=== PATIENT | female | born 1935 | race Caucasian/White ===

== ENCOUNTER 2017-08-13 10:58 | Inpatient (IN) | payer MEDICARE ==
[~2017-08-13] VITALS: Ht 167.6 cm; Wt 68.3 kg
[~2017-08-13 10:58] MED LIST: ASPIRIN EC81 MG PO; CATAPRES0.1 MG PO; COLACE100 MG PO; COREG12.5 MG PO; DOXEPIN HCL25 MG PO; FLUOXETINE HCL20 MG PO; NITROFURANTOIN50 MG PO; NORCO 5-325 TA1 EACH PO; OMEPRAZOLE40 MG PO
[2017-08-13] MEDS ORDERED: ELIQUIS5 MG PO (11:10)
[2017-08-13] MEDS ORDERED: PRAVACHOL40 MG PO (11:10)
--- OUTSIDE RECORDS SUMMARY | 2017-08-13 11:15 | XMS ---
Demographics + + + | Address | [address] | | | [place] [address] | + + + | Preferred Language | Unknown | + + + | Marital Status | Unknown | + + + | Roman Catholic Affiliation | Unknown | + + + | Race | Unknown | + + + | Ethnic Group | Unknown | + + + Author + + + | Author | [facility] | + + + | Organization | [facility] | + + + | Address | [address] | | | [place] [address] | + + + | Phone | | + + + Care Team Providers + + + + | Care Irish Moss Gatherer Name | Role | Phone | + + + + Unavailable | Unavailable | + + + + PROBLEMS +---------+ + + +--------+ + + | Type | Condition | ICD9-CM | [id number] | Onset | Condition | SNOMED | | | | Code | Code | Dates | Status | Code | +---------+ + + +--------+ + + | Problem | Atrial | | I48.91 | | Active | [id number] | | | fibrillati | | | | | | | | on | | | | | | +---------+ + + +--------+ + + | Problem | GERD | | K21.9 | | Active | [id number] | | | (gastroeso | | | | | | | | phageal | | | | | | | | reflux | | | | | | | | disease) | | | | | | +---------+ + + +--------+ + + | Problem | Hypothyroi | | E03.9 | | Active | 14412807 | | | dism | | | | | | +---------+ + + +--------+ + + | Problem | Encounter | | Z13.89 | | Active | [id number] | | | for | | | | | | | | screening | | | | | | | | for other | | | | | | | | disorder | | | | | | +---------+ + + +--------+ + + | 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 | | | Active | [id number] | +---------+ + + +--------+ + + | Problem | Chronic | | N18.3 | | Active | 427503712 | | | kidney | | | | | | | | disease, | | | | | | | | stage 3 | | | | | | +---------+ + + +--------+ + + | Problem | HTN | | I10 | | Active | 54241132 | | | (hypertens | | | | | | | | ion) | | | | | | +---------+ + + +--------+ + + | Problem | Recurrent | | N39.0 | | Active | [id number] | | | UTI | | | | | | +---------+ + + +--------+ + + | Problem | Chronic | | R05 | | Active | 36329552 | | | cough | | | | | | +---------+ + + +--------+ + + | Problem | Peripheral | | G62.9 | | Active | 455606804 | | | | | | | | | | | neuropathy | | | | | | +---------+ + + +--------+ + + ALLERGIES + + + + +--------+ | Substance | Reaction | Event Type | Date | Status | + + + + +--------+ | Augmentin | Unknown | Drug Allergy | Jan, | Active | + + + + +--------+ | Simvastatin | Unknown | Drug Allergy | Jan, | Active | + + + + +--------+ | Lipitor | Unknown | Drug Allergy | 12 Jan, 2017 | Active | + + + + +--------+ SOCIAL HISTORY No smoking Hx information available PLAN OF CARE + +---------+ | Activity | Details | + +---------+ +---+ | | +---+ + + + | Follow Up | 2 Months Reason:null | + + + VITAL SIGNS + + + + | Height | 65 in | 2017-01-29 | + + + + | Weight | 154.8 lbs | 2017-01-29 | + + + + | BMI | 25.76 kg/m2 | 2017-01-29 | + + + + | Temperature | 97.7 degrees Fahrenheit | 2017-01-29 | + + + + | Heart Rate | 72 /min | 2017-01-29 | + + + + | Blood pressure systolic | 169 mm Hg | 2017-01-29 | + + + + | Blood pressure diastolic | 84 mm Hg | 2017-01-29 | + + + + MEDICATIONS + + + + +--------+ + +--------+ | Medicati | Instruct | Dosage | Frequenc | Start | End Date | Duration | Status | | on | ions | | y | Date | | | | + + + + +--------+ + +--------+ | Carvedil | Orally | 1 tablet | | | | | Active | | ol 12.5 | twice | | | | | | | | MG | daily | | | | | | | + + + + +--------+ + +--------+ | Apixaban | | | | | | | Active | | 5 MG | | | | | | | | + + + + +--------+ + +--------+ | Omeprazo | Orally | 1 | 24h | | | | Active | | le 40 MG | Once a | capsule | | | | | | | | day | | | | | | | + + + + +--------+ + +--------+ | Trimetho | Orally | 1 tablet | 24h | | | | Active | | prim 100 | Once a | | | | | | | | MG | day | | | | | | | + + + + +--------+ + +--------+ RESULTS No Results PROCEDURES + + + + + | Procedure | Date Ordered | Related Diagnosis | Body Site | + + + + + | PNEUMOCOCCAL | January 29, 2017 | | | | VACCINE | | | | + + + + + | INJECTION | January 29, 2017 | | | | ADMINISTRATION | | | | + + + + + | [facility]RG MED/CURRENT | January 29, 2017 | | | | MED MERGE | | | | + + + + + | Est Level III | January 29, 2017 | | | | Intermediate | | | | + + + + + IMMUNIZATIONS + + + + + | Vaccine | Route | Administration Date | Status | + + + + + | [id number] | IM Intramuscular | January 29, 2017 | Administered | + + + + +"
--- OUTSIDE RECORDS SUMMARY | 2017-08-13 11:15 | XMS ---
Demographics + + + | Address | [address] | | | [place] [address] | + + + | Preferred Language | Unknown | + + + | Marital Status | Unknown | + + + | Gnosticist Affiliation | Unknown | + + + | Race | Unknown | + + + | Ethnic Group | Unknown | + + + Author + + + | Author | [facility] | + + + | Organization | [facility] | + + + | Address | [address] | | | [place] [address] | + + + | Phone | | + + + Care Team Providers + + + + | Care Oil Truck Driver Name | Role | Phone | + + + + Unavailable | Unavailable | + + + + PROBLEMS + + + + + + + + | Type | Condition | ICD9-CM | [id number] | Onset | Condition | SNOMED | | | | Code | Code | Dates | Status | Code | + + + + + + + + | Problem | Atrial | | I48.91 | | Active | [id number] | | | fibrillati | | | | | | | | on | | | | | | + + + + + + + + | Problem | GERD | | K21.9 | | Active | [phone] | | | (gastroeso | | | | | | | | phageal | | | | | | | | reflux | | | | | | | | disease) | | | | | | + + + + + + + + | Problem | Hypothyroi | | E03.9 | | Active | 64964937 | | | dism | | | | | | + + + + + + + + | Assessment | Neuropathi | M79.2 | | 28 Apr, | Active | [id number] | | | c pain | | | 2016 | | | + + + + + + + + | Assessment | UTI | | N39.0 | Oct, | Active | 69187177 | | | (urinary | | | 2016 | | | | | tract | | | | | | | | infection) | | | | | | + + + + + + + + | Assessment | 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 | | 28 Oct, | Active | 828926954 | | | | | | 2016 | | | + + + + + + + + | Problem | Encounter | | Z13.89 | | Active | [phone] | | | for | | | | | | | | screening | | | | | | | | for other | | | | | | | | disorder | | | | | | + + + + + + + + | 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 | | | Active | 494947672 | + + + + + + + + | Problem | Chronic | | N18.3 | | Active | 022644548 | | | kidney | | | | | | | | disease, | | | | | | | | stage 3 | | | | | | + + + + + + + + | Problem | HTN | | I10 | | Active | 33317049 | | | (hypertens | | | | | | | | ion) | | | | | | + + + + + + + + | Problem | Recurrent | | N39.0 | | Active | 105029993 | | | UTI | | | | | | + + + + + + + + | Problem | Chronic | | R05 | | Active | 22779655 | | | cough | | | | | | + + + + + + + + | Problem | Peripheral | | G62.9 | | Active | 718039776 | | | | | | | | | | | neuropathy | | | | | | + + + + + + + + ALLERGIES + + + + +--------+ | Substance | Reaction | Event Type | Date | Status | + + + + +--------+ | Augmentin | Unknown | Drug Allergy | Oct, | Active | + + + + +--------+ | Simvastatin | Unknown | Drug Allergy | Oct, | Active | + + + + +--------+ | Lipitor | Unknown | Drug Allergy | 28 Oct, 2016 | Active | + + + + +--------+ SOCIAL HISTORY No smoking Hx information available PLAN OF CARE + +---------+ | Activity | Details | + +---------+ +---+ | | +---+ + + + | Pending Test | Ultrasound : Kidneys, bilateral | + + + | | 6 Weeks,Reason: | + + + VITAL SIGNS + + + + | Height | 65 in | 2016-11-15 | + + + + | Weight | 156 lbs | 2016-11-15 | + + + + | BMI | 25.96 kg/m2 | 2016-11-15 | + + + + | Temperature | 97.9 degrees Fahrenheit | 2016-11-15 | + + + + | Heart Rate | 79 /min | 2016-11-15 | + + + + | Blood pressure systolic | 139 mm Hg | 2016-11-15 | + + + + | Blood pressure diastolic | 76 mm Hg | 2016-11-15 | + + + + MEDICATIONS + + + + + + + +--------+ | Medicati | Instruct | Dosage | Frequenc | Start | End Date | Duration | Status | | on | ions | | y | Date | | | | + + + + + + + +--------+ | Cipro | Orally | 1 tablet | 12h | 28 Oct, | 3 November, | 5 day(s) | Active | | 500 MG | Twice a | | | 2016 | 2016 | | | | | day | | | | | | | + + + + + + + +--------+ | Trimetho | Orally | 1 tablet | 24h | | | | Active | | prim 100 | Once a | | | | | | | | MG | day | | | | | | | + + + + + + + +--------+ | Omeprazo | Orally | 1 | 24h | | | | Active | | le 40 MG | Once a | capsule | | | | | | | | day | | | | | | | + + + + + + + +--------+ | Carvedil | Orally | 1 tablet | | | | | Active | | ol 12.5 | twice | | | | | | | | MG | daily | | | | | | | + + + + + + + +--------+ | Candesar | Orally | 1 tablet | 24h | 28 Oct, | | 30 | Active | | bettencourt | Once a | | | 2017 | | day(s) | | | Cilexeti | day | | | | | | | | l 4 MG | | | | | | | | + + + + + + + +--------+ | Duloxeti | Orally | 1 | 24h | 28 Oct, | | 30 | Active | | ne HCl | once a | capsule | | 2016 | | day(s) | | | 20 MG | day | | | | | | | + + + + + + + +--------+ RESULTS No Results PROCEDURES + + + + + | Procedure | Date Ordered | Related Diagnosis | Body Site | + + + + + | Est Level IV | November 15, 2016 | | | | Extended | | | | + + + + + | DSCHRG MED/CURRENT | November 15, 2016 | | | | MED MERGE | | | | + + + + + IMMUNIZATIONS No Known Immunizations"
--- NOTE | 2017-08-13 15:25 | NUR ---
82 YEAR OLD FEMALE PATIENT ADMITTED TO CCU VIA STRETCHER UNDER DR. JEAN BAPTISTE WITH DX OF HTN/POSSIBLE STROKE. UPON ADMIT TO CCU PT IS ABLE TO FOLLOW COMMANDS, IS SOMEWHAT DELAYED AT TIMES. HAS EXPRESSIVE APHASIA. DENIES CHANEY. IVF PATENT. ADMISSION PROCESS STARTED.
--- NOTE | 2017-08-13 16:00 | NUR ---
UP TO COMMODE WITH ASSIST. IS FAIRLY STEADY ON FEET. HAVING DIFFICULTY FOLLOWING DIRECTION. FRUSTRATED AT TIMES. URINE IS FOUL SMELLING.
--- NOTE | 2017-08-13 18:36 | NUR ---
ASLEEP, NO DISTRESS NOTED. FAMILY MEMBERS ARE AT BEDSIDE. IVF INFUSING AT 75 ML/HR
--- NOTE | 2017-08-13 19:45 | NUR ---
PT RESTING IN BED AT THIS TIME WITH FAMILY IN AND OUT OF THE BEDROOM. WILL CONTINUE TO CLOSELY MONITOR. PT REPORT RECIVED FROM ELENI RN. ALL QUESTIONS ANSWERED.
--- NOTE | 2017-08-13 21:45 | NUR ---
PT RESTING IN BED. ENTERED ROOM AND WOKE PT. PT IN THE BEGINNING WAS UNABLE TO COMMUNICATE HER NEEDS. PT WOKE UP AND BECAME MORE ALERT PT WAS ABLE TO TALK EASIER. PT WAS ABLE TO FOLLOW COMMANDS FOR NEURO ASSESSMENT. PT WAS ABLE TO SQUEEZE HANDS, SHRUG SHOULDERS, SMILE, RAISE EYEBROWS,MOVE FEET ALL BEING EQUAL. PT SPEECH IS SLOW AND PT IS UNABLE TO COMMUNICATE NEED AT TIMES. PT COULD TELL ME NAME ONLY AT FIRST. PT UP TO CAMMODE WITH NO ISSUES.
--- NOTE | 2017-08-13 22:30 | NUR ---
PT ATE JELLO WITH NO ISSUES. SPEECH AND FORGETFULLNESS ARE IMPROVING SINCE WAKING UP AND TALKING WITH FAMILY. PT WAS ABLE TO TELL ME HER FULL NAME, HER KIDS NAMES, WHO ARE PRESIDENT IS. PT REMEMBERS WHAT SHE DID YESTERDAY AND REMEMBERS PARTS AND PIECES OF WHAT HAPPENED THIS MORNING. PT SPEECH IS STILL HESITANT AT TIMES AND SHE DOES HAVE A DIFFICULT TIME COMMUNICATING SOME THOUGHTS. BED ALARM ON. FAMILY AT BEDSIDE. WILL CONTINUE TO CLOSELY MONITOR PT.
--- NOTE | 2017-08-14 00:45 | NUR ---
PT ASSESSMENT COMPLETED. PT RESTING IN BED. PT NEURO ASSESMENT UNCHANGED FROM PREVIOUS ASSESSMENT. ASKED PT IF SHE NEEDE TO URINATE. PT DENIED THE NEED A THIS TIME. PT ABLE TO FOLLOW COMMANDS ONCE SHE WAS AWAKE. PT SLOW TO RESPOND AND HAS EXPRESIVE APHASIA AT TIMES. PT DENIED PAIN. PT COULD TELL ME NAME BUT WAS NOT ABLE TO TELL ME OR WHY SHE WAS IN THE HOSPITAL. BED ALARM REMAINS ON. FAMILY AT BEDSISDE. WILL CONTINUE TO CLOSELY MONITOR.
--- NOTE | 2017-08-14 02:00 | NUR ---
PT RESTING AT THIS TIME. FAMILY REMAINS AT BEDSIDE. WILL CONTINUE TO CLOSELY MONITOR. BED IN LOWEST POSITION. BED ALARM ON. CALL LIGHT IN REACH.
--- NOTE | 2017-08-14 03:35 | NUR ---
PT SET OFF BEDALARM. ENTERED ROOM AND PT SITTING UP IN BED. PT STATED SHE HAS TO PEE. ASSISTED TO CAMMODE. ONCE BACK TO BED COMPLETED ASSESSMENT. PT WAS ABLE TO FOLLOW COMMANDS WELL. WHEN ASKED QUESTIONS SUCH WHERE SHE WAS PT WAS NOT ABLE TO ANSWER. PT KNEW HER NAME AND BIRTHDAY, BUT WAS UNABLE TO ANSWER OTHER QUESTIONS. BED ALARM TURNED BACK ON. PT RESTING IN BED. WILL CONTINUE TO CLOSELY MONITOR.
--- NOTE | 2017-08-14 06:43 | NUR ---
ASSISTED TPT UP TO BEDSIDE CAMMODE. PT TOLERATED WELL. WILL CONTINUE TO CLOSELY MONITOR.
--- NOTE | 2017-08-14 08:37 | NUR ---
report received from night baker, patient in bed sitting up getting ready to eat breakfast. family member in room. patient can tell me name and part of her date of . has some word salad. strength in extremeties equal.
--- NOTE | 2017-08-14 08:40 | NUR ---
ECHO STARTED IN PATIENT ROOM.
--- NOTE | 2017-08-14 08:48 | NUR ---
JULIANNE AREA NOT ASSESSED YET THIS AM. MICH PANTS ON AND PATIENT/ FAMILY STATES NO BREAKDOWN OR ISSUES IN JULIANNE AREA. WILL ASSESS WHEN PATIENT UP TO BATHROOM AGAIN THIS AM.
--- NOTE | 2017-08-14 10:07 | NUR ---
Dr Clement just finished rounding on patient. new orders to transfer patient to med/surg
--- NOTE | 2017-08-14 10:39 | NUR ---
to MRI after using the commode and having large BM and urine.
--- NOTE | 2017-08-14 10:49 | NUR ---
report given to Margarette NEWSOME on med/surg, patient will be taken to room 111 after MRI complete.
--- NOTE | 2017-08-14 11:29 | NUR ---
PATIENT CONTINUES TO HAVE COMPLAINTS OF HEADACHE, APPEARS TO BE HAVING PAIN BEHIND EYES AND THROBBING AROUND. DISCUSSED TYENOL THAT WAS ADMINISTERED AN HOUR AGO. MRI DONE, PATIENT TO THIS ROOM. VS STABLE FOR PATIENT. STATES " WHEN I COUGH, IT MAKES MY THIS HURT REALLY BAD" PATIENT THEN POINTS TO HER NECK.
[2017-08-14] MEDS ORDERED: PLAVIX75 MG PO (12:30)
--- NOTE | 2017-08-14 12:31 | NUR ---
MED REC COMPLETE
--- NOTE | 2017-08-14 14:37 | NUR ---
PT IS RESTING IN BED SAFELY WITH CALL LIGHT IN REACH. PT DID NOT NEED ANYTHING AT THE MOMENT
--- NOTE | 2017-08-14 15:53 | EKG ---
[facility] [address] [place] [address] Signed Atrial fibrillation with rapid ventricular response Abnormal ECG No previous ECGs available Confirmed by NEVA JEAN BAPTISTE MD ([id number]) on 08/14/2017 3:53:07 PM Electronically Signed By: NEVA JEAN BAPTISTE MD 08/14/17 1553 PATIENT NAME: JAYDEN BULLOCK Electrocardiogram DATE OF : 35 PHYSICIAN: NEVA JEAN BAPTISTE MD REPORT #: [id number] REPORT IS CONFIDENTIAL AND NOT TO BE RELEASED WITHOUT AUTHORIZATION
--- NOTE | 2017-08-14 16:14 | NUR ---
NEURO CHECK UNCHANGED, PATIENT APPEARS TO HAVE STRONG EMMA STRENGTH. VS STABLE. FAMILY IN ROOM. PATIENT ABLE TO COMMUNICATE NEEDS. STATES " I WISH I WAS DOING BETTER WITH PHYSCIAL THERAPY."
--- NOTE | 2017-08-14 17:48 | NUR ---
PT IS SITTING UP ON THE SIDE OF BED. FAMILY IN ROOM, CALL LIGHT IN REACH. PT DID NOT NEED ANYTHING ELSE AT THE MOMENT
--- NOTE | 2017-08-14 19:05 | NUR ---
RECEIVED REPORT, PT IS AWAKE IN BED WITH MANY VISITORS IN THE ROOM. SHE HAS NO COMPLAINTS OF PAIN OR ANY REQUESTS AT THIS TIME. CALL LIGHT IS WITHIN REACH.
--- NOTE | 2017-08-14 19:44 | NUR ---
PATIENT TRANSFER TO FLOOR FROM CCU THIS AFTERNOON. NEURO CHECKS INSIGNIFICANT, HOWEVER PATIENT DOES HAVE TROUBLE FINDING WORDS AT TIMES WHEN COMMUNICATING. VS STABLE, NOTED STABLE HTN. PATIENT AMBULATING WITH PHYSICAL THERAPY, AND WAS ABLE TO TO GO UP AND DOWN STAIRS. PATIENT HAS LOTS OF FAMILY AT BEDSIDE. COMPLAINTS OF HEADACHE THROUGHOUT DAY, ADMINISTERED PAIN MEDICAITON,EFFECTIVE. PAIN GOAL IS A 3, NOW RATES PAIN 2/10 ON PAIN SCALE.
--- NOTE | 2017-08-14 20:05 | NUR ---
PATIENT ASSISTED TO THE RESTROOM. PATIENT IS A 1PA. PATIENT DOES SWAY WITH AMBULATING. PATIENT DID TRY TO SIT ON SHOWER CHAIR. PATIENT REDIRECTED TO THE TOILET. PATIENT WAS ABLE TO VOID. PATIENT IS NOW BACK IN BED RESTING. PATIENT STATED "I JUST FEEL IN A FOG". PATIENT DENIES ANY DIZZINESS OR LIGHTHEADEDNESS. PATIENT HAS FAMILY IN THE ROOM. PATIENT AND FAMILY DENIES ANY FURTHER NEEDS. CALL LIGHT IN REACH.
--- NOTE | 2017-08-14 22:15 | NUR ---
PT'S EXTENDED FAMILY HAS LEFT BUT DAUGHTER REMAINS IN THE ROOM AND WILL STAY THE NIGHT. WOKE PT TO COMPLETE ASSESSMENT SHE WAS BUSY VISITING EARLIER. UPON WAKING PT WAS SLIGHTLY CONFUSED BUT REORIENTED WELL. PUPILS ARE EQUAL ROUND AND REACTIVE TO LIGHT, PT'S CERTIFIED CONTROL SYSTEMS TECHNICIAN STRENGTHS IS GOOD AND SHE STATES NO PROBLEMS WITH CMS. PT STATES HER HEADACHE IS GONE AND HAS NO OTHER COMPLAINTS OF PAIN. VS STABLE BUT BP IS ELEVATED IT HAS BEEN TRENDING HIGH. EVENING MEDICATIONS WERE GIVEN A LITTLE EARLIER. PT HAS NO REQUESTS AT THIS TIME. HOB IS ELEVATED, AND CALL LIGHT IS WITHIN REACH. PTS DAUGHTER IS IN ROOM.
--- NOTE | 2017-08-15 01:17 | NUR ---
PT IS RESTING WITH EYES CLOSED, RESPIRATIONS EVEN AND NONLABORED. PT'S DAUGHTER IS IN ROOM AND CALL LIGHT IS WITHIN REACH.
--- NOTE | 2017-08-15 03:40 | NUR ---
PT IS RESTING WITH EYES CLOSED, RESPIRATIONS EVEN AND NONLABORED. DAUGHTER IS IN ROOM AND CALL LIGHT IS WITHIN REACH.
--- NOTE | 2017-08-15 05:19 | NUR ---
PT SLEPT WELL THROUGH THE NIGHT WITH DAUGHTER IN ROOM. HER BP HAS DECREASED TO 152/71 AND PT REPORTS NO PAIN OR HEADACHES AT THIS TIME. PT VOIDED A COUPLE OF TIMES THROUGH THE NIGHT WITH HELP OF DAUGHTER WITH URINE UNMEASURED BUT NO WORRIES OF INSUFFICIENT URINE OUTPUT. TENTER FRAME OPERATOR STRENGTH IS GOOD AND PT CONTINUES TO HAVE EXPRESIVE APHASIA. WILL CONTINUE TO MONITOR.
--- NOTE | 2017-08-15 09:51 | NUR ---
PATIENT UP THIS MORNING TO BATHROOM, NOTED URINE MIXED WITH BM. DAUGHTER REPORTS CONCERNS OF PATIENT NOT GOING TO THE BATHROOM MUCH SHE USUALLY DOES AND COLOR OF URINE. ENCOURAGED PATIENT TO DRINK MORE FLUIDS. ADMINISTERED MORNING MEDICATIONS. PATIENT COMPLAINTS OF HEADACHE, REQUESTED TYLENOL. PATIENT ATTEMPTED TO SIT UP IN RECLINER, HOWEVER LESS THEN 5 MINUTES AND PATIENT WENT BACK TO BED. NOW RESTING WITH EYES CLOSED. VS STABLE. ATTEMPTED NEUROS, PATIENT STATED " I JUST CANT WITH MY HEAD HURTING". OFFERED NARCOTIC PAIN RELIEF, PATIENT REFUSED AT THIS TIME. FACTORY FOCUS TECHNICIAN STRONG EMMA, PATIENT STATES RIGHT SIDE OF HEAD IS POUNDING.
--- NOTE | 2017-08-15 13:49 | NUR ---
DR. JEAN BAPTISTE ROUNDED ON PATIENT. DISCUSSED POC, BRANDIE ANTISQUEAK APPLIER PRESENT. DISCUSSED CONTINUING INPATIENT REHAB AND THEN DISCHARGING TO [facility] WHEN BED IS AVAILABLE. PATIENT PARTICIPATED IN DISCUSSION AND ABLE TO PROVIDE FEEDBACK. PATIENT APPEARS TO HAVE SOME RIGHT SIDED VISION DEFICITS AND WAS NOT ABLE TO FOLLOW 2 OR 3 STEP COMMANDS. FAMILY PRESENT IN ROOM. ORDERED PATIENT SOME LUNCH.
--- NOTE | 2017-08-15 14:00 | NUR ---
CARE CONFERENCE ATTENDEES: PATIENT, PTS MANY DAUGHTERS AND HER SON. STAFF: DR JEAN BAPTISTE, MYSELF CASE MANAGEMENT, PATRICIA [facility] RN DR JEAN BAPTISTE DISCUSSING WITH PT AND HER FAMILY THE RESULTS OF HER TESTS THAT SHE HAD AND HER DIAGNOSIS AND HER THERAPIES. WE DISCUSSED HER DC DISPOSITION. HER FAMILY WOULD LIKE HER TO GO TO [facility] IN REHAB S THEIR FATHER, THE PT HAD BEEN THERE FOR REHAB AND THE PTS NEUROLOGIST, LICENSED MORTGAGE LOAN OFFICER ARE THERE ALSO. EXPRESSED HOW HE FEELS THE PT WOULD BENEFIT FROM CONT INPT REHABILITATION FACILITY.
--- NOTE | 2017-08-15 14:16 | NUR ---
ST VISIT ATTEMPTED; PT VISITING WITH FAMILY AND HAVING NOON MEAL. WILL ATTEMPT REVISIT AT ANOTHER TIME. MS PAM CCC-NURSING CLERK
--- NOTE | 2017-08-15 14:55 | NUR ---
FAXED CHART NOTES TO [facility] INPT REHAB INCLUDING FACESHEET, ER NOTES, H AND P, PROG NOTES, IMAGING NOTES, PT, OT, AND ST EVALS AND NOTES. RECIEVED A FAX CONFIRMATION.
--- NOTE | 2017-08-15 15:30 | NUR ---
PATIENT RESTING WITH EYES CLOSED. FAMILY AT BEDSIDE. DISCUSSED PLANS FOR SHOWERING WHEN PATIENT UP TO BATHROOM. PATIENT VOIDING WELL. HEADACHE RESOLVED FOR NOW. STBY ASSIST.
--- NOTE | 2017-08-15 17:45 | NUR ---
PATIENT UP AMBULATING IN ROOM, REFUSED SHOWER FOR DAY SHIFT. EATING WELL, VOIDING WELL. HAS HAD 3 EPISODES OF LOOSE STOOLS. PATIENT APPEARS TO BE IMPROVING. SOME WORD SALAD AND TROUBLE FINDING WORDS, APPEARS TO BE COPING WELL, WILL LAUGH AND SMILE AT TIMES WHEN FRUSTRATED. GOOD FAMILY SUPPORT.
--- NOTE | 2017-08-15 19:05 | NUR ---
ROUNDED CHARGE. PATIENT IS RESTING IN BED. PATIENT HAS FAMILY MEMBERS AT THE BEDSIDE. PATIENT AND FAMILY DENY AND COMMENTS, QUESTIONS, OR CONCERNS. CALL LIGHT IN REACH.
--- NOTE | 2017-08-15 19:10 | NUR ---
BEDSIDE REPORT RECEIVED FROM MERCEDEZ BUTLER. PT SITTING UP AT SIDE OF BED, FAMILY IN ROOM. PT ASKING QUESTIONS REGARDING BLOOD PRESSURE, EXPRESSIVE APHASIA EVIDENT. ASSESSED PAIN, PT STATES SHE HAS A HEADACHE, RATES PAIN 3/10 IN LEFT BAPTIST AREA. ADMINISTERED 500 MG PRN ACETAMINOPHEN AT THIST TIME. PT HAS CALL LIGHT IN REACH, FAMILY WILL ASSIST TO SHOWER PT. GAVE PT CONDITIONER FOR HAIR.
--- NOTE | 2017-08-15 19:57 | NUR ---
IN PT ROOM, PT OUT OF SHOWER, GAVE PT TWO WARM BLANKETS, EMPTIED PTS URINE HAT, 250 ML VOID. DAUGHTERS IN ROOM. PT HAS WATER ON BEDSIDE TABLE. CALL LIGHT IN REACH.
--- NOTE | 2017-08-15 20:49 | NUR ---
A FAMILY MEMBER CAME OUT OF PTS ROOM AND TOLD ME TO GET RID OF PTS PEPSI AND TO NOT LET HER HAVE ANY MORE. I DUMPED PEPSI OUT AND TOLD HER RN.
--- NOTE | 2017-08-15 21:39 | NUR ---
PT ASSESSMENT AND VITALS COMPLETE. BP 153/78, HR 87, 98% SPO2 ON ROOM AIR, RR 18, BREATHING NON LABORED, AFEBRILE. PT CONTINUES TO HAVE EXPRESSIVE APHASIA. ORIENTED TO PERSON, AND PLACE. PT IS NOT ABLE TO STATE EXACT DATE, PIECES OF DATE AT TIMES. PERRL, VISUAL DEFICIT IN RIGHT LOWER QUADRANT, FAMILY CONCERNED WITH VISUAL DEFICIENCY, UNDERSTANDING OF STROKE EDUCATION. PT NOT ABLE TO DISCERN RIGHT FROM LEFT. CANNOT COVER LEFT EYE WITH RIGHT HAND. CSM INTACT BILATERALLY UPPER AND LOWER EXTERMITIES, PT CAN STATE WHEN TOUCH IS FELT, CANNOT STATE RIGHT OR LEFT LEG OR HAND BEING TOUCHED. PT IS STRONG BILATERALLY UPPER AND LOWER EXTREMITIES, STEADY GAIT. LUNGS CLEAR THROUGHOUT ALL LOBES. PT IN BED, GIVEN CLEAR ENSURE AND FRESH ICE WATER. DAUGHTER AT BEDSIDE. LIGHTS OFF IN ROOM.
--- NOTE | 2017-08-15 23:20 | NUR ---
PT SLEEPING AT THIS TIME, RR 16, BREATHING NON-LABORED. PTS DAUGHTER ON COUCH. LIGHTS OFF IN ROOM.
--- NOTE | 2017-08-16 02:18 | NUR ---
IN PT ROOM. PT SLEEPING, DAUGHTER AWAKE ON COUCH, PT AWAKES TO VOICE. DAUGHTER STATES PT WAS INCONTINENT IN BRIEF, CHANGED JULIANNE PAD, SMALL VOID EMPTIED FROM URINE HAT. PTS LUNGS CLEAR, PT CONTINUES TO HAVE EXPRESSIVE APHASIA. BP 144/66 (85), HR IRREGULAR 60S-70S. PT BACK TO SLEEP, LIGHTS OFF IN ROOM. WILL CONTINUE TO MONITOR.
--- NOTE | 2017-08-16 05:25 | NUR ---
MORNING ASSESSMENT COMPLETE. EXPRESSIVE APHASIA NOTED, PT ABLE TO STATE THAT IT IS FRIDAY TODAY. PT NOT ABLE TO STATE EXACT DATE, NOT ORIENTED TO PLACE, EVENT. PT DOES KNOW NAME. RIGHT SIDED VISUAL NEGLECT NOTED, HEMANOPIA, SENSATION INTACT BILATERALLY UPPER AND LOWER EXTREMITIES. PT HAS NORMAL STRENGTH BILATERALLY UPPER AND LOWER EXTREMITIES, SHAKY WITH MOVEMENT TO RIGHT. PT UP TO RESTROOM TO WASH FACE, TAKE OUT DENTURES. GAIT IS STEADY, SBA. PTS DAUGHTER IN ROOM. BROUGHT DAUGHTER HOT WATER FOR TEA AND PT HOT CHOCOLATE REQUESTED, PT DENIES PAIN. CALL LIGHT GIVEN TO PT.
--- NOTE | 2017-08-16 06:20 | NUR ---
PT UP WALKING HALLWAY WITH DAUGHTER, GAIT STEADY, NON-SLIP SOCKS ON.
--- NOTE | 2017-08-16 06:35 | NUR ---
PT ALERT, ORIENTED TO SELF AND DAY. PT NOT ABLE TO STATE LOCATION, EVENT, OR EXACT DATE. RIGHT SIDED HEMIANOPIA NOTED. NORMAL STRENGTH BILATERALLY UPPER AND LOWER EXTREMITIES, SENSATION INTACT. PT AMBULATED HALLWAY WITH SBA X 2 WITH DAUGHTER. PT HAD SHOWER. UP TO RESTROOM FOR VOIDS, CONTINUES TO HAVE SOME DRIBBLING, INCONTINENCE IN JULIANNE PAD. PT RECEIVED TYLENOL X 1 FOR CHANEY.
--- NOTE | 2017-08-16 08:45 | NUR ---
PT IN BED SLEEPING. DAUGHTER IN ROOM WANTS TO LET HER SLEEP.
--- NOTE | 2017-08-16 10:00 | NUR ---
PATIENT UP WITH DAUGHTER WORKING ON LANGUAGE. PATIENT APPEARS TO BE DOING WELL HAVING A HARD TIME SAYING SKUNK, BUT CONTINUES TO TRY, LAUGHING. KEEPING GOOD SENSE OF HUMOR. NO HEADACHE THIS MORNING. UP WITH PHYSICAL THERAPY. FULL BODY ASSESMENT DONE.
--- NOTE | 2017-08-16 10:18 | NUR ---
VITALS DONE BY NURSE AND I AND O
--- NOTE | 2017-08-16 12:26 | NUR ---
PT DOING WELL. DAUGHTER IN ROOM W/ THERE DR. MOE HAS CALL LIGHT IN REACH
--- NOTE | 2017-08-16 13:56 | NUR ---
TOOK PATEINT SOME FRESH ICE WATER
--- NOTE | 2017-08-16 14:18 | NUR ---
NOTIFIED DR. JEAN BAPTISTE PATIENT BP 122/58 MANUL BP. ORDER HOLD COREG AT THIS TIME. INFORMED PATIENT, VERBALIZED UNDERSTANDING.
--- NOTE | 2017-08-16 16:15 | NUR ---
PT IN CHAIR. DOING WELL. FAMILY IN ROOM.
--- NOTE | 2017-08-16 18:00 | NUR ---
PATIENT HAD UNEVENTFL DAY, WORKED WITH PHYSICAL THERAPY. HEADACHE IMPROVED, NOT THROBBING. VS STABLE. FAMILY AT BEDSIDE.
--- NOTE | 2017-08-16 19:02 | NUR ---
PT DOING WELL. UP IN CHAIR. TOOK DINNER TRAY. FRESH ICE WATER. FAILY IN ROOM
--- NOTE | 2017-08-16 19:25 | NUR ---
BEDSIDE REPORT RECEIVED FROM MERCEDEZ BUTLER. PT FAMILY IN ROOM. PT LYING IN BED, HOB ELEVATED. PT DENIES A CHANEY AT THIS TIME, DENIES ANY PAIN. PT GIVEN CALL LIGHT AND INSTRUCTED TO CALL FOR ANY NEEDS. WILL CONTINUE TO MONITOR.
--- NOTE | 2017-08-16 21:00 | NUR ---
PT ASSESSMENT COMPLETE. PT DENIES CHANEY, DENIES PAIN. PT CONTINUES TO HAVE EXPRESSIVE APHASIA. ORIENTED TO DAY, STATES "ITS FRIDAY". PT ABLE TO STATE NAME, PARTIALLY ABLE TO STATE HOSPITAL NAME, DIFFICULTY FINISHING WORD. PT CONTINUES TO HAVE HEMIANOPSIA. CSM INTACT BILATERALLY UPPER AND LOWER EXTREMITIES. PT GIVEN CURTIS ENSURE TO DRINK, FRESH ICE WATER. FAMILY IN ROOM VISITING WITH PT. CALL LIGHT IN REACH.
--- NOTE | 2017-08-16 23:49 | NUR ---
PT SLEEPING, SNORING, VISIBLE CHEST RISE, LIGHTS OFF IN ROOM. DAUGHTER SLEEPING ON COUCH.
--- NOTE | 2017-08-17 00:09 | NUR ---
VITALS AND I&OS DONE AND CHARTED. PT NEEDED NOTHING AT THE TIME WHEN ASKED. BEDSIDE AND CALL LIGHT WITHIN REACH.
--- NOTE | 2017-08-17 01:55 | NUR ---
IN ROOM TO ASSESS PT. PT SLEEPING, AWAKENS TO VOICE. SPEECH EXPRESSIVE APHASIA, FACE IS SYMMETRICAL. PT DROWSY. PT REFUSES TO USE RESTROOM AT THIS TIME, REQUESTING TO SLEEP AT THIS TIME. LUNGS CLEAR THROUGHOUT ALL LOBES, HR IRREGULAR, BOWEL TONES ACTIVE. PT DENIES PAIN. ALTERNATIVE DISPUTE RESOLUTION MEDIATOR OCTOBER IN ROOM FOR VITALS. BP 151/86, 95% SPO2 ON ROOM AIR, HR IN MID 80S. CALL LIGHT IN REACH, LIGHTS OFF IN ROOM, DAUGHTER SLEEPING ON COUCH.
--- NOTE | 2017-08-17 02:13 | NUR ---
VITALS DONE AND CHARTED. BEDSIDE TABLE AND CALL LIGHT WITHIN REACH.
--- NOTE | 2017-08-17 04:50 | NUR ---
ASSISTED PT TO RESTROOM TO VOID WITH SBA. PT PERFORMED ORAL CARE, WASHED FACE INDEPENDENTLY. PT NOW UP IN CHAIR, GIVEN HOT CHOCOLATE, NO ADDITIONAL REQUESTS AT THIS TIME. CALL LIGHT, PERSONAL SUPPLIES IN REACH.
--- NOTE | 2017-08-17 06:10 | NUR ---
PT ASSESSMENT COMPLETE. PT CONTINUES TO HAVE EXPRESSIVE APHASIA AND RIGHT SIDED NEGLECT VISUALLY. LUNGS CLEAR THROUGHOUT, HR IRREGULAR. PT REQUESTING TOAST WITH BUTTER FOR BREAKFAST, DIFFICULTY SAYING BUTTER. ALSO WANTING JUICE,GIVEN CURTIS ENSURE. PT GIVEN CALL LIGHT, SITTING UP IN CHAIR, DAUGHTER ON COUCH.
--- NOTE | 2017-08-17 07:03 | NUR ---
PT SLEPT WELL THROUGHOUT SHIFT. CONTINUES TO HAVE EXPRESSIVE APHASIA, RIGHT SIDED NEGLECT WITH VISION. SBA, GAIT UNSTEADY WITH DEFICIT. DAUGHTER IN ROOM THROUGHOUT NIGHT. PT AMBULATING TO RESTROOM FOR VOIDS. JULIANNE PAD IN PLACE FOR INCONTINENCE.
--- NOTE | 2017-08-17 07:58 | NUR ---
PATIENT SITTING UP ON SIDE OF BED. WHITEBOARD UPDATED.
--- NOTE | 2017-08-17 08:00 | NUR ---
PATIENT ORDERED TOAST FOR BREAKFAST. PATIENT VS STABLE THIS MORNING. HARDEEP SOUNDS C/D/I. VS STABLE. NO COMPLAINTS OF PAIN OR HEADACHE THIS MORNING. SET PATIENT UP FOR SHOWER.
--- NOTE | 2017-08-17 13:00 | NUR ---
PATIENT UP WITH PHYSICAL THERAPY, INDEPENDANT IN ROOM. VS STABLE. NO COMPLAINTS OF PAIN. CONTINUES TO HAVE EXPRESSIVE EPHASIA. NO HEAD ACHE. PATIENT REPORTS FEELING " BETTER". FAMILY ANXIOUS TO HAVE PATIENT MOVED TO [facility].
--- NOTE | 2017-08-17 18:56 | NUR ---
PATIENT UP THROUGHOUT DAY, INDEPENDANT IN ROOM. PATIENT COMMUNICATING WITH FAMILY, CONTINUES TO HAVE EXPRESSIVE EPHASIA. PATIENT APPEARS CALM AND HAVING GOOD HUMOR WITH CONDITION. PLAN TO TRANSFER TO [facility] IN [facility] WHEN BED IS AVAILABLE.
--- NOTE | 2017-08-17 19:52 | NUR ---
RECEIVED REPORT FROM DAY SHIFT RN. PATIENT IS RESTING IN BED WATCHING TV WITH SON AT THE BEDSIDE. PATIENT DENIES ANY NEEDS AT THIS TIME. CALL LIGHT IN REACH.
--- NOTE | 2017-08-17 21:02 | NUR ---
PATIENT ASSESMENT COMPLETED. PATIENTS EVENING MEDICATIONS GIVEN PER ORDER. PATIENT DENIES ANY PAIN OR HEADACHE AT THIS TIME. PATIENT CONTINUES TO STRUGGLE TO FIND CORRECT WORDS AT TIMES. PATIENT CONTINUES TO HAVE A TROUBLE WITH HER VISION IN HER RIGHT EYE. PATIENT IS VERY GOOD NATURED ABOUT HER CURRENT CONDITION. PATIENT SON IS IN THE ROOM AND NELLY BE STAYING THE NIGHT. PATIENT DENIES ANY NEEDS AT THIS TIME. CALL LIGHT IN REACH.
--- NOTE | 2017-08-17 23:32 | NUR ---
PATIENT IS RESTING IN BED WITH EYES CLOSED. BREATHING IS EVEN AND UNLABORED, RR 17. SON IS ASLEEP ON THE COUCH. CALL LIGHT IN REACH.
--- NOTE | 2017-08-18 01:16 | NUR ---
PATIENT IS RESTING IN BED WITH EYES CLOSED, RR 17. CALL LIGHT IN REACH.
--- NOTE | 2017-08-18 03:03 | NUR ---
PATIENT AWOKE WHEN ROOM WAS ENETERD. PATIENT DENIES ANY PAIN. NO FURTHER NEEDS NOTED. CALL LIGHT IN REACH. SON ASLEEP ON THE COUCH.
--- NOTE | 2017-08-18 04:49 | NUR ---
PATIENT RESTED WELL THROUGHOUT THE SHIFT. PATIENT IS A SBA AND FAMILY ASSISTS PATIENT TO THE RESTROOM. PATIENT IS INCONTINENT AT TIMES. PATIENT IS ON A CARDIAC DIET. PATIENT IS DENIED ANY HEADAHCE OR PAIN. PATIENT IS AAOX3 AND USES CALL LIGHT APPROPRIATELY. PATIENT DOES HAVE SOME RIGHT SIDED VISUAL DEFICITS AND EXPRESSIVE APHASIA. PATIENT IS GOOD NATURED. PATIENTS SON STAYED WITH PATIENT.
--- NOTE | 2017-08-18 06:33 | NUR ---
VITALS AND I&OS DONE AND CHARTED. PT NEEDS NOTHING ELSE AT THIS TIME. FAMILY IN ROOM. BEDSIDE TABLE AND CALL LIGHT WITHIN REACH.
--- NOTE | 2017-08-18 06:41 | NUR ---
PATIENT IS RESTING IN BED WATCHING TV. PATIENT DENIES ANY NEEDS AT THIS TIME. PATIENTS SON REMAINS IN THE ROOM. CALL LIGHT IN REACH.
--- NOTE | 2017-08-18 08:30 | NUR ---
PATIENT IS VISITING WITH FAMILY AND EATING WELL. PATIENT DOES HAVE SOME TROUBLE SEEING OUT OF THE OUTER CCORNER OF HER RIGHT EYE. PATIENT HAS EXPRESSIVE APHASIA, BUT KNOWS THIS AND WILL THINK OF ANOTHER WAY TO SAY WHAT SHE IS TRYING TO GET ACROSS AND SHE CAN USUALLY DO THAT WITHOUT MUCH DIFFICULTY.
--- NOTE | 2017-08-18 11:00 | NUR ---
PATIENT SITTING UP IN THE CHAIR WATCHING TV. PATIENT SAID SHE DOES NOT NEED ANYTHING AND STILL SAYS SHE IS HAVING NO PAIN.
--- NOTE | 2017-08-18 12:50 | NUR ---
TALKED WITH PT SON JUSTIN IN THE ROOM WITH THE PT ABOUT [facility] NOT TAKING HIS MOTHER. TOLD HIM I SENT [facility]WORK [facility] IN REHAB AFTER TALKING WITH THEIR ADMISSION COORDINATOR, PJ. JUSTIN SAID THAT WAS A GOOD IDEA AND HE IS LOOKING FOR OTHER OPTIONS FOR HIS MOTHER, [place] IN [place] WHERE HE LIVES.
--- NOTE | 2017-08-18 13:00 | NUR ---
PATIENT IS VISITING IN HER ROOM WITH FAMILY. PATIENT HAS NOT HAD ANY PAIN AND SEEMS TO BE DOING WELL. INDEPENDENT IN ROOM WITH FAMILY.
--- NOTE | 2017-08-18 13:40 | NUR ---
1310 RECIEVED VERBAL CONFIRMATION FROM [facility] THAT THEY WILL ACCEPT THE PT PENDING AUTHORIZATION FROM HER INSURANCE. TALKED AGAIN WITH THE SON AND INFORMED HIM THAT [facility] HAD CALLED AND ACCEPTED HIS MOTHER PENDING AUTH FROM THE INSURANCE CO. HE SAID THAT WOULD BE GREAT. SO WE ARE WAITING TO HEAR FROM [facility].
--- NOTE | 2017-08-18 13:51 | NUR ---
PT SITTING ON COUCH, ALERT AND ORIENTED. SON JUSTIN VISITING, DR JEAN BAPTISTE HAD JUST LEFT. SAID JUSTIN SALVADOR REMEMBERED ME. PT SAID SHE IS WORKING HARD AT GETTING BETTER-IMPROVE EACH DAY. EXTENDED A BLESSING, AND LET THEM CONTINUE TO VISIT. WILL FOLLOW NEEDED
--- NOTE | 2017-08-18 14:29 | NUR ---
PATIENT VISITING WITH SON AND LOOKING AT PICTURES ON A WIRELESS DEVICE. HAS NO COMPLAINTS AND IS PAIN FREE.
[2017-08-18] MEDS ORDERED: COREG12.5 MG PO (15:10)
[2017-08-18] MEDS ORDERED: MAPAP500 M1 PO (15:11)
[2017-08-18] MEDS ORDERED: MILK OF MA400 MG/5 M PO (15:11)
== END 2017-08-18 16:30 | disposition home or self-care (01) | DRG 64 ==
LOC: ED 10:58 → MS 14:23 → CCU 14:23 → MS 08-14 10:50
PROVIDERS: ADMIT Internal Medicine
DX: I63.232 Cerebral infarction due to unspecified occlusion or stenosis of left carotid arteries (principal); G93.40 Encephalopathy, unspecified; I25.10 Atherosclerotic heart disease of native coronary artery without angina pectoris; K21.9 Gastro-esophageal reflux disease without esophagitis; R47.01 Aphasia; E78.5 Hyperlipidemia, unspecified; I10 Essential (primary) hypertension; H53.461 Homonymous bilateral field defects, right side
CPT/HCPCS: 70450; 70496; 70498; 70551; 71045; 80053; 80061; 81001; 83605; 83880; 84484; 85025; 87077; 87088; 87186; 87502; 92523; 92610; 93005; 93010; 93306; 94760; 97110; 97112; 97116; 97162; 97166; 97530; J1170; J2405; J7030; J7120; Q9967

== ENCOUNTER 2017-11-13 09:49 | Emergency (ER) | payer MEDICARE ==
[~2017-11-13] VITALS: Ht 167.6 cm; Wt 70.3 kg
--- OUTSIDE RECORDS SUMMARY | ~2017-11-13 | XMS | Encounter Summary ---
Demographics + + + | Address | [address] | | | [place] [address] | + + + | Home Phone | | + + + | Preferred Language | Unknown | + + + | Marital Status | | + + + | Confucianism Affiliation | 1077 | + + + | Race | Unknown | + + + | Ethnic Group | Unknown | + + + Author + + + | Author | [employer] | + + + | Organization | [facility] | + + + | Address | Unknown | + + + | Phone | Unavailable | + + + Support + + +---------+ + | Name | Relationship | Address | Phone | + + +---------+ + | Melissa Merrill | ECON | Unknown | | + + +---------+ + | Adry Merrlil | ECON | Unknown | | + + +---------+ + | Tenzin Merrill | ECON | Unknown | | + + +---------+ + Care Team Providers + +------+ + | Care Body Builder Name | Role | Phone | + +------+ + | Cristin Ordoñez MD | PCP | | + +------+ + Reason for Visit + + + | Reason | Comments | + + + | Follow-up | Right carotid endarterectomy | + + + Encounter Details +--------+---------+ + + + | Date | Type | Department | Care Team | Description | +--------+---------+ + + + | 09/24/ | Office | [facility] | Wolf Perez DNP | Ischemic stroke | | 2018 | Visit | Vascular Surgery | [address] | ([facility]) (Primary Dx); | | | | [address] | [place], [place] | Carotid artery | | | | [place], [place] | [address] | stenosis, | | | | [address] | | symptomatic, right; | | | | [phone] | | Carotid stenosis, | | | | | | asymptomatic, left; | | | | | | S/P carotid | | | | | | endarterectomy | +--------+---------+ + + + Social History + +-------+ +--------+------+ | Tobacco Use | Types | Packs/Day | Years | Date | | | | | Used | | + +-------+ +--------+------+ | Never Smoker | | | | | + +-------+ +--------+------+ + +---+---+---+ | Smokeless Tobacco: | | | | | Never Used | | | | + +---+---+---+ + + +---------+ + | Alcohol Use | Drinks/We | oz/Week | Comments | | | ek | | | + + +---------+ + | No | | | | + + +---------+ + + + + | Sex Assigned at | Date Recorded | | | | + + + | Not on file | | + + + as of this encounter Last Filed Vital Signs + +---------+ + | Vital Sign | Reading | Time Taken | + +---------+ + | Blood Pressure | 148/72 | 09/24/2017 1:20 PM PST | + +---------+ + | Pulse | 75 | 09/24/2017 1:20 PM PST | + +---------+ + | Temperature | - | - | + +---------+ + | Respiratory Rate | - | - | + +---------+ + | Oxygen Saturation | 99% | 09/24/2017 1:20 PM PST | + +---------+ + | Inhaled Oxygen | - | - | | Concentration | | | + +---------+ + | Weight | - | - | + +---------+ + | Height | - | - | + +---------+ + | Body Mass Index | - | - | + +---------+ + in this encounter Progress Notes Wolf Perez DNP - 09/24/2017 1:30 PM [facility] [address] [place] [address] [place] [address] Office: [phone] DATE OF VISIT: 09/24/2017 PATIENT NAME: Maryjo Merrill : 1935; AGE: 82 y.o.; Sex:F PHONE NUMBER: ; PROVIDER: Wolf Perez DNP PRIMARY CARE / REFERRING PHYSICIAN: Cristin Ordoñez MD / CRISTIN ORDOÑEZ /[id number] / [place] [id number] The patient presents today for a Vascular Surgery Postoperative Visit. The patient is statu s post right CEA, which was performed on 09/09/2017 at the [facility] rating Room. The patient is not having any pain. The patient denies fever, wound drainage, increasing redness, pus, increasing pain, increasing swelling. Physical examination revealed right CEA surgical incision which is healing well without signs of infection. She has been able to tolerate diet and reported no difficulty swallowing or hoarseness. She will start ph ysical therapy tomorrow. The patient is status post left carotid endarterectomy with bovine pericardial patch, which was performed on 04/29/2017 at the [facility] Operating Room. The patient currently reports no numbness in the upper or lower extremities, and no motor o r sensory deficits. The patient reports no difficulty in cognitive ability, slurred speech, or impaired verbal communication capability. The patient is taking Plavix, Eliquis, and stat in daily. VITAL SIGNS: BP 148/72 (BP Location: Left upper arm, Patient Position: Sitting) | Pulse 75 | SpO2 99% PHYSICAL EXAM: Constitutional: Well nourished, no signs of distress. Cardiovascular: Normal rate, regular rhythm. Pulmonary/Chest: No respiratory distress. No adventitious sounds. Musculoskeletal: Normal range of motion. Extremities: No edema, cyanosis or clubbing. Neurological: She is alert and oriented. No muscle weakness and normal gait. CNI-XII intact . VASCULAR: right CEA surgical incision which is healing well without signs of infection. Lef t CEA incision is healed. Assessment & Plan: Carotid artery stenosis & s/p CEA - The patient doing well. Continue plavix daily. We have discussed signs and symptoms of TIA or CVA that would warrant urgent follow up with vascular clinic or nearest emergency facility such as difficulty speaking, swallowing, unilateral fa cial droop, unilateral arm or leg weakness, or visual changes. Patient expresses understand ing of these symptoms and to seek urgent follow up should any occur. Hypertension - The patient is advised to maintain his antihypertensive medication to keep s ystolic blood pressure target level of 130-140 mm Hg and diastolic blood pressure level of 7 0-80 mm Hg. The patient is advised that uncontrolled hypertension can accelerate atheroscler otic disease progression. Dyslipidemia - The patient is advised to undergo lipid level evaluation with fasting blood test every 6 months with target LDL level of less than 70 mg/dL. The patient is advised to c ontinue taking antiplatelet daily for life to reduce the risk of myocardial infarction and p eripheral arterial disease ( She is currently on plavix). Additionally, the patient is infor med that hyperlipidemia can accelerate atherosclerotic disease progression and negatively af fect the outcome of lower leg vascular interventions. Return to vascular clinic in 6 month(s) for further follow-up with carotid duplex ultrasoun d surveillance study. Wolf Perez DNP in this encounter Plan of Treatment +--------+ + + + + | Date | Type | Specialty | Care Team | Description | +--------+ + + + + | 01/14/ | Office | Cardiology | Juvencio Schultz, | | | 2017 | Visit | | MD [address] | | | | | | [place] | | | | | | [place] [address] | | | | | | [phone] | | | | | | | | +--------+ + + + + | 03/25/ | Appointment | Radiology | | | | 2017 | | | | | +--------+ + + + + | 03/25/ | Office | Vascular Surgery | Wolf Perez DNP | | | 2017 | Visit | | [address] | | | | | | [place] | | | | | | [address] | | | | | | | | +--------+ + + + + as of this encounter Visit Diagnoses + + | Diagnosis | + + | Ischemic stroke (HCC) - Primary | + + | Carotid artery stenosis, symptomatic, right | + + | Carotid stenosis, asymptomatic, left | + + | S/P carotid endarterectomy | + + | Other postprocedural status | + +"
--- OUTSIDE RECORDS SUMMARY | ~2017-11-13 | XMS | Encounter Summary ---
Demographics + + + | Address | [address] | | | [place] [address] | + + + | Home Phone | | + + + | Preferred Language | Unknown | + + + | Marital Status | | + + + | Amish Affiliation | 1077 | + + + | Race | Unknown | + + + | Ethnic Group | Unknown | + + + Author + + + | Author | [employer] | + + + | Organization | [facility] | + + + [...] Team Providers + +------+ + | Care Gospel Singer Name | Role | Phone | + +------+ + | Danilo Roman MD | PCP | | + +------+ + Reason for Visit MRI/CAT Scan (Routine) + +--------+ + + + + | Status | Reason | Specialty | Diagnoses / | Referred By | Referred To | | | | | Procedures | Contact | Contact | + +--------+ + + + + | Pending | | Radiology | Diagnoses | See, | | | Review | | | Diagnosis | Medical | | | | | | unknown | Record | | | | | | Procedures | | | | | | | CTA head | | | | | | | neck W WO IV | | | | | | | contrast | | | + +--------+ + + + + Encounter Details +--------+ + + + + | Date | Type | Department | Care Team | Description | +--------+ + + + + | 08/18/ | Hospital | [facility] | See, Medical | Diagnosis unknown | | 2018 | Encounter | [facility] | Record | | | | | RADIOLOGY [address] | | | | | | [address] | | | | | | [place] [address] | | | | | | [phone] | | | +--------+ + + + [...] + + + as of this encounter Medications at Time of Discharge + + +--------+---------+ + + | Medication | Sig. | Disp. | Refills | Start | End Date | | | | | | Date | | + + +--------+---------+ + + | acetaminophen | Take 500 mg by mouth | | | | | | (TYLENOL) 500 MG | every 6 (six) hours | | | | | | tablet | as needed for Pain. | | | | | + + +--------+---------+ + + | apixaban (ELIQUIS) | Take 1 tablet by | 60 | 11 | / | | | 5 MG tablet | mouth 2 (two) times | tablet | | 17 | | | | daily. | | | | | + + +--------+---------+ + + | clopidogrel | Take 1 tablet by | 30 | 11 | 05/05/20 | | | (PLAVIX) 75 MG | mouth daily. Start | tablet | | 17 | 8 | | tablet | on 05/12/17, with | | | | | | | Aspirin dose | | | | | | | decreased to 81 mg | | | | | | | daily at that time | | | | | + + +--------+---------+ + + | Omeprazole | Take 40 mg by mouth | | | | | | (PRILOSEC PO) | daily. | | | | | + + +--------+---------+ + + | pravastatin | Take 1 tablet by | 30 | 11 | 04/11/20 | | | (PRAVACHOL) 40 MG | mouth nightly. | tablet | | 17 | 8 | | tablet | | | | | | + + +--------+---------+ + + | aspirin 81 MG EC | Take 1 tablet by | 90 | 3 | 04/11/20 | | | tabletIndications: | mouth daily. | tablet | | 17 | 8 | | May resume on | | | | | | | 05/14/17 | | | | | | + + +--------+---------+ + + | carvedilol (COREG) | Take 12.5 mg by | | | | | | 12.5 MG tablet | mouth 2 (two) times | | | | 8 | | | daily with meals. | | | | | + + +--------+---------+ + + as of this encounter Plan [...] | | | | | | [place] [address] | | | | | | [phone] | | | | | | | [...] [place] | | | | | | [address] | | | | | | | | +--------+ + + + + as of this encounter Results CTA head neck W WO IV contrast (08/13/2017 5:35 PM) + + + | Specimen | Performing Laboratory | + + + | | [facility] [address] [place] [address] | + + + + + | Narrative | + + | This is a non-reportable procedure without a radiologist report and is used for | | image storage only | + + in this encounter Visit Diagnoses + + | Diagnosis | + + | Diagnosis unknown | + + | Other unknown and unspecified cause of morbidity or mortality | + +"
--- OUTSIDE RECORDS SUMMARY | ~2017-11-13 | XMS | Encounter Summary ---
Demographics + + + | Address | [address] | | | [place] [address] | + + + | Home Phone | | + + + | Preferred Language | Unknown | + + + | Marital Status | | + + + | Zoroastrian Affiliation | 1077 | + + + | Race | Unknown | + + + | Ethnic Group | Unknown | + + + Author + + + | Author | [employer] | + + + | Organization | [facility] | + + + [...] Team Providers + +------+ + | Care Disabilities Caregiver Name | Role | Phone | + +------+ + | Danilo Roman MD | PCP | | + +------+ + Reason for Visit +--------+ + | Reason | Comments | +--------+ + | Other | [facility] | +--------+ + Encounter Details +--------+ + + + + | Date | Type | Department | Care Team | Description | +--------+ + + + + | 10/08/ | Documentati | [facility] | Lisset Littlejohn MA | Other ( [facility] | | 2018 | on Only | [facility] | | Head CT) | | | | [address] | | | | | | [place], [place] | | | | | | [address] | | | | | | [phone] | | | +--------+ + + + [...] | | | | | | [address] [place], | | | | | | [place] [address] | | | | | | [phone] | | | | | | | [...] [place] | | | | | | [address] | | | | | | | | +--------+ + + + + as of this encounter Visit Diagnoses Not on filein this encounter"
--- OUTSIDE RECORDS SUMMARY | ~2017-11-13 | XMS | Encounter Summary ---
Demographics + + + | Address | [address] | | | [place] [address] | + + + | Home Phone | | + + + | Preferred Language | Unknown | + + + | Marital Status | | + + + | Muslim Affiliation | 1077 | + + + | Race | Unknown | + + + | Ethnic Group | Unknown | + + + Author + + + | Author | [employer] | + + + | Organization | [facility] | + + + | [...] Team Providers + +------+ + | Care Commercial Real Estate Paralegal Name | Role | Phone | + +------+ + | Danilo Roman MD | PCP | | + +------+ + Encounter Details +--------+--------+ + + + | Date | Type | Department | Care Team | Description | +--------+--------+ + + + | 09/01/ | Refill | [facility] [place] | Lisset Littlejohn MA | | | 2018 | | [facility] | | | | | | [address] | | | | | | [place] | | | | | | [address] | | | | | | [phone] | | | +--------+--------+ + + + Social History + +-------+ [...] | | | | | | [place], | | | | | | [place] [address] | | | | | | [phone] | | | | | | | [...] [place] | | | | | | [id number] | | | | | | | | +--------+ + + + + as of this encounter Visit Diagnoses Not on filein this encounter"
--- OUTSIDE RECORDS SUMMARY | ~2017-11-13 | XMS | Encounter Summary ---
Demographics + + + | Address | [address] | | | [place] [address] | + + + | Home Phone | | + + + | Preferred Language | Unknown | + + + | Marital Status | | + + + | Worship Affiliation | 1077 | + + + | Race | Unknown | + + + | Ethnic Group | Unknown | + + + Author + + + | Author | [employer] | + + + | Organization | [facility] | + + + | [...] Team Providers + +------+ + | Care Security Project Manager Name | Role | Phone | + +------+ + | Danilo Roman MD | PCP | | + +------+ + Reason for Referral MRI/CAT Scan (Routine) + +--------+ + + [...] | + +--------+ + + + + MRI/CAT Scan (Routine) + +--------+ + + [...] | | | | | | | CT head | | | | | | | without | | | | | | | contrast | | | + +--------+ + + + + Encounter Details +--------+ + + + + | Date | Type | Department | Care Team | Description | +--------+ + + + + | 08/18/ | Ancillary | [facility] | See, Medical | Diagnosis unknown | | 2018 [facility] | [facility] | Record | | | | | [address] | | | | | | [place] [address] | | | | | | [phone] | | | +--------+ + + + [...] | 2017 | Visit | | MD [address] | | | | | | [place], | | | | | | [place] [address] | | | | | | [phone] | | | | | | | [...] [place] | | | | | | [address] | | | | | | | | +--------+ + + + + as of this encounter Results CTA head neck W WO IV contrast (08/13/2017 5:35 PM) + + + | Specimen | Performing Laboratory | + + + | | [facility] [address] [place] [address] | + + + + + | Narrative | + + | This is a non-reportable procedure without a radiologist report and is used for | | image storage only | + + CT head without contrast (08/13/2017 5:32 PM) + + + | Specimen | Performing Laboratory | + + + | | [address] [address] | + + + + + | [...]
--- OUTSIDE RECORDS SUMMARY | ~2017-11-13 | XMS | Encounter Summary ---
Demographics + + + | Address | [address] | | | [place] [address] | + + + | Home Phone | | + + + | Preferred Language | Unknown | + + + | Marital Status | | + + + | Rastafarian Affiliation | 1077 | + + + | Race | Unknown | + + + | Ethnic Group | Unknown | + + + Author + + + | Author | [employer] | + + + | Organization | [facility] | + + [...] Team Providers + +------+ + | Care Russian Language Instructor Name | Role | Phone | + [...] + + | 09/09/ | Hospital | [facility] | Maximo Landry MD | Carotid stenosis, | | 2018 - | Encounter | [address] | [address] | right (Primary Dx) | | | | Floor [facility] | [place] [address] | | | 09/10/ | | [address] | [phone] | | | 2018 | | [place] [address] | | | | | | [phone] | | | +--------+ + + + [...] + + + | Blood Pressure | 130/64 | 09/10/2017 7:39 AM PST | + + + + | Pulse | 77 | 09/10/2017 7:39 AM PST | + + + + | Temperature | 36.4 C (97.6 F) | 09/10/2017 7:39 AM PST | + + + + | Respiratory Rate | 18 | 09/10/2017 7:39 AM PST | + + + + | Oxygen Saturation | 92% | 09/10/2017 7:39 AM PST | + + + + | Inhaled Oxygen | - | - | | Concentration | | | + + + + | Weight | 69.9 kg (154 lb 3.2 | 09/10/2017 2:50 AM PST | | | oz) | | + + + + | Height | 166.4 cm (5' 5.5") | 09/09/2017 6:56 AM PST | + + + + | Body Mass Index | 25.27 | 09/10/2017 2:50 AM PST | + + + + in this encounter Discharge Summaries Maya Trammell ARNP - 09/10/2017 11:20 AM PSTFormatting of this note may be different from the original. [facility] Service: Vascular Surgery Discharge Summary Date of Admission: 09/09/2017 Date of Discharge: 09/10/2017 Discharge Provider: MARY George Treatment Team: Admitting Provider: Maximo Landry MD Discharge Diagnoses: Principal Problem: Carotid stenosis, right Active Problems: S/P carotid endarterectomy Resolved Problems: * No resolved hospital problems. * Final Diagnoses: S/P carotid endarterectomy Procedures: Procedure(s): ENDARTERECTOMY - CAROTID Significant Diagnostic Studies: N/A BRIEF HISTORY OF PRESENTATION: Per Dr Landry consult note: Ms. Merrill is a pleasant 82 y.o. female with PMH significant for anemia, atrial fibrillati on, CVA, CKD, thyroid disorder, hyperlipidemia, and hypertension, who presents for follow up of left carotid endarterectomy. Patient underwent carotid endarterectomy on 04/29/17. She h ad recent right hemispheric stroke on 08/13/17. At the time of her stroke, patient had diffic ulty speaking. Patient was originally left handed, but is now right handed. She states she s tayed in rehab for 2 weeks after her stroke. Procedure(s): Right carotid endarterectomy with bovine pericardial patch angioplasty Surgeon: Maximo Landry MD Associate Marketing Manager(s): MARY George Anesthesia: General endotrachial anesthesia Estimated Blood Loss: Less Than 100 ml Other: IV Fluids: 700 ml Indications: See pre-operative history and physical. Findings: High grade, calcific plaque at carotid bifurcation extending into right ICA. Af ter endarterectomy and patch, good ICA, ECA, and CCA signals. HOSPITAL COURSE: POD 1 Pain controlled, no TIA or CVA sx. Vital signs within acceptable range. Discuss ed discharge plan with patient and and they are agreeable to plan and follow up. Past Medical History Diagnosis Date Anemia Atrial fibrillation (HCC) 12/31/2016 Cerebrovascular accident (CVA) (HCC) 04/30/2017 minimal acute ischemic injury anterior left parietal lobe on MRI, no deficits Chronic kidney disease mild kidney disease Coronary artery disease 12/2016 Cystocele Disorder of thyroid states low thyroid, no medication Hyperlipidemia Hypertension 2002 Ischemic stroke (HCC) 08/13/2017 Persistent dry cough 1997 occ clear phlegm PONV (postoperative nausea and vomiting) 05/2017 Stroke (HCC) 08/13/2017 Urinary urgency wears pad UTI (urinary tract infection) cystocele Visual disturbance decreased peripheral and proportional vision since CVA Past Surgical History Procedure Laterality Date APPENDECTOMY 1950 CARDIAC CATHETERIZATION CAROTID ENDARTERECTOMY Left CATARACT EXTRACTION COLONOSCOPY CORONARY STENT PLACEMENT 05/2017 1 stent Prox LAD CORONARY STENT PLACEMENT 04/2017 3 stents; overlapping RCA drug eluting ENDARTERECTOMY CAROTID Left 04/29/2017 Procedure: ENDARTERECTOMY - CAROTID; Surgeon: Maximo Landry MD; Location: [facility] MAIN OR; Se rvice: Vascular; Laterality: Left; TONSILLECTOMY 1946 TUBAL LIGATION 1965 VASCULAR SURGERY Allergies Allergen Reactions Augmentin [Amoxicillin-Pot Clavulanate] Rash Duloxetine Other (See Comments) Headache, diarrhea (began at the same time as Candesartan) Statins Other (See Comments) .leg cramps Simvastatin Muscle Pain Prescriptions Prior to Admission Medication Sig Dispense Refill Last Dose acetaminophen (TYLENOL) 500 MG tablet Take 500 mg by mouth every 6 (six) hours as neede d for Pain. Taking at Unknown time apixaban (ELIQUIS) 5 MG tablet Take 1 tablet by mouth 2 (two) times daily. 60 tablet 11 09/08/2017 at 2000 carvedilol (COREG) 12.5 MG tablet Take 1 tablet by mouth 2 (two) times daily with meals . 180 tablet 3 09/09/2017 at 0430 clopidogrel (PLAVIX) 75 MG tablet Take 1 tablet by mouth daily. Start on 05/12/17, with Aspirin dose decreased to 81 mg daily at that time 30 tablet 11 09/08/2017 at 2000 Omeprazole (PRILOSEC PO) Take 40 mg by mouth daily. 09/09/2017 at 0430 pravastatin (PRAVACHOL) 40 MG tablet Take 1 tablet by mouth nightly. 30 tablet 11 2017 at Unknown time DISCHARGE EXAM Vital Signs: BP 130/64 (BP Location: Right upper arm) | Pulse 77 | Temp 97.6 F (36.4 C) (Oral) | Resp 18 | Ht 1.664 m (5' 5.5") | Wt 69.9 kg (154 lb 3.2 oz) | SpO2 92% | BMI 25.27 kg/m Temp: [97.3 F (36.3 C)-98.1 F (36.7 C)] 97.6 F (36.4 C) (09/10 738) BP: (107-149)/(59-86) 130/64 (09/10 738) Heart Rate: [66-103] 77 (09/10 738) Resp: [16-18] 18 (09/10 738) SpO2: [91 %-94 %] 92 % (09/10 738) Weight: [69.9 kg (154 lb 3.2 oz)] 69.9 kg (154 lb 3.2 oz) (09/10 249) I&O Last 3 Shifts: 09/08 1900 - 09/10 658 In: 1688 [I.V.:1688] Out: 388 [Urine:355; Drains:13] Physical Exam Vitals:reviewed CONSTITUTIONAL: Conversant, well developed, NAD EYES: Anicteric sclerae, no lid drag, no proptosis RESP: Normal effort, regular, even, unlabored rate CV: No peripheral edema, rate regular SKIN: [place], warm, dry without rash/lesion MS: ROM not limited, no digital cyanosis, NEURO: Cranial nerves II-XII grossly intact, A&O times 3 PSYCH: appropriate affect, speech and tone, judgement and insight intact Vascular: Equal strength and sensation. Dressing CDI. VIVIANA removed at bedside DATA CBC: Lab Results Component Value Date WBC 11.34 (H) 09/10/2017 RBC 3.76 09/10/2017 HGB 11.9 09/10/2017 HCT 35.0 09/10/2017 MCV 93.3 09/10/2017 MCH 31.7 09/10/2017 MCHC 34.0 09/10/2017 RDW 44.6 09/10/2017 PLT 174 09/10/2017 MPV 9.9 09/10/2017 DIFFTYPE MANUAL 09/10/2017 BMP: Lab Results Component Value Date NA 136 09/10/2017 K 4.6 09/10/2017 CL 102 09/10/2017 CO2 26 09/10/2017 ANIONGAP 13 09/10/2017 GLUF 140 (H) 09/10/2017 BUN 19 09/10/2017 CREATININE 0.8 09/10/2017 BCR 24 09/10/2017 CA 8.8 09/10/2017 EGFR >60 09/10/2017 PLAN S/P carotid endarterectomy -Continue home meds -Hydrocodone PRN pain -Follow up with Dr Landry or MARY George in 2 weeks -Please call clinic to schedule appointment if we have not contacted you within 3 days -Please complete any follow up imaging prior to post operative appointment. Our office demarco l arrange this for you. -OK to remove dressing in 2 days and shower. Leave steri strips in place -Please call with any questions or concerns -Please follow up with your PCP in 2-3 days for medication management, BP check and lab rev iew Disposition: Home Condition: Stable Code Status: Full Code Discharge Instructions Diet Cardiac Activity as Tolerated Shower on Day Dressing is Removed (No Bath) Lifting Restrictions Order Comments: Weight restriction of 10 lbs for 4 weeks Remove Dressing in 72 Hours Call MD for: Temperature > 100.4F (38C) Call MD for: Persistant Nausea and Vomiting Call MD for: Severe Uncontrolled Pain Call MD for: Redness, Tenderness, or Signs of Infection (Pain, Swelling, Redness, Odor or Green/Yellow Discharge Around Incision Site) Follow up: Danilo Roman MD [address] [facility], [address] [place] [address] In 3 days lab, vital signs, and medication review post surgery [facility] VASCULAR SURGERY [address] [place] [address] post op appointment Medication List START taking these medications HYDROcodone-acetaminophen 5-325 MG per tablet QTY: 30 tablet Refills: 0 Commonly known as: NORCO Take 1 tablet by mouth every 4 (four) hours as needed for up to 10 days. CONTINUE taking these medications acetaminophen 500 MG tablet Refills: 0 Commonly known as: TYLENOL apixaban 5 MG tablet QTY: 60 tablet Refills: 11 Commonly known as: ELIQUIS Take 1 tablet by mouth 2 (two) times daily. carvedilol 12.5 MG tablet QTY: 180 tablet Refills: 3 Commonly known as: COREG Take 1 tablet by mouth 2 (two) times daily with meals. clopidogrel 75 MG tablet QTY: 30 tablet Refills: 11 Commonly known as: PLAVIX Take 1 tablet by mouth daily. Start on 05/12/17, with Aspirin dose decreased to 81 mg daily at that time pravastatin 40 MG tablet QTY: 30 tablet Refills: 11 Commonly known as: PRAVACHOL Take 1 tablet by mouth nightly. PRILOSEC PO Refills: 0 You might also be taking other medications not listed above. If you have questions about an y of your other medications, talk to the person who prescribed them or your Primary Care Pro vider. Where to Get Your Medications You can get these medications from any pharmacy Bring a paper prescription for each of these medications HYDROcodone-acetaminophen 5-325 MG per tablet Discharge took 35 minutes, to include final examination, discussion of admission, and prepa ration of prescriptions, instructions for on-going care, follow-up and documentation of disc harge summary. MARY George 09/10/2017in this encounter Discharge Instructions Maya Trammell ARNP - 09/10/2017Formatting of this note may be different from the original. -Follow up with Dr Landry or MARY George in 2 weeks Please call clinic to schedule appointment if we have not contacted you within 3 days -Please complete any follow up imaging prior to post operative appointment. Our office demarco l arrange this for you. -Please notify clinic immediately should any redness, swelling, or drainage occur to your s urgical site -May remove dressing 3 days after surgery. Leave steri strips in place until post op appoi ntment. May shower on day you remove dressing -Please call with any questions or concerns Discharge Instructions for Carotid Endarterectomy Your doctor performed a procedure called a carotid endarterectomy. This is the most common way to restore normal blood flow through the vessels that carry blood to your brain. These v essels are called the carotid arteries. During the procedure, a surgeon made a small incisio n just below your jaw. The artery was opened and the blockage was cleared. This procedure wa s done to reduce your risk of a stroke, which can occur when the carotid arteries are severe ly blocked or narrowed. Ask a friend or family member to help with chores, especially those that involve lifting. Home Care Spend your first few days after the procedurerelaxing at home. It's okay to do quiet a ctivities such as reading orwatching TV. Take your medications exactly as instructed. Don t skip doses. Don t drive until your doctor says it s okay. This will most likely take 1 to 2wee ks. Shower as directed by your doctor. Don t scrub your incision. Avoid strenuous activity for 7 to 10 days after your surgery. Don t lift anything heavier than 10 pounds for 2 to 3 weeks after your surgery. Ask your doctor when you can expect to return to work. Shave carefully around your incision. You may want to use an electric razor. Gradually increase your activity. It may take some time for you to return to your normal activities. Check your incision every day for signs of infection (redness, swelling, drainage, or wa rmth). Don t be alarmed if you have some loss of feeling along your jaw line and earlobe. Thi s is a result of the incision and usually goes away after 6 to 12 months. Eat a healthy, low-fat diet. Ask your doctor for menus and other diet information. After you have recovered from the procedure, try to exercise more. Ask your doctor for g uidance. Follow-Up Make a follow-up appointment as directed. When to Call Your Doctor Call your doctor immediately if you have any of the following: Neck swelling Redness, pain, swelling, or drainage from your incision Fever above 100.0F Numbness or weakness in your arms or legs Sudden changes in your vision Loss of vision in one eye Trouble speaking Trouble breathing Trouble swallowing [id number] [facility], [address] [place], [place] [id number]. All rights reserve d. This information is not intended as a substitute for professional medical care. Always fo llow your healthcare professional's instructions. in this encounter [...] tablet by | 60 | 11 | 01/01/20 | | | 5 MG tablet | mouth 2 (two) times | tablet | | 17 | | | | daily. | | | | | + + +--------+---------+ + + | carvedilol (COREG) | Take 1 tablet by | 180 | 3 | 09/01/19 | | | 12.5 MG tablet | mouth 2 (two) times | tablet | | 18 | | | | daily with meals. | [...] | + + +--------+---------+ + + | | Take 1 tablet by | 30 | 0 | 09/10/19 | | | HYDROcodone-acetamin | mouth every 4 (four) | tablet | | 18 | 8 | | ophen (NORCO) 5-325 | hours as needed for | | | | | | MG per tablet | up to 10 days. | | | | | + + +--------+---------+ + + as of this encounter Plan of Treatment +--------+ + + + + | Date | Type | Specialty | Care Team | Description | +--------+ + + + + | 01/14/ | Office | Cardiology | Juvencio Schultz, | | | 2018 | Visit | | [address] | | | | | | [place], | | | | | | [place] [address] | | | | | | [phone] | | | | | | | | +--------+ + + + + | 03/25/ | Appointment | Radiology | | | | 2017 | | | | | +--------+ + + + + | 03/25/ | Office | Vascular Surgery | Wolf Perez DNP | | | 2017 | Visit | | [address] | | | | | | [place], [place] | | | | | | [address] | | | | | | | [...] + + + in this encounter Results CBC w/auto diff (reflex to manual) (09/10/2017 5:00 AM) + + + + | Component | Value | Ref Range | + + + + | WBC | 11.34 (H) | 3.80 - 11.00 K/uL | + + + + | RBC | 3.76 | 3.70 - 5.10 M/uL | + + + + | HGB | 11.9 | 11.3 - 15.5 g/dL | + + + + | HCT | 35.0 | 34.0 - 46.0 % | + + + + | MCV | 93.3 | 80.0 - 100.0 fl | + + + + | MCH | 31.7 | 27.0 - 34.0 pg | + + + + | MCHC | 34.0 | 32.0 - 35.5 g/dL | + + + + | RDW SD | 44.6 | 37 - 53 fl | + + + + | PLT | 174 | 150 - 400 K/uL | + + + + | MPV | 9.9 | fl | + + + + | DIFF TYPE | MANUAL | | + + + + | Neutrophils Manual | 84 | % | + + + + | Bands | 2 | % | + + + + | Lymphocytes Manual | 13 | % | + + + + | Monocytes Manual | 1 | % | + + + + | Neutrophils Absolute | 9.53 (H) | 1.90 - 7.40 K/uL | + + + + | Bands Manual | 0.23 (H) | 0.00 - 0.20 K/uL | + + + + | Lymphocytes Absolute | 1.47 | 1.00 - 3.90 K/uL | + + + + | Monocytes Absolute | 0.11 | 0.00 - 0.80 K/uL | + + + + | MORPHOLOGY | RBC AND PLT MORPHOLOGY APPEAR | | | | NORMALComment: Testing performed at [facility], | | | | [address] [place], [place] | | | | [address] | | + + + + + + + | Specimen | Performing Laboratory | + + + | Blood | [facility] [address] [place], | | | [place] [address] | + + + Basic metabolic panel (09/10/2017 5:00 [...] | | | | 1.210.Testing performed at [facility], [address] | | | | [place] [address] | | | | | | + + + + + + + | Specimen | Performing Laboratory | + + + | Blood | [facility] [address] [place] [address] [address] [place], | | | [place] [address] | + + + Type and Screen (Blood Bank) (09/09/2017 6:55 AM) + + + + | Component | Value | Ref Range | + + + + | ABO/RH(D) | O POSITIVE | | + + + + | ANTIBODY SCREEN | NEGATIVE | | + + + + | ARM BAND NUMBER | [id number] performed at [facility];[address] | | | | [place] [address] | | | | | | + + + + + + + | Specimen | Performing Laboratory | + + + | Blood | [facility] [address] [place] [address] | + + + Pathology histology - tissue (09/09/2017) + + + | Specimen | Performing Laboratory | + + + | Tissue - Soft | [facility] | | Tissue, Other | | [...] sections reveal areas of calcification. | | Cooperative Extension Agent sections are submitted in cassette A1. (The [...] technical | | preparation was performed by [facility] [employer], [facility], [address] | | [place] [address] (On Call Pharmacy Technician: Darryn Maciel M.D.; | | [facility]#: [id number]). Diagnostician: Salome Wan MD Pathologist Electronically | | Signed 09/10/2017 | + + in this encounter Visit Diagnoses + + | Diagnosis | + + | Carotid stenosis, right - Primary | + + | Occlusion and stenosis of carotid artery without mention of cerebral infarction | + + | S/P carotid endarterectomy | + + | Other postprocedural status | + + Admitting Diagnoses + + | Diagnosis | + + | Carotid stenosis, right | + + | Occlusion and stenosis of carotid artery without mention of cerebral infarction | + + Administered Medications + +--------+---------+------+------+------+ | Medication Order | MAR | Action | Dose | Rate | Site | | | Action | Date | | | | + +--------+---------+------+------+------+ + +---+ | acetaminophen (TYLENOL) | | | suppository 650 mg 650 mg, | | | Rectal, Every 6 Hours PRN, Mild | | | Pain (1-3), Fever, Starting Tue | | | 09/09/17 at 1033 | | + +---+ | | | + +---+ | acetaminophen (TYLENOL) tablet | | | 650 mg 650 mg, Oral, Every 6 | | | Hours PRN, Mild Pain (1-3), | | | Fever, Starting 09/09/17 at | | | 1033 | | + +---+ | | | + +---+ + +-------+ +------+---+---+ | apixaban (ELIQUIS) tablet 5 mg | Given | | 5 mg | | | | 5 mg, Oral, 2 Times Daily, First | | 8 06:46 | | | | | dose on Fri09/10/17 at 0700 | | PST | | | | + +-------+ +------+---+---+ +---+---+ | | | +---+---+ + +-------+ +---------+---+---+ | carvedilol (COREG) tablet 12.5 | Given | | 12.5 mg | | | | mg 12.5 mg, Oral, 2 Times Daily | | 8 18:47 | | | | | With Meals, First dose on Fri | | PST | | | | | 09/09/17 at 1700 | | | | | | + +-------+ +---------+---+---+ +-------+ +---------+---+---+ | Given | | 12.5 mg | | | | | 8 08:08 | | | | | | PST | | | | +-------+ +---------+---+---+ +---+---+ | | | +---+---+ + +-------+ +-------+---+---+ | clopidogrel (PLAVIX) tablet 75 | Given | | 75 mg | | | | mg 75 mg, Oral, Daily, First | | 8 11:42 | | | | | dose on e 09/09/17 at 1100 | | PST | | | | + +-------+ +-------+---+---+ +-------+ +-------+---+---+ | Given | | 75 mg | | | | | 8 08:08 | | | | | | PST | | | | +-------+ +-------+---+---+ +---+---+ | | | +---+---+ + +-------+ +--------+---+---+ | fentaNYL (SUBLIMAZE) injection | Given | | 25 mcg | | | | 25 mcg 25 mcg, Intravenous, | | 8 09:44 | | | | | Every 5 Min PRN, Pain, Option One | | PST | | | | | for pain scale 1-4/10. If no | | | | | | | relief, proceed to option 2., | | | | | | | Starting 09/09/17 at 0857, | | | | | | | PACU | | | | | | + +-------+ +--------+---+---+ +-------+ +--------+---+---+ | Given | | 25 mcg | | | | | 8 09:57 | | | | | | PST | | | | +-------+ +--------+---+---+ | Given | | 25 mcg | | | | | 8 10:09 | | | | | | PST | | | | +-------+ +--------+---+---+ + +---+ | | | + +---+ | fentaNYL (SUBLIMAZE) injection | | | 25 mcg 25 mcg, Intravenous, | | | Every 1 Hour PRN, Moderate Pain | | | (4-6), Starting 09/09/17 at | | | 1033 | | + +---+ | | | + +---+ + +-------+ +--------+---+---+ | fentaNYL (SUBLIMAZE) injection | Given | | 50 mcg | | | | 50 mcg 50 mcg, Intravenous, | | 8 13:10 | | | | | Every 1 Hour PRN, Severe Pain | | PST | | | | | (-), Starting 09/09/17 at | | | | | | | 1033 | | | | | | + +-------+ +--------+---+---+ +---+---+ | | | +---+---+ + +-------+ +------+---+---+ | hydrALAZINE (APRESOLINE) | Given | | 5 mg | | | | injection 5 mg 5 mg, | | 8 09:29 | | | | | Intravenous, 2 Times Daily PRN, | | PST | | | | | Hypertension, Repeat 5mg dose for | | | | | | | SBP <160mmHg after 10 minutes, | | | | | | | Starting e 09/09/17 at 0923, | | | | | | | PACU | | | | | | + +-------+ +------+---+---+ +---+---+ | | | +---+---+ + +-------+ + +---+---+ | HYDROcodone-acetaminophen | Given | | 1 tablet | | | | (NORCO) 10-325 MG per tablet 1 | | 8 10:44 | | | | | tablet 1 tablet, Oral, Every 4 | | PST | | | | | Hours PRN, Severe Pain (7-10), | | | | | | | Starting e 09/09/17 at 1033 | | | | | | + +-------+ + +---+---+ +---+---+ | | | +---+---+ + +-------+ + +---+---+ | HYDROcodone-acetaminophen | Given | | 1 tablet | | | | (NORCO) 5-325 MG per tablet 1 | | 8 16:58 | | | | | tablet 1 tablet, Oral, Every 4 | | PST | | | | | Hours PRN, Moderate Pain (4-6), | | | | | | | Starting 09/09/17 at 1033 | | | | | | + +-------+ + +---+---+ +-------+ + +---+---+ | Given | | 1 tablet | | | | | 8 21:34 | | | | | | PST | | | | +-------+ + +---+---+ +---+---+ | | | +---+---+ + +-------+ +------+---+---+ | labetalol (NORMODYNE) injection | Given | | 5 mg | | | | 20 mg 20 mg, Intravenous, Every | | 8 09:20 | | | | | 10 Min PRN, Systolic greater | | PST | | | | | than 160, Starting 09/09/17 at | | | | | | | 0857, PACU | | | | | | + +-------+ +------+---+---+ +-------+ +------+---+---+ | Given | | 5 mg | | | | | 8 09:31 | | | | | | PST | | | | +-------+ +------+---+---+ | Given | | 5 mg | | | | | 8 09:35 | | | | | | PST | | | | +-------+ +------+---+---+ +---+---+ | | | +---+---+ + +---------+ +---+-------+---+ | lactated ringers infusion at | New Bag | | | 110 | | | 110 mL/hr, Intravenous, | | 8 10:39 | | mL/hr | | | Continuous, Starting 09/09/17 | | PST | | | | | at 1100 | | | | | | + +---------+ +---+-------+---+ +---------+ +---+-------+---+ | New Bag | | | 110 | | | | 8 21:31 | | mL/hr | | | | PST | | | | +---------+ +---+-------+---+ | New Bag | | | 110 | | | | 8 06:35 | | mL/hr | | | | PST | | | | +---------+ +---+-------+---+ +---+---+ | | | +---+---+ + +---------+ +-------+ +---+ | niCARdipine in NaCl (CARDENE) | New Bag | | 2.5 | 25 mL/hr | | | 100 mcg/mL infusion 0-15 mg/hr | | 8 14:23 | mg/hr | | | | (0-150 mL/hr), Intravenous, at | | PST | | | | | 0-150 mL/hr, Titrated, Starting | | | | | | | 09/09/17 at 1100, In emergent | | | | | | | situations, more rapid titration | | | | | | | may be clinically indicated. | | | | | | + +---------+ +-------+ +---+ + + +-------+ +---+ | Rate/Dose Change | | 7.5 | 75 mL/hr | | | | 8 14:54 | mg/hr | | | | | PST | | | | + + +-------+ +---+ +---+---+ | | | +---+---+ + +-------+ +------+---+---+ | ondansetron (ZOFRAN) injection | Given | | 4 mg | | | | 4 mg 4 mg, Intravenous, Every 6 | | 8 16:48 | | | | | Hours PRN, Nausea, Vomiting, | | PST | | | | | Starting 09/09/17 at 1033 | | | | | | + +-------+ +------+---+---+ + +---+ | | | + +---+ | ondansetron (ZOFRAN) tablet 4 | | | mg 4 mg, Oral, Every 6 Hours | | | PRN, Nausea, Vomiting, Starting | | | 09/09/17 at 1033 | | + +---+ | | | + +---+ + +-------+ +-------+---+---+ | pravastatin (PRAVACHOL) tablet | Given | | 40 mg | | | | 40 mg 40 mg, Oral, Nightly, | | 8 20:53 | | | | | First dose on Fri09/09/17 at 2200 | | PST | | | | + +-------+ +-------+---+---+ + +---+ | | | + +---+ | sodium chloride (PF) 0.9 % | | | flush 10 mL 10 mL, Intravenous, | | | Every 8 Hours PRN, Line Care, | | | when tolerating oral fluids, | | | Starting 09/09/17 at 1033 | | + +---+ | | | + +---+ in this encounter
--- OUTSIDE RECORDS SUMMARY | ~2017-11-13 | XMS | Encounter Summary ---
Demographics + + + | Address | [address] | | | [place] [address] | + + + | Home Phone | | + + + | Preferred Language | Unknown | + + + | Marital Status | | + + + | Adventist Affiliation | 1077 | + + + | Race | Unknown | + + + | Ethnic Group | Unknown | + + + Author + + + | Author | [employer] | + + + | Organization | [facility] | + + [...] Team Providers + +------+ + | Care In Home Aide Name | Role | Phone | + [...] + + | 08/18/ | Hospital | [facility] | See, Medical | Diagnosis unknown | | 2017 | Encounter | [facility] | Record | | | | | RADIOLOGY [address] | | | | | | [facility] | | | | | | [place] [address] | | | | | | [phone] | | | +--------+ + + + [...] tablet by | 60 | 11 | // | | | 5 MG tablet | [...] | | | | | | [place] [address] | | | | | | [phone] | | | | | | | [...] [place] | | | | | | [address] | | | | | | | | +--------+ + + + + as of this encounter Results CT head without contrast (08/13/2017 5:32 PM) + + + | Specimen | Performing Laboratory | + + + | | [facility] [address] [place] [address] | + + + + + | [...]
--- OUTSIDE RECORDS SUMMARY | ~2017-11-13 | XMS | Encounter Summary ---
Demographics + + + | Address | [address] | | | [place] [address] | + + + | Home Phone | | + + + | Preferred Language | Unknown | + + + | Marital Status | | + + + | Protestant Affiliation | 1077 | + + + | Race | Unknown | + + + | Ethnic Group | Unknown | + + + Author + + + | Author | [employer] | + + + | Organization | [facility] | + + + [...] Team Providers + +------+ + | Care License Issuer Name | Role | Phone | + +------+ + | Danilo Roman MD | PCP | | + +------+ + Reason for Visit + + + | Reason | Comments | + + + | Labs Only | [facility] dated 10/16/2017 | + + + Encounter Details +--------+ + + + + | Date | Type | Department | Care Team | Description | +--------+ + + + + | 10/21/ | Documentati | [facility] | Sujey Gomez CMA | Labs Only ([facility] | | 2018 | on Only | [place] [address] | | Labs dated | | | | [address] | | 10/16/2017) | | | | [place], [place] [address] | | | | | | [phone] | | | +--------+ + + + [...] | | | | | | [place] [address] | | | | | | [phone] | | | | | | | [...] [place] | | | | | | [address] | | | | | | | | +--------+ + + + + as of this encounter Visit Diagnoses Not on filein this encounter"
--- OUTSIDE RECORDS SUMMARY | ~2017-11-13 | XMS | Encounter Summary ---
Demographics + + + | Address | [address] | | | [place] [address] | + + + | Home Phone | | + + + | Preferred Language | Unknown | + + + | Marital Status | | + + + | Christianity Affiliation | 1077 | + + + | Race | Unknown | + + + | Ethnic Group | Unknown | + + + Author + + + | Author | [employer] | + + + | Organization | [facility] | + + + [...] | + + +---------+ + | Tenzin Bullock | ECON | Unknown | | + + +---------+ + Care Team Providers + +------+ + | Care Smoke Chaser Name | Role | Phone | + +------+ + | Danilo Roman MD | PCP | | + +------+ + Encounter Details +--------+ + + + + | Date | Type | Department | Care Team | Description | +--------+ + + + + | 09/17/ | Orders Only | [facility] | Latasha | S/Leny carotid | | 2018 | | Vascular Surgery | LAKISHA Calabrese | endarterectomy | | | | [address] | | (Primary Dx); | | | | [place] | | Carotid stenosis, | | | | [address] | | right | | | | [phone] | | | +--------+ + + + [...] | | | | | | [place] [address] | | | | | | [phone] | | | | | | | | +--------+ + + + + | 03/25/ | Appointment | Radiology | | | | 2017 | | | | | +--------+ + + + + | 03/25/ | Office | Vascular Surgery | Wolf Perez DNP | | | 2017 | Visit | | [address] | | | | | | [place] | | | | | | [address] | | | | | | | | +--------+ + + + + as of this encounter Results US carotid doppler, bilateral (09/24/2017 1:26 PM) + + + | Specimen | Performing Laboratory | + + + | | [facility] [address] [facility] [place] [address] | + + + + + | [...] + | Narrative | + + | JAYDEN Faiza ARA 1935 82 years Female US CAROTID DOPPLER, [...] Results In - 09/24/2017 2:49 PM PST JAYDEN BULLOCK450106 years | | FemaleUS CAROTID DOPPLER, BILATERAL09/24/2017 [...] | | | | | + + in this encounter Visit Diagnoses + + | Diagnosis | + + | S/P carotid endarterectomy - Primary | + + | Other postprocedural status | + + | Carotid stenosis, right | + + | Occlusion and stenosis of carotid artery without mention of cerebral infarction | + +"
--- OUTSIDE RECORDS SUMMARY | ~2017-11-13 | XMS | Encounter Summary ---
Demographics + + + | Address | [address] | | | [place] [address] | + + + | Home Phone | | + + + | Preferred Language | Unknown | + + + | Marital Status | | + + + | Taoist Affiliation | 1077 | + + + | Race | Unknown | + + + | Ethnic Group | Unknown | + + + Author + + + | Author | [employer] | + + + | Organization | [facility] | + + + [...] Team Providers + +------+ + | Care Tyre Finisher And Examiner Name | Role | Phone | + +------+ + | Danilo Roman MD | PCP | | + +------+ + Encounter Details +--------+ + + + + | Date | Type | Department | Care Team | Description | +--------+ + + + + | 08/18/ | Procedure | [facility] | | | | 2017 | Pass | [facility] | | | | | | RADIOLOGY [address] | | | | | | [address] | | | | | | [place] [address] | | | | | | [phone] | | | +--------+ + + + [...] | | | | | | [place] [address] | | | | | | [phone] | | | | | | | [...] [place] | | | | | | [address] | | | | | | | | +--------+ + + + + as of this encounter Visit Diagnoses Not on filein this encounter"
--- OUTSIDE RECORDS SUMMARY | ~2017-11-13 | XMS | Encounter Summary ---
Demographics + + + | Address | [address] | | | [place] [address] | + + + | Home Phone | | + + + | Preferred Language | Unknown | + + + | Marital Status | | + + + | Buddhism Affiliation | Unknown | + + + | Race | Unknown | + + + | Ethnic Group | Unknown | + + + Author + + + | Author | [facility] | | | and [place] | + + + | Organization | [facility] | | | and [place] | + + + | Address | Unknown | + + + | Phone | Unavailable | + + + Support + + + + + | Name | Relationship | Address | Phone | + + + + + | Melissa Merrill | ECON | [place] | | | | | [address] | | + + + + + | Connie Merrill | ECON | Unknown | | + + + + + Care Team Providers + +------+ + | Care It Operations Analyst Name | Role | Phone | + +------+ + | Fady Bush MD | PCP | Unavailable | + +------+ + Encounter Details +--------+ + + + + | Date | Type | Department | Care Team | Description | +--------+ + + + + | 08/22/ | Hospital | [facility] | Francis Grajeda, | | | 2018 | Encounter | MED CTR THERAPY OT | OT | | | | | ACUTE [address] | | | | | | [place] | | | | | | [address] | | | | | | [phone] | | | +--------+ + + + [...] Nasal | 1 g | 1 | 01/13/20 | | | (FLONASE) 50 | route [...] +-------+---------+ + + as of this encounter Plan of Treatment Not on fileas of this encounter Visit Diagnoses Not on filein this encounter"
--- OUTSIDE RECORDS SUMMARY | ~2017-11-13 | XMS | Encounter Summary ---
Demographics + + + | Address | [address] | | | [place] [address] | + + + | Home Phone | | + + + | Preferred Language | Unknown | + + + | Marital Status | | + + + | Mandaen Affiliation | Unknown | + + + | Race | Unknown | + + + | Ethnic Group | Unknown | + + + Author + + + | Author | [facility] | | | and [place] | + + + | Organization | [facility] | | | and [place] | + + + | Address | Unknown | + + + | Phone | Unavailable | + + + Support + + + + + | Name | Relationship | Address | Phone | + + + + + | Melissa Merrill | ECON | [place] | | | | | [address] | | + + + + + | Connie Merrill | ECON | Unknown | | + + + + + Care Team Providers + +------+ + | Care Analyst [employer]ing Name | Role | Phone | + [...] | | | | | mechanism | [id number] | [address] | | | | | (HCC) | Phone: | Phone: | | | | | Aphasia | [phone] | [phone] | | | | | complicating | Fax: | Fax: | | | | | stroke | [phone] | [phone] | + + + + + + [...] | | unspecified | [place], [place] | [place], [place] | | | | | mechanism | [address] | [phone] | | | | | (HCC) | Phone: | Phone: | | | | | | [phone] | [phone] | | | | | | Fax: | Fax: | | | | | | [phone] | [phone] | + + + + + + [...] + + | 08/18/ | Hospital | [facility] | Cortez Celaya | Cerebrovascular | | 2018 - | Encounter | MED CTR IRF [address] | MD Jeanna [address] | accident (CVA), | | | | [place], | [address] [place] | unspecified | | 08/22/ | | [place] [address] | [place] [address] | mechanism (HCC) | | 2018 | | [phone] | [phone] | (Primary Dx); | | | | | | Gastroesophageal | | | | | | reflux disease, | | | | | | esophagitis presence | | | | | | not specified; | | | | | | Aphasia complicating | | | | | | stroke ([facility]); | | | | | [...] and brought her to the hospital to [facility]. Br ain CT scan was negative [...] acutely and then transferred on 08/19/2017 to [facility] here at [facility] PMHx: (per chart review confirmed with pt) [...] cube accurately Visuoconstructional: Able to draw clock [place], All numbers present and in correct quadrant s with clock hands placed at 11:40 Digit span: Able to repeat 5 digits forward and able to repeat 3 digits in backward order Sustained attention: 100 93 86 79 72 65 Delayed recall: 3 of 3 words after 5 minutes. Repetition: able to repeat the phrase "[place]" Naming: intact for [...] set up outpatient PT and speech at [facility]. Call P CP to set up follow-up appointment. Signed: Jude Mata MD 08/22/2017 16:37 Portions of this chart may have been created with [employer] voice recognition software. Occasi onal wrong-word or [...] and treatment. If problems are found, your [facility] provider will recommend treatment with medicines [...] LL 911 without delay. Date Last Reviewed: 04/10/201519996994-5339 [employer]. [address] [place] [address], [place] [id number]. All righ ts reserved. This information is not intended as a substitute for professional medical care. Always follow your healthcare professional's instructions. Using Blood Thinners (Anticoagulants) Blood thinners or anticoagulants are medicines that help prevent blood clots from forming. They include warfarin,heparin,dabigatran, rivaroxaban, apixaban,and edoxaban. Your [facility] care provider will help you decide which [...] any changes in your medicines.This includes any sara-zht-vypzepl medicines, suppl ements like vitamin K, or [...] doesn t stop in 10 minutes A enjkrvb-tzvi-zqpcvu menstrual period or bleeding between periods Coughing or throwing up blood Bloody diarrhea or bleeding hemorrhoids Dark-colored urine or black stools Red or dmgvr-zhr-lyoa lara on the skin that get larger [...] sure your doctor knows about any prescription, edjv-nta-qixvuyw, or herbal supplements you take. In particular, tell your provider about: Antibiotics Heart medicines Cimetidine Aspirin or other anti-inflammatory drugs such as ibuprofen, naproxen, ketoprofen, or oth er arthritis medicines Drugs for depression, cancer HIV (protease inhibitors), diabetes, seizures, gout, high c holesterol, or thyroid replacement Vitamins containing vitamin K or herbal products such as ginkgo, Co-Q10, garlic, or [place]'s wort Note: This information topic may not include all directions, precautions, medical condition s, drug/food interactions, and warnings for these medicines. Check with your doctor, nurse, or pharmacist for any questions you have. Date Last Reviewed: 12/26/201419996871-9819 [employer]. [address] [place] [address], [place] [address]. All righ ts reserved. This information is [...] work around lost language skills. In some ms ses, a patient may need to use [...] t there. Date Last Reviewed: 04/25/201512/2014 [employer]. [address] [place] [address]. All rig ts reserved. This information is [...] have to. Date Last Reviewed: 04/25/2015 [employer]. [address] [place] [address]. All rig ts reserved. This information is [...] may be different from t mik original. Fylk-ev-Ljvm Rehabilitation Medicine Daily Progress Note Date: 08/21/17 ID/CC: Reason for encounter : Physician follow-up to address the medical rehabilitation needs, issues, and problems . Interval history: Chief problem : Weakness and difficulty with self-care/ADLs and functional mobility Check of the night warehouse manager nurses. Patient slept well last night. Problem [...] therapy, speech therapy, case management, and social work manager #Rehab - -Continue PT for gait, mobility -Continue OT for ADL's, toileting, adaptive equipment -Continue CO TEACHER for cognition, -Continue SW for discharge planning [...] and reviewed with the Patient and our correctional case records supervisor. She is collaborating with the patient's support [...] continuing to coordinate and collaborate [facility] staff to complement their therapy treatment [...] Notes document close and ongoing Physiatric involvement; zvdf-ls-cfxr vi sits, professionally assessing the Patient, both [...] information from all of the Medical Rehabilitation in flight crew member's assessments and reports as we synthesized [...] this chart may have been created with [employer] voice recognition software. Occasi onal wrong-word or sound-alike substitutions may have occurred due to the inherent brown itations of voice recognition software. Please read the chart carefully and recognize, using context, where these substitutions have occurred.Cortez Celaya MD - 08/20/2017 1736 P STFormatting of this note may be different from the original. Rdny-uo-Lrus Rehabilitation Medicine Daily Progress Note Date: 08/20/17 [...] therapy, speech therapy, case management, and social work manager #Rehab - -Continue PT for gait, mobility -Continue OT for ADL's, toileting, adaptive equipment -Continue CO TEACHER for cognition, -Continue SW for discharge planning [...] continuing to coordinate and collaborate [facility] to complement their therapy treatment [...] up with the patient's bedside nurse, and correctional case records supervisor/social services. The patient is seen in follow-up for [...] the full inpatient rehabilitation treatment team in [facility] is planned. The patient is seen in [...] questions and issues . I met with correctional case records supervisor and reviewed the overall plan of care. [...] this chart may have been created with [employer] voice recognition software. Occasi onal wrong-word or [...] GLOMERULAR FILTRATION | >=60 mL/min/1.73m2 | | SOUTH AFRICAN | RATE,ESTIMATED mL/min/1.11j1Flgj than | | | | 60 Chronic [...] + + + | Blood | [facility] [address] | | | [place] [address] | + + + Extra Lavender Top Tube (08/21/2017624) + +-------+ + | Component | Value | Ref Range | + +-------+ + | Extra Lavender Top | Done | | | Tube | | | + +-------+ + + + + | Specimen | Performing Laboratory | + + + | Blood | [facility] [address] | | | [place] [address] | + + + B Type Natriuretic Peptide (08/19/2017 0543) + +---------+ + | Component | Value | Ref Range | + +---------+ + | BNP | 274 (H) | <100 pg/mL | + +---------+ + + + + | Specimen | Performing Laboratory | + + + | Blood | [facility] [address] | | | [place] [address] | + + + Prealbumin (08/19/2017542) + +-------+ + | Component | Value | Ref Range | + +-------+ + | PREALBUMIN | 20 | 18 - 38 mg/dL | + +-------+ + + + + | Specimen | Performing Laboratory | + + + | Blood | [facility] [address] | | | [place] [address] | + + + Magnesium (08/19/2017 0543) + +---------+ + | Component | Value | Ref Range | + +---------+ + | MG | 1.7 (L) | 1.8 - 2.5 mg/dL | + +---------+ + + + + | Specimen | Performing Laboratory | + + + | Blood | [facility] [address] | | | [place] [address] | + + + CBC with Differential [...] | + + + | Blood | [facility] [address] | | | [place] [address] | + + + IMAGING REPORT - [...]
--- OUTSIDE RECORDS SUMMARY | ~2017-11-13 | XMS | Encounter Summary ---
Demographics + + + | Address | [address] | | | [place] [address] | + + + | Home Phone | | + + + | Preferred Language | Unknown | + + + | Marital Status | | + + + | Mosque Affiliation | 1077 | + + + | Race | Unknown | + + + | Ethnic Group | Unknown | + + + Author + + + | Author | [employer] | + + + | Organization | [facility] | + + [...] Team Providers + +------+ + | Care Founder / Ceo Name | Role | Phone | + +------+ + | Danilo Roman MD | PCP | | + +------+ + Reason for Visit +--------+ + | Reason | Comments | +--------+ + | Other | recent right sided stroke | +--------+ + Encounter Details +--------+---------+ + + + | Date | Type | Department | Care Team | Description | +--------+---------+ + + + | 08/28/ | Office | [facility] | Maximo Landry MD | Ischemic stroke | | 2018 | Visit | Vascular Surgery | [address] | (HCC) (Primary Dx); | | | | [address] | [place] [address] | Carotid artery | | | | E [place], [place] | [phone] | stenosis, | | | | [address] | | symptomatic, right | | | | [phone] | | | +--------+---------+ + + + [...] + + + | Blood Pressure | 153/85 | 08/28/2017 9:38 AM PST | + + + + | Pulse | 60 | 08/28/2017 9:38 AM PST | + + + + | Temperature | - | - | + + + + | Respiratory Rate | 20 | 08/28/2017 9:38 AM PST | + + + + | Oxygen Saturation | 98% | 08/28/2017 9:38 AM PST | + + + + | Inhaled Oxygen | - | - | | Concentration | | | + + + + | Weight | 66.7 kg (147 lb 1.6 | 08/28/2017 9:38 AM PST | | | oz) | | + + + + | Height | 166.4 cm (5' 5.5") | 08/28/2017 9:38 AM PST | + + + + | Body Mass Index | 24.11 | 08/28/2017 9:38 AM PST | + + + + in this encounter Progress Notes Maximo Landry MD - 08/28/2017 9:45 AM PSTFormatting of this note may be different from the o aydeeinal. Subjective: Patient ID: Maryjo Merrill is a 82 y.o. female. HPI Ms. Merrill is a pleasant 82 y.o. [...] rehab for 2 weeks after her stroke. US Carotid Bilateral: Impression 1. Right ICA: Grade 2 (<50%). 2. Left ICA: Grade 1 (Normal - 0% stenosis). This is a significant improvement from prior study. 3. The vertebral arteries demonstrate normal antegrade flow and velocities bilaterally. Validated velocity measurements with angiographic measurements, velocity criteria are extra polated from diameter data as defined by the Society of Radiologists in Ultrasound Consensus Conference Radiology 2003; 229; 340-346. 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 low thyroid, no medication Hyperlipidemia Hypertension 2003 Ischemic stroke (HCC) Stroke (HCC) UTI (urinary tract infection) Visual disturbance glasses Past Surgical History Procedure Laterality Date APPENDECTOMY 1950 CARDIAC CATHETERIZATION CATARACT EXTRACTION COLONOSCOPY ENDARTERECTOMY CAROTID Left 04/29/2017 Procedure: ENDARTERECTOMY - CAROTID; Surgeon: Maximo Landry MD; Location: [facility] MAIN OR; Se rvice: Vascular; Laterality: Left; TONSILLECTOMY 1946 TUBAL LIGATION 1964 Social History Substance Use Topics Smoking status: Never Smoker Smokeless tobacco: Never Used Alcohol use No Family History Problem Relation Age of Onset Kidney disease Mother Coronary art dis Mother Heart failure Father Asthma Father Hypertension Father Alcohol abuse Brother Renee hypertherm Neg Hx Current Outpatient Prescriptions on File Prior to Visit Medication Sig Dispense Refill acetaminophen (TYLENOL) 500 MG tablet Take 500 mg by mouth every 6 (six) hours as neede d for Pain. apixaban (ELIQUIS) 5 MG tablet Take 1 tablet by mouth 2 (two) times daily. 60 tablet 11 carvedilol (COREG) 12.5 MG tablet Take 12.5 mg by mouth 2 (two) times daily with meals. clopidogrel (PLAVIX) 75 MG tablet Take 1 tablet by mouth daily. Start on 05/12/17, with Aspirin dose decreased to 81 mg daily at that time 30 tablet 11 Omeprazole (PRILOSEC PO) Take 40 mg by mouth daily. pravastatin (PRAVACHOL) 40 MG tablet Take 1 tablet by mouth nightly. 30 tablet 11 aspirin 81 MG EC tablet Take 1 tablet by mouth daily. (Patient not taking: Reported on 08/28/2017) 90 tablet 3 No current facility-administered medications on file prior to visit. Allergies Allergen Reactions Augmentin [Amoxicillin-Pot Clavulanate] Rash Duloxetine Other (See Comments) Headache, diarrhea (began at the same time as Candesartan) Statins Other (See Comments) .leg cramps Simvastatin Muscle Pain Review of Systems Comprehensive ROS performed and pertinent items described in the HPI. Objective: BP 153/85 (BP Location: Right upper arm, Patient Position: Sitting) | Pulse 60 | Resp 20 | Ht 1.664 m (5' 5.5") | Wt 66.7 kg (147 lb 1.6 oz) | SpO2 98% | BMI 24.11 kg/m Physical Exam Vitals reviewed. Constitutional: Patient appears well-developed and well-nourished. HENT: Head: Normocephalic and atraumatic. Mouth/Throat: Oropharynx is clear and moist. Cardiovascular: Normal rate and regular rhythm. Pulmonary/Chest: Effort normal and breath sounds normal. Abdominal: Soft. Bowel sounds are normal. Musculoskeletal: Normal range of motion. Neurological: Patient is alert and oriented to person, place, and time. Skin: Skin is warm and dry. Vascular: Equal strength and sensation bilaterally. CN II-XII grossly intact. Assessment and Plan: Reviewed patient's history and symptoms. We discussed CTA findings, showing patent left ICA and rapid worsening of her right ICA in comparison to past US. Patient appears to have grea ter than 50% narrowing of her right carotid. I recommended right carotid endarterectomy as p atient is symptomatic. Discussed risks and benefits associated with the procedure. Patient w ould like to proceed with endarterectomy, and consent form was signed at this time. Addresse d patient's questions and concerns. Patient understands and is agreeable. Patient will follo w up on 09/09/17 for right carotid endarterectomy. She agrees to go directly to the ED should she develop any stroke like symptoms. Attending Note: Documentation assistance provided by Marilyn Camacho (Maksim). Informatio n recorded by the karenibe has been reviewed and validated by me. I agree with its contents. Signed by: Maksim Edwards 02/08/18, 10:16 AM Maximo Landry MD in this encounter Plan of Treatment +--------+ + + + + | Date | Type | Specialty | Care Team | Description | +--------+ + + + + | 01/14/ | Office | Cardiology | Juvencio Schultz, | | | 2017 | Visit | | [address] | | | | | | [place] | | | | | | [place] [address] | | | | | | [phone] | | | | | | | [...] [place] | | | | | | [address] | | | | | | | [...] +--------+ + + + in this encounter Visit Diagnoses + + | Diagnosis | + + | Ischemic stroke (HCC) - Primary | + + | Carotid artery stenosis, symptomatic, right | + +
--- OUTSIDE RECORDS SUMMARY | ~2017-11-13 | XMS | Encounter Summary ---
Demographics + + + | Address | [address] | | | [place] [address] | + + + | Home Phone | | + + + | Preferred Language | Unknown | + + + | Marital Status | | + + + | Pentecostal Affiliation | 1077 | + + + | Race | Unknown | + + + | Ethnic Group | Unknown | + + + Author + + + | Author | [employer] | + + + | Organization | [facility] | + + + | [...] Team Providers + +------+ + | Care Easement Worker Name | Role | Phone | + +------+ + | Danilo Roman MD | PCP | | + +------+ + Encounter Details +--------+ + + + + | Date | Type | Department | Care Team | Description | +--------+ + + + + | 10/21/ | Orders Only | [facility] | Gomez, Tamara, DRILLER OPERATOR | MAI (acute kidney | | 2018 | | [place] [address] | | injury) (HCC); CKD | | | | [address] | | (chronic kidney | | | | [place] [address] | | disease), stage III; | | | | [phone] | | Essential | | | | [...] | | | | | | [place] [address] | | | | | | [phone] | | | | | | | [...] [place] | | | | | | [address] | | | | | | | [...] + | Urine | [facility] [address] [facility] [address] [place], [place] | | | [address] | + + + Urinalysis (reflex to [...] + + | Urine | [facility] [address] [place], [place] [address] | | | [address] | + + + + + | [...]
--- OUTSIDE RECORDS SUMMARY | ~2017-11-13 | XMS | Encounter Summary ---
Demographics + + + | Address | [address] | | | [place] [address] | + + + | Home Phone | | + + + | Preferred Language | Unknown | + + + | Marital Status | | + + + | Congregational Affiliation | 1077 | + + + | Race | Unknown | + + + | Ethnic Group | Unknown | + + + Author + + + | Author | [employer] | + + + | Organization | [facility] | + + + [...] Team Providers + +------+ + | Care Kosher Dietary Service Supervisor Name | Role | Phone | + +------+ + | Danilo Roman MD | PCP | | + +------+ + Encounter Details +--------+ + + + + | Date | Type | Department | Care Team | Description | +--------+ + + + + | 09/17/ | Orders Only | [facility] | Latasha | S/Leny carotid | | 2018 | | Vascular Surgery | LAKISHA Calabrese | endarterectomy | | | | [address] | | (Primary Dx); | | | | [address] [place] | | Carotid stenosis, | | | | [address] | | right | | | | [phone] | | | +--------+ + + + [...] | | | | | | [place] [address] | | | | | | [phone] | | | | | | | [...] [place] | | | | | | [address] | | | | | | | | +--------+ + + + + as of this encounter Results US carotid doppler, bilateral (09/24/2017 1:26 PM) + + + | Specimen | Performing Laboratory | + + + | | [facility] [address] [facility] [place] [address] | + + + + + | [...] In - 09/24/2017 2:49 PM PST JAYDEN [place]ULL[place]048493 years | | FemaleUS CAROTID DOPPLER, BILATERAL09/24/2017 [...]
--- OUTSIDE RECORDS SUMMARY | ~2017-11-13 | XMS | Encounter Summary ---
Demographics + + + | Address | [address] | | | [place] [address] | + + + | Home Phone | | + + + | Preferred Language | Unknown | + + + | Marital Status | | + + + | Sabianism Affiliation | Unknown | + + + | Race | Unknown | + + + | Ethnic Group | Unknown | + + + Author + + + | Author | [facility] | | | and [place] | + + + | Organization | [facility] | | | and [place] | + + + | Address | Unknown | + + + | Phone | Unavailable | + + + Support + + + + + | Name | Relationship | Address | Phone | + + + + + | Melissa Merrill | ECON | [place] | | | | | [address] | | + + + + + | Connie Merrill | ECON | Unknown | | + + + + + Care Team Providers + +------+ + | Care Farm Mortgage Agent Name | Role | Phone | + [...] | | | | | mechanism | [phone] | [phone] | | | | | (HCC) | Phone: | Phone: | | | | | Aphasia | [phone] | [phone] | | | | | complicating | Fax: | Fax: | | | | | stroke | [phone] | [phone] | + + + + + + [...] | | unspecified | [place], [place] | [place], [place] | | | | | mechanism | [phone] | [phone] | | | | | (HCC) | Phone: | Phone: | | | | | | [phone] | [phone] | | | | | | Fax: | Fax: | | | | | | [phone] | [phone] | + + + + + + [...] + + | 08/18/ | Hospital | [facility] | Cortez Celaya | Cerebrovascular | | 2018 - | Encounter | [facility] [address] | MD Jeanna [address] | accident (CVA), | | | | [place], | [address] [place] | unspecified | | 08/22/ | | [place] [address] | [place] [address] | mechanism (HCC) | | 2018 | | [phone] | [phone] | (Primary Dx); | | | | | | Gastroesophageal | | | | | | reflux disease, | | | | | | esophagitis presence | | | | | | not specified; | | | | | | Aphasia complicating | | | | | | stroke ([facility]); | | | | | | [...] and brought her to the hospital to [facility]. Br ain CT scan was negative for [...] acutely and then transferred on 08/19/2017 to [facility] here at [facility] PMHx: (per chart review confirmed with pt) [...] cube accurately Visuoconstructional: Able to draw clock [place], All numbers present and in correct quadrant s with clock hands placed at 11:40 Digit span: Able to repeat 5 digits forward and able to repeat 3 digits in backward order Sustained attention: 100 93 86 79 72 65 Delayed recall: 3 of 3 words after 5 minutes. Repetition: able to repeat the phrase "[place] rainy [place]" Naming: intact for [...] set up outpatient PT and speech at [facility]. Call P CP to set up follow-up appointment. Signed: Jude Mata MD 08/22/2017 16:37 Portions of this chart may have been created with [employer] voice recognition software. Occasi onal wrong-word or [...] and treatment. If problems are found, your [facility] provider will recommend treatment with medicines [...] LL 911 without delay. Date Last Reviewed: 04/10/201519993754-6006 [employer]. [address] [place] [address], [place] [id number]. All righ ts reserved. This information is not intended as a substitute for professional medical care. Always follow your healthcare professional's instructions. Using Blood Thinners (Anticoagulants) Blood thinners or anticoagulants are medicines that help prevent blood clots from forming. They include warfarin,heparin,dabigatran, rivaroxaban, apixaban,and edoxaban. Your [facility] provider will help you decide [...] any changes in your medicines.This includes any svlj-yvt-bbztmym medicines, suppl ements like vitamin K, or [...] doesn t stop in 10 minutes A fnisekh-exqb-mmovox menstrual period or bleeding between periods Coughing or throwing up blood Bloody diarrhea or bleeding hemorrhoids Dark-colored urine or black stools Red or ugios-zfy-cxrh lara on the skin that get larger [...] sure your doctor knows about any prescription, rlce-jof-prbhqnl, or herbal supplements you take. In particular, tell your provider about: Antibiotics Heart medicines Cimetidine Aspirin or other anti-inflammatory drugs such as ibuprofen, naproxen, ketoprofen, or oth er arthritis medicines Drugs for depression, cancer HIV (protease inhibitors), diabetes, seizures, gout, high c holesterol, or thyroid replacement Vitamins containing vitamin K or herbal products such as ginkgo, Co-Q10, garlic, or [place]'s wort Note: This information topic may not include all directions, precautions, medical condition s, drug/food interactions, and warnings for these medicines. Check with your doctor, nurse, or pharmacist for any questions you have. Date Last Reviewed: 12/26/201419997522-4453 [employer]. [address] [place] [address], [place] [address]. All righ ts reserved. This information is [...] work around lost language skills. In some vt ses, a patient may need to use [...] t there. Date Last Reviewed: 04/25/201512/2014 [employer]. [address] [place] [address]. All rig ts reserved. This information is [...] have to. Date Last Reviewed: 04/25/2015 [employer]. [address] [place] [address]. All rig ts reserved. This information is [...] may be different from t mik original. Wbqz-xn-Rsyi Rehabilitation Medicine Daily Progress Note Date: 08/21/17 ID/CC: Reason for encounter : Physician follow-up to address the medical rehabilitation needs, issues, and problems . Interval history: Chief problem : Weakness and difficulty with self-care/ADLs and functional mobility Check of the voice systems engineer nurses. Patient slept well last night. Problem [...] therapy, speech therapy, case management, and social welfare research worker #Rehab - -Continue PT for gait, mobility -Continue OT for ADL's, toileting, adaptive equipment -Continue MEMBER OF PARLIAMENT for cognition, -Continue SW for discharge planning [...] reviewed with the Patient and our case supervisor. She is collaborating with the patient's [...] continuing to coordinate and collaborate with the [facility] nursing staff to complement their therapy [...] Notes document close and ongoing Physiatric involvement; xdlh-op-pylb vi sits, professionally assessing the Patient, both [...] information from all of the Medical Rehabilitation flash ranging crewmember's assessments and reports as we synthesized and [...] this chart may have been created with [employer] voice recognition software. Occasi onal wrong-word or sound-alike substitutions may have occurred due to the inherent brown itations of voice recognition software. Please read the chart carefully and recognize, using context, where these substitutions have occurred.Cortez Celaya MD - 08/20/2017 1736 P STFormatting of this note may be different from the original. Sedz-dd-Tpwx Rehabilitation Medicine Daily Progress Note Date: 08/20/17 [...] therapy, speech therapy, case management, and social welfare research worker #Rehab - -Continue PT for gait, mobility -Continue OT for ADL's, toileting, adaptive equipment -Continue MEMBER OF PARLIAMENT for cognition, -Continue SW for discharge planning [...] continuing to coordinate and collaborate with the [facility] nursing staff to complement their therapy treatment [...] with the patient's bedside nurse, and case supervisor/7th grade social studies teacher. The patient is seen in follow-up for [...] the full inpatient rehabilitation treatment team in [facility] is planned. The patient is seen in [...] and issues . I met with case supervisor and reviewed the overall plan of [...] this chart may have been created with [employer] voice recognition software. Occasi onal wrong-word or [...] GLOMERULAR FILTRATION | >=60 mL/min/1.73m2 | | [place] | RATE,ESTIMATED mL/min/1.83e9Dtpu than | | | | 60 Chronic [...] Blood | [facility] [address] | | | [place] [address] | + + + Extra Lavender Top Tube (08/21/2017624) + +-------+ + | Component | Value | Ref Range | + +-------+ + | Extra Lavender Top | Done | | | Tube | | | + +-------+ + + + + | Specimen | Performing Laboratory | + + + | Blood | [facility] [address] | | | [place] [address] | + + + B Type Natriuretic Peptide (08/19/2017 0543) + +---------+ + | Component | Value | Ref Range | + +---------+ + | BNP | 274 (H) | <100 pg/mL | + +---------+ + + + + | Specimen | Performing Laboratory | + + + | Blood | [facility] [address] | | | [place] [address] | + + + Prealbumin (08/19/2017542) + +-------+ + | Component | Value | Ref Range | + +-------+ + | PREALBUMIN | 20 | 18 - 38 mg/dL | + +-------+ + + + + | Specimen | Performing Laboratory | + + + | Blood | [facility] [address] | | | [place] [address] | + + + Magnesium (08/19/2017 0543) + +---------+ + | Component | Value | Ref Range | + +---------+ + | MG | 1.7 (L) | 1.8 - 2.5 mg/dL | + +---------+ + + + + | Specimen | Performing Laboratory | + + + | Blood | [facility] [address] | | | [place] [address] | + + + CBC with Differential [...] + + + | Blood | [facility] [address] | | | [place] [address] | + + + IMAGING REPORT - [...]
--- OUTSIDE RECORDS SUMMARY | ~2017-11-13 | XMS | Encounter Summary ---
Demographics + + + | Address | [address] | | | [place] [address] | + + + | Home Phone | | + + + | Preferred Language | Unknown | + + + | Marital Status | | + + + | Orthodox Affiliation | 1077 | + + + | Race | Unknown | + + + | Ethnic Group | Unknown | + + + Author + + + | Author | [employer] | + + + | Organization | [facility] | + + + [...] Team Providers + +------+ + | Care Mechanical Expert Name | Role | Phone | + [...] + + | 10/03/ | Office | [facility] | Juvencio Schultz, | Coronary artery | | 2017 | Visit | Cardiology [place] | [address] | disease, angina | | | | [address] | [place] [address] [place], | presence | | | | [place], [place] | [place] [address] | unspecified, | | | | [address] | [phone] | unspecified vessel | | | | [phone] | | or lesion type, | | | | | | unspecified whether | | | | | | [place] or | | | | | | [...] | | | | | | involving [place] | | | | | | coronary artery of | | | | | | [place] heart with | | | | | [...] to the description. She was hospitalized in [place]. A carotid ultrasound was repeated, and showed [...] (05/3017): LM-normal. prox LAD-70% > 2.5x15 Resolute [place] CHUCHO. D 2-50%. Ramus-occluded, fills via neclt-zo-fxxh collaterals. LCx-normal. RCA-dominant, mid 4 0% stenosis, patent stents. -- Cardiac Cath/PCI (05/15/17): 3 overlapping Synergy CHUCHO in distal RCA>PLV2 - 2.5x38, 3.0x 38, 3.0x38 mm. -- Carotid U/S (04/18/17): LICA > 70%, JOSE 50-69% -- Cardiac Cath (04/11/17): LM-calcification, no significant disease. DVS-tzver-vogapxsb 60 % angiographically, calcified, FFR 0.66, distal [...] No dysuria, hematuria, urinary urgency, hesitancy. No guest laundry attendant disorders. HEMATOLOGY/ONCOLOGY: No h/o bleeding disorders, DVT, PE. Denies easy bruisability or ble eding. No history of anemia, transfusions. No history of cancer. MUSCULOSKELETAL: No myalgias, has knee, ankle and thumb arthralgias. No history of rheuma tologic or autoimmune diseases. CUTANEOUS: No rashes, pruritus, lesions. PSYCHIATRIC: She admits to Depression, Anxiety or other psychiatric problems. 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 Hyperlipidemia Hypertension 2002 Ischemic stroke ([facility]) 08/13/2017 Occlusion of carotid artery 80-90% JOSE stenosis with CVA, s/p CEA 09/09/17 Persistent dry cough 1997 occ clear phlegm PONV (postoperative nausea and vomiting) 05/2017 Stroke ([facility]) 08/13/2017 Urinary urgency wears pad UTI (urinary [...] - CAROTID; Surgeon: Maximo Landry MD; Location: [facility]; Se rvice: Vascular; Laterality: Left; ENDARTERECTOMY CAROTID Right 09/09/2017 Procedure: ENDARTERECTOMY - CAROTID; Surgeon: Maximo Landry MD; Location: [facility]; Se rvice: Vascular; Laterality: [...] vessel or lesion type, un specified whether [place] or transplanted heart - Electrocardiogram, 12-lead Occlusion of right carotid artery Cerebrovascular accident (CVA), unspecified mechanism (HCC) Carotid stenosis, bilateral Coronary artery disease involving [place] coronary artery of [place] heart with unstable tera na pectoris (HCC) [...] | | | | | | [place] [address] | | | | | | [phone] | | | | | | | [...] [place] | | | | | | [address] | | | | | | | [...] + + + + | Calculated R [place] | 35 | degrees | + + + + | Calculated T [place] | -35 | degrees | + + [...] Interpretation.Confirmed by ICA | | | | [place] Read Only, NORM Ghosh ([id number]), x ray operator | | | | Mayito Felder ([id number]) on 10/03/2017 9:36:58 | | | | AM | | + + + + + + + | Specimen | Performing Laboratory | + + + | | [facility] [address] [place] [address] | + + + in this encounter Visit Diagnoses + + | Diagnosis | + + | Coronary artery disease, angina presence unspecified, unspecified vessel or lesion type, | | unspecified whether [place] or transplanted heart - Primary | + [...] + + | Coronary artery disease involving [place] coronary artery of [place] heart with unstable | | angina pectoris [...]
--- OUTSIDE RECORDS SUMMARY | ~2017-11-13 | XMS | Clinical Summary ---
Demographics + + + | Address | [address] | | | [place] [address] | + + + | Home Phone | | + + + | Preferred Language | Unknown | + + + | Marital Status | | + + + | Synagogue Affiliation | 1077 | + + + | Race | Unknown | + + + | Ethnic Group | Unknown | + + + Author + + + | Author | [employer] | + + + | Organization | [facility] | + + + | [...] Team Providers + +------+ + | Care Board Certified Arts Therapist Name | Role | Phone | [...] Overview: Added automatically from request for surgery [id number] | + + + + + | [...] | 2017 | | | | injury) ([facility]); CKD | | | | | | [...] | | 2018 | Visit | | RE DYE HAND | disease), stage III | | | [...] | | Lisset Littlejohn, TABITHA | Other ([facility] | | 2018 | on Only | [...] whether | | | | | | telida or | | | | | | [...] | | | | | | involving telida | | | | | | coronary artery of | | | | | | telida heart with | | | | | [...] | 2017 | Visit | | | ([facility]) (Primary Dx); | | | | | [...] | | | Maya, | | | RE DYE HAND - | | | 09/10/2017 | | [...] | | | Sloot, | | | RE DYE HAND Anest | | | hesia: | | [...] | | | Hyperlipide | | | ejwell | | | | | | Hypertensio [...] | | regularSKIN | | | : [place], | | | warm, dry | | [...] | | Maya | | | Sloot, RE DYE HAND | | | in 2 | | [...] | | | [place], | | | [id number] | | [address], [place] | | | [address] | | | n [place] | | | [phone] | | | [phone] | | | dayslab, | | | vital | | | signs, and | | | medication | | | review post | | | | | | surgeryKADL | | | [facility] | | | VASCULAR | | | [id number] | | | Go[place]als | | | Dr Chandan | | | [place] | | | [place] | | | [phone] | | | [phone] | | | post op | | [...] | 08/29/ | Hospital | | Maximo aLndry MD | | | 2017 | Encounter | | | | +--------+ +---+ + + 08/28/ | Office | | Maximo Landry MD | Ischemic stroke | | 2017 | Visit | | | ([facility]) (Primary Dx); | | | | | [...] | | | | | | [place] [address] | | | | | | [phone] | | | | | | | [...] [place] | | | | | | [address] | | | | | | | [...] Bryan | [place] | | 03/11/ | [id number] | | 2.3p80-8205/15/2017Implanted: | | ry | SCIENTIFIC | | 2017 | [id number] | | Qty: 1 on 05/15/2017 by | | | CORPORATION | | | 50 / | | Duong Cabello MD | | | | | | /[id number] | | | | | | | | 217 | + +-------+--------+ +--------+--------+--------+ | Synergy Lui | Stent | Bryan | [place] | | 02/19/ | [id number] | | [id number]/15/2017Implanted: | | ry | SCIENTIFIC | | 2017 | [id number] | | Qty: 1 on 05/15/2017 by | | | CORPORATION | | | 00 / | | Duong Cabello MD | | | | | | /59929 | | | | | | | | 409 | + +-------+--------+ +--------+--------+--------+ | Synergy Lui | Stent | Bryan | [place] | | 03/10/ | [id number] | | [id number]/15/2017Implanted: | | ry | SCIENTIFIC | | 2017 | [id number] | | Qty: 1 on 05/15/2017 by | | | CORPORATION | | | 00 / | | Duong Cabello MD | | | | | | /[id number] | | | | | | | | 102 | + +-------+--------+ +--------+--------+--------+ | [place] Lui 2.5 X | Stent | Bryan | [employer] | | 03/26/ | [id number] | | 15-06/19/2017Implanted: | | ry | | | 2019 | [id number] | | 06/19/2017 by Duong Cabello, | | | | | | / | | MD (Quantity not on file) | | | | | | /[id number] | | | | | | | | [address] | + +-------+--------+ +--------+--------+--------+ | Xgrft Vascu-Guard Ptch 0.8x8 | | Left: | EVA | | 09/09/ | VG-010 | | - [id number]: Qty: 1 | | Caroti | BIOSCIENCE | | 2021 | 8N / | | on 04/29/2017 by Maximo Landry, | | d | - TRINITYB | | | /[id number] | | MD | | | | | | [id number] | | | | | | | | 010 | + +-------+--------+ +--------+--------+--------+ | Xgrft Vascu-Guard Ptch 0.8x8 | | Right: | EVA | | 05/14/ | VG-010 | | - [id number]: Qty: 1 | | | BIOSCIENCE | [...] LABORATORY [place] | | | [address] | + + + Urinalysis (reflex to [...] + | Urine | [facility] [address] [place], [place] | | | [address] | + + + + + | [...] + + | Blood | [facility] [address] [place], [place] [address] | | | [address] | + + + PTH intact no calcium (10/14/2017 1:55 PM) + +-------+ + | Component | Value | Ref Range | + +-------+ + | PTH INTACT NO | 58.81 | 15 - 65 pg/mL | | CALCIUM | | | + +-------+ + + + + | Specimen | Performing Laboratory | + + + | Blood | [facility] [address] | | | [address] | + + + Magnesium (10/14/2017 1:55 PM) + +-------+ + | Component | Value | Ref Range | + +-------+ + | MAGNESIUM | 1.8 | 1.7 - 2.5 mg/dL | + +-------+ + + + + | Specimen | Performing Laboratory | + + + | Blood | [facility] [address] [place] [address] [address] [place], [place] | | | [address] | + + + Renal function panel [...] | + + + | Blood | [facility] [address] [place] [address], [place] [address] [place], [place] | | | [address] | + + + EKG STANDARD 12 [...] + + + + | Calculated R Fields | 35 | degrees | + + + + | Calculated T Fields | -35 | degrees | + + [...] Interpretation.Confirmed by [facility] | | | | [place] Read Only, NORM Ghosh (502), editor city | | | | Mayito Felder (253) on 10/03/2017 9:36:58 | | | | AM | | + + + + + + + | Specimen | Performing Laboratory | + + + | | [facility] [address] [place] [address] | + + + US carotid doppler, bilateral (09/24/2017 1:26 PM) + + + | Specimen | Performing Laboratory | + + + | | [address] [address] | + + + + + | [...] - 09/24/2017 2:49 PM PST MARYJO Kendall [id number] years | | FemaleUS CAROTID DOPPLER, BILATERAL09/24/2017 [...] | | | | 1.210.Testing performed at [facility], [address] | | | | [place] [address] | | | | | | + + + + + + + | Specimen | Performing Laboratory | + + + | Blood | [facility] [address] [place], | | | [place] [address] | + + + Type and Screen (Blood Bank) (09/09/2017 6:55 AM) + + + + | Component | Value | Ref Range | + + + + | ABO/RH(D) | O POSITIVE | | + + + + | ANTIBODY SCREEN | NEGATIVE | | + + + + | ARM BAND NUMBER | [id number] performed at [facility] [place] [address] | | | | Prabhakar;[place] [address] | | | | | | + + + + + + + | Specimen | Performing Laboratory | + + + | Blood | [facility] [address] [place] [address] | + + + Pathology histology - tissue (09/09/2017) + + + | Specimen | Performing Laboratory | + + + | Tissue - Soft | [facility] | | Tissue, Other | [...] sections reveal areas of calcification. | | Meter Changes Records Clerk sections are submitted in cassette A1. (The [...] technical | | preparation was performed by [employer], [facility], [address] | | [address] [facility] [place] [address] (Warehouse Lead: Darryn Maciel M.D.; | | DARRELL#: [id number]). Diagnostician: Salome Wan MD Pathologist Electronically | [...] | Self | [birth year] | Home: | [address] | | | al/Fam | | 1935 | [phone] | [place] [address] | | | devika | | | [phone] | | + +--------+ +--------+ + +
--- OUTSIDE RECORDS SUMMARY | ~2017-11-13 | XMS | Encounter Summary ---
Demographics + + + | Address | [address] | | | [place] [address] | + + + | Home Phone | | + + + | Preferred Language | Unknown | + + + | Marital Status | | + + + | Amish Affiliation | 1077 | + + + | Race | Unknown | + + + | Ethnic Group | Unknown | + + + Author + + + | Author | [employer]uan [employer] | + + + | Organization | [facility] | + + [...] Team Providers + +------+ + | Care Corporate Physical Security Supervisor Name | Role | Phone | [...] 10/16/2017) | | | | [place], [place] [address] | | | | | | [phone] | | | +--------+ + + + [...] | | | | | | [place] [address] | | | | | | [phone] | | | | | | | [...] [place] | | | | | | [address] | | | | | | | | +--------+ + + + + as of this encounter Visit Diagnoses Not on filein this encounter"
--- OUTSIDE RECORDS SUMMARY | ~2017-11-13 | XMS | Encounter Summary ---
Demographics + + + | Address | [address] | | | [place] [address] | + + + | Home Phone | | + + + | Preferred Language | Unknown | + + + | Marital Status | | + + + | Amish Affiliation | 1077 | + + + | Race | Unknown | + + + | Ethnic Group | Unknown | + + + Author + + + | Author | [employer]uan [employer] | + + + | Organization | [facility] | + + + [...] Team Providers + +------+ + | Care Corner Cutter Machine Operator Name | Role | Phone [...] + + | 08/18/ | Hospital | [facility] PHYSICIAN | See, Medical | Diagnosis unknown | | 2017 | Encounter | [facility] | Record | | | | | RADIOLOGY [address] | | | | | | [facility] | | | | | | [place] [address] | | | | | | [phone] | | | +--------+ + + + [...] | | | | | | [place] [address] | | | | | | [phone] | | | | | | | [...] [place] | | | | | | [address] | | | | | | | | +--------+ + + + + as of this encounter Results MRI brain without contrast (08/14/2017 5:37 PM) + + + | Specimen | Performing Laboratory | + + + | | [facility] [address] [place] [address] | + + + + + | [...]
--- OUTSIDE RECORDS SUMMARY | ~2017-11-13 | XMS | Clinical Summary ---
Demographics + + + | Address | [address] | | | [place] [address] | + + + | Home Phone | | + + + | Preferred Language | Unknown | + + + | Marital Status | | + + + | Yazidi Affiliation | Unknown | + + + | Race | Unknown | + + + | Ethnic Group | Unknown | + + + Author + + + | Author | [facility] | | | and [place]dy[place] | + + + | Organization | [facility] | | | and Freddyana | + + + | Address | Unknown | + + + | Phone | Unavailable | + + + Support + + + + + | Name | Relationship | Address | Phone | + + + + + | Melissa Bullock | ECON | [place] | | | | | [address] | | + + + + + | Connie Bullock | ECON | Unknown | | + + + + + Care Team Providers + +------+ + | Care Crm System Administrator Name | Role | Phone | + [...] + + + | CVA (cerebrovascular accident) ([facility]) | 08/22/2017 | + + + | [...] | | | | | | stroke ([facility]); | | | | | | Carotid [...] | | | 1935M | | | RN:[id number] | | | [address] | | | [...] | | | [facility] | | | Pepin | | | [place]. | | | Brain CT | | [...] | | draw clock | | | agua caliente, All | | | numbers | | [...] | | | phrase | | | "[place] is | | | a rainy | [...] not | | | | | | [place] | | | (L) >=60 | [...] GLOMERULAR FILTRATION | >=60 mL/min/1.73m2 | | [place] | RATE,ESTIMATED mL/min/1.11c4Ohsl than | | | | 60 Chronic [...] + + + | Blood | [facility] [address] | | | [place] [address] | + + + Extra Lavender Top Tube (08/21/2017624) + +-------+ + | Component | Value | Ref Range | + +-------+ + | Extra Lavender Top | Done | | | Tube | | | + +-------+ + + + + | Specimen | Performing Laboratory | + + + | Blood | [facility] [address] | | | [place] [address] | + + + CBC with Differential [...] | + + + | Blood | [facility] [address] | | | [place] [address] | + + + Prealbumin (08/19/2017 0543) + +-------+ + | Component | Value | Ref Range | + +-------+ + | PREALBUMIN | 20 | 18 - 38 mg/dL | + +-------+ + + + + | Specimen | Performing Laboratory | + + + | Blood | [facility] [address] | | | [place] [address] | + + + B Type Natriuretic Peptide (08/19/2017 0543) + +---------+ + | Component | Value | Ref Range | + +---------+ + | BNP | 274 (H) | <100 pg/mL | + +---------+ + + + + | Specimen | Performing Laboratory | + + + | Blood | [facility] [address] | | | [place] [address] | + + + Magnesium (08/19/2017542) + +---------+ + | Component | Value | Ref Range | + +---------+ + | MG | 1.7 (L) | 1.8 - 2.5 mg/dL | + +---------+ + + + + | Specimen | Performing Laboratory | + + + | Blood | [facility] [address] | | | [place] [address] | + + + from Last 3 [...] | Self | [birth year] | Work: | [address] | | [place] | al/Juan | | 1935 | [phone] | [place] [address] | | | devika | | | [phone] Home: | | | | | | | | | | | | | | [phone] | | | | | | | [phone] | | + +--------+ +--------+ + +
--- OUTSIDE RECORDS SUMMARY | ~2017-11-13 | XMS | Encounter Summary ---
Demographics + + + | Address | [address] | | | [place] [address] | + + + | Home Phone | | + + + | Preferred Language | Unknown | + + + | Marital Status | | + + + | Pentecostal Affiliation | 1077 | + + + | Race | Unknown | + + + | Ethnic Group | Unknown | + + + Author + + + | Author | [employer] | + + + | Organization | [facility] | + + [...] Team Providers + +------+ + | Care Airplane Pilot Supervisor Name | Role | Phone | [...] + + | 08/18/ | Hospital | [facility] | See, Medical | Diagnosis unknown | | 2018 | Encounter | [facility] | Record | | | | | RADIOLOGY [address] | | | | | | [address] | | | | | | [place] [address] | | | | | | [phone] | | | +--------+ + + + [...] | | | | | | [place] [address] | | | | | | [phone] | | | | | | | [...] [place] | | | | | | [address] | | | | | | | | +--------+ + + + + as of this encounter Results CTA head neck W WO IV contrast (08/13/2017 5:35 PM) + + + | Specimen | Performing Laboratory | + + + | | [facility] [address] [place] [address] | + + + + + | [...]
--- OUTSIDE RECORDS SUMMARY | ~2017-11-13 | XMS | Encounter Summary ---
Demographics + + + | Address | [address] | | | [place] [address] | + + + | Home Phone | | + + + | Preferred Language | Unknown | + + + | Marital Status | | + + + | Yazidism Affiliation | 1077 | + + + | Race | Unknown | + + + | Ethnic Group | Unknown | + + + Author + + + | Author | [employer]uan [employer] | + + + | Organization | [facility] | + + + [...] Team Providers + +------+ + | Care Cloud Services Architect Name | Role | Phone | + [...] + + | 09/24/ | Office | [facility] | Wolf Perez DNP | Ischemic stroke | | 2018 | Visit | Vascular Surgery | [address] | ([facility]) (Primary Dx); | | | | [address] | [place], [place] | Carotid artery | | | | [place], [place] | [address] | stenosis, | | | | [address] | | symptomatic, right; | | | | [phone] | | Carotid stenosis, | | | [...] Wolf Perez DNP - 09/24/2017 1:30 PM [facility] [address] [place] [address] [place] [address] Office: [phone] DATE OF VISIT: 09/24/2017 PATIENT NAME: Maryjo Merrill : 1935; AGE: 82 y.o.; Sex:F PHONE NUMBER: ; PROVIDER: Wolf Perez DNP PRIMARY CARE / REFERRING PHYSICIAN: Cristin Ordoñez MD / CRISTIN ORDOÑEZ /[address] / [place] [address] The patient presents today for a Vascular Surgery Postoperative Visit. The patient is statu s post right CEA, which was performed on 09/09/2017 at the Ope rating Room. The patient is not [...] which was performed on 04/29/2017 at the Operating Room. The patient currently reports no [...] [place] | | | | | | [place] [address] | | | | | | [phone] | | | | | | | [...] [place] | | | | | | [address] | | | | | | | [...]
--- OUTSIDE RECORDS SUMMARY | ~2017-11-13 | XMS | Encounter Summary ---
Demographics + + + | Address | [address] | | | [place] [address] | + + + | Home Phone | | + + + | Preferred Language | Unknown | + + + | Marital Status | | + + + | Jehovah'S Witness Affiliation | 1077 | + + + | Race | Unknown | + + + | Ethnic Group | Unknown | + + + Author + + + | Author | [employer]uan [employer] | + + + | Organization | [facility] | + + + [...] Team Providers + +------+ + | Care User Support Specialist Name | Role | Phone | + +------+ + | Danilo Roman MD | PCP | | + +------+ + Encounter Details +--------+ + + + + | Date | Type | Department | Care Team | Description | +--------+ + + + + | 09/09/ | Procedure | [facility] | | | | 2018 | [facility] | | | | | | Operating Room [address] | | | | | | [address] | | | | | | [place] [address] | | | | | | [phone] | | | +--------+ + + + [...] | | | | | | [place] [address] | | | | | | [phone] | | | | | | | [...] [place] | | | | | | [address] | | | | | | | | +--------+ + + + + as of this encounter Visit Diagnoses Not on filein this encounter"
--- OUTSIDE RECORDS SUMMARY | ~2017-11-13 | XMS | Encounter Summary ---
Demographics + + + | Address | [address] | | | [place] [address] | + + + | Home Phone | | + + + | Preferred Language | Unknown | + + + | Marital Status | | + + + | Episcopal Affiliation | 1077 | + + + | Race | Unknown | + + + | Ethnic Group | Unknown | + + + Author + + + | Author | [employer]uan [employer] | + + + | Organization | [facility] | + + [...] Team Providers + +------+ + | Care District Court Reporter Name | Role | Phone | + [...] 10/14/2017) | | | | [place], [place] [address] | | | | | | [phone] | | | +--------+ + + + [...] | | | | | | [place] [address] | | | | | | [phone] | | | | | | | [...] [place] | | | | | | [address] | | | | | | | | +--------+ + + + + as of this encounter Visit Diagnoses Not on filein this encounter"
--- OUTSIDE RECORDS SUMMARY | ~2017-11-13 | XMS | Encounter Summary ---
Demographics + + + | Address | [address] | | | [place] [address] | + + + | Home Phone | | + + + | Preferred Language | Unknown | + + + | Marital Status | | + + + | Sikh Affiliation | 1077 | + + + | Race | Unknown | + + + | Ethnic Group | Unknown | + + + Author + + + | Author | [employer]uan [employer] | + + + | Organization [...] Team Providers + +------+ + | Care Project Intern Name | Role | Phone | + +------+ + | Danilo Roman MD | PCP | | + +------+ + Encounter Details +--------+ + + + + | Date | Type | Department | Care Team | Description | +--------+ + + + + | 09/09/ | Procedure | [facility] | | | | 2018 | [facility] | | | | | | Operating Room [address] | | | | | | [address] | | | | | | [place] [address] | | | | | | [phone] | | | +--------+ + + + [...] | | | | | | [place] [address] | | | | | | [phone] | | | | | | | [...] [place] | | | | | | [address] | | | | | | | | +--------+ + + + + as of this encounter Visit Diagnoses Not on filein this encounter"
--- OUTSIDE RECORDS SUMMARY | ~2017-11-13 | XMS | Encounter Summary ---
Demographics + + + | Address | [address] | | | [place] [address] | + + + | Home Phone | | + + + | Preferred Language | Unknown | + + + | Marital Status | | + + + | Taoism Affiliation | 1077 | + + + | Race | Unknown | + + + | Ethnic Group | Unknown | + + + Author + + + | Author | Thuan [employer] | + + + | Organization | [facility] | + + [...] Team Providers + +------+ + | Care Straightener And Aligner Name | Role | Phone | + [...] + + | 09/09/ | Anesthesia | [facility] | Aly Head, | | | 2017 | [facility] | SANDRITA [address] | | | | | Operating Room [address] | [address] | | | | | [address] | [place] [address] | | | | | [place] [address] | [phone] | | | | | [phone] | | | +--------+ + + + + Anesthesia Record + + + + + | Procedure Name | Responsible | Anesthesia Start | Anesthesia Stop Time | | | Anesthesiologist | Time | | + + + + + | ENDARTERECTOMY - | Karlene Lu Head, | 09/09/17 0737 | 09/09/17 0917 | | CAROTID (Right Neck) | SPRAYER MACHINE | | | + + + + [...] | | Date: 09/09/17; Removal Time: | SPRAYER MACHINE | SPRAYER MACHINE | | | 0907; Mask Airway: Easy; [...] | | | | | | [place] [address] | | | | | | [phone] | | | | | | | [...] [place] | | | | | | [address] | | | | | | | [...]
--- OUTSIDE RECORDS SUMMARY | ~2017-11-13 | XMS | Encounter Summary ---
Demographics + + + | Address | [address] | | | [place] [address] | + + + | Home Phone | | + + + | Preferred Language | Unknown | + + + | Marital Status | | + + + | Confucianism Affiliation | 1077 | + + + | Race | Unknown | + + + | Ethnic Group | Unknown | + + + Author + + + | Author | Thuan [employer] | + + + | Organization | [facility] | + + + [...] Team Providers + +------+ + | Care Diesel Instructor Name | Role | Phone | + +------+ + | Danilo Roman MD | PCP | | + +------+ + Encounter Details +--------+ + + + + | Date | Type | Department | Care Team | Description | +--------+ + + + + | 10/21/ | Orders Only | [facility] | Gomez, Tamara, BED RUBBER | MAI (acute kidney | | 2018 | | [place] [address] | | injury) (HCC); CKD | | | | [address] | | (chronic kidney | | | | [place] [address] | | disease), stage III; | | | | [phone] | | Essential | | | | [...] | | | | | | [place] [address] | | | | | | [phone] | | | | | | | [...] [place] | | | | | | [address] | | | | | | | [...] + | Urine | [facility] [address] [facility] [address] [place], [place] | | | [address] | + + + Urinalysis (reflex to [...] + + | Urine | [facility] [address] [place], [place] [address] | | | [address] | + + + + + | [...]
--- OUTSIDE RECORDS SUMMARY | ~2017-11-13 | XMS | Encounter Summary ---
Demographics + + + | Address | [address] | | | [place] [address] | + + + | Home Phone | | + + + | Preferred Language | Unknown | + + + | Marital Status | | + + + | Synagogue Affiliation | 1077 | + + + | Race | Unknown | + + + | Ethnic Group | Unknown | + + + Author + + + | Author | Thuan [employer] | + + + | Organization | [facility] | + + + [...] Team Providers + +------+ + | Care Risk Developer Name | Role | Phone | + [...] | | | | | [place] [address] | | | | | | [phone] | | | +--------+ + + + [...] | | | | | | [place] [address] | | | | | | [phone] | | | | | | | [...]
--- OUTSIDE RECORDS SUMMARY | ~2017-11-13 | XMS | Encounter Summary ---
Demographics + + + | Address | [address] | | | [place] [address] | + + + | Home Phone | | + + + | Preferred Language | Unknown | + + + | Marital Status | | + + + | Mormonism Affiliation | 1077 | + + + | Race | Unknown | + + + | Ethnic Group | Unknown | + + + Author + + + | Author | Thuan [employer] | + + + | Organization | [facility] | + + + [...] Team Providers + +------+ + | Care Nurse Practitioner Physician Assistant Name | Role | Phone | [...] + | 10/08/ | Documentati | [facility] [place] | Lisset Littlejohn MA | Other ( [facility] | | 2018 | on Only | [facility] | | Head CT) | | | | [address] | | | | | | [place], [place] | | | | | | [address] | | | | | | [phone] | | | +--------+ + + + [...] | | | | | | [place] [address] | | | | | | [phone] | | | | | | | [...] [place] | | | | | | [address] | | | | | | | | +--------+ + + + + as of this encounter Visit Diagnoses Not on filein this encounter"
--- OUTSIDE RECORDS SUMMARY | ~2017-11-13 | XMS | Encounter Summary ---
Demographics + + + | Address | [address] | | | [place] [address] | + + + | Home Phone | | + + + | Preferred Language | Unknown | + + + | Marital Status | | + + + | Congregation Affiliation | 1077 | + + + | Race | Unknown | + + + | Ethnic Group | Unknown | + + + Author + + + | Author | [employer] | + + + | Organization | [facility] | + [...] Team Providers + +------+ + | Care Orthotic/Prosthetic Clinician Name | Role | Phone | + [...] + + | 08/18/ | Ancillary | [facility] | See, Medical | Diagnosis unknown | | 2018 | [facility] | [facility] | Record | | | | | [address] [facility] | | | | | | [place] [address] | | | | | | [phone] | | | +--------+ + + + [...] | | | | | | [place] [address] | | | | | | [phone] | | | | | | | [...] [place] | | | | | | [address] | | | | | | | | +--------+ + + + + as of this encounter Results MRI brain without contrast (08/14/2017 5:37 PM) + + + | Specimen | Performing Laboratory | + + + | | [place] [address] | + + + + + | [...]
--- OUTSIDE RECORDS SUMMARY | ~2017-11-13 | XMS | Encounter Summary ---
Demographics + + + | Address | [address] | | | [place] [address] | + + + | Home Phone [...] + + + | Author | [employer] | + + + | Organization | [facility] | + + + [...] Team Providers + +------+ + | Care White Metal Corrosion Proofer Name | Role | Phone | + [...] + + | 08/18/ | Hospital | [facility] | See, Medical | Diagnosis unknown | | 2017 | Encounter | [facility] | Record | | | | | RADIOLOGY [address] | | | | | | [facility] | | | | | | [place] [address] | | | | | | [phone] | | | +--------+ + + + [...] | | | | | | [place] [address] | | | | | | [phone] | | | | | | | [...] [place] | | | | | | [address] | | | | | | | | +--------+ + + + + as of this encounter Results MRI brain without contrast (08/14/2017 5:37 PM) + + + | Specimen | Performing Laboratory | + + + | | [facility] RADIOLOGY [address] [place] [address] | + + + + + | [...]
--- OUTSIDE RECORDS SUMMARY | ~2017-11-13 | XMS | Encounter Summary ---
Demographics + + + | Address | [address] | | | [place] [address] | + + + | Home Phone | | + + + | Preferred Language | Unknown | + + + | Marital Status | | + + + | Scientologist Affiliation | 1077 | + + + | Race | Unknown | + + + | Ethnic Group | Unknown | + + + Author + + + | Author | [employer] | + + + | Organization | [facility] | + + [...] Team Providers + +------+ + | Care Production Cloth Cutter Name | Role | Phone | + [...] | | | | | [place] [address] | | | | | | [phone] | | | +--------+ + + + [...] | | | | | | [place] [address] | | | | | | [phone] | | | | | | | [...]
--- OUTSIDE RECORDS SUMMARY | ~2017-11-13 | XMS | Encounter Summary ---
Demographics + + + | Address | [address] | | | [place] [address] | + + + | Home Phone | | + + + | Preferred Language | Unknown | + + + | Marital Status | | + + + | Caodaism Affiliation | 1077 | + + + | Race | Unknown | + + + | Ethnic Group | Unknown | + + + Author + + + | Author | [facility] [employer] [facility] | + + + | Organization [...] Team Providers + +------+ + | Care Auto Roller Name | Role | Phone | + +------+ + | Danilo Roman MD | PCP | | + +------+ + Encounter Details +--------+ + + + + | Date | Type | Department | Care Team | Description | +--------+ + + + + | 08/18/ | Procedure | [facility] | | | | 2017 | Pass | [facility] | | | | | | RADIOLOGY [address] | | | | | | [address] | | | | | | [place] [address] | | | | | | [phone] | | | +--------+ + + + [...] | | | | | | [place] [address] | | | | | | [phone] | | | | | | | [...] [place] | | | | | | [address] | | | | | | | | +--------+ + + + + as of this encounter Visit Diagnoses Not on filein this encounter"
--- OUTSIDE RECORDS SUMMARY | ~2017-11-13 | XMS | Encounter Summary ---
Demographics + + + | Address | [address] | | | [place] [address] | + + + | Home Phone | | + + + | Preferred Language | Unknown | + + + | Marital Status | | + + + | Christian Affiliation | 1077 | + + + | Race | Unknown | + + + | Ethnic Group | Unknown | + + + Author + + + | Author | [employer] | + + + | Organization [...] Team Providers + +------+ + | Care Finisher Tailor Apprentice Name | Role | Phone | + [...] + + | 08/18/ | Hospital | [facility] PH[facility]IAN | See, Medical | Diagnosis unknown | | 2017 | Encounter | [facility] | Record | | | | | RADIOLOGY [address] | | | | | | [facility] | | | | | | [place] [address] | | | | | | [phone] | | | +--------+ + + + [...] | | | | | | [place] [address] | | | | | | [phone] | | | | | | | [...] [place] | | | | | | [address] | | | | | | | | +--------+ + + + + as of this encounter Results CT head without contrast (08/13/2017 5:32 PM) + + + | Specimen | Performing Laboratory | + + + | | [facility] RADI[facility] [address] [place] [address] | + + + + + | [...]
--- OUTSIDE RECORDS SUMMARY | ~2017-11-13 | XMS | Encounter Summary ---
Demographics + + + | Address | [address] | | | [place] [address] | + + + | Home Phone | | + + + | Preferred Language | Unknown | + + + | Marital Status | | + + + | Yazidi Affiliation | 1077 | + + + | Race | Unknown | + + + | Ethnic Group | Unknown | + + + Author + + + | Author | [employer] [employer] | + + + | Organization [...] Team Providers + +------+ + | Care Chicken Vaccinator Name | Role | Phone | + [...] + + | 08/28/ | Office | [facility] | Maximo Landry MD | Ischemic stroke | | 2018 | Visit | Vascular Surgery | [address] | (HCC) (Primary Dx); | | | | [address] | [place] [address] | Carotid artery | | | | E [place], [place] | [phone] | stenosis, | | | | [address] | | symptomatic, right | | | | [phone] | | | +--------+---------+ + + + [...] - CAROTID; Surgeon: Maximo Landry MD; Location: [facility]; Se rvice: Vascular; Laterality: Left; [...] | | | | | | [place] [address] | | | | | | [phone] | | | | | | | [...] [place] | | | | | | [address] | | | | | | | [...]
--- OUTSIDE RECORDS SUMMARY | ~2017-11-13 | XMS | Encounter Summary ---
Demographics + + + | Address | [address] | | | [place] [address] | + + + | Home Phone [...] + + + | Author | [facility] [employer] | + + + | [...] Team Providers + +------+ + | Care Lobsterman Name | Role | Phone | + [...] (Primary Dx); | | | | [address], [place] | [place] [address] | Persistent | | | | [address] | [phone] | proteinuria | | | | | [...] such as Protonix (omeprazole), talk to your [facility] care provider about if you need this medication chcf. Call our office or your PCP if [...] RFP, Magnesium, CBC, intact PTH, urinalysis, Urine bjvbfbo-in-ryqtazuxwe ratio before she comes back in [address] Roman for the opportunity to see this patient in hospital F/U today. Please do not hesitate to call me at any time with questions or concerns. Truly yours, Landry HERNANDEZ [facility] Nephrology in this encounter Plan of [...] | | | | | | [place] [address] | | | | | | [phone] | | | | | | | [...] [place] | | | | | | [address] | | | | | | | [...]
--- OUTSIDE RECORDS SUMMARY | ~2017-11-13 | XMS | Encounter Summary ---
Demographics + + + | Address | [address] | | | [place] [address] | + + + | Home Phone [...] + + + | Author | [employer] | + + + | Organization | [facility] | + + [...] Team Providers + +------+ + | Care Post Tensioning Ironworker Helper Name | Role | Phone | + [...] + + | 09/09/ | Surgery | [facility] | Maximo Landry MD | ENDARTERECTOMY - | | 2017 | [facility] | [address] | [place] | | | | Operating Room [address] | [place] [address] | | | | | [address] | [phone] | | | | | [place] [address] | | | | | | [phone] | | | +--------+---------+ + + + [...] note may be different from the original. [facility] Service: Vascular Surgery Discharge Summary Date [...] pericardial patch angioplasty Surgeon: Maximo Landry MD Salon Shampoo Assistant(s): MARY George Anesthesia: General endotrachial anesthesia Estimated [...] PONV (postoperative nausea and vomiting) 05/2017 Stroke ([facility]) 08/13/2017 Urinary urgency wears pad UTI [...] CV: No peripheral edema, rate regular SKIN: [place], warm, dry without rash/lesion MS: ROM not [...] Follow up: Danilo Roman MD [address] [facility], [address] [place] [address] In 3 days lab, vital signs, and medication review post surgery [facility]ULAR SURGERY [address] [place] [address] post op appointment Medication List START [...] eye Trouble speaking Trouble breathing Trouble swallowing [address] [place] [address]. All rights reserve d. This information is [...] | | | | | | [place] [address] | | | | | | [phone] | | | | | | | [...] [place] | | | | | | [address] | | | | | | | [...] | | | NORMALComment: Testing performed at [facility], | | | | [address] [place] | | | | [address] | | + + + + + + + | Specimen | Performing Laboratory | + + + | Blood | [facility] [address] [place] [address] Blvd. [place], | | | [place] [address] | + + + Basic metabolic panel [...] | | | | 1.210.Testing performed at [facility], [address] | | | | [place] [address] | | | | | | + + + + + + + | Specimen | Performing Laboratory | + + + | Blood | [facility] [address] [place] [address] [address], | | | [place] [address] | + + + Type and Screen (Blood Bank) (09/09/2017 6:55 AM) + + + + | Component | Value | Ref Range | + + + + | ABO/RH(D) | O POSITIVE | | + + + + | ANTIBODY SCREEN | NEGATIVE | | + + + + | ARM BAND NUMBER | [id number] performed at [facility];[address] [place] [address] | | | | Blvd;[place] [address] | | | | | | + + + + + + + | Specimen | Performing Laboratory | + + + | Blood | [facility] [facility] [address] [place] [address] | + + + Pathology histology - tissue (09/09/2017) + + + | Specimen | Performing Laboratory | + + + | Tissue - Soft | [facility] PATHOLOGY | | Tissue, Other [...] sections reveal areas of calcification. | | Ham Marker sections are submitted in cassette A1. (The [...] technical | | preparation was performed by [employer], [facility], [address] | | [place] [address] (Sewing Machine Tester: Darryn Maciel M.D.; | | [facility]#: [id number]). Diagnostician: Salome Wan MD Pathologist Electronically | [...]
--- OUTSIDE RECORDS SUMMARY | ~2017-11-13 | XMS | Encounter Summary ---
Demographics + + + | Address | [address] | | | [place] [address] | + + + | Home Phone | | + + + | Preferred Language | Unknown | + + + | Marital Status | | + + + | Anabaptist Affiliation | 1077 | + + + | Race | Unknown | + + + | Ethnic Group | Unknown | + + + Author + + + | Author | [facility] [employer] | + + + | Organization [...] Team Providers + +------+ + | Care Change Management Analyst Name | Role | Phone | + +------+ + | Danilo Roman MD | PCP | | + +------+ + Encounter Details +--------+ + + + + | Date | Type | Department | Care Team | Description | +--------+ + + + + | 10/15/ | Orders Only | [facility] | Gomez, Tamara, RADIOLOGY NURSE | Persistent | | 2018 | | [address] | | proteinuria; CKD | | | | [address] | | (chronic kidney | | | | [place] [address] | | disease), stage III; | | | | [phone] | | Acute cystitis | | | [...] | | | | | | [place] [address] | | | | | | [phone] | | | | | | | [...] [place] | | | | | | [address] | | | | | | | [...] + | Blood | [facility] [address] | | | [address] | + + + Magnesium (10/14/2017 1:55 PM) + +-------+ + | Component | Value | Ref Range | + +-------+ + | MAGNESIUM | 1.8 | 1.7 - 2.5 mg/dL | + +-------+ + + + + | Specimen | Performing Laboratory | + + + | Blood | [facility] [address] [place] [address] [address] [place], [place] | | | [address] | + + + CBC W/Auto Diff [...] + + | Blood | [facility] [address] [place], [place] [address] | | | [address] | + + + PTH intact no calcium (10/14/2017 1:55 PM) + +-------+ + | Component | Value | Ref Range | + +-------+ + | PTH INTACT NO | 58.81 | 15 - 65 pg/mL | | CALCIUM | | | + +-------+ + + + + | Specimen | Performing Laboratory | + + + | Blood | [facility] [address], [facility] [address] [place], [place] | | | [address] | + + + in this encounter Visit Diagnoses + + | Diagnosis | + + | Persistent proteinuria | + + | Proteinuria | + + | CKD (chronic kidney disease), stage III | + + | Acute cystitis without hematuria | + + | Acute cystitis | + +"
--- OUTSIDE RECORDS SUMMARY | ~2017-11-13 | XMS | Encounter Summary ---
Demographics + + + | Address | [address] | | | [place] [address] | + + + | Home Phone | | + + + | Preferred Language | Unknown | + + + | Marital Status | | + + + | Jain Affiliation | 1077 | + + + | Race | Unknown | + + + | Ethnic Group | Unknown | + + + Author + + + | Author | [employer] [employer] | + + + | Organization [...] Team Providers + +------+ + | Care Livestock Producer Name | Role | Phone | + [...] + + | 08/29/ | Hospital | [facility] | Maximo Landry MD | | | 2018 | Encounter | [facility] | [address] | | | | | Preadmission | [place] [address] | | | | | Services [address] | [phone] | | | | | Blvd [place], [place] | | | | | | [id number] | | | +--------+ + + + [...] Trouble breathing Trouble swallowing Date Last Reviewed: 12/31/201419992840-0639 [employer] [address] [place] [address], [place] [address]. All righ ts reserved. This information is [...] | | | | | | [place] [address] | | | | | | [phone] | | | | | | | [...] [place] | | | | | | [address] | | | | | | | [...] BASOPHILS ABS | 0.05Comment: Testing performed at [facility], [address] | 0.00 - 0.10 [address]/uL | | | [place] [address] | | + + + + + + + | Specimen | Performing Laboratory | + + + | Blood | [facility] [address], | | | [place] [address] | + + + in this encounter Visit Diagnoses Not on filein this encounter
--- OUTSIDE RECORDS SUMMARY | ~2017-11-13 | XMS | Clinical Summary ---
Demographics + + + | Address | [address] | | | [place] [address] | + + + | Home Phone | | + + + | Preferred Language | Unknown | + + + | Marital Status | | + + + | Gnosticism Affiliation | Unknown | + + + | Race | Unknown | + + + | Ethnic Group | Unknown | + + + Author + + + | Author | [facility] | | | and [place] | + + + | Organization | [facility] | | | and [place] | + + + | Address | Unknown | + + + | Phone | Unavailable | + + + Support + + + + + | Name | Relationship | Address | Phone | + + + + + | Melissa Bullock | ECON | [place] | | | | | [address] | | + + + + + | Connie Bullock | ECON | Unknown | | + + + + + Care Team Providers + +------+ + | Care Salad Chef Name | Role | Phone | + [...] + + + | CVA (cerebrovascular accident) ([facility]) | 08/22/2017 | + + + | [...] | | | | | | stroke ([facility]); | | | | | [...] | | | 1935M | | | RN:[id number] | | | [address] | | | [...] | | | [facility] | | | [place] | | | [place]. | | | Brain CT | | [...] | | draw clock | | | chinik, All | | | numbers | | [...] | | | phrase | | | "[place] is | | | a rainy | [...] not | | | | | | [place] | | | (L) >=60 | [...] GLOMERULAR FILTRATION | >=60 mL/min/1.73m2 | | [place] | RATE,ESTIMATED mL/min/1.05t6Fhmx than | | | | 60 Chronic [...] + + + | Blood | [facility] [address] | | | [place] [address] | + + + Extra Lavender Top Tube (08/21/2017624) + +-------+ + | Component | Value | Ref Range | + +-------+ + | Extra Lavender Top | Done | | | Tube | | | + +-------+ + + + + | Specimen | Performing Laboratory | + + + | Blood | [facility] [address] | | | [place] [address] | + + + CBC with Differential [...] | + + + | Blood | [facility] [address] | | | [place] [address] | + + + Prealbumin (08/19/2017 0543) + +-------+ + | Component | Value | Ref Range | + +-------+ + | PREALBUMIN | 20 | 18 - 38 mg/dL | + +-------+ + + + + | Specimen | Performing Laboratory | + + + | Blood | [facility] [address] | | | [place] [address] | + + + B Type Natriuretic Peptide (08/19/2017 0543) + +---------+ + | Component | Value | Ref Range | + +---------+ + | BNP | 274 (H) | <100 pg/mL | + +---------+ + + + + | Specimen | Performing Laboratory | + + + | Blood | [facility] [address] | | | [place] [address] | + + + Magnesium (08/19/2017542) + +---------+ + | Component | Value | Ref Range | + +---------+ + | MG | 1.7 (L) | 1.8 - 2.5 mg/dL | + +---------+ + + + + | Specimen | Performing Laboratory | + + + | Blood | [facility] [address] | | | [place] [address] | + + + from Last 3 [...] | + +--------+ +--------+ + + | JADYEN BULLOCK | Person | Self | [birth year] | Work: | [address] | | [employer]IS | al/Juan | | 1935 | [phone] [place] [address] | | | devika | | | [phone] Home: | | | | | | | | | | | | | | [phone] | | | | | | [phone] | | + +--------+ +--------+ + +
--- OUTSIDE RECORDS SUMMARY | ~2017-11-13 | XMS | Encounter Summary ---
Demographics + + + | Address | [address] | | | [place] [address] | + + + | Home Phone [...] + + + | Author | [facility] [employer] | + + + | Organization | [facility] | + [...] Team Providers + +------+ + | Care Strategic Partnership Specialist Name | Role | Phone | + +------+ + | Danilo Roman MD | PCP | | + +------+ + Encounter Details +--------+--------+ + + + | Date | Type | Department | Care Team | Description | +--------+--------+ + + + | 09/01/ | Refill | [facility] | Lisset Littlejohn MA | | | 2018 | | [place] | | | | | | [address] | | | | | | [place] | | | | | | [address] | | | | | | [phone] | | | +--------+--------+ + + + [...] | | | | | | [place] [address] | | | | | | [phone] | | | | | | | [...] [place] | | | | | | [address] | | | | | | | | +--------+ + + + + as of this encounter Visit Diagnoses Not on filein this encounter"
--- OUTSIDE RECORDS SUMMARY | ~2017-11-13 | XMS | Encounter Summary ---
Demographics + + + | Address | [address] | | | [place] [address] | + + + | Home Phone | | + + + | Preferred Language | Unknown | + + + | Marital Status | | + + + | Yazdanism Affiliation | 1077 | + + + | Race | Unknown | + + + | Ethnic Group | Unknown | + + + Author + + + | Author | [facility] [employer] | + + + | Organization | [facility] | + + + [...] Providers + +------+ + | Care Crusher Wet Ground Mica Name | Role | Phone | + [...] + + | 08/18/ | Ancillary | [facility] | See, Medical | Diagnosis unknown | | 2018 | [facility] | [facility] MRI | Record | | | | | [address] | | | | | | [place] [address] | | | | | | [phone] | | | +--------+ + + + [...] | | | | | | [place] [address] | | | | | | [phone] | | | | | | | [...] [place] | | | | | | [address] | | | | | | | | +--------+ + + + + as of this encounter Results MRI brain without contrast (08/14/2017 5:37 PM) + + + | Specimen | Performing Laboratory | + + + | | [place] [address] | + + + + + | [...]
--- OUTSIDE RECORDS SUMMARY | ~2017-11-13 | XMS | Encounter Summary ---
Demographics + + + | Address | [address] | | | [place] [address] | + + + | Home Phone | | + + + | Preferred Language | Unknown | + + + | Marital Status | | + + + | Anabaptism Affiliation | Unknown | + + + | Race | Unknown | + + + | Ethnic Group | Unknown | + + + Author + + + | Author | [facility] | | | and [place] | + + + | Organization | [facility] | | | and [place] | + + + | Address | Unknown | + + + | Phone | Unavailable | + + + Support + + + + + | Name | Relationship | Address | Phone | + + + + + | Melissa Merrill | ECON | [place] | | | | | [address] | | + + + + + | Connie Merrill | ECON | Unknown | | + + + + + Care Team Providers + +------+ + | Care Client Program Manager Name | Role | Phone | + +------+ + | Fady Bush MD | PCP | Unavailable | + +------+ + Encounter Details +--------+ + + + + | Date | Type | Department | Care Team | Description | +--------+ + + + + | 08/22/ | Hospital | [facility] | Francis Grajeda, | | | 2018 | Encounter | MED CTR THERAPY OT | OT | | | | | ACUTE [address] | | | | | | [place] | | | | | | [address] | | | | | | [phone] | | | +--------+ + + + [...]
--- OUTSIDE RECORDS SUMMARY | ~2017-11-13 | XMS | Encounter Summary ---
Demographics + + + | Address | [address] | | | [place] [address] | + + + | Home Phone | | + + + | Preferred Language | Unknown | + + + | Marital Status | | + + + | Confucianism Affiliation | 1077 | + + + | Race | Unknown | + + + | Ethnic Group | Unknown | + + + Author + + + | Author | [employer] | + + + | Organization [...] Team Providers + +------+ + | Care Enhanced Environmental Operator Name | Role | Phone | [...] + + | 09/09/ | Hospital | [facility] | Maximo Landry MD | Carotid stenosis, | | 2018 - | Encounter | [address] | [address] | right (Primary Dx) | | | | Floor [facility] | [place] [address] | | | 09/10/ | | [address] | [phone] | | | 2018 | | [place] [address] | | | | | | [phone] | | | +--------+ + + + [...] note may be different from the original. [facility] Service: Vascular Surgery Discharge Summary Date [...] pericardial patch angioplasty Surgeon: Maximo Landry MD Pattern Cutter(s): MARY George Anesthesia: General endotrachial anesthesia Estimated [...] - CAROTID; Surgeon: Maximo Landry MD; Location: [facility] MAIN OR; Se rvice: Vascular; Laterality: [...] CV: No peripheral edema, rate regular SKIN: [place], warm, dry without rash/lesion MS: ROM not [...] Follow up: Danilo Roman MD [address] [facility], [address] [place] [address] In 3 days lab, vital signs, and medication review post surgery [facility] VASCULAR SURGERY [address] [place] [address] post op appointment Medication List START [...] eye Trouble speaking Trouble breathing Trouble swallowing [id number] [facility], [address] [place], [place] [address]. All rights reserve d. This information is [...] | | | | | | [place] [address] | | | | | | [phone] | | | | | | | | +--------+ + + + + | 03/25/ | Appointment | Radiology | | | | 2017 | | | | | +--------+ + + + + | 03/25/ | Office | Vascular Surgery | Wolf Perez DNP | | | 2017 | Visit | | [address] | | | | | | E [place], [place] | | | | | | [address] | | | | | | | [...] | | | NORMALComment: Testing performed at [facility], | | | | [address] [place], [place] | | | | [address] | | + + + + + + + | Specimen | Performing Laboratory | + + + | Blood | [facility] [address] [place], | | | [place] [address] | + + + Basic metabolic panel [...] | | | | 1.210.Testing performed at [facility], [address] | | | | [place] [address] | | | | | | + + + + + + + | Specimen | Performing Laboratory | + + + | Blood | [facility] [address] [place] [address] Blvd[address] [place], | | | [place] [address] | + + + Type and Screen (Blood Bank) (09/09/2017 6:55 AM) + + + + | Component | Value | Ref Range | + + + + | ABO/RH(D) | O POSITIVE | | + + + + | ANTIBODY SCREEN | NEGATIVE | | + + + + | ARM BAND NUMBER | [id number] performed at [facility];[address] | | | | Pr[place]hakar;[place] [address] | | | | | | + + + + + + + | Specimen | Performing Laboratory | + + + | Blood | [facility] [address] [place] [address] | + + + Pathology histology - tissue (09/09/2017) + + + | Specimen | Performing Laboratory | + + + | Tissue - Soft | [facility] | | Tissue, Other | [...] sections reveal areas of calcification. | | Transverse Abdominal Muscle Nurse sections are submitted in cassette A1. (The [...] technical | | preparation was performed by [facility], [facility], [address] | | [place] [address] (Hairspring Truer: Darryn Maciel M.D.; | | [facility]#: [id number]). Diagnostician: Salome Wan MD Pathologist Electronically | [...]
--- OUTSIDE RECORDS SUMMARY | ~2017-11-13 | XMS | Encounter Summary ---
Demographics + + + | Address | [address] | | | [place] [address] | + + + | Home Phone | | + + + | Preferred Language | Unknown | + + + | Marital Status | | + + + | Caodaism Affiliation | 1077 | + + + | Race | Unknown | + + + | Ethnic Group | Unknown | + + + Author + + + | Author | [employer] | + + + | Organization | [facility] | + + + [...] Team Providers + +------+ + | Care Stamp Analyst Name | Role | Phone | + +------+ + | Danilo Roman MD | PCP | | + +------+ + Encounter Details +--------+ + + + + | Date | Type | Department | Care Team | Description | +--------+ + + + + | 10/15/ | Orders Only | [facility] | Gomez, Tamara, WEB DESIGNER | Persistent | | 2018 | | [place] [address] | | proteinuria; CKD | | | | [address] | | (chronic kidney | | | | [place] [address] | | disease), stage III; | | | | [phone] | | Acute cystitis | | | [...] 2018 | Visit | | MD [address] | | | | | | [place], | | | | | | [place] [address] | | | | | | [phone] | | | | | | | [...] [place] | | | | | | [address] | | | | | | | [...] + | Blood | [facility] [address] | | | [address] | + + + Magnesium (10/14/2017 1:55 PM) + +-------+ + | Component | Value | Ref Range | + +-------+ + | MAGNESIUM | 1.8 | 1.7 - 2.5 mg/dL | + +-------+ + + + + | Specimen | Performing Laboratory | + + + | Blood | [facility] [address] [place] [address] [address] [place], [place] | | | [address] | + + + CBC W/Auto Diff [...] + + | Blood | [facility] [address] [place], [place] [address] | | | [address] | + + + PTH intact no calcium (10/14/2017 1:55 PM) + +-------+ + | Component | Value | Ref Range | + +-------+ + | PTH INTACT NO | 58.81 | 15 - 65 pg/mL | | CALCIUM | | | + +-------+ + + + + | Specimen | Performing Laboratory | + + + | Blood | [facility] [address] [place], [facility] [address] [place], [place] | | | [address] | + + + in this encounter Visit Diagnoses + + | Diagnosis | + + | Persistent proteinuria | + + | Proteinuria | + + | CKD (chronic kidney disease), stage III | + + | Acute cystitis without hematuria | + + | Acute cystitis | + +"
--- OUTSIDE RECORDS SUMMARY | ~2017-11-13 | XMS | Encounter Summary ---
Demographics + + + | Address | [address] | | | [place] [address] | + + + | Home Phone | | + + + | Preferred Language | Unknown | + + + | Marital Status | | + + + | Protestant Affiliation | 1077 | + + + | Race | Unknown | + + + | Ethnic Group | Unknown | + + + Author + + + | Author | [employer] | + + + | Organization | [facility] | + + [...] Team Providers + +------+ + | Care Quality Analyst Name | Role | Phone | [...] 10/14/2017) | | | | [place], [place] [address] | | | | | | [phone] | | | +--------+ + + + [...] | | | | | | [place] [address] | | | | | | [phone] | | | | | | | [...] [place] | | | | | | [address] | | | | | | | | +--------+ + + + + as of this encounter Visit Diagnoses Not on filein this encounter"
--- OUTSIDE RECORDS SUMMARY | ~2017-11-13 | XMS | Encounter Summary ---
Demographics + + + | Address | [address] | | | [place] [address] | + + + | Home Phone | | + + + | Preferred Language | Unknown | + + + | Marital Status | | + + + | Congregational Affiliation | 1077 | + + + | Race | Unknown | + + + | Ethnic Group | Unknown | + + + Author + + + | Author | [employer] | + + + | Organization [...] Team Providers + +------+ + | Care Emt I/85 Name | Role | Phone | + [...] (Primary Dx); | | | | [address] [place], [place] | [place] [address] | Persistent | | | | [address] | [phone] | proteinuria | | | | | [...] such as Protonix (omeprazole), talk to your [facility] care provider about if you [...] RFP, Magnesium, CBC, intact PTH, urinalysis, Urine xqokorx-ju-niittgztvt ratio before she comes back in 6 [...] | | | | | | [place] [address] | | | | | | [phone] | | | | | | | [...] [place] | | | | | | [address] | | | | | | | [...]
--- OUTSIDE RECORDS SUMMARY | ~2017-11-13 | XMS | Encounter Summary ---
Demographics + + + | Address | [address] | | | [place] [address] | + + + | Home Phone | | + + + | Preferred Language | Unknown | + + + | Marital Status | | + + + | Orthodoxy Affiliation | 1077 | + + + | Race | Unknown | + + + | Ethnic Group | Unknown | + + + Author + + + | Author | [employer] | + + + | Organization [...] Providers + +------+ + | Care Hog Operator Name | Role | Phone | [...] + + | 08/29/ | Hospital | [facility] | Maximo Landry MD | | | 2018 | Encounter | [facility] | [address] | | | | | Preadmission | [place] [address] | | | | | Services [address] | [phone] | | | | | Blvd [place], [place] | | | | | | [id number] | | | +--------+ + + + [...] Trouble breathing Trouble swallowing Date Last Reviewed: 12/31/201419993605-3447 [employer]. [address] [place] [address], [place] [address]. All righ ts reserved. This information is [...] | | | | | | [place] [address] | | | | | | [phone] | | | | | | | [...] [place] | | | | | | [address] | | | | | | | [...] BASOPHILS ABS | 0.05Comment: Testing performed at [facility], [address] | 0.00 - 0.10 K/uL | | | [place] [address] | | + + + + + + + | Specimen | Performing Laboratory | + + + | Blood | [facility] [address] [place], | | | [place] [address] | + + + in this encounter Visit Diagnoses Not on filein this encounter
--- OUTSIDE RECORDS SUMMARY | ~2017-11-13 | XMS | Encounter Summary ---
Demographics + + + | Address | [address] | | | [place] [address] | + + + | Home Phone [...] + + + | Author | [employer] | + + + | Organization [...] Team Providers + +------+ + | Care Dressing Room Porter Name | Role | Phone | + [...] + + | 10/03/ | Office | [facility] | Juvencio Schultz, | Coronary artery | | 2017 | Visit | Cardiology [place] | [address] | disease, angina | | | | [address] | [place], | presence | | | | [place], [place] | [place] [address] | unspecified, | | | | [address] | [phone] | unspecified vessel | | | | [phone] | | or lesion type, | | | | | | unspecified whether | | | | | | galena or | | | | | | [...] | | | | | | involving galena | | | | | | coronary artery of | | | | | | galena heart with | | | | | [...] + + in this encounter Progress Notes Juvnecio Schultz MD - 10/03/2017 9:00 AM PDTFormatting [...] the description. She was hospitalized in [place]. A carotid ultrasound was repeated, and showed [...] (05/3017): LM-normal. prox LAD-70% > 2.5x15 Resolute [place] CHUCHO. D 2-50%. Ramus-occluded, fills via dbunr-fp-ybki collaterals. LCx-normal. RCA-dominant, mid 4 0% stenosis, patent stents. -- Cardiac Cath/PCI (05/15/17): 3 overlapping Synergy CHUCHO in distal RCA>PLV2 - 2.5x38, 3.0x 38, 3.0x38 mm. -- Carotid U/S (04/18/17): LICA > 70%, JOSE 50-69% -- Cardiac Cath (04/11/17): LM-calcification, no significant disease. HJX-ukttt-idtxduoi 60 % angiographically, calcified, FFR 0.66, distal [...] No dysuria, hematuria, urinary urgency, hesitancy. No shipping and receiving coordinator disorders. HEMATOLOGY/ONCOLOGY: No h/o bleeding disorders, DVT, PE. Denies easy bruisability or ble eding. No history of anemia, transfusions. No history of cancer. MUSCULOSKELETAL: No myalgias, has knee, ankle and thumb arthralgias. No history of rheuma tologic or autoimmune diseases. CUTANEOUS: No rashes, pruritus, lesions. PSYCHIATRIC: She admits to Depression, Anxiety or other psychiatric problems. 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 Hyperlipidemia Hypertension 2002 Ischemic stroke ([facility]) 08/13/2017 Occlusion of carotid artery 80-90% JOSE stenosis with CVA, s/p CEA 09/09/17 Persistent dry cough 1997 occ clear phlegm PONV (postoperative nausea and vomiting) 05/2017 Stroke ([facility]) 08/13/2017 Urinary urgency wears pad UTI [...] CAROTID; Surgeon: Maximo Landry MD; Location: [facility] MAIN OR; Se rvice: Vascular; Laterality: Left; ENDARTERECTOMY CAROTID Right 09/09/2017 Procedure: ENDARTERECTOMY - CAROTID; Surgeon: Maximo Landry MD; Location: [facility] MAIN OR; Se rvice: Vascular; Laterality: [...] vessel or lesion type, un specified whether galena or transplanted heart - Electrocardiogram, 12-lead Occlusion of right carotid artery Cerebrovascular accident (CVA), unspecified mechanism (HCC) Carotid stenosis, bilateral 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 tera na pectoris (HCC) [...] | | | | | | [place] [address] | | | | | | [phone] | | | | | | | [...] [place] | | | | | | [address] | | | | | | | [...] + + + + | Calculated R Roosevelt | 35 | degrees | + + + + | Calculated T [place] | -35 | degrees | + + [...] Interpretation.Confirmed by ICA | | | | [employer] Read Only, NORM Ghosh ([id number]), manuscript editor | | | | Mayito Felder ([id number]) on 10/03/2017 9:36:58 | | | | AM | | + + + + + + + | Specimen | Performing Laboratory | + + + | | [facility] EK [address] [place] [address] | + + + in this encounter Visit Diagnoses + + | Diagnosis | + + | Coronary artery disease, angina presence unspecified, unspecified vessel or lesion type, | | unspecified whether galena or transplanted heart - Primary | + [...] + + | 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 | | angina pectoris [...]
--- OUTSIDE RECORDS SUMMARY | ~2017-11-13 | XMS | Encounter Summary ---
Demographics + + + | Address | [address] | | | [place] [address] | + + + | Home Phone | | + + + | Preferred Language | Unknown | + + + | Marital Status | | + + + | Jew Affiliation | 1077 | + + + | Race | Unknown | + + + | Ethnic Group | Unknown | + + + Author + + + | Author | [employer]uan [employer] | + + + | Organization | [facility] | + [...] Team Providers + +------+ + | Care Groover And Striper Operator Name | Role | Phone | [...] + + | 09/09/ | Surgery | [facility] | Maximo Landry MD | ENDARTERECTOMY - | | 2017 | [facility] | [address] | CAROTID | | | | Operating Room [address] | [place] [address] | | | | | [address] | [phone] | | | | | [place] [address] | | | | | | [phone] | | | +--------+---------+ + + + [...] note may be different from the original. [facility] Service: Vascular Surgery Discharge Summary Date [...] pericardial patch angioplasty Surgeon: Maximo Landry MD Tour Conductor(s): MARY George Anesthesia: General endotrachial anesthesia Estimated [...] PONV (postoperative nausea and vomiting) 05/2017 Stroke ([facility]) 08/13/2017 Urinary urgency wears pad UTI [...] - CAROTID; Surgeon: Maximo Landry MD; Location: [facility] MAIN OR; Se rvice: Vascular; [...] CV: No peripheral edema, rate regular SKIN: [place], warm, dry without rash/lesion MS: ROM not [...] Follow up: Danilo Roman MD [address] [facility], [address] [place] [id number] In 3 days lab, vital signs, and medication review post surgery [facility] V[facility] SURGERY [address] [place] [...] eye Trouble speaking Trouble breathing Trouble swallowing [address] [place] [address]. All rights reserve d. This information is [...] | | | | | | [place] [address] | | | | | | [phone] | | | | | | | [...] [place] | | | | | | [address] | | | | | | | [...] | | | NORMALComment: Testing performed at [facility], | | | | [address] [place] | | | | [address] | | + + + + + + + | Specimen | Performing Laboratory | + + + | Blood | [facility] [address] [place] [address] Blvd. [place], | | | [place] [address] | + + + Basic metabolic panel [...] | | | | 1.210.Testing performed at [facility], [address] | | | | [place] [address] | | | | | | + + + + + + + | Specimen | Performing Laboratory | + + + | Blood | [facility] [address] [place] [address] [address]vd[address] [place], | | | [place] [address] | + + + Type and Screen (Blood Bank) (09/09/2017 6:55 AM) + + + + | Component | Value | Ref Range | + + + + | ABO/RH(D) | O POSITIVE | | + + + + | ANTIBODY SCREEN | NEGATIVE | | + + + + | ARM BAND NUMBER | [id number] performed at [facility];[address] [place] [address] | | | | Blvd;[place] [address] | | | | | | + + + + + + + | Specimen | Performing Laboratory | + + + | Blood | [place] [address] [place] [address] | + + + Pathology histology - tissue (09/09/2017) + + + | Specimen | Performing Laboratory | + + + | Tissue - Soft | [facility] | | Tissue, Other | [...] sections reveal areas of calcification. | | Fiberglass Finisher sections are submitted in cassette A1. (The [...] technical | | preparation was performed by [facility], [facility], [address] | | [place] [address] (Lens Silverer: Darryn Maciel M.D.; | | [facility]#: [id number]). Diagnostician: Salome Wan MD Pathologist Electronically | [...]
--- OUTSIDE RECORDS SUMMARY | ~2017-11-13 | XMS | Encounter Summary ---
Demographics + + + | Address | [address] | | | [place] [address] | + + + | Home Phone | | + + + | Preferred Language | Unknown | + + + | Marital Status | | + + + | Latter-Day Affiliation | 1077 | + + + | Race | Unknown | + + + | Ethnic Group | Unknown | + + + Author + + + | Author | [employer] | + + + | Organization | [facility] | + + [...] Team Providers + +------+ + | Care Consulting Solution Manager Name | Role | Phone | [...] + + | 09/09/ | Anesthesia | [facility] | Aly Head, | | | 2017 | [facility] | [address] | | | | | Operating Room [address] | [address] | | | | | [place] | [place] [address] | | | | | [place] [address] | [phone] | | | | | [phone] | | | +--------+ + + + + Anesthesia Record + + + + + | Procedure Name | Responsible | Anesthesia Start | Anesthesia Stop Time | | | Anesthesiologist | Time | | + + + + + | ENDARTERECTOMY - | Karlene Lu Head, | 09/09/17 0737 | 09/09/17 0917 | | CAROTID (Right Neck) | MACHINE TRY OUT SETTER | | | + + + + [...] | | Date: 09/09/17; Removal Time: | MACHINE TRY OUT SETTER | MACHINE TRY OUT SETTER | | | 0907; Mask Airway: Easy; [...] | | | | | | [place] [address] | | | | | | [phone] | | | | | | | [...] [place] | | | | | | [address] | | | | | | | [...]
--- OUTSIDE RECORDS SUMMARY | ~2017-11-13 | XMS | Encounter Summary ---
Demographics + + + | Address | [address] | | | [place] [address] | + + + | Home Phone | | + + + | Preferred Language | Unknown | + + + | Marital Status | | + + + | Catholic Affiliation | 1077 | + + + | Race | Unknown | + + + | Ethnic Group | Unknown | + + + Author + + + | Author | [employer]uan [employer] | + + + | Organization [...] Team Providers + +------+ + | Care Paper Final Inspector Name | Role | Phone | [...] + + | 08/18/ | Ancillary | [facility] | See, Medical | Diagnosis unknown | | 2018 | [facility] | [facility] CT | Record | | | | | [address] [facility] | | | | | | [place] [address] | | | | | | [phone] | | | +--------+ + + + [...] | | | | | | [place] [address] | | | | | | [phone] | | | | | | | [...] [place] | | | | | | [address] | | | | | | | | +--------+ + + + + as of this encounter Results CTA head neck W WO IV contrast (08/13/2017 5:35 PM) + + + | Specimen | Performing Laboratory | + + + | | [facility] [address] [place] [address] | + + + + + | Narrative | + + | This is a non-reportable procedure without a radiologist report and is used for | | image storage only | + + CT head without contrast (08/13/2017 5:32 PM) + + + | Specimen | Performing Laboratory | + + + | | [address] [address] | + + + + + | [...]
[~2017-11-13 09:49] MED LIST changes: +ELIQUIS5 MG PO; +MAPAP500 M1 PO; +MILK OF MA400 MG/5 M PO; +PLAVIX75 MG PO; +PRAVACHOL40 MG PO
--- OUTSIDE RECORDS SUMMARY | 2017-11-13 09:53 | XMS | Clinical Summary ---
Demographics + + + | Address | [address] | | | [place] [address] | + + + | Home Phone | | + + + | Preferred Language | Unknown | + + + | Marital Status | | + + + | Anabaptism Affiliation | [id number] | + + + | Race | Unknown | + + + | Ethnic Group | Unknown | + + + Author + + + | Author | [employer] | + + + | Organization | [facility] | + + + | Address | Unknown | + + + | Phone | Unavailable | + + + Support + + +---------+ + | Name | Relationship | Address | Phone | + + +---------+ + | Melissa Merrill | ECON | Unknown | | + + +---------+ + | Adry Merrill | ECON | Unknown | | + + +---------+ + | Tenzin Merrill | ECON | Unknown | | + + +---------+ + Care Team Providers + +------+ + | Care Orthodontic Laboratory Technician Name | Role | Phone | + +------+ + | Danilo Roman MD | PP | | + +------+ + Allergies + + + + + + | Active Allergy | Reactions | Severity | Noted | Comments | | | | | Date | | + + + + + + | Amoxicillin-Pot | Rash | Medium | 01/01/20 | | | Clavulanate | | | 17 | | + + + + + + | Duloxetine | Other (See Comments) | Medium | 01/01/20 | Headache, diarrhea | | | | | 17 | (began at the same | | | | | | time as Candesartan) | + + + + + + | Simvastatin | Muscle Pain | | 01/01/20 | | | | | | 17 | | + + + + + + | Statins | Other (See Comments) | Medium | 04/15/20 | .leg cramps | | | | | 17 | | + + + + + + Current Medications + + +--------+---------+------+------+-------+ | Prescription | Sig. | Disp. | Refills | Star | End | Statu | | | | | | t | Date | s | | | | | | Date | | | + + +--------+---------+------+------+-------+ | Omeprazole | Take 40 mg by mouth | | | | | Activ | | (PRILOSEC PO) | daily. | | | | | e | + + +--------+---------+------+------+-------+ | apixaban (ELIQUIS) | Take 1 tablet by | 60 | 11 | 12/19 | | Activ | | 5 MG tablet | mouth 2 (two) times | tablet | | 3/20 | | e | | | daily. | | | 17 | | | + + +--------+---------+------+------+-------+ | pravastatin | Take 1 tablet by | 30 | 11 | 03/22 | 03/22 | Activ | | (PRAVACHOL) 40 MG | mouth nightly. | tablet | | 2/20 | 2/20 | e | | tablet | | | | 17 | 18 | | + + +--------+---------+------+------+-------+ | acetaminophen | Take 500 mg by mouth | | | | | Activ | | (TYLENOL) 500 MG | every 6 (six) hours | | | | | e | | tablet | as needed for Pain. | | | | | | + + +--------+---------+------+------+-------+ | clopidogrel | Take 1 tablet by | 30 | 11 | 04/20 | 04/20 | Activ | | (PLAVIX) 75 MG | mouth daily. Start | tablet | | 01/07 | 01/07 | e | | tablet | on 05/12/17, with | | | 17 | 18 | | | | Aspirin dose | | | | | | | | decreased to 81 mg | | | | | | | | daily at that time | | | | | | + + +--------+---------+------+------+-------+ | carvedilol (COREG) | Take 1 tablet by | 180 | 3 | 08/21 | | Activ | | 12.5 MG tablet | mouth 2 (two) times | tablet | | 09/09 | | e | | | daily with meals. | | | 18 | | | + + +--------+---------+------+------+-------+ | amLODIPine | Take 1 tablet by | 90 | 3 | 09/18 | 09/18 | Activ | | (NORVASC) 5 MG | mouth daily. | tablet | | 01/07 | 01/07 | e | | tablet | | | | 18 | 19 | | + + +--------+---------+------+------+-------+ Active Problems + + + | Problem | Noted Date | + + + | Carotid stenosis, right | 09/10/2017 | + + + | S/P carotid endarterectomy | 09/10/2017 | + + + | Acute cystitis without hematuria | 05/01/2017 | + + + | Infarction of parietal lobe (HCC) | 05/01/2017 | + + + | Coronary artery disease due to lipid rich plaque | 04/27/2017 | + + + + + | Overview: Added automatically from request for surgery [id number] | + + + + + | CKD (chronic kidney disease), stage III | 01/17/2017 | + + + | Atrial fibrillation (HCC) | 12/31/2016 | + + + | Persistent proteinuria | 02/28/2014 | + + + + + | Overview: Mild. | + + + + + | Depression | 02/28/2014 | + + + | Ischemic stroke (HCC) | | + + + | Occlusion of carotid artery | | + + + + + | Overview: 80-90% JOSE stenosis with CVA, s/p CEA 09/09/17 | + + Resolved Problems + + + + | Problem | Noted | Resolved | | | Date | Date | + + + + | MAI (acute kidney injury) | 02/29/20 | | | | 14 | 7 | + + + + | Essential hypertension, benign | 02/29/20 | | | | 14 | 7 | + + + + | Anemia | 02/29/20 | | | | 14 | 7 | + + + + | Hypertension | | | | | | 7 | + + + + Encounters +--------+ + + + + | Date | Type | Specialty | Care Team | Description | +--------+ + + + + | 10/21/ | Documentati | | Sujey Gomez CMA | Labs Only ([facility] | | 2017 | on Only | | | Labs dated | | | | | | 10/16/2017) | +--------+ + + + + | 10/21/ | Orders Only | | Sujey Gomez CMA | MAI (acute kidney | | 2017 | | | | injury) ([facility]); CKD | | | | | | (chronic kidney | | | | | | disease), stage III; | | | | | | Essential | | | | | | hypertension, | | | | | | benign; Proteinuria; | | | | | | Persistent | | | | | | proteinuria; CKD | | | | | | (chronic kidney | | | | | | disease), stage III; | | | | | | Acute cystitis | | | | | | without hematuria | +--------+ + + + + | 10/20/ | Office | | Landry Mckenzie, | CKD (chronic kidney | | 2018 | Visit | | TAR DISTRIBUTOR OPERATOR | disease), stage III | | | | | | (Primary Dx); | | | | | | Persistent | | | | | | proteinuria | +--------+ + + + + | 10/17/ | Orders Only | | Oswaldo, | | | 2017 | | | LAKISHA Valdez | | +--------+ + + + + | 10/15/ | Documentati | | Sujey Gomez CMA | Labs Only ([facility] | | 2018 | on Only | | | Labs dated | | | | | | 10/14/2017) | +--------+ + + + + | 10/15/ | Orders Only | | Sujey Gomez CMA | Persistent | | 2017 | | | | proteinuria; CKD | | | | | | (chronic kidney | | | | | | disease), stage III; | | | | | | Acute cystitis | | | | | | without hematuria | +--------+ + + + + | 10/08/ | Documentati | | Lisset Littlejohn, TABITHA | Other ([facility] | | 2018 | on Only | | | Head CT) | +--------+ + + + + | 10/03/ | Office | | Juvencio Schultz, | Coronary artery | | 2017 | Visit | | MD | disease, angina | | | | | | presence | | | | | | unspecified, | | | | | | unspecified vessel | | | | | | or lesion type, | | | | | | unspecified whether | | | | | | [place] or | | | | | | transplanted heart | | | | | | (Primary Dx); | | | | | | Occlusion of right | | | | | | carotid artery; | | | | | | Cerebrovascular | | | | | | accident (CVA), | | | | | | unspecified | | | | | | mechanism (HCC); | | | | | | Carotid stenosis, | | | | | | bilateral; Coronary | | | | | | artery disease | | | | | | involving [place] | | | | | | coronary artery of | | | | | | [place] heart with | | | | | | unstable angina | | | | | | pectoris (HCC); S/P | | | | | | PTCA (percutaneous | | | | | | transluminal | | | | | | coronary | | | | | | angioplasty) | +--------+ + + + + | 09/24/ | Office | | Wolf Perez DNP | Ischemic stroke | | 2017 | Visit | | | ([facility]) (Primary Dx); | | | | | | Carotid artery | | | | | | stenosis, | | | | | | symptomatic, right; | | | | | | Carotid stenosis, | | | | | | asymptomatic, left; | | | | | | S/P carotid | | | | | | endarterectomy | +--------+ + + + + | 09/17/ | Orders Only | | Latasha, | S/P carotid | | 2018 | | | LAKISHA Calabrese | endarterectomy | | | | | | (Primary Dx); | | | | | | Carotid stenosis, | | | | | | right | +--------+ + + + + | 09/09/ | Hospital | | Maximo Landry MD | Carotid stenosis, | | 2018 - | Encounter | | | right (Primary Dx) | | | | | | | | 09/10/ | | | | | | 2017 | | | | | +--------+ + + + + +---+ + | | Discharge | | | Summaries | | | - Sloot, | | | Maya, | | | TAR DISTRIBUTOR OPERATOR - | | | 09/10/2017 | | | 11:20 AM | | | PST | | | Formatting | | | of this | | | note may be | | | different | | | from the | | | original.[facility] | | | Service: | | | Vascular | | | SurgeryDisc | | | harge | | | SummaryDate | | | of | | | Admission: | | | | | | 09/09/2017Da | | | te of | | | Discharge: | | | | | | 09/10/2017D | | | ischarge | | | Provider: | | | Maya | | | Sloot, | | | ARNPTreatme | | | nt Team: | | | Admitting | | | Provider: | | | Maximofrancia Landry, | | | MDDischarge | | | Diagnoses: | | | Principal | | | Problem: | | | Carotid | | | stenosis, | | | rightActive | | | Problems: | | | S/P | | | carotid | | | endarterect | | | omyResolved | | | Problems: | | | * No | | | resolved | | | hospital | | | problems. | | | *Final | | | Diagnoses: | | | S/P | | | carotid | | | endarterect | | | karime | | | Procedures: | | | | | | Procedure(s | | | ):ENDARTERE | | | CTOMY - | | | CAROTIDSign | | | ificant | | | Diagnostic | | | Studies: | | | N/ABRIEF | | | HISTORY OF | | | PRESENTATIO | | | N: Per Dr | | | Frantz consult | | | note:Ms. | | | Merrill is | | | a pleasant | | | 82 y.o. | | | female with | | | PMH | | | significant | | | for | | | anemia, | | | atrial | | | fibrillatio | | | n, CVA, | | | CKD, | | | thyroid | | | disorder, | | | hyperlipide | | | jewell, and | | | hypertensio | | | n, who | | | presents | | | for follow | | | up of left | | | carotid | | | endarterect | | | karime. | | | Patient | | | underwent | | | carotid | | | endarterect | | | karime on | | | 04/29/17. | | | She had | | | recent | | | right | | | hemispheric | | | stroke on | | | 08/13/17. At | | | the time | | | of her | | | stroke, | | | patient had | | | difficulty | | | speaking. | | | Patient was | | | originally | | | left | | | handed, but | | | is now | | | right | | | handed. She | | | states she | | | stayed in | | | rehab for 2 | | | weeks | | | after her | | | stroke. | | | Procedure(s | | | ): Right | | | carotid | | | endarterect | | | karime with | | | bovine | | | pericardial | | | patch | | | angioplasty | | | Surgeon: | | | Maximo Frantz, | | | MD Assista | | | nt(s): | | | Maya | | | Sloot, | | | TAR DISTRIBUTOR OPERATOR Anest | | | hesia: | | | General | | | endotrachia | | | l | | | anesthesia | | | Estimated | | | Blood Loss: | | | Less | | | Than 100 | | | ml Other: | | | IV Fluids: | | | 700 | | | ml Indicat | | | ions: See | | | pre-operati | | | ve history | | | and | | | physical. | | | Findings: | | | High grade, | | | calcific | | | plaque at | | | carotid | | | bifurcation | | | extending | | | into right | | | ICA. After | | | | | | endarterect | | | karime and | | | patch, good | | | ICA, ECA, | | | and CCA | | | signals. | | | HOSPITAL | | | COURSE: | | | POD 1 | | | Pain | | | controlled, | | | no TIA or | | | CVA sx. | | | Vital signs | | | within | | | acceptable | | | range. | | | Discussed | | | discharge | | | plan with | | | patient and | | | | | | and they | | | are | | | agreeable | | | to plan and | | | follow up. | | | Past | | | Medical | | | History | | | Diagnosis | | | Date | | | Anemia | | | | | | Atrial | | | fibrillatio | | | n (HCC) | | | 12/31/2016 | | | | | | | | | Cerebrovasc | | | ular | | | accident | | | (CVA) (HCC) | | | 04/30/2017 | | | minimal | | | acute | | | ischemic | | | injury | | | anterior | | | left | | | parietal | | | lobe on | | | MRI, no | | | deficits | | | Chronic | | | kidney | | | disease | | | mild kidney | | | disease | | | Coronary | | | artery | | | disease | | | 12/2016 | | | Cystocele | | | | | | Disorder | | | of thyroid | | | states | | | low | | | thyroid, no | | | medication | | | | | | | | | Hyperlipide | | | jewell | | | | | | Hypertensio | | | n 2003 | | | Ischemic | | | stroke | | | (HCC) | | | 08/13/2017 | | | | | | | | | Persistent | | | dry cough | | | 1998 occ | | | clear | | | phlegm | | | PONV | | | (postoperat | | | tommy nausea | | | and | | | vomiting) | | | 05/2017 | | | Stroke | | | (HCC) | | | 08/13/2017 | | | | | | Urinary | | | urgency | | | wears pad | | | | | | UTI | | | (urinary | | | tract | | | infection) | | | cystocele | | | | | | Visual | | | disturbance | | | | | | decreased | | | peripheral | | | and | | | proportiona | | | l vision | | | since CVA | | | Past | | | Surgical | | | History | | | Procedure | | | Laterality | | | Date | | | | | | APPENDECTOM | | | Y 1950 | | | CARDIAC | | | CATHETERIZA | | | TION | | | CAROTID | | | ENDARTERECT | | | KARIME Left | | | | | | CATARACT | | | EXTRACTION | | | | | | | | | COLONOSCOPY | | | | | | CORONARY | | | STENT | | | PLACEMENT | | | 05/2017 1 | | | stent Prox | | | LAD | | | CORONARY | | | STENT | | | PLACEMENT | | | 04/2017 3 | | | stents; | | | overlapping | | | RCA drug | | | eluting | | | | | | ENDARTERECT | | | KARIME | | | | | | CAROTID | | | Left | | | 04/29/2017 | | | Procedure: | | | | | | ENDARTERECT | | | KARIME - | | | CAROTID; | | | Surgeon: | | | Maximo Y Frantz, | | | MD; | | | Location: | | | [facility] | | | OR; | | | Service: | | | Vascular; | | | Laterality: | | | Left; | | | | | | TONSILLECTO | | | MY 1946 | | | TUBAL | | | LIGATION | | | 1965 | | | VASCULAR | | | SURGERY | | | Allergies | | | Allergen | | | Reactions | | | | | | Augmentin | | | | | | [Amoxicilli | | | n-Pot | | | Clavulanate | | | ] Rash | | | | | | Duloxetine | | | Other (See | | | Comments) | | | Headache, | | | diarrhea | | | (began at | | | the same | | | time as | | | Candesartan | | | ) | | | Statins | | | Other (See | | | Comments) | | | .leg | | | cramps | | | | | | Simvastatin | | | Muscle | | | Pain | | | Prescriptio | | | ns Prior to | | | Admission | | | Medication | | | Sig | | | Dispense | | | Refill Last | | | Dose | | | | | | acetaminoph | | | en | | | (TYLENOL) | | | 500 MG | | | tablet Take | | | 500 mg by | | | mouth every | | | 6 (six) | | | hours as | | | needed for | | | Pain. | | | Taking at | | | Unknown | | | time | | | apixaban | | | (ELIQUIS) 5 | | | MG tablet | | | Take 1 | | | tablet by | | | mouth 2 | | | (two) times | | | daily. 60 | | | tablet 11 | | | 09/08/2017 | | | at 2000 | | | | | | carvedilol | | | (COREG) | | | 12.5 MG | | | tablet Take | | | 1 tablet | | | by mouth 2 | | | (two) times | | | daily with | | | meals. 180 | | | tablet 3 | | | 09/09/2017 | | | at 0430 | | | | | | clopidogrel | | | (PLAVIX) | | | 75 MG | | | tablet Take | | | 1 tablet | | | by mouth | | | daily. | | | Start on | | | 05/12/17, | | | with | | | Aspirin | | | dose | | | decreased | | | to 81 mg | | | daily at | | | that time | | | 30 tablet | | | 11 | | | 09/08/2017 | | | at 2000 | | | | | | Omeprazole | | | (PRILOSEC | | | PO) Take 40 | | | mg by | | | mouth | | | daily. | | | 09/09/2017 | | | at 0430 | | | | | | pravastatin | | | | | | (PRAVACHOL) | | | 40 MG | | | tablet Take | | | 1 tablet | | | by mouth | | | nightly. 30 | | | tablet 11 | | | 09/08/2017 | | | at Unknown | | | time | | | DISCHARGE | | | EXAMVital | | | Signs:BP | | | 130/64 (BP | | | Location: | | | Right upper | | | arm) | | | | Pulse 77 | | | | Temp 97.6 | | | F (36.4 | | | C) (Oral) | | | | Resp 18 | | | | Ht | | | 1.664 m (5' | | | 5.5") | | | | Wt 69.9 kg | | | (154 lb 3.2 | | | oz) | | | | SpO2 92% | | | | BMI 25.27 | | | kg/m | | | Temp: | | | [97.3 F | | | (36.3 | | | C)-98.1 | | | F (36.7 | | | C)] 97.6 | | | F (36.4 | | | C) (09/10 | | | 0739)BP: | | | (107-149)/( | | | 59-86) | | | 130/64 | | | (09/10 | | | 0739)Heart | | | Rate: | | | [66-103] 77 | | | (09/10 | | | 0739)Resp: | | | [16-18] 18 | | | (09/10 | | | 0739)SpO2: | | | [91 %-94 | | | %] 92 % | | | (09/10 | | | 0739)Weight | | | : [69.9 kg | | | (154 lb | | | 3.2 oz)] | | | 69.9 kg | | | (154 lb 3.2 | | | oz) (09/10 | | | 0250)I&O | | | Last 3 | | | Shifts: | | | 09/08 1900 | | | - 09/10 | | | 0659In: | | | 1688 | | | [I.V.:1688] | | | Out: 388 | | | [Urine:355; | | | | | | Drains:13]P | | | hysical | | | ExamVitals: | | | reviewedCON | | | STITUTIONAL | | | : | | | Conversant, | | | well | | | developed, | | | NADEYES: | | | Anicteric | | | sclerae, no | | | lid drag, | | | no | | | proptosisRE | | | SP: Normal | | | effort, | | | regular, | | | even, | | | unlabored | | | rateCV: No | | | peripheral | | | edema, rate | | | | | | regularSKIN | | | : [place], | | | warm, dry | | | without | | | rash/lesion | | | MS: ROM not | | | limited, | | | no digital | | | cyanosis, | | | NEURO: | | | Cranial | | | nerves | | | II-XII | | | grossly | | | intact, A&O | | | times | | | 3PSYCH: | | | appropriate | | | affect, | | | speech and | | | tone, | | | judgement | | | and insight | | | | | | intactVascu | | | lar: Equal | | | strength | | | and | | | sensation. | | | Dressing | | | CDI. VIVIANA | | | removed at | | | bedsideDATA | | | CBC: Lab | | | Results | | | Component | | | Value Date | | | WBC 11.34 | | | (H) | | | 09/10/2017 | | | RBC 3.76 | | | 09/10/2017 | | | HGB 11.9 | | | 09/10/2017 | | | HCT 35.0 | | | 09/10/2017 | | | MCV 93.3 | | | 09/10/2017 | | | MCH 31.7 | | | 09/10/2017 | | | MCHC 34.0 | | | 09/10/2017 | | | RDW 44.6 | | | 09/10/2017 | | | PLT 174 | | | 09/10/2017 | | | MPV 9.9 | | | 09/10/2017 | | | DIFFTYPE | | | MANUAL | | | 09/10/2017 | | | BMP: Lab | | | Results | | | Component | | | Value Date | | | NA 136 | | | 09/10/2017 | | | K 4.6 | | | 09/10/2017 | | | CL 102 | | | 09/10/2017 | | | CO2 26 | | | 09/10/2017 | | | ANIONGAP | | | 13 | | | 09/10/2017 | | | GLUF 140 | | | (H) | | | 09/10/2017 | | | BUN 19 | | | 09/10/2017 | | | CREATININE | | | 0.8 | | | 09/10/2017 | | | BCR 24 | | | 09/10/2017 | | | CA 8.8 | | | 09/10/2017 | | | EGFR >60 | | | 09/10/2017 | | | PLANS/P | | | carotid | | | endarterect | | | karime-Continu | | | e home | | | meds-Hydroc | | | odone PRN | | | pain-Follow | | | up with Dr | | | Frantz or | | | Maya | | | Sloot, TAR DISTRIBUTOR OPERATOR | | | in 2 | | | weeks-Pleas | | | e call | | | clinic to | | | schedule | | | appointment | | | if we have | | | not | | | contacted | | | you within | | | 3 | | | days-Please | | | complete | | | any follow | | | up imaging | | | prior to | | | post | | | operative | | | appointment | | | . Our | | | office will | | | arrange | | | this for | | | you.-OK to | | | remove | | | dressing in | | | 2 days and | | | shower. | | | Leave steri | | | strips in | | | place-Pleas | | | e call with | | | any | | | questions | | | or | | | concerns-Pl | | | ease follow | | | up with | | | your PCP in | | | 2-3 days | | | for | | | medication | | | management, | | | BP check | | | and lab | | | reviewDispo | | | sition: | | | HomeConditi | | | on: | | | StableCode | | | Status: | | | Full | | | CodeDischar | | | ge | | | Instruction | | | sDiet | | | Cardiac | | | Activity as | | | Tolerated | | | Shower on | | | Day | | | Dressing is | | | Removed | | | (No Bath) | | | Lifting | | | Restriction | | | s Order | | | Comments: | | | Weight | | | restriction | | | of 10 lbs | | | for 4 weeks | | | Remove | | | Dressing in | | | 72 Hours | | | Call MD | | | for: | | | Temperature | | | > 100.4 F | | | (38 C) | | | Call MD | | | for: | | | Persistant | | | Nausea and | | | Vomiting | | | Call MD | | | for: | | | Severe | | | Uncontrolle | | | d Pain Call | | | MD for: | | | Redness, | | | Tenderness, | | | or Signs | | | of | | | Infection | | | (Pain, | | | Swelling, | | | Redness, | | | Odor or | | | Green/Yello | | | w Discharge | | | Around | | | Incision | | | Site) | | | Follow | | | up:Danilo | | | [place], | | | [id number] | | [address], [place] | | | [phone] | | | n [place] | | | [phone] | | | [phone] | | | dayslab, | | | vital | | | signs, and | | | medication | | | review post | | | | | | surgeryKADL | | | [facility] | | | [facility]ULAR | | | [id number] | | | [place] | | | Dr Chandan | | | [place] | | | [place] | | | [phone] | | | [phone] | | | post op | | | appointment | | | Medication | | | List | | | START | | | taking | | | these | | | medications | | | | | | HYDROcodone | | | -acetaminop | | | hen 5-325 | | | MG per | | | tabletQTY: | | | 30 | | | tabletRefil | | | ls: | | | 0Commonly | | | known as: | | | NORCOTake 1 | | | tablet by | | | mouth every | | | 4 (four) | | | hours as | | | needed for | | | up to 10 | | | days. | | | CONTINUE | | | taking | | | these | | | medications | | | | | | acetaminoph | | | en 500 MG | | | tabletRefil | | | ls: | | | 0Commonly | | | known as: | | | TYLENOL | | | apixaban 5 | | | MG | | | tabletQTY: | | | 60 | | | tabletRefil | | | ls: | | | 11Commonly | | | known as: | | | ELIQUISTake | | | 1 tablet | | | by mouth 2 | | | (two) times | | | daily. | | | carvedilol | | | 12.5 MG | | | tabletQTY: | | | 180 | | | tabletRefil | | | ls: | | | 3Commonly | | | known as: | | | COREGTake 1 | | | tablet by | | | mouth 2 | | | (two) times | | | daily with | | | meals. | | | clopidogrel | | | 75 MG | | | tabletQTY: | | | 30 | | | tabletRefil | | | ls: | | | 11Commonly | | | known as: | | | PLAVIXTake | | | 1 tablet by | | | mouth | | | daily. | | | Start on | | | 05/12/17, | | | with | | | Aspirin | | | dose | | | decreased | | | to 81 mg | | | daily at | | | that time | | | pravastatin | | | 40 MG | | | tabletQTY: | | | 30 | | | tabletRefil | | | ls: | | | 11Commonly | | | known as: | | | PRAVACHOLTa | | | ke 1 tablet | | | by mouth | | | nightly. | | | PRILOSEC | | | PORefills: | | | 0 You | | | might also | | | be taking | | | other | | | medications | | | not listed | | | above. If | | | you have | | | questions | | | about any | | | of your | | | other | | | medications | | | , talk to | | | the person | | | who | | | prescribed | | | them or | | | your | | | Primary | | | Care | | | Provider. | | | Where to | | | Get Your | | | Medications | | | You can | | | get these | | | medications | | | from any | | | pharmacy | | | Bring a | | | paper | | | prescriptio | | | n for each | | | of these | | | medications | | | | | | HYDROcodone | | | -acetaminop | | | hen 5-325 | | | MG per | | | tablet | | | Discharge | | | took 35 | | | minutes, to | | | include | | | final | | | examination | | | , | | | discussion | | | of | | | admission, | | | and | | | preparation | | | of | | | prescriptio | | | ns, | | | instruction | | | s for | | | on-going | | | care, | | | follow-up | | | and | | | documentati | | | on of | | | discharge | | | summary.Ramirez | | | anatoliy Jp, | | | ARNP2/ | | | 18 | +---+ + +--------+ +---+ + + | 09/09/ | Procedure | | | | | 2018 | Pass | | | | +--------+ +---+ + + | 09/09/ | Surgery | | Maximo Landry MD | ENDARTERECTOMY - | | 2017 | | | | CAROTID | +--------+ +---+ + + | 09/08/ | Anesthesia | | Aly Head, | | | 2017 | Event | | KarleneSANDRITA | | +--------+ +---+ + + | 09/01/ | Refill | | Lisset Littlejohn MA | | | 2018 | | | | | +--------+ +---+ + + | 08/29/ | Hospital | | Maximo Landry MD | | | 2017 | Encounter | | | | +--------+ +---+ + + 08/28/ | Office | | Maximo Landry MD | Ischemic stroke | | 2017 | Visit | | | ([facility]) (Primary Dx); | | | | | | Carotid artery | | | | | | stenosis, | | | | | | symptomatic, right | +--------+ +---+ + + | 08/18/ | Hospital | | See, Medical | Diagnosis unknown | | 2017 | Encounter | | Record | | +--------+ +---+ + + | 08/18/ | Hospital | | See, Medical | Diagnosis unknown | | 2017 | Encounter | | Record | | +--------+ +---+ + + | 08/18/ | Hospital | | See, Medical | Diagnosis unknown | | 2017 | Encounter | | Record | | +--------+ +---+ + + | 08/18/ | Procedure | | | | | 2017 | Pass | | | | +--------+ +---+ + + | 08/18/ | Ancillary | | See, Medical | Diagnosis unknown | | 2017 | Orders | | Record | | +--------+ +---+ + + | 08/18/ | Ancillary | | See, Medical | Diagnosis unknown | | 2017 | Orders | | Record | | +--------+ +---+ + + from Last 3 Months Family History + + +------+ + | Medical History | Relation | Name | Comments | + + +------+ + | Alcohol abuse | Brother | | | + + +------+ + | Asthma | Father | | | + + +------+ + | Heart failure | Father | | | + + +------+ + | Hypertension | Father | | | + + +------+ + | Coronary art dis | Mother | | | + + +------+ + | Kidney disease | Mother | | | + + +------+ + | Malig hypertherm | Neg Hx | | | + + +------+ + + +------+ + + | Relation | Name | Status | Comments | + +------+ + + | Brother | | | | | | | (Age | | | | | 88) | | + +------+ + + | Daughter | | Alive | | + +------+ + + | Daughter | | Alive | | + +------+ + + | Daughter | | Alive | | + +------+ + + | Father | | | | | | | (Age | | | | | 79) | | + +------+ + + | Mother | | | | | | | (Age | | | | | 83) | | + +------+ + + | Sister | | Alive | | + +------+ + + | Son | | Alive | | + +------+ + + Social History + +-------+ +--------+------+ | Tobacco Use | Types | Packs/Day | Years | Date | | | | | Used | | + +-------+ +--------+------+ | Never Smoker | | | | | + +-------+ +--------+------+ + +---+---+---+ | Smokeless Tobacco: | | | | | Never Used | | | | + +---+---+---+ + + | Tobacco Cessation: Counseling Given: No | + + + + +---------+ + | Alcohol Use | Drinks/We | oz/Week | Comments | | | ek | | | + + +---------+ + | No | | | | + + +---------+ + + + + | Sex Assigned at | Date Recorded | | | | + + + | Not on file | | + + + Last Filed Vital Signs + + + + | Vital Sign | Reading | Time Taken | + + + + | Blood Pressure | 118/56 | 10/20/2017 9:49 AM PDT | + + + + | Pulse | 66 | 10/03/2017 8:56 AM PDT | + + + + | Temperature | 36.3 C (97.3 F) | 10/20/2017 9:49 AM PDT | + + + + | Respiratory Rate | 18 | 09/10/2017 7:39 AM PST | + + + + | Oxygen Saturation | 99% | 10/03/2017 8:56 AM PDT | + + + + | Inhaled Oxygen | - | - | | Concentration | | | + + + + | Weight | 66.2 kg (145 lb 14.4 | 10/20/2017 9:49 AM PDT | | | oz) | | + + + + | Height | 166.4 cm (5' 5.5") | 10/20/2017 9:49 AM PDT | + + + + | Body Mass Index | 23.91 | 10/20/2017 9:49 AM PDT | + + + + Plan of Treatment +--------+ + + + + | Date | Type | Specialty | Care Team | Description | +--------+ + + + + | 01/14/ | Office | | Juvencio Schultz, | | | 2018 | Visit | | MD [address] | | | | | | [place], | | | | | | [place] [address] | | | | | | [phone] | | | | | | | | +--------+ + + + + | 03/25/ | Appointment | | | | | 2017 | | | | | +--------+ + + + + | 03/25/ | Office | | Wolf Perez DNP | | | 2017 | Visit | | [address] | | | | | | [place] | | | | | | [address] | | | | | | | | +--------+ + + + + + + + + + | Health Maintenance | Due Date | Last Done | Comments | + + + + + | Vaccine: | | | | | Dtap/Tdap/Td (1 - | 4 | | | | Tdap) | | | | + + + + + | DEXA SCAN SCREENING | | | | | | 0 | | | + + + + + | Vaccine: | | | | | Pneumococcal 65+ | 0 | | | | Low/Medium Risk (1 | | | | | of 2 - PCV13) | | | | + + + + + | Vaccine: Influenza | | | | | (Season Ended) | 8 | | | + + + + + Implants + +-------+--------+ +--------+--------+--------+ | Implanted | Type | Area | Manufacture | Device | Expira | Model | | | | | r | | tion | / | | | | | | Identi | Date | Serial | | | | | | fier | | / Lot | + +-------+--------+ +--------+--------+--------+ | Synergy Lui | Stent | Bryan | [employer] | | 03/11/ | [id number] | | [id number]/15/2017Implanted: | | ry | SCIENTIFIC | | 2017 | [id number] | | Qty: 1 on 05/15/2017 by | | | CORPORATION | | | 50 / | | Duong Cabello MD | | | | | | /[id number] | | | | | | | | 217 | + +-------+--------+ +--------+--------+--------+ | Synergy Lui | Stent | Bryan | [employer] | | 02/19/ | [id number] | | [id number]/15/2017Implanted: | | ry | SCIENTIFIC | | 2017 | [id number] | | Qty: 1 on 05/15/2017 by | | | CORPORATION | | | 00 / | | Duong Cabello MD | | | | | | /[id number] | | | | | | | | 409 | + +-------+--------+ +--------+--------+--------+ | Synergy Lui | Stent | Bryan | [employer] | | 03/10/ | [id number] | | [id number]/15/2017Implanted: | | ry | SCIENTIFIC | | 2017 | [id number] | | Qty: 1 on 05/15/2017 by | | | CORPORATION | | | 00 / | | Duong Cabello MD | | | | | | /[id number] | | | | | | | | 102 | + +-------+--------+ +--------+--------+--------+ | Kismet Lui 2.5 X | Stent | Bryan | [employer] | | 03/26/ | [id number] | | 15-06/19/2017Implanted: | | ry | | | 2019 | [id number] | | 06/19/2017 by Duong Cabello, | | | | | | / | | MD (Quantity not on file) | | | | | | /[id number] | | | | | | | | [id number] | + +-------+--------+ +--------+--------+--------+ | Xgrft Vascu-Guard Ptch 0.8x8 | | Left: | EVA | | 09/09/ | VG-010 | | - [id number]: Qty: 1 | | Caroti | BIOSCIENCE | | 2021 | 8N / | | on 04/29/2017 by Maximo Landry, | | d | - TRINITYB | | | /[id number] | | MD | | | | | | [id number] | | | | | | | | 010 | + +-------+--------+ +--------+--------+--------+ | Xgrft Vascu-Guard Ptch 0.8x8 | | Right: | EVA | | 05/14/ | VG-010 | | - [id number]: Qty: 1 | | | BIOSCIENCE | | 2021 | 8N / | | on 09/09/2017 by Maximo Landry, | | Beryl | - TRINITYB | | | /[id number] | | MD | | d | | | | 19-126 | | | | | | | | 7970 | + +-------+--------+ +--------+--------+--------+ Procedures + +--------+ + + + | Procedure Name | Priori | Date/Time | Associated Diagnosis | Comments | | | ty | | | | + +--------+ + + + | ENDARTERECTOMY - | | 09/09/2017 | Symptomatic right | | | CAROTID | | 7:15 AM | carotid stenosis | | | | | PST | | | + +--------+ + + + | CASE REQUEST | Routin | 08/28/2017 | | | | OPERATING ROOM | e | 10:20 AM | | | | | | PST | | | + +--------+ + + + from Last 3 Months Results Microalbumin / creatinine urine ratio (10/16/2017) + + + + | Component | Value | Ref Range | + + + + | ALBUMIN/CREAT RATIO | 30.8 (A) | 0 - 30 | + + + + + + + | Specimen | Performing Laboratory | + + + | Urine | [facility] [place] | | | [address] | + + + Urinalysis (reflex to micro) (10/16/2017) + + + + | Component | Value | Ref Range | + + + + | COLOR UA | Yellow | | + + + + | CLARITY | Turbid | | + + + + | SPECIFIC | 1.014 | 1.005 - 1.030 | | GRAVITY,URINE | | | + + + + | LEUKOCYTE ESTERASE | Comment: 25 | | + + + + | NITRITE | Trace | | + + + + | UROBILINOGEN | Normal | | + + + + | PROTEIN | Negative | | + + + + | PH,URINE | 5 | 5 - 9 | + + + + | BLOOD | Negative | | + + + + | KETONES | Negative | | + + + + | BILIRUBIN | Negative | | + + + + | GLUCOSE | Negative | | + + + + + + + | Specimen | Performing Laboratory | + + + | Urine | [facility] [address], [address] [place], [place] | | | [address] | + + + + + | Narrative | + + | WBC's: 5 Bacteria: +1 | + + CBC W/Auto Diff (Reflex to Manual) (10/14/2017 1:55 PM)Only the most recent of 3 results w ithin the time period is included. + +-------+ + | Component | Value | Ref Range | + +-------+ + | WBC | 6.1 | 4.5 - 11.0 10^3/mL | + +-------+ + | RBC | 4.20 | 3.8 - 5.1 10^6/ L | + +-------+ + | HGB | 13.4 | 12 - 16 g/dL | + +-------+ + | HCT | 40.2 | 35 - 45 % | + +-------+ + | MCV | 95.8 | 81 - 99 fL | + +-------+ + | MCH | 32 | 27 - 33 pg | + +-------+ + | MCHC | 33 | 30 - 36 g/dL | + +-------+ + | PLT | 220 | 140 - 440 K/ L | + +-------+ + | RDW SD | 14.0 | 10.5 - 15.0 % | + +-------+ + | MPV | | fL | + +-------+ + | DIFF TYPE | | | + +-------+ + | NEUTROPHILS | | % | + +-------+ + | LYMPHOCYTES | | % | + +-------+ + | MONOCYTES | | % | + +-------+ + | EOSINOPHILS | | % | + +-------+ + | BASOPHILS | | % | + +-------+ + | NEUTROPHILS ABS | | / L | + +-------+ + | LYMPHOCYTES ABS | | / L | + +-------+ + | MONOCYTES ABS | | / L | + +-------+ + | EOSINOPHILS ABS | | / L | + +-------+ + | BASOPHILS ABS | | / L | + +-------+ + + + + | Specimen | Performing Laboratory | + + + | Blood | [facility] [address] [place], [place] [address] | | | [address] | + + + PTH intact no calcium (10/14/2017 1:55 PM) + +-------+ + | Component | Value | Ref Range | + +-------+ + | PTH INTACT NO | 58.81 | 15 - 65 pg/mL | | CALCIUM | | | + +-------+ + + + + | Specimen | Performing Laboratory | + + + | Blood | [facility] [address] [place] | | | [address] | + + + Magnesium (10/14/2017 1:55 PM) + +-------+ + | Component | Value | Ref Range | + +-------+ + | MAGNESIUM | 1.8 | 1.7 - 2.5 mg/dL | + +-------+ + + + + | Specimen | Performing Laboratory | + + + | Blood | [facility] [address] [place] [address] [place], [place] | | | [address] | + + + Renal function panel (10/14/2017 1:55 PM) + +---------+ + | Component | Value | Ref Range | + +---------+ + | GLUCOSE | 130 (A) | 70 - 100 mg/dL | + +---------+ + | BUN | 23 | 6 - 23 mg/dL | + +---------+ + | CREATININE | 0.86 | 0.7 - 1.11 mg/dL | + +---------+ + | PHOSPHORUS | | mg/dL | + +---------+ + | Albumin | 3.8 | 3.5 - 5.0 | + +---------+ + | SODIUM | 141 | 132 - 143 mmol/L | + +---------+ + | POTASSIUM | 4.0 | 3.6 - 5.1 mmol/L | + +---------+ + | CHLORIDE | 103 | 95 - 112 mmol/L | + +---------+ + | CO2 | 23 | 19 - 31 mmol/L | + +---------+ + | ANION GAP AGAP | 19.0 | 7 - 21 mmol/L | + +---------+ + | GFR MDRD Non Af Amer | | | + +---------+ + | Phosphorus,Inorganic | 3.8 | 2.5 - 5.0 | + +---------+ + | BUN/CREAT | 26.7 | 6.0 - 28.6 | + +---------+ + | CALCIUM | 9.6 | 8.4 - 10.2 mg/dL | + +---------+ + | EGFR | 63 | mg/dL | + +---------+ + + + + | Specimen | Performing Laboratory | + + + | Blood | [facility] [address] [place] [address], [place] [address] [place], [place] | | | [address] | + + + EKG STANDARD 12 LEAD (10/03/2017 9:12 AM) + + + + | Component | Value | Ref Range | + + + + | Ventricular Rate | 68 | BPM | + + + + | Atrial Rate | 60 | BPM | + + + + | QRS Duration | 84 | ms | + + + + | Q-T Interval | 432 | ms | + + + + | QTC Calculation | 459 | ms | | (Bezet) | | | + + + + | Calculated R [place] | 35 | degrees | + + + + | Calculated T [place] | -35 | degrees | + + + + | Diagnosis | Atrial fibrillation with a competing | | | | junctional pacemakerAbnormal QRS-T angle, | | | | consider primary T wave abnormalityAbnormal | | | | ECGWhen compared with ECG of 01-JUL-2017 | | | | 16:44,No significant change was foundPlease | | | | refer to Providers office visit note for | | | | Providers Interpretation.Confirmed by ICA | | | | Allen Read Only, NORM Ghosh ([id number]), movie editor | | | | Mayito Felder ([id number]) on 10/03/2017 9:36:58 | | | | AM | | + + + + + + + | Specimen | Performing Laboratory | + + + | | [facility] [address] [place] [address] | + + + US carotid doppler, bilateral (09/24/2017 1:26 PM) + + + | Specimen | Performing Laboratory | + + + | | [address] [address] | + + + + + | Impressions | + + | 1. Right ICA: Grade 1 (Normal) - 0% stenosis). 2. Left ICA: Grade 1 (Normal - | | 0% stenosis). 3. The vertebral arteries demonstrate normal antegrade flow and | | velocities bilaterally. Validated velocity measurements with angiographic | | measurements, velocity criteria are extrapolated from diameter data as defined by the | | Society of Radiologists in Ultrasound Consensus Conference Radiology 2003; 229; 340-346. | | | + + + + | Narrative | + + | MARYJO MERRILL 1935 82 years Female US CAROTID DOPPLER, BILATERAL 09/24/2017 | | 1:26 PM HISTORY: 82 years. Female. Status post bilateral carotid | | endarterectomy TECHNIQUE: Imaging was performed with a linear array transducer. A | | duplex exam was performed including grayscale, color flow and pulsed wave spectral | | Doppler techniques. COMPARISON: Ultrasound, 05/22/2017 FINDINGS: RIGHT SIDE: | | Small echogenic focus is seen along the distal right common carotid artery which may be | | related to prior surgical changes. CCA-PROX PSV: 87.9 (cm/s) | | CCA-DIST PSV: 82.7 (cm/s) ICA-PROX PSV: 48.8 (cm/s) | | ICA-MID PSV: 54.9 (cm/s) ICA-DIST PSV: 60.1 (cm/s) ECA-PROX | | PSV: 73.5 (cm/s) VERTEBRAL PSV: 32.3 (cm/s) RATIO ICA/CCA: PSV: 0.6 VERTEBRAL | | FLOW: Antegrade LEFT SIDE: Minimal intimal thickening noted. CCA-PROX | | PSV: 121.1 (cm/s) CCA-DIST PSV: 82 (cm/s) ICA-PROX PSV: 52 (cm/s) | | ICA-MID PSV: 77.9 (cm/s) ICA-DIST PSV: 60.3 (cm/s) ECA-PROX | | PSV: 63.6 (cm/s) VERTEBRAL PSV: 53.7 (cm/s) RATIO ICA/CCA: PSV: 0.6 VERTEBRAL | | FLOW: Antegrade GRADING SYSTEM: Grade 1: Normal PSV <125 cm/s (No visible | | plaque or intimal thickening) Grade 2: <50% PSV <125 cm/s (Visible plaque or | | intimal thickening) Grade 3: 50-69% PSV >125 cm/s (Visible plaque) Grade 4: > or | | =70% to near occlusion PSV >230 cm/s (Visible plaque) Grade 5: Near Occlusion | | (Markedly narrowed lumen at color Doppler US) Grade 6: Total Occlusion (No detectable | | patent lumen at martinez-scale US and no flow at spectral, power, and color Doppler US) | + + + + | Procedure Note | + + | Manoj, Rad Results In - 09/24/2017 2:49 PM PST MARYJO Kendall [id number] years | | FemaleUS CAROTID DOPPLER, BILATERAL09/24/2017 1:26 PMHISTORY: 82 years. Female. Status | | post bilateral carotid endarterectomyTECHNIQUE: Imaging was performed with a linear | | array transducer. A duplex exam was performed including grayscale, color flow and | | pulsed wave spectral Doppler techniques.COMPARISON: Ultrasound, 05/22/2017FINDINGS:RIGHT | | SIDE:Small echogenic focus is seen along the distal right common carotid artery which | | may be related to prior surgical changes.CCA-PROX PSV: 87.9 (cm/s)CCA-DIST PSV: | | 82.7 (cm/s)ICA-PROX PSV: 48.8 (cm/s)ICA-MID PSV: 54.9 (cm/s)ICA-DIST PSV: | | 60.1 (cm/s)ECA-PROX PSV: 73.5 (cm/s)VERTEBRAL PSV: 32.3 (cm/s)RATIO ICA/CCA: PSV: | | 0.6VERTEBRAL FLOW: AntegradeLEFT SIDE:Minimal intimal thickening noted.CCA-PROX | | PSV: 121.1 (cm/s)CCA-DIST PSV: 82 (cm/s)ICA-PROX PSV: 52 (cm/s)ICA-MID PSV: | | 77.9 (cm/s)ICA-DIST PSV: 60.3 (cm/s)ECA-PROX PSV: 63.6 (cm/s)VERTEBRAL PSV: | | 53.7 (cm/s)RATIO ICA/CCA: PSV: 0.6VERTEBRAL FLOW: AntegradeGRADING SYSTEM:Grade 1: | | Normal PSV <125 cm/s (No visible plaque or intimal thickening)Grade 2: <50% PSV <125 | | cm/s (Visible plaque or intimal thickening)Grade 3: 50-69% PSV >125 cm/s (Visible | | plaque)Grade 4: > or =70% to near occlusion PSV >230 cm/s (Visible plaque)Grade 5: | | Near Occlusion (Markedly narrowed lumen at color Doppler US)Grade 6: Total Occlusion (No | | detectable patent lumen at martinez-scale US and no flow at spectral, power, and color | | Doppler US)IMPRESSION:1. Right ICA: Grade 1 (Normal) - 0% stenosis).2. Left ICA: Grade | | 1 (Normal - 0% stenosis).3. The vertebral arteries demonstrate normal antegrade flow | | and velocities bilaterally.Validated velocity measurements with angiographic | | measurements, velocity criteria are extrapolated from diameter data as defined by the | | Society of Radiologists in Ultrasound Consensus Conference Radiology 2003; 229; | | 340-346. | |VERTEBRAL FLOW: Antegrade | | | |LEFT SIDE: | |Minimal intimal thickening noted. | | | |CCA-PROX PSV: 121.1 (cm/s) | |CCA-DIST PSV: 82 (cm/s) | |ICA-PROX PSV: 52 (cm/s) | |ICA-MID PSV: 77.9 (cm/s) | |ICA-DIST PSV: 60.3 (cm/s) | |ECA-PROX PSV: 63.6 (cm/s) | |VERTEBRAL PSV: 53.7 (cm/s) | |RATIO ICA/CCA: PSV: 0.6 | |VERTEBRAL FLOW: Antegrade | | | |GRADING SYSTEM: | |Grade 1: Normal PSV <125 cm/s (No visible plaque or intimal thickening) | |Grade 2: <50% PSV <125 cm/s (Visible plaque or intimal thickening) | |Grade 3: 50-69% PSV >125 cm/s (Visible plaque) | |Grade 4: > or =70% to near occlusion PSV >230 cm/s (Visible plaque) | |Grade 5: Near Occlusion (Markedly narrowed lumen at color Doppler US) | |Grade 6: Total Occlusion (No detectable patent lumen at martinez-scale US and no flow at spectr al, power, and color Doppler US) | | | |IMPRESSION: | |1. Right ICA: Grade 1 (Normal) - 0% stenosis). | |2. Left ICA: Grade 1 (Normal - 0% stenosis). | |3. The vertebral arteries demonstrate normal antegrade flow and velocities bilaterally. | | | |Validated velocity measurements with angiographic measurements, velocity criteria are extra polated from diameter data as defined by the Society of Radiologists in Ultrasound Consensus Conference Radiology 2003; 229; 340-346. | | | | | + + Basic metabolic panel (09/10/2017 5:00 AM) + + + + | Component | Value | Ref Range | + + + + | SODIUM | 136 | 135 - 145 mmol/L | + + + + | POTASSIUM | 4.6Comment: SPECIMEN SLIGHTLY HEMOLYZED | 3.5 - 4.9 mmol/L | + + + + | CHLORIDE | 102 | 99 - 109 mmol/L | + + + + | CO2 | 26 | 23 - 32 mmol/L | + + + + | ANION GAP AGAP | 13 | 5 - 20 mmol/L | + + + + | GLUCOSE | 140 (H)Comment: SPECIMEN SLIGHTLY HEMOLYZED | 65 - 99 mg/dL | + + + + | BUN | 19 | 8 - 25 mg/dL | + + + + | CREATININE | 0.8Comment: SPECIMEN SLIGHTLY HEMOLYZED | 0.50 - 1.00 mg/dL | + + + + | BUN/CREAT | 24 | | + + + + | CALCIUM | 8.8 | 8.5 - 10.5 mg/dL | + + + + | EGFR | >60Comment: GFR <60: CHRONIC KIDNEY | >60 mL/min/1.73m2 | | | DISEASE, IF FOUND OVER A 3 MONTH PERIOD.GFR | | | | <15: KIDNEY FAILURE.FOR AMERICANS, | | | | MULTIPLY THE CALCULATED GFR BY | | | | 1.210.Testing performed at [facility], [address] | | | | [place] [address] | | | | | | + + + + + + + | Specimen | Performing Laboratory | + + + | Blood | [facility] [address] [place], | | | [place] [address] | + + + Type and Screen (Blood Bank) (09/09/2017 6:55 AM) + + + + | Component | Value | Ref Range | + + + + | ABO/RH(D) | O POSITIVE | | + + + + | ANTIBODY SCREEN | NEGATIVE | | + + + + | ARM BAND NUMBER | [id number] performed at [facility];[address] [place] [address] | | | | Prabhakar;[place] [address] | | | | | | + + + + + + + | Specimen | Performing Laboratory | + + + | Blood | [facility] [address] [place] [address] | + + + Pathology histology - tissue (09/09/2017) + + + | Specimen | Performing Laboratory | + + + | Tissue - Soft | [facility] | | Tissue, Other | | + + + + + | Narrative | + + | SPECIMEN(S): A Rt. CAROTID PLAQUE SPECIMEN SOURCE: A. Rt. CAROTID PLAQUE | | CLINICAL HISTORY: 09/09/2017 at 0830 H. Right carotid endarterectomy. FINAL PATHOLOGIC | | DIAGNOSIS: Right carotid plaque, endarterectomy: - Atherosclerotic plaque with | | dystrophic calcification. AMB:emb:C2NR GROSS DESCRIPTION: One specimen is | | received in one container, labeled with the patient's name: A. Received in formalin | | designated "right carotid plaque ", consists of 2.4 x 1.2 x 0.9 cm aggregate of | | yellow-bettencourt rubbery irregular tissue. Cut sections reveal areas of calcification. | | Wagon Person sections are submitted in cassette A1. (The tissue is placed into decal | | prior to processing.) FM The gross description section of this report has been | | prepared using a voice recognition system. The report was reviewed for accuracy, | | however, sound-alike word errors, addition and/or deletions may occur. If there is any | | question about this report please contact the originating pathologist. MICROSCOPIC | | EXAMINATION: Histologic sections of all submitted blocks are examined by light | | microscopy. These findings, together with the gross examination, support the | | pathologic diagnosis. PERFORMING LABORATORY: Professional interpretation and technical | | preparation was performed by [facility], [facility], [address] | [address] [facility] [place] [address] (Plane Tender: Darryn Maciel M.D.; | | DARRELL#: [id number]). Diagnostician: Salome Wan MD Pathologist Electronically | | Signed 09/10/2017 | + + from Last 3 Months Insurance + +--------+ +--------+-------+---------+ | Payer | Benefi | Subscriber | Type | Phone | Address | | | t Plan | ID | | | | | | / | | | | | | | Group | | | | | + +--------+ +--------+-------+---------+ | [place] - | xxxxxxxxx | Medica | | | | | MODA | | re | | | | | | | | | | | | | | | | | | | | | | | | | | | | | | | | | | | | | | | | [place] - | | | | | | | MODA | | | | | + +--------+ +--------+-------+---------+ | [place] - MODA | [place] - | [phone] | Medica | | | | | MODA | | re | | | | | | | | | | | | | | | | | | | | | | | | | | | | | | | | | | | | | | | | [place] - | | | | | | | MODA | | | | | + +--------+ +--------+-------+---------+ + +--------+ +--------+ + + | Guarantor Name | Accoun | Relation to | Date | Phone | Billing Address | | | t Type | Patient | of | | | | | | | | | | + +--------+ +--------+ + + | MARYJO MERRILL | Person | Self [birth year] | Home: | [address] | | | al/Fam | | [phone] | [phone] [place] [address] | | | devika | | | [phone] | | + +--------+ +--------+ + +
[2017-11-13] MEDS ORDERED: NORCO 10-325 T1 EACH PO (11:01)
== END 2017-11-13 11:50 | disposition home or self-care (01) ==
LOC: ED 09:49
DX: S42.201A Unspecified fracture of upper end of right humerus, initial encounter for closed fracture (principal); I10 Essential (primary) hypertension; K21.9 Gastro-esophageal reflux disease without esophagitis; W19.XXXA Unspecified fall, initial encounter; Z88.0 Allergy status to penicillin; Z79.899 Other long term (current) drug therapy; W18.30XA Fall on same level, unspecified, initial encounter
CPT/HCPCS: 73030; 80048; 85025; 85610; 85730; 96374; 96375; 96376; 99283; J1170; J2405

== ENCOUNTER 2017-11-16 13:30 | Inpatient (IN) | payer MEDICARE ==
[~2017-11-16] VITALS: Ht 167.6 cm; Wt 66.6 kg
--- OUTSIDE RECORDS SUMMARY | ~2017-11-16 | XMS | Encounter Summary ---
Demographics + + + | Address | [address] | | | [place] [address] | + + + | Home Phone | | + + + | Preferred Language | Unknown | + + + | Marital Status | | + + + | Roman Catholic Affiliation | 1077 | + + + | Race | Unknown | + + + | Ethnic Group | Unknown | + + + Author + + + | Author | [employer] | + + + | Organization | [facility] | + + + | [...] Team Providers + +------+ + | Care Dental Assistant Medical Assistant Name | Role | Phone | + +------+ + | Danilo Roman MD | PCP | | + +------+ + Encounter Details +--------+ + + + + | Date | Type | Department | Care Team | Description | +--------+ + + + + | 09/09/ | Procedure | [facility] | | | | 2018 | [facility] | | | | | | Operating Room [address] | | | | | | [address] | | | | | | [place] [address] | | | | | | [phone] | | | +--------+ + + + + Social History + +-------+ [...] + + + as of this encounter Plan of Treatment +--------+ + + + + | Date | Type | Specialty | Care Team | Description | +--------+ + + + + | 01/14/ | Office | Cardiology | Juvencio Schultz, | | | 2018 | Visit | | [address] | | | | | | [place], | | | | | | [place] [address] | | | | | | [phone] | | | | | | | [...] [place] | | | | | | [address] | | | | | | | | +--------+ + + + + as of this encounter Visit Diagnoses Not on filein this encounter"
--- OUTSIDE RECORDS SUMMARY | ~2017-11-16 | XMS | Encounter Summary ---
Demographics + + + | Address | [address] | | | [place] [address] | + + + | Home Phone | | + + + | Preferred Language | Unknown | + + + | Marital Status | | + + + | Hoahaoism Affiliation | 1077 | + + + | Race | Unknown | + + + | Ethnic Group | Unknown | + + + Author + + + | Author | [employer] | + + + | Organization | [facility] | + + + [...] Team Providers + +------+ + | Care Machine Striper Name | Role | Phone | + +------+ + | Danilo Roman MD | PCP | | + +------+ + Reason for Visit Auth/Cert +--------+--------+ + + + + | Status | Reason | Specialty | Diagnoses / | Referred By | Referred To | | | | | Procedures | Contact | Contact | +--------+--------+ + + + + | | | | Diagnoses | | | | | | | Carotid | | | | | | | stenosis | | | | | | | Symptomatic | | | | | | | right | | | | | | | carotid | | | | | | | stenosis | | | | | | | Procedures | | | | | | | ENDARTERECTO | | | | | | | MY - CAROTID | | | +--------+--------+ + + + + Encounter Details +--------+ + + + + | Date | Type | Department | Care Team | Description | +--------+ + + + + | 09/09/ | Anesthesia | [facility] | Aly Head, | | | 2017 | [facility] | [address] | | | | | Operating Room [address] | [address] | | | | | [address] | [place] [address] | | | | | [place] [address] | [phone] | | | | | [phone] | | | +--------+ + + + + Anesthesia Record + + + + + | Procedure Name | Responsible | Anesthesia Start | Anesthesia Stop Time | | | Anesthesiologist | Time | | + + + + + | ENDARTERECTOMY - | Karlene Lu Head, | 09/09/17 0737 | 09/09/17 0917 | | CAROTID (Right Neck) | [employer] | | | + + + + + +----+---+ + + | Da | T | Event | Comment | | te | i | | | | | m | | | | | e | | | +----+---+ + + | 02 | 0 | An Start | Pre-anesthetic vital signs reassessed. | | /2 | 7 | | | | 0/ | 3 | | | | 20 | 7 | | | | 18 | | | | +----+---+ + + | | 0 | An | | | | 7 | Induction | | | | 4 | | | | | 1 | | | +----+---+ + + | | 0 | An | Machine checked. Pt ID'd and consented in holding. To OR in bed. | | | 7 | Intubation | Self to table and positioned for comfort. SASA monitors. Pre | | | 4 | | oxygenation. Smooth IV induction. Eyes taped prior to BMV. | | | 4 | | Gentle, atraumatic airway placement with no changes in dentition. | | | | | | +----+---+ + + | | 0 | an ishaan now | Timeout performed, abx in, surgery start | | | 8 | | | | | 0 | | | | | 1 | | | +----+---+ + + | | 0 | An | | | | 9 | Emergence | | | | 0 | | | | | 7 | | | +----+---+ + + | | 0 | Extubation | | | | 9 | | | | | 0 | | | | | 7 | | | +----+---+ + + | | 0 | an stop | | | | 9 | data | | | | 0 | | | | | 9 | | | +----+---+ + + | | 0 | An Stop | | | | 9 | | | | | 1 | | | | | 7 | | | +----+---+ + + +------+ | Meds | +------+ + + + | Name | Total | + + + | fentanyl 50 mcg/mL | 125 mcg | + + + | lidocaine 2% | 50 mg | + + + | propofol bolus | 120 mg | + + + | ROCuronium 10 mg/mL | 30 mg | + + + | dexamethasone 4 mg/mL | 8 mg | + + + | ondansetron 2 mg/mL | 4 mg | + + + | ePHEDrine 5 mg/mL | 25 mg | + + + | phenylephrine 100 mcg/mL | 400 mcg | + + + | glycopyrrolate 0.2 mg/ml | 0.2 mg | + + + | neostigmine | 2 mg | + + + | clindamycin (CLEOCIN) IVPB 900 mg | 900 mg | + + + | remifentanil infusion | 0.3 mg | + + + | heparin 1,000 units/mL | 6,000 Units | + + + | protamine 10 mg/mL | 30 mg | + + + | plasmalyte-A | 700 mL | + + + + + | Name | + + | N2O | + + | O2 | + + | Air | + + | Sevoflurane-EX | + + | N2O | + + + + | No blood administrations on file. | + + +--------+ + + + | Type | Details | Placement | Removal | +--------+ + + + | ETT | Placement Date: 04/29/17; | 04/29/17 1111 by | | | | Placement Time: 1111; Mask | Jony Ramirez MD | | | | Airway: Easy; Blade Type: MAC; | | | | | Blade Size: 3; ETT Type: Standard | | | | | ETT; ETT Size (Fr): 7.5; | | | | | Technique: Direct Laryngoscope, | | | | | Oral Airway; Grade: I; Insertion | | | | | attempts: 1; Confirmation: EtCO2, | | | | | BBS, Direct visualization; | | | | | Intubation Details: Easy, | | | | | Atraumatic; Taped at (cm): 21; | | | | | Secured at: Lips | | | +--------+ + + + | Wound | 04/29/17; 1203; Incision; Neck; | 04/29/17 1203 by | | | | Left | Federico Krishnan RN | | +--------+ + + + | Closed | 09/09/17; 0845; 1; Right; Neck; | 09/09/17 0845 by | | | /Simeonti | Bulb; (7mm flat) | Federico Krishnan RN | | | on | | | | | Drain | | | | +--------+ + + + | Periph | Placement Date: 09/09/17; | 09/09/17 0658 by | 09/10/17 1330 by | | eral | Placement Time: 657; Removal | Bharati Rodriguez, | Jose L Fagan RN | | IV | Date: 09/10/17; Removal Time: | RN | | | | 1330; Size (Gauge): 18 G; | | | | | Orientation: Right; Location: | | | | | Forearm; Site Prep: | | | | | Chlorhexidine-Isopropyl Alcohol; | | | | | Insertion Attempts: 1 | | | +--------+ + + + | ETT | Placement Date: 09/09/17; | 09/09/17 07 by | 09/09/17 0907 by | | | Placement Time: 743; Removal | Karlene Lu Head, | Karlene Lu Head, | | | Date: 09/09/17; Removal Time: | [employer]END[employer] | [employer]ENDANT | | | 0907; Mask Airway: Easy; Blade | | | | | Type: Ibrahim; Blade Size: 2; ETT | | | | | Type: Standard ETT; ETT Size | | | | | (Fr): 7.0; Technique: Direct | | | | | Laryngoscope; Grade: I; Insertion | | | | | attempts: 1; Confirmation: | | | | | EtCO2, BBS, Direct visualization; | | | | | Intubation Details: Easy, | | | | | Atraumatic; Taped at (cm): 20; | | | | | Secured at: Lips | | | +--------+ + + + | Arteri | Placement Date: 09/09/17; | 09/09/17 09 by | 09/10/17 1330 by | | al | Placement Time: 910; Removal | Jose L Fagan RN | Jose L Fagan RN | | Line | Date: 09/10/17; Removal Time: | | | | | 1330 | | | +--------+ + + + in this encounter Social History + +-------+ +--------+------+ | Tobacco [...] | 2017 | Visit | | MD [address] | | | | | | [place] | | | | | | [place] [address] | | | | | | [phone] | | | | | | | | +--------+ + + + + | 03/25/ | Appointment | Radiology | | | | 2017 | | | | | +--------+ + + + + | 03/25/ | Office | Vascular Surgery | Wolf Perez DNP | | | 2017 | Visit | | [address] | | | | | | [place] | | | | | | [address] | | | | | | | | +--------+ + + + + as of this encounter Visit Diagnoses Not on filein this encounter Administered Medications + +--------+ +--------+------+------+ | Medication Order | MAR | Action | Dose | Rate | Site | | | Action | Date | | | | + +--------+ +--------+------+------+ | clindamycin (CLEOCIN) IVPB 900 | Given | | 900 mg | | | | mg 900 mg, Intravenous, | | 8 07:45 | | | | | Administer over 30 Minutes, On | | PST | | | | | Call To Mary Dominguez 09/09/17 at | | | | | | | 0730, For 1 dose, Must be | | | | | | | completely infused before | | | | | | | incision is made. Redose every 6 | | | | | | | hours during procedure. | | | | | | + +--------+ +--------+------+------+ +---+---+ | | | +---+---+ + +-------+ +------+---+---+ | dexamethasone (DECADRON) 4 | Given | | 8 mg | | | | MG/ML injection PRN, Starting | | 8 07:49 | | | | | 09/09/17 at 0749, Anesthesia | | PST | | | | | Intra-op | | | | | | + +-------+ +------+---+---+ +---+---+ | | | +---+---+ + +---------+ +---+---+---+ | electrolyte-A (PLASMALYTE-A) | New Bag | | | | | | solution Intravenous, Continuous | | 8 07:36 | | | | | PRN, Starting 09/09/17 at | | PST | | | | | 0736, Anesthesia Intra-op | | | | | | + +---------+ +---+---+---+ +---+---+ | | | +---+---+ + +-------+ +------+---+---+ | ephedrine injection | Given | | 5 mg | | | | Intravenous, PRN, Starting Tue | | 8 08:19 | | | | | 09/09/17 at 0811, Anesthesia | | PST | | | | | Intra-op | | | | | | + +-------+ +------+---+---+ +-------+ +------+---+---+ | Given | | 5 mg | | | | | 8 08:21 | | | | | | PST | | | | +-------+ +------+---+---+ | Given | | 5 mg | | | | | 8 08:37 | | | | | | PST | | | | +-------+ +------+---+---+ +---+---+ | | | +---+---+ + +-------+ +--------+---+---+ | fentaNYL (SUBLIMAZE) injection | Given | | 50 mcg | | | | Intravenous, PRN, Starting Tue | | 8 07:41 | | | | | 09/09/17 at 0741, Anesthesia | | PST | | | | | Intra-op | | | | | | + +-------+ +--------+---+---+ +-------+ +--------+---+---+ | Given | | 50 mcg | | | | | 8 08:42 | | | | | | PST | | | | +-------+ +--------+---+---+ | Given | | 25 mcg | | | | | 8 08:46 | | | | | | PST | | | | +-------+ +--------+---+---+ +---+---+ | | | +---+---+ + +-------+ +--------+---+---+ | glycopyrrolate (ROBINUL) | Given | | 0.2 mg | | | | injection PRN, Starting Tue | | 8 08:58 | | | | | 09/09/17 at 0858, Anesthesia | | PST | | | | | Intra-op | | | | | | + +-------+ +--------+---+---+ +---+---+ | | | +---+---+ + +-------+ +--------+---+---+ | heparin (porcine) 1000 UNIT/ML | Given | 2/20/201 | 6,000 | | | | injection PRN, Starting Tue | | 8 08:16 | Units | | | | 09/09/17 at 0816, Anesthesia | | PST | | | | | Intra-op | | | | | | + +-------+ +--------+---+---+ +---+---+ | | | +---+---+ + +-------+ +-------+---+---+ | lidocaine 2 % (MDV) 2 % | Given | | 50 mg | | | | injection Intravenous, PRN, | | 8 07:41 | | | | | Starting 09/09/17 at 0741, | | PST | | | | | Anesthesia Intra-op | | | | | | + +-------+ +-------+---+---+ +---+---+ | | | +---+---+ + +-------+ +------+---+---+ | neostigmine (PROSTIGMINE) | Given | | 2 mg | | | | injection PRN, Starting Tue | | 8 08:58 | | | | | 09/09/17 at 0858, Anesthesia | | PST | | | | | Intra-op | | | | | | + +-------+ +------+---+---+ +---+---+ | | | +---+---+ + +-------+ +------+---+---+ | ondansetron (ZOFRAN) injection | Given | | 4 mg | | | | PRN, Nausea, Vomiting, Starting | | 8 08:47 | | | | | 09/09/17 at 0847, Anesthesia | | PST | | | | | Intra-op | | | | | | + +-------+ +------+---+---+ +---+---+ | | | +---+---+ + +-------+ +---------+---+---+ | phenylephrine (ADALID-SYNEPHRINE) | Given | | 100 mcg | | | | 100 MCG/ML injection | | 8 08:00 | | | | | Intravenous, PRN, Starting Tue | | PST | | | | | 09/09/17 at 0755, Anesthesia | | | | | | | Intra-op | | | | | | + +-------+ +---------+---+---+ +-------+ +---------+---+---+ | Given | | 100 mcg | | | | | 8 08:03 | | | | | | PST | | | | +-------+ +---------+---+---+ | Given | | 100 mcg | | | | | 8 08:09 | | | | | | PST | | | | +-------+ +---------+---+---+ +---+---+ | | | +---+---+ + +-------+ +--------+---+---+ | propofol (DIPRIVAN) injection | Given | | 120 mg | | | | Intravenous, PRN, Starting Tue | | 8 07:41 | | | | | 09/09/17 at 0741, Anesthesia | | PST | | | | | Intra-op | | | | | | + +-------+ +--------+---+---+ +---+---+ | | | +---+---+ + +-------+ +-------+---+---+ | protamine injection PRN, | Given | | 30 mg | | | | Starting 09/09/17 at 0850, | | 8 08:50 | | | | | Anesthesia Intra-op | | PST | | | | + +-------+ +-------+---+---+ +---+---+ | | | +---+---+ + +---------+ + +-------+---+ | remifentanil infusion | New Bag | | 0.1 | 20.3 | | | Continuous PRN, Starting Tue | | 8 07:46 | mcg/kg/m | mL/hr | | | 09/09/17 at 0746, Anesthesia | | PST | in | | | | Intra-op | | | | | | + +---------+ + +-------+---+ + + + +-------+---+ | Rate/Dose Change | | 0.08 | 16.3 | | | | 8 07:53 | mcg/kg/m | mL/hr | | | | PST | in | | | + + + +-------+---+ | Rate/Dose Change | | 0.06 | 12.2 | | | | 8 08:10 | mcg/kg/m | mL/hr | | | | PST | in | | | + + + +-------+---+ +---+---+ | | | +---+---+ + +-------+ +-------+---+---+ | rocuronium (ZEMURON) injection | Given | | 30 mg | | | | PRN, Starting 09/09/17 at | | 8 07:41 | | | | | 0741, Anesthesia Intra-op | | PST | | | | + +-------+ +-------+---+---+ +---+---+ | | | +---+---+ in this encounter"
--- OUTSIDE RECORDS SUMMARY | ~2017-11-16 | XMS | Clinical Summary ---
Demographics + + + | Address | [address] | | | [place] [address] | + + + | Home Phone | | + + + | Preferred Language | Unknown | + + + | Marital Status | | + + + | Jainism Affiliation | Unknown | + + + | Race | Unknown | + + + | Ethnic Group | Unknown | + + + Author + + + | Author | [facility] | | | and [place] | + + + | Organization | [facility] | | | and [place] | + + + | Address | Unknown | + + + | Phone | Unavailable | + + + Support + + + + + | Name | Relationship | Address | Phone | + + + + + | Melissa Bullock | ECON | [place] | | | | | [phone] | | + + + + + | Connie Bullock | ECON | Unknown | | + + + + + Care Team Providers + +------+ + | Care 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 | Disp. | Refills | Star | End | Statu | | | | | | t | Date | s | | | | | | Date | | | + + +-------+---------+------+------+-------+ | omeprazole | Take 40 mg by mouth | | | | | Activ | | (PRILOSEC) 40 MG | every morning | | | | | e | | capsule | (before breakfast). | | | | | | + + +-------+---------+------+------+-------+ | carvedilol (COREG) | Take 18.75 mg by | | | | | Activ | | 12.5 mg tablet | mouth 2 times daily | | | | | e | | | (with breakfast & | | | | | | | | dinner). | | | | | | + + +-------+---------+------+------+-------+ | fluticasone | 2 sprays by Nasal | 1 g | 1 | 06/2 | | Activ | | (FLONASE) 50 | route Daily. Use at | | | 5/20 | | e | | mcg/nasal spray | night. | | | 15 | | | + + +-------+---------+------+------+-------+ | apixaban (ELIQUIS) | Take 5 mg by mouth 2 | | | | | Activ | | 5 mg tablet | times daily. | | | | | e | + + +-------+---------+------+------+-------+ | clopidogrel | Take 75 mg by mouth | | | | | Activ | | (PLAVIX) 75 mg | Daily. | | | | | e | | tablet | | | | | | | + + +-------+---------+------+------+-------+ Active Problems + + + | Problem | Noted Date | + + + | CVA (cerebrovascular accident) ([facility]) | 08/22/2017 | + + + | Aphasia complicating stroke | 08/22/2017 | + + + | Carotid artery stenosis, symptomatic, right | 08/22/2017 | + + + | Syncope | 11/23/2012 | + + + | Chest pain | 11/23/2012 | + + + | Snoring | 11/10/2012 | + + + | Cough | 11/10/2012 | + + + | PAC (premature atrial contraction) | 11/10/2012 | + + + | Palpitations | 11/10/2012 | + + + + + | Overview: Echo 11/18/12, LVEF 59% | | Nuclear Stress Test 11/18/12, LVEF 85% | + + + + + | GERD (gastroesophageal reflux disease) | 11/10/2012 | + + + | Hypertension | 11/10/2012 | + + + | Neurodermatitis | 11/10/2012 | + + + | Hyperlipidemia | 11/10/2012 | + + + Encounters +--------+ + + + + | Date | Type | Specialty | Care Team | Description | +--------+ + + + + | 08/22/ | Hospital | | Francis Grajeda, | | | 2017 | Encounter | | OT | | +--------+ + + + + | 08/18/ | Hospital | | Cortez Celaya | Cerebrovascular | | 2018 - | Encounter | | MD Jeanna | accident (CVA), | | | | | | unspecified | | 08/22/ | | | | mechanism (HCC) | | 2018 | | | | (Primary Dx); | | | | | | Gastroesophageal | | | | | | reflux disease, | | | | | | esophagitis presence | | | | | | not specified; | | | | | | Aphasia complicating | | | | | | stroke ([facility]); | | | | | | Carotid artery | | | | | | stenosis, | | | | | | symptomatic, right | +--------+ + + + + +---+ + | | Discharge | | | Summaries | | | - | | | Adolfo, | | | Jude Batres MD | | | - | | | 08/22/2017 | | | 1636 PST | | | Formatting | | | of this | | | note may be | | | different | | | from the | | | original. | | | | | | REHABILITAT | | | ION | | | DISCHARGE | | | SUMMARY | | | TEMPLATEPat | | | ient | | | Identificat | | | ion: Jayden | | | Arleta | | | SampsonDOB: | | | | | | 1935M | | | RN:[id number] | | | 501Admit | | | Date: | | | 08/18/2017At | | | tending | | | Provider: | | | Cortez | | | Haydon | | | MD [facility] | | | | | | | | | | | | Primary | | | Care | | | Physician: | | | Fady R. | | | MD Ele[place] | | | Impairment | | | Group: | | | Stroke | | | 01.4 No | | | paresisEtio | | | logic | | | Diagnosis: | | | CVADischarg | | | e date and | | | time: | | | 08/22/17 | | | Discharge | | | Physician: | | | Cortez | | | Haydon | | | [facility], | | [facility] | | | Problem | | | List: | | | Active | | | Problems: | | | CVA | | | (cerebrovas | | | cular | | | accident) | | | Aphasia | | | complicatin | | | g stroke | | | Carotid | | | artery | | | stenosis, | | | symptomatic | | | , | | | rightConsul | | | ts:Physical | | | | | | TherapyOccu | | | pational | | | TherapySpee | | | ch | | | TherapySoci | | | al Work | | | Significant | | | Diagnostic | | | Studies: | | | No | | | studiesTrea | | | tments: | | | ADMISSION | | | HPI: Mrs. | | | Bullock was | | | in her | | | usual state | | | of health | | | until the | | | evening of | | | August 12 | | | of this | | | year. She | | | began | | | experiencin | | | g | | | intermitten | | | t | | | headaches. | | | The next | | | morning on | | | August 13, | | | headaches, | | | she | | | reported | | | her family | | | she wasn't | | | feeling | | | right. She | | | was seen | | | by her | | | 35-year-old | | | grandson | | | who is | | | concerned | | | in that she | | | seemed | | | disoriented | | | and | | | difficulty | | | with | | | speech. He | | | noted when | | | she was | | | walking she | | | would tend | | | to shuffle | | | her feet | | | and was | | | unstable | | | balance | | | tending to | | | lean drift | | | to the | | | right. | | | Having word | | | finding | | | problems. | | | Family's | | | concerned | | | and brought | | | her to the | | [facility] [place] | | | [place]. | | | Brain CT | | | scan was | | | negative | | | for bleed | | | or mass | | | effect.She | | | was | | | evaluated | | | neurologica | | | lly by | | | Clement he | | | diagnosed | | | probable | | | acute left | | | sided | | | cerebral | | | distributio | | | n | | | CVA. CT | | | angiogram | | | showed | | | 80-90% | | | stenosis of | | | the | | | proximal | | | right ICA | | | and | | | otherwise | | | the study. | | | Relatively | | | | | | unremarkabl | | | e.Brain MRI | | | showed a | | | suboptimal | | | study due | | | to motion | | | noted that | | | show some | | | small | | | vessel | | | ischemic | | | changes but | | | no large | | | vessel | | | lesions. P | | | atient was | | | stabilized | | | acutely and | | | then | | | transferred | | | on | | | 08/19/2017 | | | [facility] | | | (per chart | | | review | | | confirmed | | | with | | | pt)Past | | | Medical | | | History: | | | Diagnosis | | | Date | | | Allergic | | | rhinitis | | | | | | Aphasia | | | complicatin | | | g stroke | | | (HCC) | | | 08/22/2017 | | | Arthritis | | | | | | Chest | | | pain | | | 11/23/2012 | | | rare, | | | non-cardiac | | | | | | Chronic | | | sinusitis | | | 04/30/12 | | | Cough | | | 11/10/2012 | | | | | | Cystocele | | | 12/11/11 | | | Diabetes | | | mellitus | | | (HCC) | | | 05/22/10 | | | patient | | | denies | | | GERD | | | (gastroesop | | | hageal | | | reflux | | | disease) | | | 11/10/2012 | | | | | | Giardia | | | 02/16/13 | | | Treated | | | | | | Hyperlipide | | | jewell | | | 11/10/2012 | | | | | | | | | Hypertensio | | | n 11/10/2012 | | | | | | Imbalance | | | 10/13/12 | | | Neck pain | | | 10/13/12 | | | | | | Neurodermat | | | itis | | | 11/10/2012 | | | | | | PAC | | | (premature | | | atrial | | | contraction | | | ) 11/10/2012 | | | | | | | | | Palpitation | | | s 11/10/2012 | | | | | | Recurrent | | | urinary | | | tract | | | infection | | | on | | | 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 | | | chest | | | Snoring | | | 11/10/2012 | | | | | | Syncope | | | 11/23/2012 | | | resolved | | | TB lung, | | | latent 2005 | | | Treated | | | with INH | | | | | | Weight | | | loss | | | 02/16/13 | | | resolved, | | | gained 20 | | | lbs | | | back.weight | | | loss with | | | Giardia | | | PSx:Past | | | Surgical | | | History: | | | Procedure | | | Laterality | | | Date | | | | | | APPENDECTOM | | | Y 1951 | | | | | | TONSILLECTO | | | MY AND | | | ADENOIDECTO | | | MY 1942 | | | TUBAL | | | LIGATION | | | Meds During | | | | | | Hospitaliza | | | tionCurrent | | | | | | Facility-Ad | | | ministered | | | Medications | | | Medication | | | Dose Route | | | Frequency | | | Provider | | | Last Rate | | | Last Dose | | | | | | | | | acetaminoph | | | en | | | (TYLENOL) | | | tablet 650 | | | mg 650 mg | | | Oral Q4H | | | PRN Cortez | | | Haydon | | | MD Yomi | | | 650 mg at | | | 08/19/17 | | | 1007 | | | aluminum | | | & magnesium | | | | | | hydroxide-s | | | imethicone | | | (MAALOX | | | PLUS | | | REGULAR | | | STRENGTH) | | | 200-200-20 | | | mg/5 mL | | | suspension | | | 30 mL 30 | | | mL Oral Q4H | | | PRN Cortez | | | Haydon | | | MD Yomi | | | | | | apixaban | | | (ELIQUIS) | | | tablet 5 mg | | | 5 mg Oral | | | BID Cortez | | | Haydon | | | MD Y[facility] | | | 5 mg at | | | 08/22/17 | | | 1033 | | | calcium | | | carbonate | | | (TUMS) | | | chewable | | | tablet | | | 1,000 mg | | | 1,000 mg | | | Oral Q8H | | | PRN Cortez | | | Haydon | | | MD Yomi | | | | | | | | | carvedilol | | | (COREG) | | | tablet 12.5 | | | mg 12.5 | | | mg Oral BID | | | WC Cortez | | | Haydon | | | MD Yomi | | | 12.5 mg at | | | 08/22/17 | | | 1033 | | | | | | clopidogrel | | | (PLAVIX) | | | tablet 75 | | | mg 75 mg | | | Oral Daily | | | Cortez | | | Haydon | | | MD Yomi | | | 75 mg at | | | 08/22/17 | | | 1033 | | | docusate | | | sodium | | | (COLACE) | | | capsule 100 | | | mg 100 mg | | | Oral BID | | | Cortez | | | Haydon | | | MD Yomi | | | 100 mg at | | | 08/22/17 | | | 1033 | | | | | | fluticasone | | | (FLONASE) | | | 50 | | | mcg/nasal | | | spray 2 | | | spray 2 | | | spray Nasal | | | Daily | | | Cortez | | | Haydon | | | MD [facility] | | | | | | | | | ondansetron | | | (ZOFRAN | | | ODT) | | | disintegrat | | | ing tablet | | | 4 mg 4 mg | | | Oral Q6H | | | PRN Cortez | | | Haydon | | | MD Yomi | | | | | | | | | pantoprazol | | | e | | | (PROTONIX) | | | DR tablet | | | 40 mg 40 | | | mg Oral QAM | | | AC Cortez | | | Haydon | | | MD Yomi | | | 40 mg at | | | 08/22/17 | | | 0628 | | | | | | pravastatin | | | | | | (PRAVACHOL) | | | tablet 40 | | | mg 40 mg | | | Oral | | | Nightly | | | Cortez | | | Haydon | | | MD Yomi | | | 40 mg at | | | 08/21/17 | | | 2052 | | | senna | | | (SENOKOT) | | | tablet 8.6 | | | mg 8.6 mg | | | Oral BID | | | PRN Cortez | | | Haydon | | | MD [facility] | | | | | | zolpidem | | | (AMBIEN) | | | tablet 5 mg | | | 5 mg Oral | | | Nightly | | | PRN Cortez | | | Haydon | | | MD [facility] | | | | | | Allergies:A | | | llergies | | | Allergen | | | Reactions | | | Acyclovir | | | And Related | | | Not Noted | | | | | | Amoxicillin | | | Other (See | | | Comments) | | | | | | Simvastatin | | | Other (See | | | Comments) | | | | | | Intolerance | | | No | | | active | | | intolerance | | | s/contraind | | | ications | | | Family | | | History:Fam | | | devika History | | | Problem | | | Relation | | | Age of | | | Onset | | | Coronary | | | artery | | | disease | | | Mother | | | Heart | | | failure | | | Father | | | Allergies | | | Father | | | High | | | blood | | | pressure | | | Father | | | * Sister | | | unknown | | | health | | | * Brother | | | unknown | | | health | | | Social | | | History: | | | per chart | | | review and | | | confirmed | | | with | | | ptSocial | | | History | | | Social | | | History | | | Marital | | | status: | | | | | | Spouse | | | name: Jadiel | | | | | | Number of | | | children: | | | 5 | | | Years of | | | education: | | | N/A | | | 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 | | | Social | | | History | | | Main Topics | | | | | | Smoking | | | status: | | | Never | | | Smoker | | | Smokeless | | | tobacco: | | | Never Used | | | | | | Alcohol | | | use No | | | Drug use: | | | No | | | Sexual | | | activity: | | | Not on file | | | Other | | | Topics | | | Concern | | | Not on | | | file Social | | | History | | | Narrative | | | Exercise: | | | treadmill | | | x5 weekly | | | Caffeine: 1 | | | [employer] | | | daily | | | Living | | | Situation: | | | with spouse | | | Lives with | | | a 12 | | | year-old | | | great | | | grandson in | | | a 1 story | | | home with 0 | | | stairs to | | | enter. | | | Bedroom and | | | shower on | | | 1st | | | floor.Has | | | adult | | | children in | | | the | | | area.Functi | | | onal | | | Status:Curr | | | ent:FIM | | | BladderScor | | | e: 6 FIM | | | Bowel | | | Score: 6 | | | FIM | | | Bed/Chair/W | | | heelchair | | | Score: 5 | | | FIM Toilet | | | Transfer | | | Score: 5 | | | FIM | | | Tub/Shower | | | Transfer | | | Score: 4 | | | FIM Walk | | | Score: 7 | | | FIM | | | Distance | | | Walked(feet | | | ): 500 feet | | | FIM | | | Wheelchair | | | Score: | | | FIM Stairs | | | Score :6 | | | FIM Eating | | | Score: 7 | | | FIM | | | Grooming | | | Score: 5 | | | FIM Bathing | | | Score: 4 | | | FIM | | | Dressing | | | Upper Body | | | Score: 4 | | | FIM | | | Dressing | | | Lower Body | | | Score: 4 | | | FIM | | | Toileting | | | Score: 5 | | | Admit:08/19/ | | | 2018DISCHAR | | | GE PHYSICAL | | | | | | EXAMINATION | | | :VS: BP | | | 136/74 | | | | Pulse 76 | | | | Temp 36.6 | | | C (97.9 | | | F) (Oral) | | | | Resp 18 | | | | Ht | | | 1.676 m (5' | | | 6") | Wt | | | 66.6 kg | | | (146 lb | | | 13.2 oz) | | | Comment: pt | | | was | | | wearing | | | pants, | | | shirt, | | | coat, shoes | | | | SpO2 97% | | | | BMI | | | 23.70 | | | kg/m | | | GENERAL: | | | NAD, | | | well-groome | | | d and | | | nourished. | | | Sitting in | | | MWCPSYCHIAT | | | BETTY: | | | pleasant, | | | mood very | | | flat. | | | Speech is | | | slow, and | | | responses | | | slowHEAD: | | | NCAT. Scalp | | | | | | alopecia.EY | | | ES: pupils | | | equal and | | | conjugate, | | | EOMI, | | | anicteric | | | scleraEARS: | | | no blood | | | in external | | | auditory | | | canalNOSE: | | | no | | | dischargeMO | | | UTH/THROAT: | | | MMM, OP | | | clear. | | | Dentition | | | is | | | goodNECK: | | | supple, no | | | massesCARDI | | | OVASCULAR: | | | skin warm | | | and dry, 2+ | | | radial | | | pulsesRESPI | | | RATORY: | | | nonlabored, | | | breathing | | | comfortably | | | on room | | | airGASTROIN | | | TESTINAL: | | | soft, NT, | | | ND, +bowel | | | soundsGENIT | | | OURINARY: | | | gotti with | | | clear | | | yellow | | | urineSKIN: | | | no lesions | | | or rashes | | | on the | | | limbs. | | | Groin and | | | coccyx Not | | | examined.MU | | | SCULOSKELET | | | AL:NEUROLOG | | | IC | | | EXAM:Mental | | | | | | Status:Gene | | | ral/Attenti | | | on: alert | | | attentiveSp | | | eech: | | | fluent with | | | normal | | | comprehensi | | | on, no | | | dysarthria, | | | dysphonia, | | | or apraxia | | | (test with | | | increasing | | | number of | | | syllables)L | | | anguage: | | | Direction | | | following: | | | _Able to | | | follow _ | | | step | | | commands. | | | _Required | | | visual, | | | auditory, | | | tactile | | | cues.Audito | | | ry | | | comprehensi | | | on: _able | | | to smile to | | | verbal | | | commandWrit | | | ten | | | comprehensi | | | on: _able | | | to close | | | eyes to | | | written | | | commandGest | | | ures: _able | | | to able to | | | smile with | | | | | | mimickingVe | | | rbal | | | expression: | | | Aphasia | | | (distinguis | | | h between | | | expressive | | | or | | | receptive): | | | _Present | | | _AbsentNami | | | ng: _Intact | | | _Unable | | | (if unable | | | to | | | vocalize, | | | can use | | | mimic or | | | use | | | multiple | | | choice,comp | | | rehension | | | must be | | | intact)Repe | | | tition: | | | _Intact | | | _UnableWrit | | | ing: Able | | | to write | | | sentence | | | with | | | subject and | | | | | | verbReading | | | : _Able to | | | decode and | | | comprehend. | | | | | | Cognition:L | | | OC: | | | AlertOrient | | | ed to: | | | Self, Name | | | of | | | hospital, | | | City, Date, | | | Month, | | | Year, | | | DayRegistra | | | tion: Able | | | to repeat 3 | | | words | | | after one | | | trialVisuos | | | patial: | | | Able to | | | copy cube | | | accuratelyV | | | isuoconstru | | | ctional: | | | Able to | | | draw clock | | | lime, All | | | numbers | | | present and | | | in correct | | | quadrants | | | with clock | | | hands | | | placed at | | | 11:40Digit | | | span: Able | | | to repeat 5 | | | digits | | | forward and | | | able to | | | repeat 3 | | | digits in | | | backward | | | orderSustai | | | ascencion | | | attention: | | | 100 93 86 | | | 79 72 | | | 65Delayed | | | recall: 3 | | | of 3 words | | | after 5 | | | minutes.Rep | | | etition: | | | able to | | | repeat the | | | phrase | | | "[place] is | | | a rainy | | | city"Naming | | | : intact | | | for "pen" | | | and | | | "watch"Writ | | | ing: Able | | | to write | | | sentence | | | with | | | subject and | | | | | | verbDirecti | | | on | | | following: | | | Able to | | | follow 3 | | | step | | | commands.Ab | | | straction: | | | Able to | | | explain 2 | | | of 2 | | | similaritie | | | s.Cranial | | | nerves:CNI: | | | not | | | testedCNII: | | | no visual | | | deficits | | | detected, | | | afferent | | | pupil | | | response to | | | light | | | intactCNIII | | | , IV, : | | | PERRLA, | | | EOMICNV: | | | intact | | | sensation | | | in all | | | three | | | divisions | | | bilaterally | | | CNVII: | | | symmetric | | | facial | | | expressions | | | CNVIII: | | | gross | | | hearing | | | intact to | | | finger | | | rubCN IX | | | and X: | | | palate | | | elevates | | | symmetrical | | | ly, uvula | | | midlineCN | | | XI: | | | symmetric | | | shoulder | | | shrugCN | | | XII: tongue | | | protrudes | | | midline | | | without | | | fasiculatio | | | ns or | | | deviationMo | | | tor | | | function:Pr | | | onator | | | Drift: No | | | pronator | | | drift | | | bilaterally | | | Tone: | | | normal | | | muscle tone | | | and bulk | | | without | | | adventitial | | | /involuntar | | | y | | | movementsPo | | | wer: MMT | | | 0-5 | | | scoring: R, | | | L SAb EF | | | EE WE FF | | | Ginger HF KE | | | DF PF | | | GTERight 5 | | | 5 5 5 5 5 5 | | | 5 5 5 | | | 5Left 5 5 5 | | | 5 5 5 5 5 | | | 5 5 5ROM: | | | wnl to PROM | | | in B | | | shoulder | | | flexion/abd | | | uction, | | | elbow | | | flexion/ext | | | ension, | | | wrist | | | flexion/ext | | | ension, | | | finger | | | flexion/abd | | | uction, hip | | | | | | flexion/ext | | | ension, | | | knee | | | flexion/ext | | | ension, DF, | | | | | | PFReflexes: | | | Bic Tri | | | BrachioRad | | | Patella | | | AchillesR | | | 2+ 2+ 2+ | | | 2+ 2+L | | | 2+ 2+ 2+ | | | 2+ | | | 2+Babinski: | | | neg | | | bilaterally | | | Gutierres's: | | | neg | | | bilaterally | | | Sensory | | | function:Li | | | ght touch, | | | pin-prick: | | | intact in | | | C4-C8, T1, | | | L2-5, | | | S1-2Proprio | | | ception: | | | intact in | | | bilateral | | | great | | | toesStereog | | | nosis: | | | intact | | | bilaterally | | | Graphesthes | | | ia: intact | | | bilaterally | | | Two-point | | | discriminat | | | ion: less | | | than 5mm on | | | fingertips | | | | | | bilaterally | | | .Double | | | tactile | | | stimulation | | | : No | | | gene-neglec | | | tCerebellar | | | | | | function:Ro | | | mberg: with | | | heels and | | | toes | | | together | | | shows | | | minimal | | | sway and no | | | step-outs | | | with eyes | | | open | | | (cerebellar | | | ) and eyes | | | closed | | | (propriocep | | | tive)Latera | | | l | | | Cerebellum: | | | Finger-to- | | | nose test: | | | within | | | normal | | | limits Heel | | | to quiles: | | | within | | | normal | | | limits | | | Midline | | | Cerebellum/ | | | Sitting | | | Balance: | | | intactAnter | | | ior | | | Cerebellum/ | | | Gait: | | | unremarkabl | | | e with | | | normal | | | stride | | | length, | | | pace and | | | arm swing; | | | tandem gait | | | within | | | normal | | | limitsRapid | | | | | | alternating | | | movements: | | | within | | | normal | | | limits, no | | | dysdiadocho | | | kinesisTrem | | | or: | | | noneLABORAT | | | ORY:Recent | | | Results | | | (from the | | | past 48 | | | hour(s)) | | | Extra | | | Lavender | | | Top Tube | | | Result | | | Value Ref | | | Range | | | Extra | | | Lavender | | | Top Tube | | | Done | | | Creatinine | | | Result | | | Value Ref | | | Range | | | Creatinine, | | | | | | Serum/Plasm | | | a 0.98 0.60 | | | - 1.30 | | | mg/dL eGFR | | | if not | | | | | | BERMUDIAN 54 | | | (L) >=60 | | | mL/min/1.73 | | | m2 Hospital | | | Course:The | | | patient's | | | hospital | | | course | | | while on | | | inpatient | | | rehab was | | | quite | | | unremarkabl | | | e. She had | | | no new | | | issues and | | | progressed | | | well in | | | therapies. | | | She | | | progressed | | | more | | | quickly | | | than | | | predicted | | | and on | | | 08/22/2017 | | | she was | | | deemed | | | ready for | | | discharge | | | to home | | | with | | | supervision | | | provided | | | by family. | | | As above | | | she was | | | walking | | | independent | | | ly. Speech | | | had | | | significant | | | ly improved | | | and | | | overall she | | | was doing | | | quite | | | well.DISCHA | | | RGE | | | MEDICATIONS | | | : Discharge | | | | | | Medications | | | Unchanged | | | | | | Medications | | | Details | | | apixaban 5 | | | mg tablet | | | Take 5 mg | | | by mouth 2 | | | times | | | daily.aka: | | | ELIQUIS | | | carvedilol | | | 12.5 mg | | | tablet Take | | | 18.75 mg | | | by mouth 2 | | | times daily | | | (with | | | breakfast & | | | | | | dinner).aka | | | : COREG | | | clopidogrel | | | 75 mg | | | tablet Take | | | 75 mg by | | | mouth | | | Daily.aka: | | | PLAVIX | | | fluticasone | | | 50 | | | mcg/nasal | | | spray 2 | | | sprays by | | | Nasal route | | | Daily. Use | | | at | | | night.aka: | | | FLONASE | | | omeprazole | | | 40 MG | | | capsule | | | Take 40 mg | | | by mouth | | | every | | | morning | | | (before | | | breakfast). | | | aka: | | | priLOSEC | | | DISPOSITION | | | : Home with | | | | | | familyFOLLO | | | W UP:-PCP: | | | 1-2 weeks | | | after d/c | | | from | | | hospital-Re | | | hab FU: 3-4 | | | weeks | | | after rehab | | | | | | d/c-[facility] | | | r surgery - | | | Dr. Landry | | | 08/28/17 | | | TBDDISCHARG | | | E | | | INSTRUCTION | | | S:Resume | | | home | | | medications | | | . Call to | | | set up | | | outpatient | | | PT and | | | speech at | | | [facility] | | | Call PCP | | | to set up | | | follow-up | | | appointment | | | .Signed:Ada | | | m T. | | | Boogieerenberg, | | | | | | MD | | | 6:37Portion | | | s of this | | | chart may | | | have been | | | created | | | with Dragon | | | voice | | | recognition | | | software. | | | Occasional | | | wrong-word | | | or | | | | | | sound-alike | | | | | | | | | substitutio | | | ns may have | | | occurred | | | due to the | | | inherent | | | limitations | | | of voice | | | recognition | | | software. | | | Please read | | | the chart | | | carefully | | | and | | | recognize, | | | using | | | context, | | | where these | | | | | | substitutio | | | ns have | | | occurred | +---+ + from Last 3 Months Family History + + +------+ + | Medical History | Relation | Name | Comments | + + +------+ + | * | Brother | | unknown health | + + +------+ + | Allergies | Father | | | + + +------+ + | Heart failure | Father | | | + + +------+ + | High blood pressure | Father | | | + + +------+ + | Coronary artery | Mother | | | | disease | | | | + + +------+ + | * | Sister | | unknown health | + + +------+ + + +------+ + + | Relation | Name | Status | Comments | + +------+ + + | Brother | | Alive | | + +------+ + + | Father | | | CHF | | | | (Age | | | | | 77) | | + +------+ + + | Mother | | | kidney failure | | | | (Age | | [...] + + + | Blood Pressure | 136/74 | 08/22/2017 1600 PST | + + + + | Pulse | 76 | 08/22/2017 1600 PST | + + + + | Temperature | 36.6 C (97.9 F) | 08/22/2017 1600 PST | + + + + | Respiratory Rate | 18 | 08/22/2017 1600 PST | + + + + | Oxygen Saturation | 97% | 08/22/2017 1600 PST | + + + + | Inhaled Oxygen | - | - | | Concentration | | | + + + + | Weight | 66.6 kg (146 lb 13.2 | 08/18/20171810 PST | | | oz) | | + + + + | Height | 167.6 cm (5' 6") | 08/18/20171948 PST | + + + + | Body Mass Index | 23.7 | 08/18/20171810 PST | + + + + Plan of Treatment + + + + + | Health [...] | | + + + + + Results Creatinine (08/21/2017 0633) + + + + | Component | Value | Ref Range | + + + + | Creatinine, | 0.98 | 0.60 - 1.30 mg/dL | | Serum/Plasma | | | + + + + | eGFR if not | 54 (L)Comment: GLOMERULAR FILTRATION | >=60 mL/min/1.73m2 | | BERMUDIAN | RATE,ESTIMATED mL/min/1.12l6Guab than | | | | 60 Chronic kidney disease,if found over | | | | a 3-month period.Less than 15 Kidney | | | | failureFor Americans,multiply the | | | | calculated GFR by 1.21. | | | | | | | | | | + + + + + + + | Specimen | Performing Laboratory | + + + | Blood | [facility] [address] | | | [place] [address] | + + + Extra Lavender Top Tube (08/21/2017624) + +-------+ + | Component | Value | Ref Range | + +-------+ + | Extra Lavender Top | Done | | | Tube | | | + +-------+ + + + + | Specimen | Performing Laboratory | + + + | Blood | [facility] [address] | | | [place] [address] | + + + CBC with Differential (08/19/2017 0543) + +---------+ + | Component | Value | Ref Range | + +---------+ + | WBC | 5.8 | 4.0 - 11.0 K/uL | + +---------+ + | RBC | 3.97 | 3.70 - 5.20 M/uL | + +---------+ + | Hgb | 12.2 | 11.5 - 16.0 g/dL | + +---------+ + | Hct | 37.7 | 34.0 - 47.0 % | + +---------+ + | MCV | 95.1 | 83.0 - 101.0 fL | + +---------+ + | MCH | 30.8 | 28.0 - 35.0 pg | + +---------+ + | MCHC | 32.4 | 32.0 - 36.0 g/dL | + +---------+ + | RDW-CV | 12.9 | <15.0 % | + +---------+ + | Platelet Count | 173 | 140 - 440 K/uL | + +---------+ + | MPV | 8.9 | fL | + +---------+ + | % Neutrophils | 46.1 | 45.0 - 82.0 % | + +---------+ + | % Lymphocytes | 38.3 | 20.0 - 45.0 % | + +---------+ + | % Monocytes | 8.3 | 4.0 - 12.0 % | + +---------+ + | % Eosinophils | 6.5 (H) | 0.0 - 5.0 % | + +---------+ + | % Basophils | 0.8 | 0.0 - 1.0 % | + +---------+ + | Absolute Neutrophils | 2.70 | 1.80 - 8.50 K/uL | + +---------+ + | Absolute Lymphocytes | 2.20 | 0.60 - 3.20 K/uL | + +---------+ + | Absolute Monocytes | 0.50 | 0.00 - 1.00 K/uL | + +---------+ + | Absolute Eosinophils | 0.40 | 0.00 - 0.40 K/uL | + +---------+ + | Absolute Basophils | 0.00 | 0.00 - 0.10 K/uL | + +---------+ + + + + | Specimen | Performing Laboratory | + + + | Blood | [facility] [address] | | | [place] [address] | + + + Prealbumin (08/19/2017 0543) + +-------+ + | Component | Value | Ref Range | + +-------+ + | PREALBUMIN | 20 | 18 - 38 mg/dL | + +-------+ + + + + | Specimen | Performing Laboratory | + + + | Blood | [facility] [address] | | | [place] [address] | + + + B Type Natriuretic Peptide (08/19/2017 0543) + +---------+ + | Component | Value | Ref Range | + +---------+ + | BNP | 274 (H) | <100 pg/mL | + +---------+ + + + + | Specimen | Performing Laboratory | + + + | Blood | [facility] [address] | | | [place] [address] | + + + Magnesium (08/19/2017542) + +---------+ + | Component | Value | Ref Range | + +---------+ + | MG | 1.7 (L) | 1.8 - 2.5 mg/dL | + +---------+ + + + + | Specimen | Performing Laboratory | + + + | Blood | [facility] [address] | | | [place] [address] | + + + from Last 3 Months Insurance + +--------+ +--------+-------+---------+ | Payer | Benefi | Subscriber | Type | Phone | Address | | | t Plan | ID | | | | | | / | | | | | | | Group | | | | | + +--------+ +--------+-------+---------+ | [employer] | [employer] | xxxxxxxxx | Medica | | | | | HEALTH | | re | | | | | MDCR | | | | | + +--------+ +--------+-------+---------+ + +--------+ +--------+ + + | Guarantor Name | Accoun | Relation to | Date | Phone | Billing Address | | | t Type | Patient | of | | | | | | | | | | + +--------+ +--------+ + + | JAYDEN BULLOCK | Person | Self [birth year] Work: | [address] | | [place] | al/Juan | | [phone] | [phone] [place] [address] | | | devika | | [phone]: | | | | | | | | | | | | | [phone] | | | | | | [phone] | | + +--------+ +--------+ + +
--- OUTSIDE RECORDS SUMMARY | ~2017-11-16 | XMS | Encounter Summary ---
Demographics + + + | Address | [address] | | | [place] [address] | + + + | Home Phone | | + + + | Preferred Language | Unknown | + + + | Marital Status | | + + + | Sabianist Affiliation | Unknown | + + + | Race | Unknown | + + + | Ethnic Group | Unknown | + + + Author + + + | Author | [facility] | | | and [place] | + + + | Organization | [facility] | | | and [place] | + + + | Address | Unknown | + + + | Phone | Unavailable | + + + Support + + + + + | Name | Relationship | Address | Phone | + + + + + | Melissa Merrill | ECON | [place] | | | | | [id number] | | + + + + + | Connie Merrill | ECON | Unknown | | + + + + + Care Team Providers + +------+ + | Care Radio Engineering Teacher Name | Role | Phone | + +------+ + | Fady Bush MD | PCP | Unavailable | + +------+ + Reason for Referral Evaluate & Treat (Routine) + + + + + + + | Status | Reason | Specialty | Diagnoses / | Referred By | Referred To | | | | | Procedures | Contact | Contact | + + + + + + + | Authorized | Specialty | Speech | Diagnoses | | [facility] | | | Services | Pathology | | [place], | ROB | | | Required | | Cerebrovascu | Jude Batres MD | HOSPITAL | | | | | lar accident | [address] | [address] | | | | | (CVA), | [address] [place] [address] | | | | | unspecified | [place], [place] | [place], [place] | | | | | mechanism | [id number] | [phone] | | | | | (HCC) | Phone: | Phone: | | | | | Aphasia | [phone] | [phone] | | | | | complicating | Fax: | Fax: | | | | | stroke | [phone] | [phone] | + + + + + + + Evaluate & Treat (Routine) + + + + + + + | Status | Reason | Specialty | Diagnoses / | Referred By | Referred To | | | | | Procedures | Contact | Contact | + + + + + + + | Authorized | Specialty | Physical | Diagnoses | | [facility] | | | Services | Therapy | | [place], | ROB | | | Required | | Cerebrovascu | Jude Batres MD | HOSPITAL | | | | | lar accident | [address] | [address] | | | | | (CVA), | [address] [place] [address] | | | | | unspecified | [place], [place] | [place], [place] | | | | | mechanism | [id number] | [phone] | | | | | (HCC) | Phone: | Phone: | | | | | | [phone] | [phone] | | | | | | Fax: | Fax: | | | | | | [phone] | [phone] | + + + + + + + Reason for Visit Auth/Cert +--------+--------+ + + + + | Status | Reason | Specialty | Diagnoses / | Referred By | Referred To | | | | | Procedures | Contact | Contact | +--------+--------+ + + + + | | | | Diagnoses | | | | | | | CVA | | | +--------+--------+ + + + + Encounter Details +--------+ + + + + | Date | Type | Department | Care Team | Description | +--------+ + + + + | 08/18/ | Hospital | [facility] | Cortez Celaya | Cerebrovascular | | 2018 - | Encounter | [facility] [address] | MD Jeanna [address] | accident (CVA), | | | | [place], | [address] [place] | unspecified | | 08/22/ | | [place] [address] | [place] [address] | mechanism (HCC) | | 2018 | | [phone] | [phone] | (Primary Dx); | | | | | | Gastroesophageal | | | | | | reflux disease, | | | | | | esophagitis presence | | | | | | not specified; | | | | | | Aphasia complicating | | | | | | stroke ([facility]); | | | | | | Carotid artery | | | | | | stenosis, | | | | | | symptomatic, right | +--------+ + + + + Social [...] this encounter Last Filed Vital Signs + + + [...] + | Respiratory Rate | 18 | 08/22/20171599 PST | + + + + | Oxygen Saturation | 97% | 08/22/20171599 PST | + + + + | Inhaled Oxygen | - | - | | Concentration | | | + + + + | Weight | 66.6 kg (146 lb 13.2 | 08/18/20171810 PST | | | oz) | | + + + + | Height | 167.6 cm (5' 6") | 08/18/2017 194 PST | + + + + | Body Mass Index | 23.7 | 08/18/20171810 PST | + + + + in this encounter Discharge Summaries Jude Mata MD - 08/22/2017 1636 PSTFormatting of this note may be different from t mik original. REHABILITATION DISCHARGE SUMMARY TEMPLATE Patient Identification: Maryjo Merrill : 1935 Admit Date: 08/18/2017 Attending Provider: Cortez Celaya MD Primary Care Physician: Fady Bush MD Impairment Group: Stroke 01.4 No paresis Etiologic Diagnosis: CVA Discharge date and time: 08/22/17 Discharge Physician: Cortez Celaya MD Hospital Problem List: Active Problems: CVA (cerebrovascular accident) Aphasia complicating stroke Carotid artery stenosis, symptomatic, right Consults: Physical Therapy Occupational Therapy Speech Therapy Social Work Significant Diagnostic Studies: No studies Treatments: ADMISSION HPI: Mrs. Merrill was in her usual state of health until the evening of August 12 of this year. She began experiencing intermittent headaches. The next morning on August 13, headaches, she reported her family she wasn't feeling right . She was seen by her 35-year-old grandson who is concerned in that she seemed disoriented and difficulty with speech. He noted when she was walking she would tend to shuffle her fee t and was unstable balance tending to lean drift to the right. Having word finding problems . Family's concerned and brought her to the hospital to [facility]. Br ain CT scan was negative for bleed or mass effect. She was evaluated neurologically by Dr. Clement he diagnosed probable acute left sided cerebr al distribution CVA. CT angiogram showed 80-90% stenosis of the proximal right ICA and otherwise the study. Rel atively unremarkable. Brain MRI showed a suboptimal study due to motion noted that show some small vessel ischemi c changes but no large vessel lesions. Patient was stabilized acutely and then transferred on 08/19/2017 to [facility] here at [facility] PMHx: (per chart review confirmed with pt) Past Medical History: Diagnosis Date Allergic rhinitis Aphasia complicating stroke (HCC) 08/22/2017 Arthritis Chest pain 11/23/2012 rare, non-cardiac Chronic sinusitis 04/30/12 Cough 11/10/2012 Cystocele 12/11/11 Diabetes mellitus (HCC) 05/22/10 patient denies GERD (gastroesophageal reflux disease) 11/10/2012 Giardia 02/16/13 Treated Hyperlipidemia 11/10/2012 Hypertension 11/10/2012 Imbalance 10/13/12 Neck pain 10/13/12 Neurodermatitis 11/10/2012 PAC (premature atrial contraction) 11/10/2012 Palpitations 11/10/2012 Recurrent urinary tract infection on 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 Snoring 11/10/2012 Syncope 11/23/2012 resolved TB lung, 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 Weight loss 02/16/13 resolved, gained 20 lbs back.weight loss with Giardia PSx: Past Surgical History: Procedure Laterality Date APPENDECTOMY 1950 TONSILLECTOMY AND ADENOIDECTOMY 194 TUBAL LIGATION Meds During Hospitalization Current Facility-Administered Medications Medication Dose Route Frequency Provider Last Rate Last Dose acetaminophen (TYLENOL) tablet 650 mg 650 mg Oral Q4H PRN Cortez Celaya MD 650 mg at 08/19/17 1007 aluminum & magnesium hydroxide-simethicone (MAALOX PLUS REGULAR STRENGTH) 200-200-20 mg /5 mL suspension 30 mL 30 mL Oral Q4H PRN Cortez Celaya MD apixaban (ELIQUIS) tablet 5 mg 5 mg Oral BID Cortez Celaya MD 5 mg at 08/22/17 1033 calcium carbonate (TUMS) chewable tablet 1,000 mg 1,000 mg Oral Q8H PRN Cortez silverman MD carvedilol (COREG) tablet 12.5 mg 12.5 mg Oral BID Cortez Celaya MD 12.5 mg at 08/22/17 1033 clopidogrel (PLAVIX) tablet 75 mg 75 mg Oral Daily Cortez Celaya MD 75 mg at 1033 docusate sodium (COLACE) capsule 100 mg 100 mg Oral BID Cortez Celaya MD 100 mg at 08/22/17 1033 fluticasone (FLONASE) 50 mcg/nasal spray 2 spray 2 spray Nasal Daily Cortez Celaya MD ondansetron (ZOFRAN ODT) disintegrating tablet 4 mg 4 mg Oral Q6H PRN Cortez mendez MD pantoprazole (PROTONIX) DR tablet 40 mg 40 mg Oral QAM AC Cortez Celaya MD 40 m g at 08/22/17 0628 pravastatin (PRAVACHOL) tablet 40 mg 40 mg Oral Nightly Cortez Celaya MD 40 mg at 08/21/172052 senna (SENOKOT) tablet 8.6 mg 8.6 mg Oral BID PRN Cortez Celaya MD zolpidem (AMBIEN) tablet 5 mg 5 mg Oral Nightly PRN Cortez Celaya MD Allergies: Allergies Allergen Reactions Acyclovir And Related Not Noted Amoxicillin Other (See Comments) Simvastatin Other (See Comments) Intolerance No active intolerances/contraindications Family History: Family History Problem Relation Age of Onset Coronary artery disease Mother Heart failure Father Allergies Father High blood pressure Father * Sister unknown health * Brother unknown health Social History: per chart review and confirmed with pt Social History Social History Marital status: Spouse name: Jadiel Number of children: 5 Years of education: N/A 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 Bedroom a nd shower on 1st floor. Has adult children in the area. Functional Status: Current: FIM BladderScore: 6 FIM Bowel Score: 6 FIM Bed/Chair/Wheelchair Score: 5 FIM Toilet Transfer Score: 5 FIM Tub/Shower Transfer Score: 4 FIM Walk Score: 7 FIM Distance Walked(feet): 500 feet FIM Wheelchair Score: FIM Stairs Score :6 FIM Eating Score: 7 FIM Grooming Score: 5 FIM Bathing Score: 4 FIM Dressing Upper Body Score: 4 FIM Dressing Lower Body Score: 4 FIM Toileting Score: 5 Admit: 08/19/2017 DISCHARGE PHYSICAL EXAMINATION: VS: BP 136/74 | Pulse 76 | Temp 36.6 C (97.9 F) (Oral) | Resp 18 | Ht 1.676 m (5' 6 ") | Wt 66.6 kg (146 lb 13.2 oz) Comment: pt was wearing pants, shirt, coat, shoes | SpO2 9 7% | BMI 23.70 kg/m GENERAL: NAD, well-groomed and nourished. Sitting in C PSYCHIATRIC: pleasant, mood very flat. Speech is slow, and responses slow HEAD: NCAT. Scalp alopecia. EYES: pupils equal and conjugate, EOMI, anicteric sclera EARS: no blood in external auditory canal NOSE: no discharge MOUTH/THROAT: MMM, OP clear. Dentition is good NECK: supple, no masses CARDIOVASCULAR: skin warm and dry, 2+ radial pulses RESPIRATORY: nonlabored, breathing comfortably on room air GASTROINTESTINAL: soft, NT, ND, +bowel sounds GENITOURINARY: gotti with clear yellow urine SKIN: no lesions or rashes on the limbs. Groin and coccyx Not examined. MUSCULOSKELETAL: NEUROLOGIC EXAM: Mental Status: General/Attention: alert attentive Speech: fluent with normal comprehension, no dysarthria, dysphonia, or apraxia (test with i ncreasing number of syllables) Language: Direction following: _Able to follow _ step commands. _Required visual, auditory, tactile cues. Auditory comprehension: _able to smile to verbal command Written comprehension: _able to close eyes to written command Gestures: _able to able to smile with mimicking Verbal expression: Aphasia (distinguish between expressive or receptive): _Present _Absent Naming: _Intact _Unable (if unable to vocalize, can use mimic or use multiple choice, comprehension must be intact) Repetition: _Intact _Unable Writing: Able to write sentence with subject and verb Reading: _Able to decode and comprehend. Cognition: LOC: Alert Oriented to: Self, Name of hospital, City, Date, Month, Year, Day Registration: Able to repeat 3 words after one trial Visuospatial: Able to copy cube accurately Visuoconstructional: Able to draw clock algaaciq, All numbers present and in correct quadrant s with clock hands placed at 11:40 Digit span: Able to repeat 5 digits forward and able to repeat 3 digits in backward order Sustained attention: 100 93 86 79 72 65 Delayed recall: 3 of 3 words after 5 minutes. Repetition: able to repeat the phrase "[place] rainy [place]" Naming: intact for "pen" and "watch" Writing: Able to write sentence with subject and verb Direction following: Able to follow 3 step commands. Abstraction: Able to explain 2 of 2 similarities. Cranial nerves: CNI: not tested CNII: no visual deficits detected, afferent pupil response to light intact CNIII, IV, : PERRLA, EOMI CNV: intact sensation in all three divisions bilaterally CNVII: symmetric facial expressions CNVIII: gross hearing intact to finger rub CN IX and X: palate elevates symmetrically, uvula midline CN XI: symmetric shoulder shrug CN XII: tongue protrudes midline without fasiculations or deviation Motor function: Pronator Drift: No pronator drift bilaterally Tone: normal muscle tone and bulk without adventitial/involuntary movements Power: MMT 0-5 scoring: R, L SAb EF EE WE FF Ginger HF KE DF PF GTE Right 5 5 5 5 5 5 5 5 5 5 5 Left 5 5 5 5 5 5 5 5 5 5 5 ROM: wnl to PROM in B shoulder flexion/abduction, elbow flexion/extension, wrist flexion/ex tension, finger flexion/abduction, hip flexion/extension, knee flexion/extension, DF, PF Reflexes: Bic Tri BrachioRad Patella Achilles R 2+ 2+ 2+ 2+ 2+ L 2+ 2+ 2+ 2+ 2+ Babinski: neg bilaterally Gutierres's: neg bilaterally Sensory function: Light touch, pin-prick: intact in C4-C8, T1, L2-5, S1-2 Proprioception: intact in bilateral great toes Stereognosis: intact bilaterally Graphesthesia: intact bilaterally Two-point discrimination: less than 5mm on fingertips bilaterally. Double tactile stimulation: No gene-neglect Cerebellar function: Romberg: with heels and toes together shows minimal sway and no step-outs with eyes open (c erebellar) and eyes closed (proprioceptive) Lateral Cerebellum: Finger-to- nose test: within normal limits Heel to quiles: within normal limits Midline Cerebellum/ Sitting Balance: intact Anterior Cerebellum/Gait: unremarkable with normal stride length, pace and arm swing; tande m gait within normal limits Rapid alternating movements: within normal limits, no dysdiadochokinesis Tremor: none LABORATORY: Recent Results (from the past 48 hour(s)) Extra Lavender Top Tube Result Value Ref Range Extra Lavender Top Tube Done Creatinine Result Value Ref Range Creatinine, Serum/Plasma 0.98 0.60 - 1.30 mg/dL eGFR if not 54 (L) >=60 mL/min/1.73m2 Hospital Course: The patient's hospital course while on inpatient rehab was quite unremarkable. She had no new issues and progressed well in therapies. She progressed more quickly than predicted and on 08/22/2017 she was deemed ready for discharge to home with supervision provided by family. As above she was walking independently. Speech had significantly improved and overall she was doing quite well. DISCHARGE MEDICATIONS: Discharge Medications Unchanged Medications Details apixaban 5 mg tablet Take 5 mg by mouth 2 times daily. aka: ELIQUIS carvedilol 12.5 mg tablet Take 18.75 mg by mouth 2 times daily (with breakfast & dinner). aka: COREG clopidogrel 75 mg tablet Take 75 mg by mouth Daily. aka: PLAVIX fluticasone 50 mcg/nasal spray 2 sprays by Nasal route Daily. Use at night. aka: FLONASE omeprazole 40 MG capsule Take 40 mg by mouth every morning (before breakfast). aka: priLOSEC DISPOSITION: Home with family FOLLOW UP: -PCP: 1-2 weeks after d/c from hospital -Rehab FU: 3-4 weeks after rehab d/c -Vascular surgery - Dr. Landry 08/28/17 TBD DISCHARGE INSTRUCTIONS: Resume home medications. Call to set up outpatient PT and speech at [facility]. Call P CP to set up follow-up appointment. Signed: Jude Mata MD 08/22/2017 16:37 Portions of this chart may have been created with [employer] voice recognition software. Occasi onal wrong-word or sound-alike substitutions may have occurred due to the inherent brown itations of voice recognition software. Please read the chart carefully and recognize, using context, where these substitutions have occurredin this encounter Discharge Instructions Ashley Phillips RN - 08/22/2017Formatting of this note may be different from the addisa l. Stroke (Completed) You have had a mild stroke, or cerebrovascular accident (CVA). This is caused by a loss of blood flow to part of your brain. This can occur when a blood clot forms inside the carotid artery (main artery from the heart to the brain) or inside the heart. When the clot travels to the brain, it can lodge in a blood vessel and block blood flow. The other common cause of stroke is a gradual narrowing of the arteries in the brain due to buildup of fatty deposits (plaque). Symptoms Blocked blood flow in different areas of the brain can cause different symptoms. If you hav e had a stroke before, a new one may be different. A memory aid for the basic signs of a str rory is F.A.S.T. F.A.S.T. F: Face drooping, or numbness on one side. This may be more noticeable when you ask the affected person to smile. A: Arm weakness or numbness. The affected person may have trouble using or lifting one s eamon. S: Speech difficulty. Speech may be slurred or hard to understand. The affected person m ay also use the wrong words. T: Time to call 911. Time is critical in treating a stroke. Call 911 as soon as you susp ect a stroke has happened even a small one. The sooner treatment is started the better, ev en if the symptoms go away. Other common symptoms of a stroke include: Having difficulty getting the right words to come out Weakness in one leg Numbness on one side Difficulty walking Trouble with coordination Trouble with vision Headache Confusion Dizziness Treatment After you have had a stroke, you are at risk of having another. Be sure to follow up with y our healthcare provider for further evaluation and treatment. If problems are found[facility] recommend treatment with medicines and/or procedures. To reduce your chance of having another stroke, you may be prescribed medicines. These incl ude medicines to prevent blood clots, such as antiplatelet or anticoagulant medicines. Home care Rest at home and avoid exertion for the next few days. If your healthcare provider has prescribed medicines, take them as directed. Follow-up care Follow up with your healthcare provider, or as advised. Additional tests may be needed. If you had an X-ray, CT scan, MRI, or ECG (electrocardiogram), it will be reviewed by a special ist. You will be notified of any new findings that will affect your care. Call 911 Contact emergency services right away if any of these occur: Any of your stroke symptoms worsen New problems with speech, confusion, vision, walking, coordination, facial droop, or wea kness or numbness on one side of your body Severe headache, fainting spell, dizziness, or seizure Chest pain or shortness of breath Remember F.A.S.T. (described above). If you notice warning signs and symptoms of stroke, [place] 911 without delay. Date Last Reviewed: 04/10/201519990417-9671 [employer] [address] [place] [address], [place] [id number]. All righ ts reserved. This information is not intended as a substitute for professional medical care. Always follow your healthcare professional's instructions. Using Blood Thinners (Anticoagulants) Blood thinners or anticoagulants are medicines that help prevent blood clots from forming. They include warfarin,heparin,dabigatran, rivaroxaban, apixaban,and edoxaban. Your [facility] care provider will help you decide which medicine is best for you. Taking an anticoagulant safely When you are taking a blood thinner, you will need to take certain steps to stay safe. Too much blood thinner puts you at risk for bleeding. Too little puts you at risk for stroke.Dominga key these guidelines. Also follow any others that your health care provider gives you. You may be told you need regular labtesting while taking these medicines. Warfarin req uires routine testing to blood-thinning level testing while the other medicines do not. Tell your doctor about all medicines you take. This includes over the counter medicines, supplements, or herbal remedies. Do not take any medicines (including ones you buy over the counter) that your doctor doesn t know about. Some medicines can interact with blood thin ners and cause serious problems. Tell any health care provider that you see for care (such as doctors, dentists, chiropra ctors, home health nurses) that you take a blood thinner. Carry a medical ID card or wear a medical-alert bracelet that says you take an anticoagu lant. Before taking aspirin, check with your doctor. Aspirin can significantly increase your r isk of bleeding. This medicine makes bleeding harder to stop. To protect yourself: Avoid activities that may cause injury. If you fall or are injured, contact your health care provider right away. Blood thinners prevent clotting, so you could be bleeding inside w ithout realizing it. Use a soft-bristle toothbrush and waxed dental floss. Shave with an electric razor rathe r than a blade. Don t go barefoot. Don t trim corns or calluses yourself. Warfarin: Other important information Several precautions are especially important when you are taking warfarin. Always keep thes e points in mind: Be sure to follow your health care provider's instructions for taking warfarin. Take this medicine at the same time each day. Take it with a full glass of water, with o r without food. If you miss a dose, contact your doctor to find out how much to take. Avoid takinga double dose. Warfarin is an effective drug, but it can be dangerous if not taken properly. It makes y our blood less likely to form clots. If you take too much, it can cause seriousinternal or external bleeding. You will need to have regular monitoring while you are taking warfarin. This includes bl ood tests to check your international normalized ratio (INR) and prothrombin time (PT). Thes e tests show how quickly your blood clots.You will also have a complete blood count (CBC) periodically.This looks at your blood and platelet levels. Both of these need to be follow ed while you're on warfarin. Talk with your health care provider about whether you need to v isit the clinic every week, or if services are available for monitoring in your home. Certain medicines can affect your INR and PT levels. Tell your health care provider if t here are any changes in your medicines.This includes any qdpc-peh-jswboah medicines, suppl ements like vitamin K, or herbal remedies. Your diet can also affect your INR and PT levels. Because of this, it's important to eat a consistent diet. It is especially important to eat a consistent amount of foods that are high in vitamin K. Be sure to talk with your health care provider before making any big smith ges in your diet. Remember that warfarin increases your risk of bleeding. Be careful not to injure yoursel f. If you have a significant injury, contact your health care provider right away. It's impo rtant to alert your doctor if you've fallen or hurt yourself, even if you don't break your s kin. You could be bleeding inside your body without realizing it. Warfarin: Watch your INR/PT blood levels Two tests are used to find out how your blood is clotting. One is protime (PT), the other i s the international normalized ratio (INR). Go for your blood tests (INR/PT) as often as directed. Your diet and the other medicines you take can affect your INR/PT levels. Your INR was between ___ and ___. Ask your doctor what your goal INR is. My goal INR is between ___ and ___. My next INR/PT blood draw is due on (date) at (time) by (name of doctor or clinic). The name of the doctor who is monitoring my anticoagulation therapy is ____ and the phone number is . Follow up with your doctor or as advised by his or her staff. It usually takes a few bogdan rs for your doctor to get the results of your clotting tests. Call to get your lab results t o find out if your doctor needs to make further changes to your warfarin dose. If your blood is drawn for these testsat a location other than your doctor's office, t ell your doctor as soon as you get your lab results. Warfarin: Watch what you eat Vitamin K helps your blood clot. So you have to watch how much you eat of foods that contai n vitamin K. These foods can affect the way warfarin works. They do not affect the other non -warfarin blood thinners.Here are some specific tips: Try to keep your diet about the same each day. If you change your diet for any reason, s uch asfor illness or to lose weight, be sure to tell your doctor. Each day, eat the same amount of foods that are high in vitamin K. These include asparag us, avocado, broccoli,cabbage, kale, spinach, and some other leafy green vegetables. Oils, such as soybean, canola, and olive oils, are also high in vitamin K. Limit fats to 2 to 4 tablespoons a day. Ask your health care provider if you should avoid alcohol while you are taking a blood t hinner. Avoid teas that contain sweet clover, sweet mora, or tonka beans. These can affect h ow your medicine works. Talk with your health care provider and pharmacist about specific foods or special diets that can affect anticoagulant levels. These include grapefruit juice, cranberries and cranb erry juice, fish oil supplements, garlic, cristino, licorice, turmeric, and herbal teas ands upplements. Talk with your health care provider if you have concerns about these or other food products and their effects on warfarin. When to call your doctor if you re taking an anticoagulant Call your doctor right away if you have any of these: Bleeding that doesn t stop in 10 minutes A jefzztz-tbym-dahxng menstrual period or bleeding between periods Coughing or throwing up blood Bloody diarrhea or bleeding hemorrhoids Dark-colored urine or black stools Red or ketqh-rym-gbkb lara on the skin that get larger Dizziness or fatigue Chest pain or trouble breathing Allergic reactions: Rash Itching Swelling Trouble swallowing or breathing Medical conditions and anticoagulants Before starting a blood thinner, be sure your doctor knows if you have any of these conditi ons: Stomach ulcer now or in the past Vomited blood or had bloody stools (black or red color) Aneurysm, pericarditis, or pericardial effusion Blood disorder Recent surgery, stroke, mini-stroke, or spinal puncture Kidney or liver disease, uncontrolled high blood pressure, diabetes, vasculitis, heart f ailure, lupus, or other collagen-vascular disease, or high cholesterol or Younger than 18 years old Recent or planned dental procedure Drug interactions and anticoagulants Many medicines interfere with the effect of blood thinners. Before starting these medicines , be sure your doctor knows about any prescription, ztdk-ids-dcgevnt, or herbal supplements you take. In particular, tell your provider about: Antibiotics Heart medicines Cimetidine Aspirin or other anti-inflammatory drugs such as ibuprofen, naproxen, ketoprofen, or oth er arthritis medicines Drugs for depression, cancer HIV (protease inhibitors), diabetes, seizures, gout, high c holesterol, or thyroid replacement Vitamins containing vitamin K or herbal products such as ginkgo, Co-Q10, garlic, or Lawton's wort Note: This information topic may not include all directions, precautions, medical condition s, drug/food interactions, and warnings for these medicines. Check with your doctor, nurse, or pharmacist for any questions you have. Date Last Reviewed: 12/26/201419998052-1737 [employer] [address] [place] [address], [place] [address]. All righ ts reserved. This information is not intended as a substitute for professional medical care. Always follow your healthcare professional's instructions. Treating Aphasia Aphasia happens when a part of the brain that processes language is damaged. Most people wh o have a stroke or a brain injury are tested for aphasia. A speech therapist (an expert [place] in speech rehabilitation) will work closely with the patient. The main goal of speech th erapy is to help the patient communicate. During rehabilitation (rehab), the therapist works to find and increase a patient s strengths. The therapist also tries to improve understan ding between patient and family. Testing word use The speech therapist wants to know if the patient understands questions and can answer sally ectly. The patient may be asked to answer yes-or-no questions, to say his or her name, and t o name common objects. If a patient responds easily, the therapist listens for problems with speech patterns and content. Patients may also be asked to follow instructions. For instanc e, a patient may be told, Open the book to page 5. In some cases, reading, writing, an d math skills may also be tested. Improving communication Rehab may focus on helping the patient use language again. Working with flash cards may hel p improve word skills. A patient may also be asked to name objects or find opposites. A spee ch therapist will help the patient find ways to work around lost language skills. In some tn ses, a patient may need to use a thumbs-up signal or eye blinks in place of saying yes or no. The family is often included in this part of rehab. Talk with the jorge tran about specific ways of working with your loved one. Helping your loved one If your loved one has aphasia, try these tips: Praise any effort at speech that the person makes. Try to understand made-up words that hold meaning for the person. Speak slowly and clearly. Use common words. But don t talk down to the person. Speak in simple sentences. Stick to one idea and one action. Ask questions that can be answered with a yes or no. Give the person time to understand and to respond. Try not to speak for the person unless it is necessary. Keep the person informed and involved. Do not speak as if the person isn t there. Date Last Reviewed: 04/25/201512/2014 [employer] [address] [place] [id number]. All rig ts reserved. This information is not intended as a substitute for professional medical care. Always follow your healthcare professional's instructions. What Is Aphasia? Aphasiais a loss of language skills. It may happen if the brain is damaged. This usually happens after a stroke. It can also happen from brain injury, tumors, or neurological disord ers. People with aphasia may not be able to express their thoughts (expressive aphasia) or u nderstand others (receptive aphasia). A speech therapist may help a person with aphasia regain his or her language skills. Signs of aphasia Signs of aphasia vary with each person. A person with aphasia may show some or all of the s igns listed below. A person with aphasia may notbe able to: Understand words when others speak Speak in complete sentences Read or write Understand that numbers have meaning A person with aphasia may: Speak using only nouns and verbs Mix up the order of words in a sentence Use the wrong words or made-up words Have trouble working with numbers, such as balancing a checkbook Practical tips for aphasia A person with aphasia can still think, even if responding is hard. Try to: Ask questions that can be answered with a yes or a no. Speak slowly and clearly in simple sentences. Use simple words, but don t talk down . Give the person time to understand and to respond. Try not to speak for the person unles s you have to. Date Last Reviewed: 04/25/2015 [employer] [address] [place] [id number]. All rig ts reserved. This information is not intended as a substitute for professional medical care. Always follow your healthcare professional's instructions. in this encounter Medications at Time of Discharge + + +-------+---------+ + + | Medication | Sig. | Disp. | Refills | Start | End Date | | | | | | Date | | + + +-------+---------+ + + | apixaban (ELIQUIS) | Take 5 mg by mouth 2 | | | | | | 5 mg tablet | times daily. | | | | | + + +-------+---------+ + + | carvedilol (COREG) | Take 18.75 mg by | | | | | | 12.5 mg tablet | mouth 2 times daily | | | | | | | (with breakfast & | | | | | | | dinner). | | | | | + + +-------+---------+ + + | clopidogrel | Take 75 mg by mouth | | | | | | (PLAVIX) 75 mg | Daily. | | | | | | tablet | | | | | | + + +-------+---------+ + + | fluticasone | 2 sprays by Nasal | 1 g | 1 | 01/12/ | | | (FLONASE) 50 | route Daily. Use at | | | 15 | | | mcg/nasal spray | night. | | | | | + + +-------+---------+ + + | omeprazole | Take 40 mg by mouth | | | | | | (PRILOSEC) 40 MG | every morning | | | | | | capsule | (before breakfast). | | | | | + + +-------+---------+ + + as of this encounter Progress Notes Cortez Celaya MD - 08/21/2017 1742 PSTFormatting of this note may be different from t mik original. [facility] Daily Progress Note Date: 08/21/17 ID/CC: Reason for encounter : Physician follow-up to address the medical rehabilitation needs, issues, and problems . 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 Patient slept well last night. Problem List Patient Active Problem List Diagnosis Snoring Cough PAC (premature atrial contraction) Palpitations GERD (gastroesophageal reflux disease) Hypertension Neurodermatitis Hyperlipidemia Syncope Chest pain Current Meds: Current Facility-Administered Medications: acetaminophen (TYLENOL) tablet 650 mg, 650 mg, Oral, Q4H PRN, Cortez Celaya MD, 6 50 mg at 08/19/17 1007 aluminum & magnesium hydroxide-simethicone (MAALOX PLUS REGULAR STRENGTH) 200-200-20 m g/5 mL suspension 30 mL, 30 mL, Oral, Q4H PRN, Cortez Celaya MD apixaban (ELIQUIS) tablet 5 mg, 5 mg, Oral, BID, Cortez Celaya MD, 5 mg at 0821 calcium carbonate (TUMS) chewable tablet 1,000 mg, 1,000 mg, Oral, Q8H PRN, Cortez Celaya MD carvedilol (COREG) tablet 12.5 mg, 12.5 mg, Oral, BID WC, Cortez Celaya MD, 12.5 mg at 08/21/17 1706 clopidogrel (PLAVIX) tablet 75 mg, 75 mg, Oral, Daily, Cortez Celaya MD, 75 mg at 08/21/17 0821 docusate sodium (COLACE) capsule 100 mg, 100 mg, Oral, BID, Cortez Celaya MD, 100 mg at 08/21/17 0821 fluticasone (FLONASE) 50 mcg/nasal spray 2 spray, 2 spray, Nasal, Daily, Cortez Celaya MD ondansetron (ZOFRAN ODT) disintegrating tablet 4 mg, 4 mg, Oral, Q6H PRN, Cortez Celaya MD pantoprazole (PROTONIX) DR tablet 40 mg, 40 mg, Oral, QAM AC, Cortez Celaya MD, 4 0 mg at 08/21/17 0608 pravastatin (PRAVACHOL) tablet 40 mg, 40 mg, Oral, Nightly, Cortez Celaya MD, 40 mg at 08/20/172027 senna (SENOKOT) tablet 8.6 mg, 8.6 mg, Oral, BID PRN, Cortez Celaya MD zolpidem (AMBIEN) tablet 5 mg, 5 mg, Oral, Nightly PRN, Cortez Celaya MD Allergies: Allergies Allergen Reactions Acyclovir And Related Not Noted Amoxicillin Other (See Comments) Simvastatin Other (See Comments) Intolerance No active intolerances/contraindications Physical Exam: BP 161/74 | Pulse 78 | Temp 35.5 C (95.9 F) (Oral) | Resp 20 | Ht 1.676 m (5' 6") | Wt 66.6 kg (146 lb 13.2 oz) Comment: pt was wearing pants, shirt, coat, shoes | SpO2 97% | BMI 23.70 kg/m Gen: Alert, sitting in bed, NAD EYES: Conjunctiva clear. Pupils react to light. ENMT: External nose and ears normal. Mucosa moist in nose and mouth. NECK: No abnormal masses noted. Trachea midline. No thyromegaly. LYMPTHATIC: No significant adenopathy noted in neck, axillae or groin. RESPIRATORY: Normal comfortable respiratory effort. Lungs clear. CARDIOVASCULAR: No abnormal thrill or palpitation. Regular rate and rhythm.Peripheral pulses are symmetric. GASTROINTESTINAL: No abnormal masses noted. No organomegaly appreciated. Abdomen soft. Bowel sounds present. MUSCULOSKELETAL: Range of motion stable. No new areas of increased tenderness noted. NEUROLOGIC: The patient is alert. The strength and mobility are stable. Labs: Recent Results (from the past 48 hour(s)) Creatinine Result Value Ref Range Creatinine, Serum/Plasma 0.98 0.60 - 1.30 mg/dL eGFR if not 54 (L) >=60 mL/min/1.73m2 Most recent FIM scores: Report Date 08/21/2017 FIM BladderScore: 6 FIM Bowel Score: 6 FIM Bed/Chair/Wheelchair Score: 5 FIM Toilet Transfer Score: 5 FIM Tub/Shower Transfer Score: 4 FIM Walk Score: 5 FIM Distance Walked(feet): 300 feet FIM Wheelchair Score: FIM Stairs Score :5 FIM Eating Score: 7 FIM Grooming Score: 5 FIM Bathing Score: 4 FIM Dressing Upper Body Score: 4 FIM Dressing Lower Body Score: 4 FIM Toileting Score: 5 Assessment and Rehab Plan: . The patient is benefiting from inpatient rehabilitation : Physiatric and nursing interv ention; physical therapy, occupational therapy, speech therapy, case management, and social media editor #Rehab - -Continue PT for gait, mobility -Continue OT for ADL's, toileting, adaptive equipment -Continue SOFT CRAB SHEDDER for cognition, -Continue SW for discharge planning IMPRESSION : 1. Acute left sided small vessel stroke with associated deficits with self-care and functi onal mobility, including 2. Aphasia, particularly involving expression 3. Motor planning problems , right worse than left. 4. Mobility problems, with reported recent shuffling gait 5. Partial right visual field cut, with complication of associated right-sided neglect Associated comorbidities 6. Peripheral vascular disease, with significant, 80 90 percent stenosis of the proximal right internal carotid artery; History of left-sided carotid endarterectomy May 2017 7. Coronary artery disease, history of previous coronary artery bypass grafting 8. History of cardiac arrhythmia, atrial fibrillation, currently with regular rhythm. Archana matos is on eloquis and Plavix 9. Dyslipidemia 10. Hypertention, with history of recent hypertensive crisis of systolic blood pressure in excess of 200 11. Systolic congestive heart failure, with elevated BNP #/GI - Increased risk of incontinence or constipation/ voiding problems -continue current bladder and bowel regimen #DVT Prevention: Mobility, edema control, TEDS, Lovenox #Diet - Active Orders Diet Diet general; Effective Now PLAN : The patient's chart was reviewed regarding interval medical history, noting documentations, orders and recent events. We met with our patient's nurse and obtained an update on interval events. Nursing questio ns and concerns were addressed, including continence, skin issues, and pain complaints. Saf ety and mobility were discussed. The patient's current rehabilitation plan of care and projected discharge destination were discussed and reviewed with the Patient and our case assistant. She is collaborating with the patient's support system to solicit their input as we advance the program. The patient was seen and evaluated on rounds. We addressed the current focus of the rehabi litation program with the patient. Reviewed current laboratory results. Reviewed recent diagnostic studies. Reviewed current medications. Reviewed current rehabilitation therapy treatment documentation, noting the patient's st atus and tolerance. Rehabilitation therapy staff is continuing to coordinate and collaborate with the [facility] nursing staff to complement their therapy treatment focus, especially considering safety factors, as the patient is mobilized on the nursing unit. Respiratory therapy following 02 weaning with activity as tolerated. Hypertension/Hypotension, BP pattern being followed with activity. Continue to monitor BP to rule out any orthostatic problem. I reviewed status with patient's Rehabilitation therapist and addressed current status, qu estionsand issues. Also evaluated her in the rehab therapy clinic. She is showing improved safety awareness w ith mobility.. Note: My Progress Notes document close and ongoing Physiatric involvement; [id number] vi sits, professionally assessing the Patient, both Medically and Functionally, with the empha sis on the important interactions between our Patient's current clinical status, especially issues/barriers that may impact on the Rehabilitation Team's treatment and progress toward our medical and functional goals. I opine that this is important, so we will maximize our Patient's capacity to benefit from the Comprehensive Inpatient Medical Rehabilitation process. I did coordinate with the full team regarding the above plan and continue full rehabilitati on program. Please see rehabilitation team notes. The patient is seen and clinical status addressed in collaboration with the rehab team. I met with the charge nurse and discussed the overall nursing problematic issues. We also fo llowed up with the patient's floor nurse, discussing the above, as well as addressing the sp ecific nursing patient care focus of the day. The full medical rehabilitation team did meet today in conference. The patient's pertinent active medical problems, comorbidities, and medical rehabilitation needs were discussed and shared with the team members. I opine that there is a reasonable expectation that due to the complexity of our patient's nursing/medical management and rehabilitation needs requires an inpatient stay, including a physician lead and coordinated interdisciplinary team approach to the delivery of rehabilita tion care. I chaired the Rehabilitative Team Conference and led the team's discussion. We discussed and assessed our patient's current status and barriers; noting tolerance and compliance progress towards the rehabilitation goals. The full Rehab Team collaborated; considering and addressing the patient's current toleranc e and compliance with the rehabilitation treatment noting any issues and seeking resolution of any problems/barriers impeding progress towards goals. I garnered the information from all of the Medical Rehabilitation wireless team member's assessments and reports as we synthesized and advanced the overall plan of care. The validity of our re habilitation goals were reassessed as we monitored and revised the treatment plan as indicat ed. Medically stable. She is very motivated person cooperative and benefiting from current tr eatment. She is continent of bowel and bladder. She is progressing with her self-care skills. Nursing according on safety with bathroom ac tivity and home IADLs. Answers are modified independent. Standing balance and endurance is good. Advanced ambula tion on the nursing unit. Also PT is working with her on teaching for recovery going from floor to standing. Patient does get frustrated over her Broca aphasia. His mild receptive component. However she is following commands well and within a minute and better. Plans continue full program. also all departments are addressing additional scheduling family training. And is to continue the full program and be discharged home with the family next Weak. Into home program and outpatient therapy. She'll also be following up with her vascular surgeon Dr. Landry next week. Following team conference amount again with the patient and we discussed above. Please see the Rehabilitation Interdisciplinary Team Conference notes for further details r egarding rehabilitation team discussion and plan. Total time: 38 minutes. We spent greater than 50% of the time regarding patient care and coordination on this date, including unit/floor time, as well as time communicating with the patient and treatment team as discussed above. Signed: Cortez Celaya MD Portions of this chart may have been created with [employer] voice recognition software. Occasi onal wrong-word or sound-alike substitutions may have occurred due to the inherent brown itations of voice recognition software. Please read the chart carefully and recognize, using context, where these substitutions have occurred.Cortez Celaya MD - 08/20/2017 1736 P STFormatting of this note may be different from the original. [facility] Daily Progress Note Date: 08/20/17 ID/CC: Reason for encounter : Physician follow-up to address the medical rehabilitation needs, issues, and problems . Interval history: Chief problem : Weakness and difficulty with self-care/ADLs and functional mobility Early rehab program is going well. No new complaints today. Problem List Patient Active Problem List Diagnosis Snoring Cough PAC (premature atrial contraction) Palpitations GERD (gastroesophageal reflux disease) Hypertension Neurodermatitis Hyperlipidemia Syncope Chest pain Current Meds: Current Facility-Administered Medications: acetaminophen (TYLENOL) tablet 650 mg, 650 mg, Oral, Q4H PRN, Cortez Celaya MD, 6 50 mg at 08/19/17 1007 aluminum & magnesium hydroxide-simethicone (MAALOX PLUS REGULAR STRENGTH) 200-200-20 m g/5 mL suspension 30 mL, 30 mL, Oral, Q4H PRN, Cortez Celaya MD apixaban (ELIQUIS) tablet 5 mg, 5 mg, Oral, BID, Cortez Celaya MD, 5 mg at 0957 calcium carbonate (TUMS) chewable tablet 1,000 mg, 1,000 mg, Oral, Q8H PRN, Cortez Celaya MD carvedilol (COREG) tablet 12.5 mg, 12.5 mg, Oral, BID WC, Cortez Celaya MD, 12.5 mg at 08/20/17 0957 clopidogrel (PLAVIX) tablet 75 mg, 75 mg, Oral, Daily, Cortez Celaya MD, 75 mg at 08/20/17 0957 docusate sodium (COLACE) capsule 100 mg, 100 mg, Oral, BID, Cortez Celaya MD, 100 mg at 08/20/17 0957 fluticasone (FLONASE) 50 mcg/nasal spray 2 spray, 2 spray, Nasal, Daily, Cortez Celaya MD ondansetron (ZOFRAN ODT) disintegrating tablet 4 mg, 4 mg, Oral, Q6H PRN, Cortez Celaya MD pantoprazole (PROTONIX) DR tablet 40 mg, 40 mg, Oral, QAM AC, Cortez Celaya MD, 4 0 mg at 08/20/17 0630 pravastatin (PRAVACHOL) tablet 40 mg, 40 mg, Oral, Nightly, Cortez Celaya MD, 40 mg at 08/19/172110 senna (SENOKOT) tablet 8.6 mg, 8.6 mg, Oral, BID PRN, Cortez Celaya MD zolpidem (AMBIEN) tablet 5 mg, 5 mg, Oral, Nightly PRN, Cortez Celaya MD Allergies: Allergies Allergen Reactions Acyclovir And Related Not Noted Amoxicillin Other (See Comments) Simvastatin Other (See Comments) Intolerance No active intolerances/contraindications Physical Exam: BP 134/86 | Pulse 80 | Temp 36.1 C (97 F) (Oral) | Resp 18 | Ht 1.676 m (5' 6") | Wt 66.6 kg (146 lb 13.2 oz) Comment: pt was wearing pants, shirt, coat, shoes | SpO2 95% | BMI 23.70 kg/m Gen: Alert, sitting in bed, NAD HEENT: Head normocephalic. Mucosa moist. Pupils reactive to light. RESPIRATORY: Breathing comfortably. On auscultation lungs are clear, without retractions or adventitious sounds. CARDIOVASCULAR: Cardiac auscultation reveals regular rate and rhythm. Edema-none. CHEST: Nontender. GASTROINTESTINAL: Abdomen soft with active bowel sounds present. No abnormal masses or ten derness. MUSCULOSKELETAL: Extremities symmetric. Range of motion stable. NEUROLOGIC: The patient is alert. . PSYCHIATRIC: Mood and affect stable She has severe expressive aphasia and is somewhat frustrated about her inability to speak. She has some difficulty following simple commands but does better with pantomime. Not able to perform full high-level cognitive testing at present. Cranial nerves reveal slight right facial weakness. Appears to be some right-sided neglect and's slight partial right visual field deficit. Neuromusculoskeletal exam reveals normal tone and bulk for habitus. Strength is normal bilaterally. She does have some motor planning problems right worse amaya n left. Sensation is intact to confrontation. DTRs are hypoactive and symmetric. Labs: Recent Results (from the past 48 hour(s)) CBC with Differential Result Value Ref Range WBC 5.8 4.0 - 11.0 K/uL RBC 3.97 3.70 - 5.20 M/uL Hgb 12.2 11.5 - 16.0 g/dL Hct 37.7 34.0 - 47.0 % MCV 95.1 83.0 - 101.0 fL MCH 30.8 28.0 - 35.0 pg MCHC 32.4 32.0 - 36.0 g/dL RDW-CV 12.9 <15.0 % Platelet Count 173 140 - 440 K/uL MPV 8.9 fL % Neutrophils 46.1 45.0 - 82.0 % % Lymphocytes 38.3 20.0 - 45.0 % % Monocytes 8.3 4.0 - 12.0 % % Eosinophils 6.5 (H) 0.0 - 5.0 % % Basophils 0.8 0.0 - 1.0 % Absolute Neutrophils 2.70 1.80 - 8.50 K/uL Absolute Lymphocytes 2.20 0.60 - 3.20 K/uL Absolute Monocytes 0.50 0.00 - 1.00 K/uL Absolute Eosinophils 0.40 0.00 - 0.40 K/uL Absolute Basophils 0.00 0.00 - 0.10 K/uL Magnesium Result Value Ref Range MG 1.7 (L) 1.8 - 2.5 mg/dL Prealbumin Result Value Ref Range PREALBUMIN 20 18 - 38 mg/dL B Type Natriuretic Peptide Result Value Ref Range BNP 274 (H) <100 pg/mL Most recent FIM scores: Report Date 08/20/2017 FIM BladderScore: 6 FIM Bowel Score: 6 FIM Bed/Chair/Wheelchair Score: 5 FIM Toilet Transfer Score: 4 FIM Tub/Shower Transfer Score: 4 FIM Walk Score: 5 FIM Distance Walked(feet): 300 feet FIM Wheelchair Score: FIM Stairs Score :5 FIM Eating Score: FIM Grooming Score: FIM Bathing Score: 4 FIM Dressing Upper Body Score: 4 FIM Dressing Lower Body Score: 4 FIM Toileting Score: 4 Assessment and Rehab Plan: . The patient is benefiting from inpatient rehabilitation : Physiatric and nursing interv ention; physical therapy, occupational therapy, speech therapy, case management, and social media editor #Rehab - -Continue PT for gait, mobility -Continue OT for ADL's, toileting, adaptive equipment -Continue SOFT CRAB SHEDDER for cognition, -Continue SW for discharge planning IMPRESSION : 1. Acute left sided small vessel stroke with associated deficits with self-care and functi onal mobility, including 2. Aphasia, particularly involving expression 3. Motor planning problems , right worse than left. 4. Mobility problems, with reported recent shuffling gait 5. Partial right visual field cut, with complication of associated right-sided neglect Associated comorbidities 6. Peripheral vascular disease, with significant, 80 90 percent stenosis of the proximal right internal carotid artery; History of left-sided carotid endarterectomy May 2017 7. Coronary artery disease, history of previous coronary artery bypass grafting 8. History of cardiac arrhythmia, atrial fibrillation, currently with regular rhythm. Pat ient is on eloquis and Plavix 9. Dyslipidemia 10. Hypertention, with history of recent hypertensive crisis of systolic blood pressure in excess of 200 11. Systolic congestive heart failure, with elevated BNP #/GI - Increased risk of incontinence or constipation/ voiding problems -continue current bladder and bowel regimen #DVT Prevention: Mobility, edema control, TEDS, Lovenox #Diet - Active Orders Diet Diet general; Effective Now PLAN : Patient demonstrates functional deficits in strength, balance, functional mobility and safe ly negotiating her environment, coordination, ADL's and cognition. I opine that the patient will benefit from our acute inpatient rehabilitation program to en sure patient's safety and maximize outcome prior to discharge. Reviewed current laboratory results. Reviewed recent diagnostic studies. Reviewed current medications, and addressed medication management. Continue current medication. Following blood pressure and pulse rate with therapy treatments. Reviewed current rehabilitation therapy treatment documentation, noting the patient's s tatus and tolerance. Rehabilitation therapy staff is continuing to coordinate and collaborate with the [facility]'s nursing staff to complement their therapy treatment focus, especially considering safet y factors as the patient is mobilized on the nursing unit. Respiratory therapy is following; 02 weaning with activity as tolerated. Hypertension/Hypotension. BP pattern being followed with activity. Continue to monitorBP to rule out any orthostatic problem. Bowel/Bladder Management. Continue routine bowel program including stool softeners and laxatives and as needed suppository/enema with current constipation; and continue routine b ladder program with void trial/bladder scanning for PVR's with IC as indicated. DVT Prophylaxis. Per protocol. Rehabilitation. Continue early rehab therapy regimen as tolerated; therapy staff sherita kang closely to see if any fatigue complaints reported after therapy. I am directing the above issues, and coordinating with the patient's other physicians in this regards, considering relationships with the other medical co-morbidities, as well a s following up with the patient's bedside nurse, and case assistant/social media editor. The patient is seen in follow-up for evaluation and assessment of needs and ability to tole rate and benefit from an intensive rehabilitation program with our multidisciplinary-coordin ated rehabilitation team. I assessed the patient working with our rehabilitation team members and perused the team me mbers' notes. The current rehabilitation treatment focus was reviewed with our patient, seek ing input, noting challenges and progress. Follow-up Rosa morning with the full inpatient rehabilitation treatment team in [facility] is planned. The patient is seen in follow-up for evaluation and assessment of needs and ability to tole rate and benefit from an intensive rehabilitation program with our multidisciplinary-coordin ated rehabilitation team. Also evaluated her working in the rehab therapy clinic. We are o rienting her to the program. Focus on safety. I reviewed status with patient's nurse and addressed questions and issues. I discussed and reviewed status with patient's therapist and addressed questions and issues . I met with case assistant and reviewed the overall plan of care. We discussed the projected d ischarge date and destination. The patient had an appointment today scheduled with her vascular surgeon Dr. Landry. On spoke with Dr. Landry and updated them as to her current status. He directed us to reschedule the appointment for next week. We appreciate his Support. I am leading and will coordinate with the full team regarding the above plan as we continue full rehabilitation program. . Total time of 37 minutes was spent with the patient and/or patient's family, and/or on the patient's floor/ nursing unit, of which more than 50% was spent counseling and/or coordinati on the patient's care as outlined above. Signed: Cortez Celaya MD Portions of this chart may have been created with [employer] voice recognition software. Occasi onal wrong-word or sound-alike substitutions may have occurred due to the inherent brown itations of voice recognition software. Please read the chart carefully and recognize, using context, where these substitutions have occurred.in this encounter Plan of Treatment + +--------+ + + | Name | Priori | Associated Diagnoses | Order Schedule | | | ty | | | + +--------+ + + | Ambulatory referral to Physical | Routin | Cerebrovascular | Ordered: 08/22/2017 | | Therapy | e | accident (CVA), | | | | | unspecified | | | | | mechanism (HCC) | | + +--------+ + + | * [facility] - AMB | Routin | Cerebrovascular | Ordered: 08/22/2017 | | Referral | e | accident (CVA), | | | | | unspecified | | | | | mechanism (HCC) | | | | | Aphasia complicating | | | | | stroke (HCC) | | + +--------+ + + as of this encounter Results Creatinine (08/21/2017632) + + + + | Component | Value | Ref Range | + + + + | Creatinine, | 0.98 | 0.60 - 1.30 mg/dL | | Serum/Plasma | | | + + + + | eGFR if not | 54 (L)Comment: GLOMERULAR FILTRATION | >=60 mL/min/1.73m2 | | FAROESE | RATE,ESTIMATED mL/min/1.54f1Vivd than | | | | 60 Chronic [...] + + + | Blood | [facility] [address] | | | [place] [address] | + + + Extra Lavender Top Tube (08/21/2017624) + +-------+ + | Component | Value | Ref Range | + +-------+ + | Extra Lavender Top | Done | | | Tube | | | + +-------+ + + + + | Specimen | Performing Laboratory | + + + | Blood | [facility] [address] | | | [place] [address] | + + + B Type Natriuretic Peptide (08/19/2017 0543) + +---------+ + | Component | Value | Ref Range | + +---------+ + | BNP | 274 (H) | <100 pg/mL | + +---------+ + + + + | Specimen | Performing Laboratory | + + + | Blood | [facility] [address] | | | [place] [address] | + + + Prealbumin (08/19/2017542) + +-------+ + | Component | Value | Ref Range | + +-------+ + | PREALBUMIN | 20 | 18 - 38 mg/dL | + +-------+ + + + + | Specimen | Performing Laboratory | + + + | Blood | [facility] [address] | | | [place] [address] | + + + Magnesium (08/19/2017 0543) + +---------+ + | Component | Value | Ref Range | + +---------+ + | MG | 1.7 (L) | 1.8 - 2.5 mg/dL | + +---------+ + + + + | Specimen | Performing Laboratory | + + + | Blood | [facility] [address] | | | [place] [address] | + + + CBC with Differential (08/19/2017542) + +---------+ + | Component | [...] | + + + | Blood | [facility] [address] | | | [place] [address] | + + + IMAGING REPORT - EXTERNAL SCAN (08/14/2017) + + | Narrative | + + | Ordered by an unspecified provider. | + + IMAGING REPORT - EXTERNAL SCAN (08/14/2017) + + | Narrative | + + | Ordered by an unspecified provider. | + + LABS - EXTERNAL SCAN (08/13/2017) + + | Narrative | + + | Ordered by an unspecified provider. | + + IMAGING REPORT - EXTERNAL SCAN (08/13/2017) + + | Narrative | + + | Ordered by an unspecified provider. | + + IMAGING REPORT - EXTERNAL SCAN (08/13/2017) + + | Narrative | + + | Ordered by an unspecified provider. | + + in this encounter Visit Diagnoses + + | Diagnosis | + + | Cerebrovascular accident (CVA), unspecified mechanism (HCC) - Primary | + + | Gastroesophageal reflux disease, esophagitis presence not specified | + + | Aphasia complicating stroke | + + | Unspecified cerebral artery occlusion with cerebral infarction | + + | Carotid artery stenosis, symptomatic, right | + + Admitting Diagnoses + + | Diagnosis | + + | CVA | + + Administered Medications + +--------+ +--------+------+------+ | Medication Order | MAR | Action | Dose | Rate | Site | | | Action | Date | | | | + +--------+ +--------+------+------+ | acetaminophen (TYLENOL) tablet | Given | | 650 mg | | | | 650 mg 650 mg, Oral, EVERY 4 | | 8 20:12 | | | | | HOURS PRN, Fever, greater than or | | PST | | | | | equal to 38.3 C (101.5 F) or | | | | | | | Pain, Starting Fri08/18/17 at | | | | | | | 1740, Not to exceed 4000 mg in 24 | | | | | | | hours | | | | | | + +--------+ +--------+------+------+ +-------+ +--------+---+---+ | Given | | 650 mg | | | | | 8 10:07 | | | | | | PST | | | | +-------+ +--------+---+---+ +---+---+ | | | +---+---+ + +-------+ +------+---+---+ | apixaban (ELIQUIS) tablet 5 mg | Given | 08/21/2017 | 5 mg | | | | 5 mg, Oral, 2 TIMES DAILY, First | | 8:21 | | | | | dose on Fri08/18/17 at 2100 | | PST | | | | + +-------+ +------+---+---+ +-------+ +------+---+---+ | Given | 08/21/2017 | 5 mg | | | | | 20:53 | | | | | | PST | | | | +-------+ +------+---+---+ | Given | 08/22/2017 | 5 mg | | | | | 10:33 | | | | | | PST | | | | +-------+ +------+---+---+ +---+---+ | | | +---+---+ + +-------+ +---------+---+---+ | carvedilol (COREG) tablet 12.5 | Given | 08/21/2017 | 12.5 mg | | | | mg 12.5 mg, Oral, 2 TIMES DAILY | | 17:06 | | | | | WITH BREAKFAST & DINNER, First | | PST | | | | | dose on Fri08/18/17 at 1800 | | | | | | + +-------+ +---------+---+---+ +-------+ +---------+---+---+ | Given | 08/22/2017 | 12.5 mg | | | | | 10:33 | | | | | | PST | | | | +-------+ +---------+---+---+ | Given | 08/22/2017 | 12.5 mg | | | | | 17:01 | | | | | | PST | | | | +-------+ +---------+---+---+ +---+---+ | | | +---+---+ + +-------+ +-------+---+---+ | clopidogrel (PLAVIX) tablet 75 | Given | | 75 mg | | | | mg 75 mg, Oral, DAILY, First | | 8 9:57 | | | | | dose on e 08/19/17 at 1400 | | PST | | | | + +-------+ +-------+---+---+ +-------+ +-------+---+---+ | Given | 08/21/2017 | 75 mg | | | | | 8:21 | | | | | | PST | | | | +-------+ +-------+---+---+ | Given | 08/22/2017 | 75 mg | | | | | 10:33 | | | | | | PST | | | | +-------+ +-------+---+---+ +---+---+ | | | +---+---+ + +-------+ +--------+---+---+ | docusate sodium (COLACE) | Given | | 100 mg | | | | capsule 100 mg 100 mg, Oral, 2 | | 8 9:57 | | | | | TIMES DAILY, First dose on Mon | | PST | | | | | 08/18/17 at 2100, Hold for loose | | | | | | | stools | | | | | | + +-------+ +--------+---+---+ +-------+ +--------+---+---+ | Given | 08/21/2017 | 100 mg | | | | | 8:21 | | | | | | PST | | | | +-------+ +--------+---+---+ | Given | 08/22/2017 | 100 mg | | | | | 10:33 | | | | | | PST | | | | +-------+ +--------+---+---+ +---+---+ | | | +---+---+ + +-------+ +-------+---+---+ | pantoprazole (PROTONIX) DR | Given | | 40 mg | | | | tablet 40 mg 40 mg, Oral, DAILY | | 8 6:30 | | | | | BEFORE BREAKFAST, First dose on | | PST | | | | | Fri08/19/17 at 1400, Do not cut | | | | | | | or crush. | | | | | | + +-------+ +-------+---+---+ +-------+ +-------+---+---+ | Given | 08/21/2017 | 40 mg | | | | | 6:08 | | | | | | PST | | | | +-------+ +-------+---+---+ | Given | 08/22/2017 | 40 mg | | | | | 6:28 | | | | | | PST | | | | +-------+ +-------+---+---+ +---+---+ | | | +---+---+ + +-------+ +-------+---+---+ | pravastatin (PRAVACHOL) tablet | Given | | 40 mg | | | | 40 mg 40 mg, Oral, NIGHTLY, | | 8 21:11 | | | | | First dose on Fri08/19/17 at 2100 | | PST | | | | + +-------+ +-------+---+---+ +-------+ +-------+---+---+ | Given | | 40 mg | | | | | 8 20:28 | | | | | | PST | | | | +-------+ +-------+---+---+ | Given | 08/21/2017 | 40 mg | | | | | 20:53 | | | | | | PST | | | | +-------+ +-------+---+---+ +---+---+ | | | +---+---+ in this encounter
--- OUTSIDE RECORDS SUMMARY | ~2017-11-16 | XMS | Encounter Summary ---
Demographics + + + | Address | [address] | | | [place] [address] | + + + | Home Phone | | + + + | Preferred Language | Unknown | + + + | Marital Status | | + + + | Gnosticist Affiliation | 1077 | + + + | Race | Unknown | + + + | Ethnic Group | Unknown | + + + Author + + + | Author | [employer] | + + + | Organization | [facility] | + + + [...] Team Providers + +------+ + | Care Manager Of Applications Development Name | Role | Phone | + +------+ + | Danilo Roman MD | PCP | | + +------+ + Encounter Details +--------+--------+ + + + | Date | Type | Department | Care Team | Description | +--------+--------+ + + + | 09/01/ | Refill | [facility] [place] | Lisset Littlejohn MA | | | 2018 | | Marco Abreu | | | | | | [address] | | | | | | [place] | | | | | | [address] | | | | | | [phone] | | | +--------+--------+ + + + [...] | | | | | | [place] [address] | | | | | | [phone] | | | | | | | [...] [place] | | | | | | [id number] | | | | | | | | +--------+ + + + + as of this encounter Visit Diagnoses Not on filein this encounter"
--- OUTSIDE RECORDS SUMMARY | ~2017-11-16 | XMS | Encounter Summary ---
Demographics + + + | Address | [address] | | | [place] [address] | + + + | Home Phone | | + + + | Preferred Language | Unknown | + + + | Marital Status | | + + + | Rastafarian Affiliation | 1077 | + + + | Race | Unknown | + + + | Ethnic Group | Unknown | + + + Author + + + | Author | [employer] | + + + | Organization | [facility] | + + + [...] Team Providers + +------+ + | Care Levee Superintendent Name | Role | Phone | + [...] + + | 09/24/ | Office | [facility] | Wolf Perez DNP | Ischemic stroke | | 2018 | Visit | Vascular Surgery | [address] | ([facility]) (Primary Dx); | | | | [address] | [place], [place] | Carotid artery | | | | [place], [place] | [address] | stenosis, | | | | [address] | | symptomatic, right; | | | | [phone] | | Carotid stenosis, | | | [...] Wolf Perez DNP - 09/24/2017 1:30 PM [facility] [address] [place] [address] [place] [address] Office: [phone] DATE OF VISIT: 09/24/2017 PATIENT NAME: Maryjo Merrill : 1935; AGE: 82 y.o.; Sex:F PHONE NUMBER: ; PROVIDER: Wolf Perez DNP PRIMARY CARE / REFERRING PHYSICIAN: Cristin Ordoñez MD / CRISTIN ORDOÑEZ /[address] / [place] [address] The patient presents today for a Vascular Surgery Postoperative Visit. The patient is statu s post right CEA, which was performed on 09/09/2017 at the [facility] Ope rating Room. The patient is [...] which was performed on 04/29/2017 at the [facility] Operating Room. The patient currently reports [...] | | | | | | [place] [address] | | | | | | [phone] | | | | | | | [...] [place] | | | | | | [address] | | | | | | | [...]
--- OUTSIDE RECORDS SUMMARY | ~2017-11-16 | XMS | Encounter Summary ---
Demographics + + + | Address | [address] | | | [place] [address] | + + + | Home Phone | | + + + | Preferred Language | Unknown | + + + | Marital Status | | + + + | Confucianist Affiliation | 1077 | + + + | Race | Unknown | + + + | Ethnic Group | Unknown | + + + Author + + + | Author | [employer] | + + + | Organization | [facility] | + + + | [...] Team Providers + +------+ + | Care Vp Construction Name | Role | Phone | + +------+ + | rCistin Ordñoez MD | PCP | | + +------+ + Reason for Visit + + + | Reason | Comments | + + + | Follow-up | Right carotid endarterectomy | + + + Encounter Details +--------+---------+ + + + | Date | Type | Department | Care Team | Description | +--------+---------+ + + + | 09/24/ | Office | [facility] | Wolf Perez DNP | Ischemic stroke | | 2018 | Visit | Vascular Surgery | [address] | ([facility]) (Primary Dx); | | | | [address] | [place], [place] | Carotid artery | | | | [place], [place] | [address] | stenosis, | | | | [address] | | symptomatic, right; | | | | [phone] | | Carotid stenosis, | | | [...] Wolf Perez DNP - 09/24/2017 1:30 PM [facility] Surgery [facility] [address] [place] [address] [place] [address] Office: [phone] DATE OF VISIT: 09/24/2017 PATIENT NAME: Maryjo Merrill : 1935; AGE: 82 y.o.; Sex:F PHONE NUMBER: ; PROVIDER: Wolf Perez DNP PRIMARY CARE / REFERRING PHYSICIAN: Cristin Ordoñez MD / CRISTIN ORDOÑEZ /[address] / [place] [address] The patient presents today for a Vascular Surgery Postoperative Visit. The patient is statu s post right CEA, which was performed on 09/09/2017 at the [facility] Ope rating Room. The patient is not [...] which was performed on 04/29/2017 at the [facility] Operating Room. The patient currently reports no [...] | | | | | | [place] [address] | | | | | | [phone] | | | | | | | [...] [place] | | | | | | [address] | | | | | | | [...]
--- OUTSIDE RECORDS SUMMARY | ~2017-11-16 | XMS | Encounter Summary ---
Demographics + + + | Address | [address] | | | [place] [address] | + + + | Home Phone | | + + + | Preferred Language | Unknown | + + + | Marital Status | | + + + | Buddhist Affiliation | 1077 | + + + | Race | Unknown | + + + | Ethnic Group | Unknown | + + + Author + + + | Author | [employer] | + + + | Organization | [facility] | + + + [...] Team Providers + +------+ + | Care Loss Mitigation Specialist Name | Role | Phone | + [...] + + | 09/09/ | Anesthesia | [facility] | Aly Head, | | | 2017 | [facility] | [address] | | | | | Operating Room [address] | [address] | | | | | [address] | [place] [address] | | | | | [place] [address] | [phone] | | | | | [phone] | | | +--------+ + + + + Anesthesia Record + + + + + | Procedure Name | Responsible | Anesthesia Start | Anesthesia Stop Time | | | Anesthesiologist | Time | | + + + + + | ENDARTERECTOMY - | Karlene Lu Head, | 09/09/17 0737 | 09/09/17 0917 | | CAROTID (Right Neck) | SPINNER TENDER | | | + + + + [...] | | Date: 09/09/17; Removal Time: | SPINNER TENDER | SPINNER TENDER | | | 0907; Mask Airway: Easy; [...] | | | | | | [place] [address] | | | | | | [phone] | | | | | | | [...] [place] | | | | | | [address] | | | | | | | [...]
--- OUTSIDE RECORDS SUMMARY | ~2017-11-16 | XMS | Encounter Summary ---
Demographics + + + | Address | [address] | | | [place] [address] | + + + | Home Phone | | + + + | Preferred Language | Unknown | + + + | Marital Status | | + + + | Restorationism Affiliation | 1077 | + + + | Race | Unknown | + + + | Ethnic Group | Unknown | + + + Author + + + | Author | [employer] | + + + | Organization | [facility] | + + + [...] Team Providers + +------+ + | Care Prison Warden Name | Role | Phone | + +------+ + | Danilo Roman MD | PCP | | + +------+ + Encounter Details +--------+ + + + + | Date | Type | Department | Care Team | Description | +--------+ + + + + | 10/21/ | Orders Only | [facility] | Gomez, Tamara, REVENUE CYCLE ANALYST | MAI (acute kidney | | 2018 | | [place] [address] | | injury) (HCC); CKD | | | | [address] | | (chronic kidney | | | | [place] [address] | | disease), stage III; | | | | [phone] | | Essential | | | | [...] hematuria | +--------+ + + + + Social [...] | | | | | | [place] [address] | | | | | | [phone] | | | | | | | | +--------+ + + + + | 03/25/ | Appointment | Radiology | | | | 2017 | | | | | +--------+ + + + + | 03/25/ | Office | Vascular Surgery | Wolf Perez, DNP | | | 2017 | Visit | | [address] | | | | | | [place] | | | | | | [address] | | | | | | | | +--------+ + + + + as of this encounter Results Microalbumin / creatinine urine ratio (10/16/2017) + + + + | Component | Value | Ref Range | + + + + | ALBUMIN/CREAT RATIO | 30.8 (A) | 0 - 30 | + + + + + + + | Specimen | Performing Laboratory | + + + | Urine | [facility] [address] [facility] [address] [place], [place] | | | [address] | + + + Urinalysis (reflex to [...] + + | Urine | [facility] [address] [place], [place] [address] | | | [address] | + + + + + | Narrative | + + | WBC's: 5 Bacteria: +1 | + + in this encounter Visit Diagnoses + + | Diagnosis | + + | MAI (acute kidney injury) (HCC) | + + | Acute kidney failure, unspecified | + + | CKD (chronic kidney disease), stage III | + + | Chronic kidney disease, Stage III (moderate) | + + | Essential hypertension, benign | + + | Proteinuria | + + | Persistent proteinuria | + + | Proteinuria | + + | CKD (chronic kidney disease), stage III | + + | Acute cystitis without hematuria | + + | Acute cystitis | + +"
--- OUTSIDE RECORDS SUMMARY | ~2017-11-16 | XMS | Encounter Summary ---
Demographics + + + | Address | [address] | | | [place] [address] | + + + | Home Phone | | + + + | Preferred Language | Unknown | + + + | Marital Status | | + + + | Zoroastrian Affiliation | 1077 | + + + | Race | Unknown | + + + | Ethnic Group | Unknown | + + + Author + + + | Author | [employer] | + + + | Organization | [facility] | + + + [...] Team Providers + +------+ + | Care Restaurant General Manager Name | Role | Phone | [...] + + | 09/09/ | Hospital | [facility] | Maximo Landry MD | Carotid stenosis, | | 2018 - | Encounter | [address] | [address] | right (Primary Dx) | | | | Floor [facility] | [place] [address] | | | 09/10/ | | [address] | [phone] | | | 2018 | | [place] [address] | | | | | | [phone] | | | +--------+ + + + [...] note may be different from the original. [facility] Service: Vascular Surgery Discharge Summary Date [...] pericardial patch angioplasty Surgeon: Maximo Landry MD Customer Experience Professional(s): MARY George Anesthesia: General endotrachial anesthesia Estimated [...] - CAROTID; Surgeon: Maximo Landry MD; Location: [facility] MAIN OR; Se rvice: Vascular; Laterality: Left; [...] CV: No peripheral edema, rate regular SKIN: [place], warm, dry without rash/lesion MS: ROM not [...] Follow up: Danilo Roman MD [address] [facility], [address] [place] [address] In 3 days lab, vital signs, and medication review post surgery [facility] VASCULAR SURGERY [address] [place] [address] post op appointment Medication List START [...] eye Trouble speaking Trouble breathing Trouble swallowing 5901-0968 [facility], [address] [place], [place] [id number]. All rights reserve d. This information is [...] | | | | | | [place] [address] | | | | | | [phone] | | | | | | | | +--------+ + + + + | 03/25/ | Appointment | Radiology | | | | 2017 | | | | | +--------+ + + + + | 03/25/ | Office | Vascular Surgery | Wolf Perez DNP | | | 2017 | Visit | | [address] | | | | | | E [place], [place] | | | | | | [address] | | | | | | | [...] | | | NORMALComment: Testing performed at [facility], | | | | [address], [place] | | | | [address] | | + + + + + + + | Specimen | Performing Laboratory | + + + | Blood | [facility] [address] [place], | | | [place] [address] | + + + Basic metabolic panel [...] | | | | 1.210.Testing performed at [facility], [address] | | | | [place] [address] | | | | | | + + + + + + + | Specimen | Performing Laboratory | + + + | Blood | [facility] [address] [place] [address] [address]vd[address] [place], | | | [place] [address] | + + + Type and Screen (Blood Bank) (09/09/2017 6:55 AM) + + + + | Component | Value | Ref Range | + + + + | ABO/RH(D) | O POSITIVE | | + + + + | ANTIBODY SCREEN | NEGATIVE | | + + + + | ARM BAND NUMBER | [id number] performed at [facility];[address] | | | | Prabhakar;[place] [address] | | | | | | + + + + + + + | Specimen | Performing Laboratory | + + + | Blood | [facility] [address] [place] [address] | + + + Pathology histology - tissue (09/09/2017) + + + | Specimen | Performing Laboratory | + + + | Tissue - Soft | [facility] | | Tissue, Other | | [...] sections reveal areas of calcification. | | Slope Hoist Operator sections are submitted in cassette A1. (The [...] technical | | preparation was performed by [employer], [facility], [address] | | [place] [address] (Aerial Erector: Darryn Maciel M.D.; | | [facility]#: [id number]). Diagnostician: Salome Wan MD Pathologist Electronically | [...]
--- OUTSIDE RECORDS SUMMARY | ~2017-11-16 | XMS | Encounter Summary ---
Demographics + + + | Address | [address] | | | [place] [address] | + + + | Home Phone | | + + + | Preferred Language | Unknown | + + + | Marital Status | | + + + | Shinto Affiliation | 1077 | + + + | Race | Unknown | + + + | Ethnic Group | Unknown | + + + Author + + + | Author | [employer] | + + + | Organization | [facility] | + + [...] Team Providers + +------+ + | Care Developmental Therapist Name | Role | Phone | + +------+ + | Danilo Roman MD | PCP | | + +------+ + Encounter Details +--------+---------+ + + + | Date | Type | Department | Care Team | Description | +--------+---------+ + + + | 10/20/ | Office | [facility] | Landry Mckenzie | CKD (chronic kidney | | 2018 | Visit | [address] | [place] | disease), stage III | | | | [address] | [address] | (Primary Dx); | | | | [address], [place] | [place] [address] | Persistent | | | | [address] | [phone] | proteinuria | | | | | | | +--------+---------+ + + + Social History [...] + + + + | Pulse | - | - | + + + + | Temperature | 36.3 C (97.3 F) | 10/20/2017 9:49 AM PDT | + + + + | Respiratory Rate | - | - | + + + + | Oxygen Saturation | - | - | + + + + | Inhaled [...] AM PDT | + + + + in this encounter Instructions Patient Instructions - Landry Mckenzie ARNP - 10/20/2017 9:40 AM PDT Medication Changes made at today's visit: None Next LAB WORK should be done in about: 6 Months You do NOT need to fast for this lab work, keep hydrated. Next APPOINTMENT: in about 6 Months Renal Ultrasound at some point in the next 6 months please. Other Instructions: Low Salt Diet Recommended Please have lab work done 1 weeks prior to your appointment. Make sure you are well hydrated prior to going to the lab and are able to give a urine s ample. Call the office with any questions or concerns. If you are taking a proton pump inhibitor, such as Protonix (omeprazole), talk to your [facility] care provider about if you need this medication residential. Call our office or your PCP if you have blood pressure over 150/90 on more than one occa jenelle, or have blood pressure concerns. If you experience diarrhea and /or vomiting for more than 24 hours with no relief please seek medical help. The treatments that are recommended to slow the progression of Chronic Kidney Disease in clude blood sugar control, blood pressure control, healthy body weight (BMI >= 30 kg/m2), av oid sedentary lifestyle, avoid smoking/ tobacco, glycemic control, avoid NSAIDs, early inter vention of worsening nausea, vomiting, or diarrhea and avoid IV contrast. I urge that you measure your BP at least daily, twice daily if you are able, record it a nd bring record to every appointment with every healthcare provider you see. Do not drink alcohol, caffeinated beverages, such as soda pop, coffee, espresso drinks, energy drinks. Please bring a list of your medications in the pharmacy bottles to every visit so a medi cation review can be done. Make all healthcare providers aware of the presence of kidney disease and request to adj ust all medications according to level of kidney function and to avoid nephrotoxic medicatio ns if possible, including but not limited to antibiotics. DO NOT TAKE any anti-inflammatory drugs such Ibuprofen, Diclofenac, Motrin, Advil, Gómez xicam, naprosyn (Aleve), Celebrex, decongestants containing pseudoephedrine (such as some fo alexey of Sudafed or Actifed) or herbal supplements (because of lack of FDA approval) Short term use of acetaminophen (Tylenol) for fever or pain is okay. If in doubt please call our office for verification. Avoid exposure to IV contrast agents (DYE) used in CT scans, MRI's, Fluoroscopy, or in h eart catheterization procedures unless necessary or for a life saving procedure. It is recommend that you get regular aerobic exercise, this would be 3 x a week, eat a l ow fat/low salt diet, and see your primary care provider (PCP) for health maintinance and pe riodic exams at least annually. If you smoke, you must quit. Smoking worsens kidney disease. in this encounter Progress Notes Landry Mckenzie ARNP - 10/20/2017 9:40 AM PDTFormatting of this note may be different f rom the original. Patient Active Problem List Diagnosis Persistent proteinuria Depression Atrial fibrillation (HCC) CKD (chronic kidney disease), stage III Coronary artery disease due to lipid rich plaque Acute cystitis without hematuria Infarction of parietal lobe (HCC) Ischemic stroke (HCC) Carotid stenosis, right S/P carotid endarterectomy Occlusion of carotid artery Dear Dr Roman: I saw your patient Ms. Merrill in the office for follow up with her daughter Melissa. As you are familiar with her case, I will not state her past history in detail. Briefly, she is a 82 y.o. female patient with past history as delineated above. she is here to F/U on her CK D & its associated complications. In 09/2016, her sCr & eGFR 0.98 & 54. The patient has history of hypertension since the . her BP control has been reportedl y adequate. she denies any history of prolonged exposure to NSAIDs or recent exposure to kno wn nephrotoxins. she denies any recurrent nephrolithiasis or pyelonephritis. she tells me th at she's had no history of urinary retention, gross hematuria or dysuria. she has chronic mi xed incontinence symptoms. No symptoms of UTI; she has 1 nightly nocturia. No history of p assing kidney stones. she has no foamy urine either. her baseline Creatinine is 1.0. There i s no family history of renal genetic diseases such as PKD. she says that she feels 'good ' today, reports some mild ankle swelling after starting amlo dipine. she denies any blurred vision tinnitus, headache, fever, chills, or cough. No naus ea, vomiting, abdominal pain, diarrhea, melena, or hematochezia. She has recurrent chest pa in, palpitation, dizziness for which she F/U's with your office & the Cardiology team; no lo ss of consciousness, orthopnea, paroxysmal nocturnal dyspnea; she has occasional mild leg ed stephanie. She has had [facility] since late 2015 for which she F/U's with your office & the Cardiology t eam. The following portions of the patient's history were reviewed and updated as appropriate: a llergies, current medications, past medical history, past social history, past surgical hist ory, family history and problem list. As in History of Present Illness & in Assessment. All the pertinent systems were reviewed a nd were otherwise negative. Current Outpatient Prescriptions Medication Sig Dispense Refill acetaminophen (TYLENOL) 500 MG tablet Take 500 mg by mouth every 6 (six) hours as neede d for Pain. amLODIPine (NORVASC) 5 MG tablet Take 1 tablet by mouth daily. 90 tablet 3 apixaban (ELIQUIS) 5 MG tablet Take 1 tablet by mouth 2 (two) times daily. 60 tablet 11 carvedilol (COREG) 12.5 MG tablet Take 1 tablet by mouth 2 (two) times daily with meals . 180 tablet 3 clopidogrel (PLAVIX) 75 MG tablet Take 1 tablet by mouth daily. Start on 05/12/17, with Aspirin dose decreased to 81 mg daily at that time (Patient taking differently: Take 75 mg by mouth daily. Start on 05/12/17) 30 tablet 11 Omeprazole (PRILOSEC PO) Take 40 mg by mouth daily. pravastatin (PRAVACHOL) 40 MG tablet Take 1 tablet by mouth nightly. 30 tablet 11 No current facility-administered medications for this visit. Physical Exam: BP 118/56 (BP Location: Left upper arm, Patient Position: Sitting) | Temp 97.3 F (36.3 C) (Temporal) | Ht 1.664 m (5' 5.5") | Wt 66.2 kg (145 lb 14.4 oz) | BMI 23.91 kg/m General appearance: Pleasant, not in acute distress. Neck: Supple without tracheal deviation or jugular venous distension. Left CEA scar noted & is benign. Head and ENT: Head is atraumatic. The oropharynx is without erythema or thrush. Eyes: Anicteric. The extraocular muscle movements are normal. Lungs: Clear to auscultation bilaterally. There are no wheezes. Heart: Regular rate and rhythm without any rub, gallop. no murmur. Abdominal exam: Soft and nontender with normal bowel sounds. Musculoskeletal: No costovertebral angle tenderness bilaterally. Extremities: Warm to touch with trace leg edema. There is no cyanosis. Skin: There are no rashes, petechiae, or ecchymosis. Neurological: Awake, alert, and oriented to time, place, and person. Normal gross motor po wer. There is no asterixis. Psychiatric: The patient s behavior is normal. Judgment and thought content are normal. Lab Results Component Value Date BUN 10/14/2017 CREATININE 0.86 10/14/2017 EGFR 63 10/14/2017 NA 141 10/14/2017 K 4.0 10/14/2017 CL 103 10/14/2017 CO2 23 10/14/2017 CA 9.6 10/14/2017 MG 1.8 10/14/2017 ALB 3.8 10/14/2017 HGB 13.4 10/14/2017 URICACID 5.9 01/09/2017 WBC 6.1 10/14/2017 HCT 40.2 10/14/2017 LABPROT 122.8 01/09/2017 Assessment: Ms. Merrill is a 82 y.o. female patient with stage IIIA CKD on a background of longstanding hypertension. 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 RENAL FUNCTION: Relatively stable & near normal GFR BLOOD PRESSURE: Normal BLOOD SUGAR: Reports it normal ELECTROLYTES: Normal ANEMIA: None VITAMIN D: To be checked thru your office PARATHYROID HORMONE: To be checked later URIC ACID: okay PROTEINURIA: minimal URINALYSIS: No hematuria or UTI symptoms VOLUME STATUS: Euvolumic. Discussions/Recommendations: I discussed today with Ms.. Merrill the meaning of her CKD and the interaction of that w ith her hypertension. I stressed the importance of keeping her BP controlled and avoiding getting dehydrated i f we are to have a chance at helping preserve her renal function. She showed good understan ding. I gave her instructions on how to chart her blood pressure in the appropriate manner at home. She is to call us if they fall outside of the optimal provided range. She will bring her sphygmomanometer for validation once a year. She will strictly abide by a low salt diet and will avoid all kinds of NSAIDs for analge barbara. Also: I will not change any of her vasoactive meds today. She will report back to me her home BP readings if they fall outside of the optimal prov ided range. At that time, I will decide whether any change to his vasoactive regimen is darcy anted. I again sent her for a renal & bladder U/S soon. She will continue to F/U with your office regularly. She will have a RFP, Magnesium, CBC, intact PTH, urinalysis, Urine pzvmgae-em-wemejgijpk ratio before she comes back in [address] Roman for the opportunity to see this patient in hospital F/U today. Please do not hesitate to call me at any time with questions or concerns. Truly yours, Landry HERNANDEZ [facility] Nephrology in this encounter Plan of Treatment +--------+ [...] | | | | | | [place] [address] | | | | | | [phone] | | | | | | | [...] [place] | | | | | | [address] | | | | | | | | +--------+ + + + + + +--------+ + + | Name | Priori | Associated Diagnoses | Order Schedule | | | ty | | | + +--------+ + + | US Retroperitoneal complete | Routin | CKD (chronic | Expected: | | | e | kidney disease), | 10/21/2017, Expires: | | | | stage III | 10/20/2018 | | | | Persistent | | | | | proteinuria | | + +--------+ + + as of this encounter Visit Diagnoses + + | Diagnosis | + + | CKD (chronic kidney disease), stage III - Primary | + + | Persistent proteinuria | + + | Proteinuria | + +
--- OUTSIDE RECORDS SUMMARY | ~2017-11-16 | XMS | Encounter Summary ---
Demographics + + + | Address | [address] | | | [place] [address] | + + + | Home Phone | | + + + | Preferred Language | Unknown | + + + | Marital Status | | + + + | Shinto Affiliation | 1077 | + + + | Race | Unknown | + + + | Ethnic Group | Unknown | + + + Author + + + | Author | [employer] | + + + | Organization | [facility] | + + + [...] Team Providers + +------+ + | Care Grizzlyman Name | Role | Phone | + [...] 10/16/2017) | | | | [place], [place] [address] | | | | | | [phone] | | | +--------+ + + + [...] | | | | | | [place] [address] | | | | | | [phone] | | | | | | | [...] [place] | | | | | | [address] | | | | | | | | +--------+ + + + + as of this encounter Visit Diagnoses Not on filein this encounter"
--- OUTSIDE RECORDS SUMMARY | ~2017-11-16 | XMS | Encounter Summary ---
Demographics + + + | Address | [address] | | | [place] [address] | + + + | Home Phone | | + + + | Preferred Language | Unknown | + + + | Marital Status | | + + + | Latter Day Affiliation | 1077 | + + + | Race | Unknown | + + + | Ethnic Group | Unknown | + + + Author + + + | Author | [employer] | + + + | Organization | [facility] | + + + [...] Team Providers + +------+ + | Care Produce Service Team Member Name | Role | Phone | + +------+ + | Danilo Roman MD | PCP | | + +------+ + Encounter Details +--------+ + + + + | Date | Type | Department | Care Team | Description | +--------+ + + + + | 09/09/ | Procedure | [facility] | | | | 2018 | [facility] | | | | | | Operating Room [address] | | | | | | [address] | | | | | | [place] [address] | | | | | | [phone] | | | +--------+ + + + [...] | 01/14/ | Office | Cardiology | Juevncio Schultz, | | | 2018 | Visit | | MD [address] | | | | | | [place], | | | | | | [place] [address] | | | | | | [phone] | | | | | | | [...] [place] | | | | | | [address] | | | | | | | | +--------+ + + + + as of this encounter Visit Diagnoses Not on filein this encounter"
--- OUTSIDE RECORDS SUMMARY | ~2017-11-16 | XMS | Encounter Summary ---
Demographics + + + | Address | [address] | | | [place] [address] | + + + | Home Phone | | + + + | Preferred Language | Unknown | + + + | Marital Status | | + + + | Restoration Affiliation | 1077 | + + + | Race | Unknown | + + + | Ethnic Group | Unknown | + + + Author + + + | Author | [employer] | + + + | Organization | [facility] | + + + [...] Team Providers + +------+ + | Care Heel Scourer Name | Role | Phone | + [...] + + | 08/18/ | Ancillary | [facility] | See, Medical | Diagnosis unknown | | 2018 | [facility] | [facility] | Record | | | | | [address] [facility] [facility] | | | | | | [place] [address] | | | | | | [phone] | | | +--------+ + + + [...] | | | | | | [place] [address] | | | | | | [phone] | | | | | | | [...] [place] | | | | | | [address] | | | | | | | | +--------+ + + + + as of this encounter Results CTA head neck W WO IV contrast (08/13/2017 5:35 PM) + + + | Specimen | Performing Laboratory | + + + | | [facility] [address] [place] [address] | + + + + + | Narrative | + + | This is a non-reportable procedure without a radiologist report and is used for | | image storage only | + + CT head without contrast (08/13/2017 5:32 PM) + + + | Specimen | Performing Laboratory | + + + | | [address] [address] | + + + + + | [...]
--- OUTSIDE RECORDS SUMMARY | ~2017-11-16 | XMS | Encounter Summary ---
Demographics + + + | Address | [address] | | | [place] [address] | + + + | Home Phone | | + + + | Preferred Language | Unknown | + + + | Marital Status | | + + + | Sikh Affiliation | 1077 | + + + | Race | Unknown | + + + | Ethnic Group | Unknown | + + + Author + + + | Author | [employer] | + + + | Organization | [facility] | + + + [...] Team Providers + +------+ + | Care Grain Inspector Name | Role | Phone | + [...] | | | | | | | MRI brain | | | | | | | without | | | | | | | contrast | | | + +--------+ + + + + Encounter Details +--------+ + + + + | Date | Type | Department | Care Team | Description | +--------+ + + + + | 08/18/ | Ancillary | [facility] | See, Medical | Diagnosis unknown | | 2018 | [facility] | [facility] | Record | | | | | [address] [facility] | | | | | | [place] [address] | | | | | | [phone] | | | +--------+ + + + [...] | | | | | | [place] [address] | | | | | | [phone] | | | | | | | [...] [place] | | | | | | [address] | | | | | | | | +--------+ + + + + as of this encounter Results MRI brain without contrast (08/14/2017 5:37 PM) + + + | Specimen | Performing Laboratory | + + + | | [place] [address] | + + + + + | [...]
--- OUTSIDE RECORDS SUMMARY | ~2017-11-16 | XMS | Encounter Summary ---
Demographics + + + | Address | [address] | | | [place] [address] | + + + | Home Phone | | + + + | Preferred Language | Unknown | + + + | Marital Status | | + + + | Baptism Affiliation | 1077 | + + + | Race | Unknown | + + + | Ethnic Group | Unknown | + + + Author + + + | Author | [employer] | + + + | Organization | [facility] | + + + | [...] Team Providers + +------+ + | Care Uniform Designer Name | Role | Phone | + +------+ + | Danilo Roman MD | PCP | | + +------+ + Encounter Details +--------+ + + + + | Date | Type | Department | Care Team | Description | +--------+ + + + + | 09/17/ | Orders Only | [facility] | Latasha | S/Leny carotid | | 2018 | | Vascular Surgery | LAKISHA Calabrese | endarterectomy | | | | [address] | | (Primary Dx); | | | | [place] | | Carotid stenosis, | | | | [address] | | right | | | | [phone] | | | +--------+ + + + [...] | | | | | | [place] [address] | | | | | | [phone] | | | | | | | [...] [place] | | | | | | [address] | | | | | | | | +--------+ + + + + as of this encounter Results US carotid doppler, bilateral (09/24/2017 1:26 PM) + + + | Specimen | Performing Laboratory | + + + | | [facility] [address] [facility] [place] [address] | + + + + + | [...] In - 09/24/2017 2:49 PM PST JAYDEN BULLOCK[age] years | | FemaleUS CAROTID DOPPLER, BILATERAL09/24/2017 [...]
--- OUTSIDE RECORDS SUMMARY | ~2017-11-16 | XMS | Encounter Summary ---
Demographics + + + | Address | [address] | | | [place] [address] | + + + | Home Phone | | + + + | Preferred Language | Unknown | + + + | Marital Status | | + + + | Adventism Affiliation | 1077 | + + + | Race | Unknown | + + + | Ethnic Group | Unknown | + + + Author + + + | Author | [email or web address] | + + + | Organization | [facility] | + + [...] Team Providers + +------+ + | Care Veneer Slicing Machine Operator Name | Role | Phone [...] + | 10/08/ | Documentati | [facility] [place] | Lisset Littlejohn MA | Other ( [facility] | | 2018 | on Only | [facility] | | Head CT) | | | | [address] | | | | | | [place], [place] | | | | | | [address] | | | | | | [phone] | | | +--------+ + + + [...] | | | | | | [place] [address] | | | | | | [phone] | | | | | | | [...] [place] | | | | | | [address] | | | | | | | | +--------+ + + + + as of this encounter Visit Diagnoses Not on filein this encounter"
--- OUTSIDE RECORDS SUMMARY | ~2017-11-16 | XMS | Encounter Summary ---
Demographics + + + | Address | [address] | | | [place] [address] | + + + | Home Phone | | + + + | Preferred Language | Unknown | + + + | Marital Status | | + + + | Caodaism Affiliation | 1077 | + + + | Race | Unknown | + + + | Ethnic Group | Unknown | + + + Author + + + | Author | [employer] | + + + | Organization [...] Team Providers + +------+ + | Care Farebox Repairer Name | Role | Phone | + +------+ + | Danilo Roman MD | PCP | | + +------+ + Reason for Visit + + + | Reason | Comments | + + + | Labs Only | [facility] dated 10/14/2017 | + + + Encounter Details +--------+ + + + + | Date | Type | Department | Care Team | Description | +--------+ + + + + | 10/15/ | Documentati | [facility] | Sujey Gomez CMA | Labs Only ([facility] | | 2018 | on Only | [place] [address] | | Labs dated | | | | [address] | | 10/14/2017) | | | | [place], [place] [address] | | | | | | [phone] | | | +--------+ + + + [...] | | | | | | [place] [address] | | | | | | [phone] | | | | | | | [...] [place] | | | | | | [address] | | | | | | | | +--------+ + + + + as of this encounter Visit Diagnoses Not on filein this encounter"
--- OUTSIDE RECORDS SUMMARY | ~2017-11-16 | XMS | Clinical Summary ---
Demographics + + + | Address | [address] | | | [place] [address] | + + + | Home Phone | | + + + | Preferred Language | Unknown | + + + | Marital Status | | + + + | Hinduism Affiliation | 1077 | + + + | Race | Unknown | + + + | Ethnic Group | Unknown | + + + Author + + + | Author | [employer] | + + + | Organization [...] Team Providers + +------+ + | Care Director Speech Language Name | Role | Phone | + [...] Overview: Added automatically from request for surgery [id number] | + + + + + | [...] | 2017 | | | | injury) ([facility]); CKD | | | | | | [...] | | 2018 | Visit | | REMOTE CODERS | disease), stage III | | | [...] | | Lisset Littlejohn, TABITHA | Other ([facility] | | 2018 | on [...] whether | | | | | | [place] or | | | | | | [...] | | | | | | involving [place] | | | | | | coronary artery of | | | | | | [place] heart with | | | | | [...] | 2017 | Visit | | | ([facility]) (Primary Dx); | | | | | [...] | | | Maya, | | | REMOTE CODERS - | | | 09/10/2017 | | [...] | | | Sloot, | | | REMOTE CODERS Anest | | | hesia: | | [...] | | regularSKIN | | | : Hartly, | | | warm, dry | | [...] | | Maya | | | Sloot, REMOTE CODERS | | | in 2 | | [...] | | | [place], | | | [id number] | | [address], [place] | | | [address] | | | n [place] | | | [phone] | | | [phone] | | | dayslab, | | | vital | | | signs, and | | | medication | | | review post | | | | | | surgeryKADL | | | [facility] | | | VASCULAR | | | [id number] | | | Goethals | | | Dr Chandan | | | [place] | | | Gaitan | | | [address] | | | [phone] | | | post op | | [...] | 2017 | Visit | | | ([facility]) (Primary Dx); | | | | | [...] | | | | | | [place] [address] | | | | | | [phone] | | | | | | | [...] [place] | | | | | | [address] | | | | | | | [...] Bryan | [place] | | 03/11/ | [id number] | | [id number]/15/2017Implanted: | | ry | SCIENTIFIC | | 2017 | [id number] | | Qty: 1 on 05/15/2017 by | | | CORPORATION | | | 50 / | | Duong Cabello MD | | | | | | /[id number] | | | | | | | | 217 | + +-------+--------+ +--------+--------+--------+ | Synergy Lui | Stent | Bryan | [place] | | 02/19/ | [id number] | | [id number]/15/2017Implanted: | | ry | SCIENTIFIC | | 2017 | [id number] | | Qty: 1 on 05/15/2017 by | | | CORPORATION | | | 00 / | | Duong Cabello MD | | | | | | /[id number] | | | | | | | | 409 | + +-------+--------+ +--------+--------+--------+ | Synergy Lui | Stent | Bryan | [place] | | 03/10/ | [id number] | | 3m65-1005/15/2017Implanted: | | ry | SCIENTIFIC | | 2017 | [id number] | | Qty: 1 on 05/15/2017 by | | | CORPORATION | | | 00 / | | Duong Cabello MD | | | | | | /[id number] | | | | | | | | 102 | + +-------+--------+ +--------+--------+--------+ | [place] Lui 2.5 X | Stent | Bryan | [employer] | | 03/26/ | [id number] | | 15-06/19/2017Implanted: | | ry | | | 2019 | [id number] | | 06/19/2017 by Duong Cabello, | | | | | | / | | MD (Quantity not on file) | | | | | | /[id number] | | | | | | | | [address] | + +-------+--------+ +--------+--------+--------+ | Xgrft Vascu-Guard Ptch 0.8x8 | | Left: | EVA | | 09/09/ | VG-010 | | - [id number]: Qty: 1 | | Caroti | BIOSCIENCE | | 2021 | 8N / | | on 04/29/2017 by Maximo Landry, | | d | - TRINITYB | | | /[id number] | | MD | | | | | | [id number] | | | | | | | | 010 | + +-------+--------+ +--------+--------+--------+ | Xgrft Vascu-Guard Ptch 0.8x8 | | Right: | EVA | | 05/14/ | VG-010 | | - [id number]: Qty: 1 | | | BIOSCIENCE | [...] LABORATORY [place] | | | [address] | + + + Urinalysis (reflex to [...] + | Urine | [facility] [address] [place], [place] | | | [address] | + + + + + | [...] + + | Blood | [facility] [address] [place], [place] [address] | | | [address] | + + + PTH intact no calcium (10/14/2017 1:55 PM) + +-------+ + | Component | Value | Ref Range | + +-------+ + | PTH INTACT NO | 58.81 | 15 - 65 pg/mL | | CALCIUM | | | + +-------+ + + + + | Specimen | Performing Laboratory | + + + | Blood | [facility] [address] | | | [address] | + + + Magnesium (10/14/2017 1:55 PM) + +-------+ + | Component | Value | Ref Range | + +-------+ + | MAGNESIUM | 1.8 | 1.7 - 2.5 mg/dL | + +-------+ + + + + | Specimen | Performing Laboratory | + + + | Blood | [facility] [address] [place] [address] [address] [place], [place] | | | [address] | + + + Renal function panel [...] | + + + | Blood | [facility] [address] [place] [address], [place] [address] [place], [place] | | | [address] | + + + EKG STANDARD 12 [...] + + + + | Calculated R [place] | 35 | degrees | + + + + | Calculated T [place] | -35 | degrees | + + [...] Interpretation.Confirmed by [facility] | | | | Katy Read Only, NORM Ghosh ([id number]), editor newspaper | | | | Mayito Felder (253) on 10/03/2017 9:36:58 | | | | AM | | + + + + + + + | Specimen | Performing Laboratory | + + + | | [facility] [address] [place] [place] [address] | + + + US carotid doppler, bilateral (09/24/2017 1:26 PM) + + + | Specimen | Performing Laboratory | + + + | | [address] [address] | + + + + + | [...] - 09/24/2017 2:49 PM PST MARYJO Kendall [id number] years | | FemaleUS CAROTID DOPPLER, BILATERAL09/24/2017 [...] | | | | 1.210.Testing performed at [facility], [address] | | | | [place] [address] | | | | | | + + + + + + + | Specimen | Performing Laboratory | + + + | Blood | [facility] [address] [place], | | | [place] [address] | + + + Type and Screen (Blood Bank) (09/09/2017 6:55 AM) + + + + | Component | Value | Ref Range | + + + + | ABO/RH(D) | O POSITIVE | | + + + + | ANTIBODY SCREEN | NEGATIVE | | + + + + | ARM BAND NUMBER | [id number] [place] [facility] [place] [address] | | | | Pr[place]hakar;[place] [address] | | | | | | + + + + + + + | Specimen | Performing Laboratory | + + + | Blood | [facility] [address] [place] [address] | + + + Pathology histology - tissue (09/09/2017) + + + | Specimen | Performing Laboratory | + + + | Tissue - Soft | [facility] | | Tissue, Other [...] sections reveal areas of calcification. | | Software Development Intern sections are submitted in cassette A1. (The [...] technical | | preparation was performed by [employer], [facility], [address] | | [facility] [place] [address] (Set Up / Operator: Darryn Maciel M.D.; | | DARRELL#: [id number]). Diagnostician: Salome Wan MD Pathologist Electronically | [...] | Self | [birth year] | Home: | [address] | | | al/Fam | | 1935 | [phone] | [place] [address] | | | devika | | | [phone] | | + +--------+ +--------+ + +
--- OUTSIDE RECORDS SUMMARY | ~2017-11-16 | XMS | Encounter Summary ---
Demographics + + + | Address | [address] | | | [place] [address] | + + + | Home Phone | | + + + | Preferred Language | Unknown | + + + | Marital Status | | + + + | Caodaism Affiliation | 1077 | + + + | Race | Unknown | + + + | Ethnic Group | Unknown | + + + Author + + + | Author | [employer] | + + + | Organization | [facility] | + + + [...] Team Providers + +------+ + | Care Hooker Machine Tender Name | Role | Phone | + +------+ + | Danilo Roman MD | PCP | | + +------+ + Encounter Details +--------+ + + + + | Date | Type | Department | Care Team | Description | +--------+ + + + + | 08/18/ | Procedure | [facility] | | | | 2017 | Pass | [facility] | | | | | | RADIOLOGY [address] | | | | | | [address] | | | | | | [place] [address] | | | | | | [phone] | | | +--------+ + + + [...] | | | | | | [place] [address] | | | | | | [phone] | | | | | | | [...] [place] | | | | | | [address] | | | | | | | | +--------+ + + + + as of this encounter Visit Diagnoses Not on filein this encounter"
--- OUTSIDE RECORDS SUMMARY | ~2017-11-16 | XMS | Encounter Summary ---
Demographics + + + | Address | [address] | | | [place] [address] | + + + | Home Phone | | + + + | Preferred Language | Unknown | + + + | Marital Status | | + + + | Samaritan Affiliation | 1077 | + + + | Race | Unknown | + + + | Ethnic Group | Unknown | + + + Author + + + | Author | [employer] | + + + | Organization [...] Team Providers + +------+ + | Care Flower Picker Name | Role | Phone | + [...] + + | 08/18/ | Hospital | [facility] | See, Medical | Diagnosis unknown | | 2017 | Encounter | [facility] | Record | | | | | RADIOLOGY [address] | | | | | | [address] [facility] | | | | | | [place] [address] | | | | | | [phone] | | | +--------+ + + + [...] | | | | | | [place] [address] | | | | | | [phone] | | | | | | | [...] [place] | | | | | | [address] | | | | | | | | +--------+ + + + + as of this encounter Results MRI brain without contrast (08/14/2017 5:37 PM) + + + | Specimen | Performing Laboratory | + + + | | [facility] [address] [place] [address] | + + + + + | [...]
--- OUTSIDE RECORDS SUMMARY | ~2017-11-16 | XMS | Encounter Summary ---
Demographics + + + | Address | [address] | | | [place] [address] | + + + | Home Phone | | + + + | Preferred Language | Unknown | + + + | Marital Status | | + + + | Shinto Affiliation | 1077 | + + + | Race | Unknown | + + + | Ethnic Group | Unknown | + + + Author + + + | Author | [employer] | + + + | Organization | [facility] | [...] Team Providers + +------+ + | Care Engraving Plate Maker Name | Role | Phone | + [...] + + | 09/09/ | Anesthesia | [facility] | Aly Head, | | | 2017 | [facility] | SANDRITA Sol[address] | | | | | Operating Room [address] | [address] | | | | | [address] | [place] [address] | | | | | [place] [address] | [phone] | | | | | [phone] | | | +--------+ + + + + Anesthesia Record + + + + + | Procedure Name | Responsible | Anesthesia Start | Anesthesia Stop Time | | | Anesthesiologist | Time | | + + + + + | ENDARTERECTOMY - | Karlene Lu Head, | 09/09/17 0737 | 09/09/17 0917 | | CAROTID (Right Neck) | BELT CONVEYOR DRIER | | | + + + + [...] | | Date: 09/09/17; Removal Time: | BELT CONVEYOR DRIER | BELT CONVEYOR DRIER | | | 0907; Mask Airway: Easy; [...] | | | | | | [place] [address] | | | | | | [phone] | | | | | | | [...] [place] | | | | | | [address] | | | | | | | [...]
--- OUTSIDE RECORDS SUMMARY | ~2017-11-16 | XMS | Encounter Summary ---
Demographics + + + | Address | [address] | | | [place] [address] | + + + | Home Phone | | + + + | Preferred Language | Unknown | + + + | Marital Status | | + + + | Restorationist Affiliation | 1077 | + + + | Race | Unknown | + + + | Ethnic Group | Unknown | + + + Author + + + | Author | [employer] | + + + | Organization [...] Team Providers + +------+ + | Care Minute Clerk Name | Role | Phone | + +------+ + | Danilo Roman MD | PCP | | + +------+ + Encounter Details +--------+ + + + + | Date | Type | Department | Care Team | Description | +--------+ + + + + | 10/21/ | Orders Only | [facility] | Gomez, Tamara, CHILD DEVELOPMENT ASSOCIATE TEACHER | MAI (acute kidney | | 2018 | | [place] [address] | | injury) (HCC); CKD | | | | [address] | | (chronic kidney | | | | [place] [address] | | disease), stage III; | | | | [phone] | | Essential | | | | [...] | | | | | | [place] [address] | | | | | | [phone] | | | | | | | [...] [place] | | | | | | [address] | | | | | | | [...] + | Urine | [facility] [address] [facility] [address] [place], [place] | | | [address] | + + + Urinalysis (reflex to [...] + + | Urine | [facility] [address] [place], [place] [address] | | | [address] | + + + + + | [...]
--- OUTSIDE RECORDS SUMMARY | ~2017-11-16 | XMS | Encounter Summary ---
Demographics + + + | Address | [address] | | | [place] [address] | + + + | Home Phone | | + + + | Preferred Language | Unknown | + + + | Marital Status | | + + + | Scientology Affiliation | 1077 | + + + | Race | Unknown | + + + | Ethnic Group | Unknown | + + + Author + + + | Author | [employer] | + + + | Organization | [facility] | + + + | [...] Team Providers + +------+ + | Care Sap Security Consultant Name | Role | Phone | + +------+ + | Danilo Roman MD | PCP | | + +------+ + Reason for Visit + + + | Reason | Comments | + + + | Follow-up | | + + + Encounter Details +--------+---------+ + + + | Date | Type | Department | Care Team | Description | +--------+---------+ + + + | 10/03/ | Office | [facility] | Juvencio Schultz, | Coronary artery | | 2017 | Visit | Cardiology [place] | [address] | disease, angina | | | | [address] | [place], | presence | | | | [place], [place] | [place] [address] | unspecified, | | | | [address] | [phone] | unspecified vessel | | | | [phone] | | or lesion type, | | | | | | unspecified whether | | | | | | takotna or | | | | | | [...] | | | | | | involving takotna | | | | | | coronary artery of | | | | | | takotna heart with | | | | | | unstable angina | | | | | | pectoris (HCC); S/P | | | | | | PTCA (percutaneous | | | | | | transluminal | | | | | | coronary | | | | | | angioplasty) | +--------+---------+ + + + Social History [...] + + + | Blood Pressure | 140/82 | 10/03/2017 8:56 AM PDT | + [...] + + + + | Weight | 66.1 kg (145 lb 11.2 | 10/03/2017 8:56 AM PDT | | | oz) | | + + + + | Height | 166.4 cm (5' 5.5") | 10/03/2017 8:56 AM PDT | + + + + | Body Mass Index | 23.88 | 10/03/2017 8:56 AM PDT | + + + + in this encounter Progress Notes Juvencio Schultz MD - 10/03/2017 9:00 AM PDTFormatting of this note may be different from the original. Subjective: Patient ID: Maryjo Merrill is a 82 y.o. female. HPI The following portions of the patient's history were reviewed and updated as appropriate: a llergies, current medications, past family history, past medical history, past social histor y, past surgical history and problem list. Mrs. Merrill, accompanied by her daughter, came to the office today for a follow-up visit f or her multiple cardiovascular problems. 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 She was hospitalized in [place]. A carotid ultrasound was repeated, and showed an 80-90% stenosis of the rig ht internal carotid artery, which is the contralateral side from her symptoms, but she under went a right carotid endarterectomy by Dr. Landry on 09/09/17. She has recovered well. A repea t ultrasound on 09/24/17 showed no significant stenoses bilaterally. She still has mild word search, but her speech seems quite normal today. She notes that she still has mild difficul ties with her balance, but does not eat a cane or walker, and her gait appeared normal to me as she left the office. She feels that her right leg is mildly weaker than the left, but t his is not really obvious, either. She is on Plavix, and addition to her Eliquis. Her BP has been running higher at home, 160s-170s. Although it is 140/82 today, I will sta rt her on amlodipine 5 mg daily. She has had no recurrent chest pain, pressure or discomfort, dyspnea or other symptoms sinc e her staged coronary intervention 06/19/17, with a drug-eluting stent placed in the proxima l LAD. Angiography revealed widely patent overlapping stents in the RCA from her previous p rocedure. She did well, with no complications. Her recently, and she therefor e decided not to participate in cardiac rehab. Her initial cardiac catheterization 04/11/17 revealed severe 2-vessel CAD, with an abnormal mid LAD lesion that angiographically was 60%, but had an abnormal FFR of 0.66. Her mid RCA was subtotally occluded. She was seen by Dr. Bertram Cerrato and was to undergo CABG surgery f or these lesions, but preoperatively was found to have severe LICA stenosis requiring a lef t CEA 04/29/17. There is moderate disease in the JOSE. Afterwards, and MRI 04/30/17 showed evidence of an acute ischemic injury in the anterior left parietal lobe, and her bypass geo apryl was canceled. She therefore underwent PCI in the subtotally occluded RCA, with 3 overl apping Synergy drug-eluting stents placed. Her 4 week event recorder showed persistent at rial fibrillation, with atrial flutter at times, and her overall rate control was fairly goo d, with rapid ventricular response less than 5% of the time. Her symptoms did not correlate to the heart rate. I think that there is a reasonable chance of getting her back into norm al sinus rhythm, and we discussed DC cardioversion at her last visit, and in fact, it was ac tually scheduled for the end of June, but she declined it in the end. We did not discus s it further today. She may also have obstructive sleep apnea. This could be a trigger for her atrial fibrilla tion, and she was referred for a sleep study to have this evaluated, and treated, if indicat ed. This is still pending. Otherwise, she seems to be relatively stable at this time. No other changes were made in h er medications. She will call my office with herbal blood pressure readings at home in 2 we eks. I will see her back in a few months for follow-up. Review of Systems CONSTITUTIONAL: No recent significant weight change, denies recent fever, chills, night sw eats, but c/o significant fatigue. NEUROLOGIC: Right Ischemic CVA, 80-90% JOSE stenosis, right CEA 09/09/17. No h/o migraines , seizures, syncope. She has Peripheral Neuropathy with numbness and "cramping", "band"-lik e pressure in her feet and legs. She has "equilibrium" problems, no dizziness, lightheadedn ess. EYES: No amaurosis, diplopia, recent visual changes or glaucoma ENT: She has mild hearing loss, rare tinnitus, no epistaxis, but has occasional Dysphagia ENDOCRINE: No h/o Diabetes mellitus, Hypothyroidism, no other endocrine problems. No exce ssive hunger, thirst. PULMONARY/SLEEP: Chronic cough with exposure to cold temperatures. She has dyspnea on exe rtion, no orthopnea, paroxysmal nocturnal dyspnea. She had Pneumonia in 10/04. No history of asthma, emphysema. She has been told of snoring, no apnea, has daytime somnolence. Sleep is not refreshing. CARDIOVASCULAR: Denies chest pain, pressure or discomfort. No history of CAD. No history of heart failure. She has a history of Atrial Fibrillation (CHADS2 VASc 4) with intermittent Palpitations. No history of heart murmur, but has a h/o Rheumatic Fever with "St. Vit's Dance" in childhood. She has a history of Essential Hypertension, Hyperlipidemia. No edema , no claudication symptoms. She had a severe LICA stenosis noted on pre-CABG (canceled) u/s , left CEA 04/29/17. 80-90% JOSE stenosis 08/07, right CEA 09/09/17. -- Carotid U/S (09/24/17): No significant stenosis bilaterally -- Cardiac Cath/staged PCI (05/3017): LM-normal. prox LAD-70% > 2.5x15 [employer] [place] CHUCHO. D 2-50%. Ramus-occluded, fills via qynhr-cz-bitq collaterals. LCx-normal. RCA-dominant, mid 4 0% stenosis, patent stents. -- Cardiac Cath/PCI (05/15/17): 3 overlapping Synergy CHUCHO in distal RCA>PLV2 - 2.5x38, 3.0x 38, 3.0x38 mm. -- Carotid U/S (04/18/17): LICA > 70%, JOSE 50-69% -- Cardiac Cath (04/11/17): LM-calcification, no significant disease. OVS-yjnxz-smwrlkhc 60 % angiographically, calcified, FFR 0.66, distal mild-moderate diffuse disease without any fo mehrdad lesions. LCx-angiographically normal, FFR 0.9. RCA-mid-50%, late mid-subtotal occlusion , RV branch 50% -- Lexiscan Cardiolite stress test (01/29/17): No EKG changes. Transient ischemic dilatatio n noted on SPECT imaging (score 1.28), questionable inferior ischemia, EF 48% -- 4 Week Event Recorder (01/15/17): Atrial fibrillation, atrial flutter at times, througho ut the entire duration of the study. Overall rate control was fairly good, with a RVR < 5% of the time. Her 46 episodes of symptoms correlated to baseline atrial fibrillation, withou t any significant correlation to the HR. -- Echo (10/17/16): EF 50-55%, mid and basal inferior hypokinesis. Normal RV size, with mil d systolic dysfunction. Mild MR, TR, mild LAE. Mild Pulmonary HTN, RVSP 44 mm Hg -- Lexiscan Cardiolite stress test (11/19/12): Normal SPECT perfusion, EF 85% GASTROINTESTINAL: GERD. No recent abdominal pain, nausea, vomiting or diarrhea. Denies PU D, melena, hematochezia, hepatitis. RENAL/: Stage III CKD. Cystocele. No dysuria, hematuria, urinary urgency, hesitancy. No tower truck driver disorders. HEMATOLOGY/ONCOLOGY: No h/o bleeding disorders, DVT, PE. Denies easy bruisability or ble eding. No history of anemia, transfusions. No history of cancer. MUSCULOSKELETAL: No myalgias, has knee, ankle and thumb arthralgias. No history of rheuma tologic or autoimmune diseases. CUTANEOUS: No rashes, pruritus, lesions. PSYCHIATRIC: She admits to Depression, Anxiety or other psychiatric problems. Past Medical History Diagnosis Date Anemia Atrial fibrillation ([facility]) 12/31/2016 Cerebrovascular accident (CVA) ([facility]) 04/30/2017 minimal acute ischemic injury anterior left parietal lobe on MRI, no deficits Chronic kidney disease mild kidney disease Coronary artery disease 12/2016 Cystocele Disorder of thyroid states low thyroid, no medication Hyperlipidemia Hypertension 2002 Ischemic stroke ([facility]) 08/13/2017 Occlusion of carotid artery 80-90% JOSE stenosis with CVA, s/p CEA 09/09/17 Persistent dry cough 1997 occ clear phlegm PONV (postoperative nausea and vomiting) 05/2017 Stroke ([facility]) 08/13/2017 Urinary urgency wears pad UTI (urinary [...] - CAROTID; Surgeon: Maximo Landry MD; Location: [facility] OR; Se rvice: Vascular; Laterality: Left; ENDARTERECTOMY CAROTID Right 09/09/2017 Procedure: ENDARTERECTOMY - CAROTID; Surgeon: Maximo Landry MD; Location: [facility]; Se rvice: Vascular; Laterality: Right; TONSILLECTOMY 1946 TUBAL LIGATION 1964 VASCULAR SURGERY Family History Problem Relation Age of Onset Kidney disease Mother Coronary art dis Mother Heart failure Father Asthma Father Hypertension Father Alcohol abuse Brother Renee alba Neg Hx Social History Substance Use Topics Smoking status: Never Smoker Smokeless tobacco: Never Used Alcohol use No Allergies Allergen Reactions Augmentin [Amoxicillin-Pot Clavulanate] Rash Duloxetine Other (See Comments) Headache, diarrhea (began at the same time as Candesartan) Statins Other (See Comments) .leg cramps Simvastatin Muscle Pain Current Outpatient Prescriptions: acetaminophen (TYLENOL) 500 MG tablet, Take 500 mg by mouth every 6 (six) hours as nee ded for Pain., Disp: , Rfl: apixaban (ELIQUIS) 5 MG tablet, Take 1 tablet by mouth 2 (two) times daily., Disp: 60 tablet, Rfl: 11 carvedilol (COREG) 12.5 MG tablet, Take 1 tablet by mouth 2 (two) times daily with ofe ls., Disp: 180 tablet, Rfl: 3 clopidogrel (PLAVIX) 75 MG tablet, Take 1 tablet by mouth daily. Start on 05/12/17, wi th Aspirin dose decreased to 81 mg daily at that time (Patient taking differently: Take 75 m g by mouth daily. Start on 05/12/17), Disp: 30 tablet, Rfl: 11 Omeprazole (PRILOSEC PO), Take 40 mg by mouth daily., Disp: , Rfl: pravastatin (PRAVACHOL) 40 MG tablet, Take 1 tablet by mouth nightly., Disp: 30 tablet , Rfl: 11 Objective: Physical Exam BP 140/82 (BP Location: Right upper arm, Patient Position: Sitting) | Pulse 66 | Ht 1.664 m (5' 5.5") | Wt 66.1 kg (145 lb 11.2 oz) | SpO2 99% | BMI 23.88 kg/m GENERAL: Well developed, well nourished, in no distress. Appears approximately stated age . HEENT: Normocephalic, atraumatic. EYES: PERRL, sclerae anicteric, no xanthelsasmas MOUTH: Oral mucosae moist, dentition adequate, no lesions noted NECK: Healing right CEA incision, well healed left CEA incision. No JVD, lymphadenopath y, thyromegaly, bruits. Carotid pulses are 2+ bilaterally LUNGS: Clear bilaterally, with no rales, rhonchi or wheezing noted, respirations unlabored HEART: Nondisplaced PMI, regular rate, irregularly irregular rhythm, S1 is varied in inten sity , S2 normal. No murmurs, rubs or gallops noted. ABDOMEN: Soft, nontender, no organomegaly, masses or bruits. Bowel sounds are normal in a ll 4 quadrants. The abdominal aortic pulsation is not palpable. EXTREMITIES: No edema. Radial pulses 2+ left, trace positive right. Femoral pulses are 2+ bilaterally without bruits. DP and PT pulses are 2+ bilaterally. SKIN: Warm and dry, capillary refill is normal, no lesions. NEUROLOGIC: Awake, alert and oriented x 3. No focal motor deficits. PSYCHIATRIC: Appropriate, affect appears normal EKG: Atrial fibrillation, ventricular rate 68, supple completing junctional pacemaker, infe rior T-wave inversions consistent with ischemia. No significant change compared 07/01/17 or 06/19/17. Assessment and Plan: Maryjo was seen today for follow-up. Coronary artery disease, angina presence unspecified, unspecified vessel or lesion type, un specified whether takotna or transplanted heart - Electrocardiogram, 12-lead Occlusion of right carotid artery Cerebrovascular accident (CVA), unspecified mechanism (HCC) Carotid stenosis, bilateral Coronary artery disease involving takotna coronary artery of takotna heart with unstable tera na pectoris (HCC) S/P PTCA (percutaneous transluminal coronary angioplasty) Essential hypertension Paroxysmal atrial flutter (HCC) Dilated cardiomyopathy (HCC) Obstructive sleep apnea syndrome in adult in this encounter Plan of Treatment +--------+ [...] | | | | | | [place] [address] | | | | | | [phone] | | | | | | | [...] [place] | | | | | | [address] | | | | | | | | +--------+ + + + + as of this encounter Results EK STANDARD 12 LEAD (10/03/2017 9:12 AM) + [...] Calculation | 459 | ms | | (Eric) | | | + + + + | Calculated R Anabel | 35 | degrees | + + + + | Calculated T Anabel | -35 | degrees | + + [...] Interpretation.Confirmed by [facility] | | | | Adona Read Only, NORM Ghosh ([id number]), editor city | | | | Mayito Felder ([id number]) on 10/03/2017 9:36:58 | | | | AM | | + + + + + + + | Specimen | Performing Laboratory | + + + | | [facility] EK [address] [place] [address] | + + + in this encounter Visit Diagnoses + + | Diagnosis | + + | Coronary artery disease, angina presence unspecified, unspecified vessel or lesion type, | | unspecified whether takotna or transplanted heart - Primary | + + | Occlusion of right carotid artery | + + | Occlusion and stenosis of carotid artery without mention of cerebral infarction | + + | Cerebrovascular accident (CVA), unspecified mechanism (HCC) | + + | Carotid stenosis, bilateral | + + | Occlusion and stenosis of carotid artery without mention of cerebral infarction | + + | Coronary artery disease involving takotna coronary artery of takotna heart with unstable | | angina pectoris (HCC) | + + | S/P PTCA (percutaneous transluminal coronary angioplasty) | + + | Postsurgical percutaneous transluminal coronary angioplasty status | + + | Essential hypertension | + + | Unspecified essential hypertension | + + | Paroxysmal atrial flutter (HCC) | + + | Atrial flutter | + + | Dilated cardiomyopathy (HCC) | + + | Other primary cardiomyopathies | + + | Obstructive sleep apnea syndrome in adult | + + | Obstructive sleep apnea (adult) (pediatric) | + +
--- OUTSIDE RECORDS SUMMARY | ~2017-11-16 | XMS | Encounter Summary ---
Demographics + + + | Address | [address] | | | [place] [address] | + + + | Home Phone | | + + + | Preferred Language | Unknown | + + + | Marital Status | | + + + | Restorationist Affiliation | 1077 | + + + | Race | Unknown | + + + | Ethnic Group | Unknown | + + + Author + + + | Author | [employer] | + + + | Organization [...] Team Providers + +------+ + | Care Design Intern Name | Role | Phone | + +------+ + | Danilo Roman MD | PCP | | + +------+ + Encounter Details +--------+ + + + + | Date | Type | Department | Care Team | Description | +--------+ + + + + | 10/17/ | Orders Only | [facility] | [place], | | | 2018 | | [address] | | | | | [address] | | | | | | [place] [address] | | | | | | [phone] | | | +--------+ + + + [...] | | | | | | [place] [address] | | | | | | [phone] | | | | | | | [...] | | | | | [place] | | | | | | [address] | | | | | | | | +--------+ + + + + as of this encounter Visit Diagnoses Not on filein this encounter"
--- OUTSIDE RECORDS SUMMARY | ~2017-11-16 | XMS | Encounter Summary ---
Demographics + + + | Address | [address] | | | [place] [address] | + + + | Home Phone | | + + + | Preferred Language | Unknown | + + + | Marital Status | | + + + | Religion Affiliation | 1077 | + + + | Race | Unknown | + + + | Ethnic Group | Unknown | + + + Author + + + | Author | [employer] | + + + | Organization | [facility] | + + + [...] Team Providers + +------+ + | Care Analytics Manager Name | Role | Phone | [...] + | 08/18/ | Ancillary | [facility] | See, Medical | Diagnosis unknown | | 2018 | [facility] | [facility] | Record | | | | | [address] | | | | | | [place] [address] | | | | | | [phone] | | | +--------+ + + + [...] | | | | | | [place] [address] | | | | | | [phone] | | | | | | | [...] [place] | | | | | | [address] | | | | | | | | +--------+ + + + + as of this encounter Results MRI brain without contrast (08/14/2017 5:37 PM) + + + | Specimen | Performing Laboratory | + + + | | [place] [address] | + + + + + | [...]
--- OUTSIDE RECORDS SUMMARY | ~2017-11-16 | XMS | Encounter Summary ---
Demographics + + + | Address | [address] | | | [place] [address] | + + + | Home Phone | | + + + | Preferred Language | Unknown | + + + | Marital Status | | + + + | Sikhism Affiliation | 1077 | + + + | Race | Unknown | + + + | Ethnic Group | Unknown | + + + Author + + + | Author | [employer] | + + + | Organization | [facility] | + + + [...] Team Providers + +------+ + | Care School Guard Name | Role | Phone | + [...] + + | 08/18/ | Hospital | [facility]YS[facility]IAN | See, Medical | Diagnosis unknown | | 2017 | Encounter | [facility] | Record | | | | | RADIOLOGY [address] | | | | | | [facility] | | | | | | [place] [address] | | | | | | [phone] | | | +--------+ + + + [...] | | | | | | [place] [address] | | | | | | [phone] | | | | | | | [...] [place] | | | | | | [address] | | | | | | | | +--------+ + + + + as of this encounter Results CT head without contrast (08/13/2017 5:32 PM) + + + | Specimen | Performing Laboratory | + + + | | [facility] RADIOLOGY [address] [place] [address] | + + + + + | [...]
--- OUTSIDE RECORDS SUMMARY | ~2017-11-16 | XMS | Encounter Summary ---
Demographics + + + | Address | [address] | | | [place] [address] | + + + | Home Phone | | + + + | Preferred Language | Unknown | + + + | Marital Status | | + + + | Mormon Affiliation | 1077 | + + + | Race | Unknown | + + + | Ethnic Group | Unknown | + + + Author + + + | Author | [employer] | + + + | Organization | [facility] | + + + | [...] Team Providers + +------+ + | Care Chief Librarian Work With Blind Name | Role | Phone | + [...] + + | 08/28/ | Office | [facility] | Maximo Landry MD | Ischemic stroke | | 2018 | Visit | Vascular Surgery | [address] | (HCC) (Primary Dx); | | | | [address] | [place] [address] | Carotid artery | | | | [place], [place] | [phone] | stenosis, | | | | [address] | | symptomatic, right | | | | [phone] | | | +--------+---------+ + + + [...] - CAROTID; Surgeon: Maximo Landry MD; Location: [facility] OR; Se rvice: Vascular; [...] | | | | | | [place] [address] | | | | | | [phone] | | | | | | | [...] [place] | | | | | | [address] | | | | | | | [...]
--- OUTSIDE RECORDS SUMMARY | ~2017-11-16 | XMS | Encounter Summary ---
Demographics + + + | Address | [address] | | | [place] [address] | + + + | Home Phone | | + + + | Preferred Language | Unknown | + + + | Marital Status | | + + + | Uatsdin Affiliation | 1077 | + + + | Race | Unknown | + + + | Ethnic Group | Unknown | + + + Author + + + | Author | [employer] | + + + | Organization | [facility] | + + + [...] Team Providers + +------+ + | Care Timber Framer Name | Role | Phone | + [...] + | 08/18/ | Hospital | [facility] PHYS[facility]IAN | See, Medical | Diagnosis unknown | | 2018 | Encounter | [facility] | Record | | | | | RADIOLOGY [address] | | | | | | [address] | | | | | | [place] [address] | | | | | | [phone] | | | +--------+ + + + [...] | | | | | | [place] [address] | | | | | | [phone] | | | | | | | [...] [place] | | | | | | [address] | | | | | | | | +--------+ + + + + as of this encounter Results CTA head neck W WO IV contrast (08/13/2017 5:35 PM) + + + | Specimen | Performing Laboratory | + + + | | [facility] [address] [place] [address] | + + + + + | [...]
--- OUTSIDE RECORDS SUMMARY | ~2017-11-16 | XMS | Encounter Summary ---
Demographics + + + | Address | [address] | | | [place] [address] | + + + | Home Phone | | + + + | Preferred Language | Unknown | + + + | Marital Status | | + + + | Yarsanism Affiliation | 1077 | + + + | Race | Unknown | + + + | Ethnic Group | Unknown | + + + Author + + + | Author | [employer] | + + + | Organization [...] Team Providers + +------+ + | Care Database Engineer Name | Role | Phone | + +------+ + | Danilo Roman MD | PCP | | + +------+ + Encounter Details +--------+ + + + + | Date | Type | Department | Care Team | Description | +--------+ + + + + | 09/09/ | Procedure | [facility] | | | | 2018 | [facility] | | | | | | Operating Room [address] | | | | | | [address] | | | | | | [place] [address] | | | | | | [phone] | | | +--------+ + + + [...] | | | | | | [place] [address] | | | | | | [phone] | | | | | | | [...] [place] | | | | | | [address] | | | | | | | | +--------+ + + + + as of this encounter Visit Diagnoses Not on filein this encounter"
--- OUTSIDE RECORDS SUMMARY | ~2017-11-16 | XMS | Encounter Summary ---
Demographics + + + | Address | [address] | | | [place] [address] | + + + | Home Phone | | + + + | Preferred Language | Unknown | + + + | Marital Status | | + + + | Yarsanism Affiliation | 1077 | + + + | Race | Unknown | + + + | Ethnic Group | Unknown | + + + Author + + + | Author | [employer] | + + + | Organization | [facility] | + + + | Address | Unknown | + + + | Phone | Unavailable | + + + Support + + +---------+ + | Name | Relationship | Address | Phone | + + +---------+ + | Melissa eMrrill | ECON | Unknown | | + + +---------+ + | Adry Merrill | ECON | Unknown | | + + +---------+ + | Tenzin eMrrill | ECON | Unknown | | + + +---------+ + Care Team Providers + +------+ + | Care Supervisor Production Department Name | Role | Phone | + [...] + | 08/18/ | Hospital | [facility] PHYS[facility]IAN | See, Medical | Diagnosis unknown | | 2017 | Encounter | [facility] | Record | | | | | RADIOLOGY [address] | | | | | | [facility] | | | | | | [place] [address] | | | | | | [phone] | | | +--------+ + + + [...] | | | | | | [place] [address] | | | | | | [phone] | | | | | | | [...] [place] | | | | | | [address] | | | | | | | | +--------+ + + + + as of this encounter Results CT head without contrast (08/13/2017 5:32 PM) + + + | Specimen | Performing Laboratory | + + + | | [facility] RADIOLOGY [address] [place] [address] | + + + + + | [...]
--- OUTSIDE RECORDS SUMMARY | ~2017-11-16 | XMS | Encounter Summary ---
Demographics + + + | Address | [address] | | | [place] [address] | + + + | Home Phone | | + + + | Preferred Language | Unknown | + + + | Marital Status | | + + + | Yarsani Affiliation | 1077 | + + + | Race | Unknown | + + + | Ethnic Group | Unknown | + + + Author + + + | Author | [employer] | + + + | Organization [...] Team Providers + +------+ + | Care Hog Driver Name | Role | Phone | [...] +--------+--------+ + + + + Encounter Details +--------+---------+ + + + | Date | Type | Department | Care Team | Description | +--------+---------+ + + + | 09/09/ | Surgery | [facility] | Maximo Landry MD | ENDARTERECTOMY - | | 2017 | [facility] | [address] | CAROTID | | | | Operating Room 888 | [place] [address] | | | | | [address] | [phone] | | | | | [place] [address] | | | | | | [phone] | | | +--------+---------+ + + + [...] note may be different from the original. 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 Past Surgical History Procedure Laterality Date APPENDECTOMY 1949 CARDIAC CATHETERIZATION CAROTID ENDARTERECTOMY Left CATARACT EXTRACTION COLONOSCOPY CORONARY STENT PLACEMENT 05/2017 1 stent Prox LAD CORONARY STENT PLACEMENT 04/2017 3 stents; overlapping RCA drug eluting ENDARTERECTOMY CAROTID Left 04/29/2017 Procedure: ENDARTERECTOMY - CAROTID; Surgeon: Maximo Landry MD; Location: [facility] MAIN OR; Se rvice: Vascular; Laterality: Left; TONSILLECTOMY 194 TUBAL LIGATION 1965 VASCULAR SURGERY Allergies Allergen [...] Last 3 Shifts: 09/08 1900 - 09/10 0659 In: 1688 [I.V.:1688] Out: 388 [Urine:355; Drains:13] Physical Exam Vitals:reviewed CONSTITUTIONAL: Conversant, well developed, NAD EYES: Anicteric sclerae, no lid drag, no proptosis RESP: Normal effort, regular, even, unlabored rate CV: No peripheral edema, rate regular SKIN: [place], warm, dry without rash/lesion MS: ROM not [...] Follow up: Danilo Roman MD [address] [facility] [place] [id number] In 3 days lab, vital signs, and medication review post surgery [facility] VASCULAR SURGERY [address] [place] [address] post op appointment Medication List START [...] eye Trouble speaking Trouble breathing Trouble swallowing 8561-5868 [place] [address]. All rights reserve d. This information is [...] | | | | | | [place] [address] | | | | | | [phone] | | | | | | | [...] [place] | | | | | | [address] | | | | | | | [...] | | | NORMALComment: Testing performed at [facility], | | | | [address] [place] | | | | [address] | | + + + + + + + | Specimen | Performing Laboratory | + + + | Blood | [facility] [address] [place] [address] Blvd. [place], | | | [place] [address] | + + + Basic metabolic panel [...] | | | | 1.210.Testing performed at [facility], [address] | | | | [place] [address] | | | | | | + + + + + + + | Specimen | Performing Laboratory | + + + | Blood | [facility] [address] [place] [address] [address]vd. [place], | | | [place] [address] | + + + Type and Screen (Blood Bank) (09/09/2017 6:55 AM) + + + + | Component | Value | Ref Range | + + + + | ABO/RH(D) | O POSITIVE | | + + + + | ANTIBODY SCREEN | NEGATIVE | | + + + + | ARM BAND NUMBER | [id number] performed at [facility];[address] [place] [address] | | | | Blvd;[place] [address] | | | | | | + + + + + + + | Specimen | Performing Laboratory | + + + | Blood | [place] [address] [place] [address] | + + + Pathology histology - tissue (09/09/2017) + + + | Specimen | Performing Laboratory | + + + | Tissue - Soft | [facility] PATHOLOGY | | Tissue, Other | [...] sections reveal areas of calcification. | | Turpentine Distiller sections are submitted in cassette A1. (The [...] technical | | preparation was performed by [employer], [facility], [address] | | [place] [address] (Cupola Repairer: Darryn Maciel M.D.; | | [facility]#: [id number]). Diagnostician: Salome Wan MD Pathologist Electronically | | Signed 09/10/2017 | + + in this encounter Visit Diagnoses Not on filein this encounter Admitting Diagnoses + + | Diagnosis | [...] | | +---+---+ + +-------+ +--------+---+---+ | bupivacaine (PF) (MARCAINE) 0.5 | Given | | 10 mLs | | | | % 20 mL in lidocaine 1 % 20 mL | | 8 08:16 | | | | | OR medication mixture PRN, | | PST | | | | | Starting 09/09/17 at 0816, | | | | | | | [...] | | | | | dose on Fri09/09/17 at 1100 | | PST | | | | + +-------+ +-------+---+---+ +-------+ +-------+---+---+ | Given | | 75 mg | | | | | 8 08:08 | | | | | | PST | | | | +-------+ +-------+---+---+ + +---+ | | | + +---+ | fentaNYL (SUBLIMAZE) injection | | | 25 mcg 25 mcg, Intravenous, | | | Every 1 Hour PRN, Moderate Pain | | | (4-6), Starting Fri09/09/17 at | | | 1033 | | + +---+ | | | + +---+ + +-------+ +--------+---+---+ | fentaNYL (SUBLIMAZE) injection | Given | | 50 mcg | | | | 50 mcg 50 mcg, Intravenous, | | 8 13:10 | | | | | Every 1 Hour PRN, Severe Pain | | PST | | | | | (7-), Starting 09/09/17 at | | | | | | | 1033 | | | | | | + +-------+ +--------+---+---+ +---+---+ | | | +---+---+ + +-------+ +---------+---+---+ | heparin (porcine) 5000 unit/mL | Given | | 501 mLs | | | | 5,000 Units in sodium chloride | | 8 08:16 | | | | | (IV) 0.9 % 500 mL OR medication | | PST | | | | | mixture PRN, Starting Tue | | | | | | | 09/09/17 at 0816, Intra-op | | | | | | + +-------+ +---------+---+---+ +---+---+ | | | +---+---+ [...] +---+---+ +---+---+ | | | +---+---+ + +---------+ [...] | | | | First dose on 09/09/17 at 2200 | | PST | | [...] | + +---+ + +-------+ +--------+---+---+ | thrombin solution PRN, | Given | | 5,000 | | | | Starting 09/09/17 at 0817, | | 8 08:17 | Units | | | | Intra-op | | PST | | | | + +-------+ +--------+---+---+ +---+---+ | | | +---+---+ in this encounter
--- OUTSIDE RECORDS SUMMARY | ~2017-11-16 | XMS | Clinical Summary ---
Demographics + + + | Address | [address] | | | [place] [address] | + + + | Home Phone | | + + + | Preferred Language | Unknown | + + + | Marital Status | | + + + | Rastafari Affiliation | Unknown | + + + | Race | Unknown | + + + | Ethnic Group | Unknown | + + + Author + + + | Author | [facility] | | | and Freddyana | + + + | Organization | [facility] | | | and Freddyana | + + + | Address | Unknown | + + + | Phone | Unavailable | + + + Support + + + + + | Name | Relationship | Address | Phone | + + + + + | Melissa Bullock | ECON | [place] | | | | | [address] | | + + + + + | Connie Bullock | ECON | Unknown | | + + + + + Care Team Providers + +------+ + | Care Profiling Machine Setup Operator Name | Role | Phone | [...] + + + | CVA (cerebrovascular accident) ([facility]) | 08/22/2017 | + + + | [...] | | | | | | stroke ([facility]); | | | | | | Carotid [...] | | | 1935M | | | RN:[id number] | | | [address] | | | [...] | | | [place]'s | | | [place] | | | [place]. | | | Brain CT | | [...] | | draw clock | | | [place], All | | | numbers | | [...] | | | phrase | | | "[place] is | | | a rainy | [...] | | | | | CITIZ[place] 54 | | | (L) >=60 | [...] | >=60 mL/min/1.73m2 | | [place] | RATE,ESTIMATED mL/min/1.92q7Vqxo than | | | | 60 Chronic [...] + + + | Blood | [facility] [address] | | | [place] [address] | + + + Extra Lavender Top Tube (08/21/2017624) + +-------+ + | Component | Value | Ref Range | + +-------+ + | Extra Lavender Top | Done | | | Tube | | | + +-------+ + + + + | Specimen | Performing Laboratory | + + + | Blood | [facility] [address] | | | [place] [address] | + + + CBC with Differential [...] | + + + | Blood | [facility] [address] | | | [place] [address] | + + + Prealbumin (08/19/2017 0543) + +-------+ + | Component | Value | Ref Range | + +-------+ + | PREALBUMIN | 20 | 18 - 38 mg/dL | + +-------+ + + + + | Specimen | Performing Laboratory | + + + | Blood | [facility] [address] | | | [place] [address] | + + + B Type Natriuretic Peptide (08/19/2017 0543) + +---------+ + | Component | Value | Ref Range | + +---------+ + | BNP | 274 (H) | <100 pg/mL | + +---------+ + + + + | Specimen | Performing Laboratory | + + + | Blood | [facility] [address] | | | [place] [address] | + + + Magnesium (08/19/2017542) + +---------+ + | Component | Value | Ref Range | + +---------+ + | MG | 1.7 (L) | 1.8 - 2.5 mg/dL | + +---------+ + + + + | Specimen | Performing Laboratory | + + + | Blood | [facility] [address] | | | [place] [address] | + + + from Last 3 [...] | Self | [birth year] | Work: | [address] | | [place] | al/Juan | | 1935 | [phone] | [place] [address] | | | devika | | | [phone] Home: | | | | | | | | | | | | | | [phone] | | | | | | [phone] | | + +--------+ +--------+ + +
--- OUTSIDE RECORDS SUMMARY | ~2017-11-16 | XMS | Encounter Summary ---
Demographics + + + | Address | [address] | | | [place] [address] | + + + | Home Phone | | + + + | Preferred Language | Unknown | + + + | Marital Status | | + + + | Buddhist Affiliation | 1077 | + + + | Race | Unknown | + + + | Ethnic Group | Unknown | + + + Author + + + | Author | [employer] | + + + | Organization | [facility] | + + + | [...] Providers + +------+ + | Care It Admin Name | Role | Phone | + [...] + | 10/08/ | Documentati | MARRY Kimper | Lisset Littlejohn MA | Other ( [facility] | | 2018 | on Only | [facility] | | Head CT) | | | | [address] | | | | | | [place], [place] | | | | | | [address] | | | | | | [phone] | | | +--------+ + + + [...] | | | | | | [place] [address] | | | | | | [phone] | | | | | | | [...] [place] | | | | | | [address] | | | | | | | | +--------+ + + + + as of this encounter Visit Diagnoses Not on filein this encounter"
--- OUTSIDE RECORDS SUMMARY | ~2017-11-16 | XMS | Encounter Summary ---
Demographics + + + | Address | [address] | | | [place] [address] | + + + | Home Phone | | + + + | Preferred Language | Unknown | + + + | Marital Status | | + + + | Yarsanism Affiliation | 1077 | + + + | Race | Unknown | + + + | Ethnic Group | Unknown | + + + Author + + + | Author | [employer] | + + + | Organization [...] Team Providers + +------+ + | Care Program Production Specialist Name | Role | Phone | [...] 10/14/2017) | | | | [place], [place] [address] | | | | | | [phone] | | | +--------+ + + + [...] | | | | | | [place] [address] | | | | | | [phone] | | | | | | | [...] [place] | | | | | | [address] | | | | | | | | +--------+ + + + + as of this encounter Visit Diagnoses Not on filein this encounter"
--- OUTSIDE RECORDS SUMMARY | ~2017-11-16 | XMS | Encounter Summary ---
Demographics + + + | Address | [address] | | | [place] [address] | + + + | Home Phone | | + + + | Preferred Language | Unknown | + + + | Marital Status | | + + + | Adventism Affiliation | 1077 | + + + | Race | Unknown | + + + | Ethnic Group | Unknown | + + + Author + + + | Author | [employer] | + + + | Organization | [facility] | + + [...] Team Providers + +------+ + | Care Refueling Rampman Name | Role | Phone | + [...] + + | 09/09/ | Hospital | [facility] | Maximo Landry MD | Carotid stenosis, | | 2018 - | Encounter | [address] | [address] | right (Primary Dx) | | | | Floor [facility] | [place] [address] | | | 09/10/ | | [address] | [phone] | | | 2018 | | [place] [address] | | | | | | [phone] | | | +--------+ + + + [...] note may be different from the original. [facility] Service: Vascular Surgery Discharge Summary Date of [...] pericardial patch angioplasty Surgeon: Maximo Landry MD Mortgage Or Loan Underwriter(s): MARY George Anesthesia: General endotrachial anesthesia Estimated [...] - CAROTID; Surgeon: Maximo Landry MD; Location: [facility] MAIN OR; Se rvice: Vascular; [...] CV: No peripheral edema, rate regular SKIN: [employer], warm, dry without rash/lesion MS: ROM not [...] Follow up: Danilo Roman MD [address] [facility] [place] [address] In 3 days lab, vital signs, and medication review post surgery [facility] VASCULAR SURGERY [address] [place] [address] post op appointment Medication List START [...] eye Trouble speaking Trouble breathing Trouble swallowing 0261-7925 [facility], [address] [place], [place] [address]. All rights reserve d. This information is [...] | | | | | | [place] [address] | | | | | | [phone] | | | | | | | | +--------+ + + + + | 03/25/ | Appointment | Radiology | | | | 2017 | | | | | +--------+ + + + + | 03/25/ | Office | Vascular Surgery | Wolf Perez DNP | | | 2017 | Visit | | [address] | | | | | | E [place], [place] | | | | | | [address] | | | | | | | [...] | | | NORMALComment: Testing performed at [facility], | | | | [address] [place], [place] | | | | [address] | | + + + + + + + | Specimen | Performing Laboratory | + + + | Blood | [facility] [address] [place], | | | [place] [address] | + + + Basic metabolic panel [...] | | | | 1.210.Testing performed at [facility], [address] | | | | [place] [address] | | | | | | + + + + + + + | Specimen | Performing Laboratory | + + + | Blood | [facility] [address] [place] [address] Blvd. [place], | | | [place] [address] | + + + Type and Screen (Blood Bank) (09/09/2017 6:55 AM) + + + + | Component | Value | Ref Range | + + + + | ABO/RH(D) | O POSITIVE | | + + + + | ANTIBODY SCREEN | NEGATIVE | | + + + + | ARM BAND NUMBER | [id number] performed at [facility];[address] | | | | [place] [address] | | | | | | + + + + + + + | Specimen | Performing Laboratory | + + + | Blood | [facility] [address] [place] [address] | + + + Pathology histology - tissue (09/09/2017) + + + | Specimen | Performing Laboratory | + + + | Tissue - Soft | [facility] PATHOLOGY | | Tissue, Other | | [...] sections reveal areas of calcification. | | Health And Safety Technician sections are submitted in cassette A1. (The [...] technical | | preparation was performed by [facility], [facility], [address] | | [place] [address] (Lead Infrastructure Architect: Darryn Maciel M.D.; | | [facility]#: [id number]). Diagnostician: Salome Wan MD Pathologist Electronically | [...]
--- OUTSIDE RECORDS SUMMARY | ~2017-11-16 | XMS | Encounter Summary ---
Demographics + + + | Address | [address] | | | [place] [address] | + + + | Home Phone | | + + + | Preferred Language | Unknown | + + + | Marital Status | | + + + | Restorationist Affiliation | 1077 | + + + | Race | Unknown | + + + | Ethnic Group | Unknown | + + + Author + + + | Author | [employer] [employer] | + + + | Organization [...] Team Providers + +------+ + | Care Telephone Sales Representative Name | Role | Phone | + [...] + | 08/18/ | Hospital | [facility] | See, Medical | Diagnosis unknown | | 2017 | Encounter | [facility] | Record | | | | | RADIOLOGY [address] | | | | | | [address] [facility] | | | | | | [place] [address] | | | | | | [phone] | | | +--------+ + + + [...] | | | | | | [place] [address] | | | | | | [phone] | | | | | | | [...] [place] | | | | | | [address] | | | | | | | | +--------+ + + + + as of this encounter Results CT head without contrast (08/13/2017 5:32 PM) + + + | Specimen | Performing Laboratory | + + + | | [facility] RADIOLOGY [address] [place] [address] | + + + + + | [...]
--- OUTSIDE RECORDS SUMMARY | ~2017-11-16 | XMS | Encounter Summary ---
Demographics + + + | Address | [address] | | | [place] [address] | + + + | Home Phone [...] + + + | Author | [employer] | + + + | Organization | [facility] | + + + [...] Team Providers + +------+ + | Care Angle Bender Name | Role | Phone | + [...] (Primary Dx); | | | | [address], [place] | [place] [address] | Persistent | | | | [address] | [phone] | proteinuria | | | | | [...] such as Protonix (omeprazole), talk to your [facility] care provider about if you need this medication mcfp. Call our office or your PCP if [...] RFP, Magnesium, CBC, intact PTH, urinalysis, Urine hrluwbf-dg-ejmdlpggrq ratio before she comes back in [address] Roman for the opportunity to see this patient in hospital F/U today. Please do not hesitate to call me at any time with questions or concerns. Truly yours, Landry [facility] Nephrology in this encounter Plan of [...] | | | | | | [place] [address] | | | | | | [phone] | | | | | | | [...] [place] | | | | | | [address] | | | | | | | [...]
--- OUTSIDE RECORDS SUMMARY | ~2017-11-16 | XMS | Clinical Summary ---
Demographics + + + | Address | [address] | | | [place] [address] | + + + | Home Phone | | + + + | Preferred Language | Unknown | + + + | Marital Status | | + + + | Orthodoxy Affiliation | Unknown | + + + | Race | Unknown | + + + | Ethnic Group | Unknown | + + + Author + + + | Author | [facility] | | | and Freddyana | + + + | Organization | [facility] | | | and [place] | + + + | Address | Unknown | + + + | Phone | Unavailable | + + + Support + + + + + | Name | Relationship | Address | Phone | + + + + + | Melissa Bullock | ECON | [place] | | | | | [address] | | + + + + + | Connie Bullock | ECON | Unknown | | + + + + + Care Team Providers + +------+ + | Care Console Assembler Name | Role | Phone | + [...] + + + | CVA (cerebrovascular accident) ([facility]) | 08/22/2017 | + + + [...] | | | | | | stroke ([facility]); | | | | | | [...] | | | 1935M | | | RN:[id number] | | | [address] | | | [...] | | | Brennan's | | | [place] | | | [place]. | | | Brain CT | | [...] | | draw clock | | | [place], All | | | numbers | | [...] | | | phrase | | | "[place] is | | | a rainy | [...] not | | | | | | [place] 54 | | | (L) >=60 | [...] GLOMERULAR FILTRATION | >=60 mL/min/1.73m2 | | [place] | RATE,ESTIMATED mL/min/1.70r5Udgw than | | | | 60 Chronic [...] + + + | Blood | [facility] [address] | | | [place] [address] | + + + Extra Lavender Top Tube (08/21/2017624) + +-------+ + | Component | Value | Ref Range | + +-------+ + | Extra Lavender Top | Done | | | Tube | | | + +-------+ + + + + | Specimen | Performing Laboratory | + + + | Blood | [facility] [address] | | | [place] [address] | + + + CBC with Differential [...] | + + + | Blood | [facility] [address] | | | [place] [address] | + + + Prealbumin (08/19/2017 0543) + +-------+ + | Component | Value | Ref Range | + +-------+ + | PREALBUMIN | 20 | 18 - 38 mg/dL | + +-------+ + + + + | Specimen | Performing Laboratory | + + + | Blood | [facility] [address] | | | [place] [address] | + + + B Type Natriuretic Peptide (08/19/2017 0543) + +---------+ + | Component | Value | Ref Range | + +---------+ + | BNP | 274 (H) | <100 pg/mL | + +---------+ + + + + | Specimen | Performing Laboratory | + + + | Blood | [facility] [address] | | | [place] [address] | + + + Magnesium (08/19/2017542) + +---------+ + | Component | Value | Ref Range | + +---------+ + | MG | 1.7 (L) | 1.8 - 2.5 mg/dL | + +---------+ + + + + | Specimen | Performing Laboratory | + + + | Blood | [facility] [address] | | | [place] [address] | + + + from Last 3 [...] | Self | [birth year] | Work: | [address] | | [place] | al/[place]uan | | 1935 | [phone] | [place] [address] | | | [place]ika | | | [phone] Home: | | | | | | | | | | | | | | [phone] | | | | | | [phone] | | + +--------+ +--------+ + +
--- OUTSIDE RECORDS SUMMARY | ~2017-11-16 | XMS | Encounter Summary ---
Demographics + + + | Address | [address] | | | [place] [address] | + + + | Home Phone | | + + + | Preferred Language | Unknown | + + + | Marital Status | | + + + | Voodoo Affiliation | 1077 | + + + | Race | Unknown | + + + | Ethnic Group | Unknown | + + + Author + + + | Author | [employer] | + + + | Organization | [facility] | + + [...] Team Providers + +------+ + | Care Alcohol Law Enforcement Agent Name | Role | Phone | [...] + + | 08/18/ | Hospital | [facility] | See, Medical | Diagnosis unknown | | 2017 | Encounter | [facility] | Record | | | | | RADIOLOGY [address] | | | | | | [address] [facility] | | | | | | [place] [address] | | | | | | [phone] | | | +--------+ + + + [...] | | | | | | [place] [address] | | | | | | [phone] | | | | | | | [...] [place] | | | | | | [address] | | | | | | | | +--------+ + + + + as of this encounter Results MRI brain without contrast (08/14/2017 5:37 PM) + + + | Specimen | Performing Laboratory | + + + | | [facility] RAD[facility] [address] [place] [address] | + + + + + | [...]
--- OUTSIDE RECORDS SUMMARY | ~2017-11-16 | XMS | Encounter Summary ---
Demographics + + + | Address | [address] | | | [place] [address] | + + + | Home Phone | | + + + | Preferred Language | Unknown | + + + | Marital Status | | + + + | Bahai Affiliation | 1077 | + + + | Race | Unknown | + + + | Ethnic Group | Unknown | + + + Author + + + | Author | [employer] | + + + | Organization | [facility] | + + + | Address | Unknown | + + + | Phone | Unavailable | + + + Support + + +---------+ + | Name | Relationship | Address | Phone | + + +---------+ + | Melsisa Merrill | ECON | Unknown | | + + +---------+ + | Adry Merrill | ECON | Unknown | | + + +---------+ + | Tenzin Merrill | ECON | Unknown | | + + +---------+ + Care Team Providers + +------+ + | Care Lpn Cma Name | Role | Phone | + [...] + | 08/18/ | Hospital | [facility] | See, Medical | Diagnosis unknown | | 2018 | Encounter | [facility] | Record | | | | | RADIOLOGY [address] | | | | | | [address] | | | | | | [place] [address] | | | | | | [phone] | | | +--------+ + + + [...] | | | | | | [place] [address] | | | | | | [phone] | | | | | | | [...] [place] | | | | | | [address] | | | | | | | | +--------+ + + + + as of this encounter Results CTA head neck W WO IV contrast (08/13/2017 5:35 PM) + + + | Specimen | Performing Laboratory | + + + | | [facility] [address] [place] [address] | + + + + + | [...]
--- OUTSIDE RECORDS SUMMARY | ~2017-11-16 | XMS | Clinical Summary ---
Demographics + + + | Address | [address] | | | [place] [address] | + + + | Home Phone [...] + + + | Author | [facility] | + + + | Organization [...] Team Providers + +------+ + | Care Foundation Drill Operator Name | Role | Phone | [...] Overview: Added automatically from request for surgery [id number] | + + + + + | [...] | 2017 | | | | injury) ([facility]); CKD | | | | [...] | | 2018 | Visit | | DIRECT SUPPORT SPECIALIST | disease), stage III | | | [...] | | Lisset Littlejohn, TABITHA | Other ([facility] | | 2018 | on Only [...] whether | | | | | | the [place] or | | | | | | [...] | | | | | | involving the [place] | | | | | | coronary artery of | | | | | | [place] heart with | | | | | [...] | 2017 | Visit | | | ([facility]) (Primary Dx); | | | [...] | | | Maya, | | | DIRECT SUPPORT SPECIALIST - | | | 09/10/2017 | | [...] | | | Sloot, | | | DIRECT SUPPORT SPECIALIST Anest | | | hesia: | | [...] | | regularSKIN | | | : Casar, | | | warm, dry | | [...] | | Maya | | | Sloot, DIRECT SUPPORT SPECIALIST | | | in 2 | | [...] | | | [place], | | | [id number] | | | [address], [place] | | | [phone] | | | n [place] | | | [phone] | | | [phone] | | | dayslab, | | | vital | | | signs, and | | | medication | | | review post | | | | | | surgeryKADL | | | [facility] | | | VASCULAR | | | [id number] | | | Go[place]als | | | Dr Chandan | | | [place] | | | [place] | | | [phone] | | | [phone] | | | post op | | [...] | 2017 | Visit | | | ([facility]) (Primary Dx); | | | [...] | | | | | | [place] [address] | | | | | | [phone] | | | | | | | [...] [place] | | | | | | [address] | | | | | | | [...] Bryan | [place] | | 03/11/ | [id number] | | 2.8k53-9505/15/2017Implanted: | | ry | SCIENTIFIC | | 2017 | [id number] | | Qty: 1 on 05/15/2017 by | | | CORPORATION | | | 50 / | | Duong Cabello MD | | | | | | /[id number] | | | | | | | | 217 | + +-------+--------+ +--------+--------+--------+ | Synergy Lui | Stent | Bryan | [place] | | 02/19/ | [id number] | | [id number]/15/2017Implanted: | | ry | SCIENTIFIC | | 2017 | [id number] | | Qty: 1 on 05/15/2017 by | | | CORPORATION | | | 00 / | | Duong Cabello MD | | | | | | /[id number] | | | | | | | | 409 | + +-------+--------+ +--------+--------+--------+ | Synergy Lui | Stent | Bryan | [place] | | 03/10/ | [id number] | | 2o46-3705/15/2017Implanted: | | ry | SCIENTIFIC | | 2017 | [id number] | | Qty: 1 on 05/15/2017 by | | | CORPORATION | | | 00 / | | Dunog Cabello MD | | | | | | /[id number] | | | | | | | | 102 | + +-------+--------+ +--------+--------+--------+ | [place] Lui 2.5 X | Stent | Bryan | [employer] | | 03/26/ | [id number] | | 15-06/19/2017Implanted: | | ry | | | 2019 | [id number] | | 06/19/2017 by Duong Cabello, | | | | | | / | | MD (Quantity not on file) | | | | | | /[id number] | | | | | | | | 8[address]87 | + +-------+--------+ +--------+--------+--------+ | Xgrft Vascu-Guard Ptch 0.8x8 | | Left: | EVA | | 09/09/ | VG-010 | | - [id number]: Qty: 1 | | Caroti | BIOSCIENCE | | 2021 | 8N / | | on 04/29/2017 by Maximo Landry, | | d | - TRINITYB | | | /[id number] | | MD | | | | | | [id number] | | | | | | | | 010 | + +-------+--------+ +--------+--------+--------+ | Xgrft Vascu-Guard Ptch 0.8x8 | | Right: | EVA | | 05/14/ | VG-010 | | - [id number]: Qty: 1 | | | BIOSCIENCE | [...] LABORATORY [place] | | | [address] | + + + Urinalysis (reflex to [...] + | Urine | [facility] [address], [address] [place], [place] | | | [address] | + + + + + | [...] + + | Blood | [facility] [address] [place], [place] [address] | | | [address] | + + + PTH intact no calcium (10/14/2017 1:55 PM) + +-------+ + | Component | Value | Ref Range | + +-------+ + | PTH INTACT NO | 58.81 | 15 - 65 pg/mL | | CALCIUM | | | + +-------+ + + + + | Specimen | Performing Laboratory | + + + | Blood | [facility] [address] | | | [address] | + + + Magnesium (10/14/2017 1:55 PM) + +-------+ + | Component | Value | Ref Range | + +-------+ + | MAGNESIUM | 1.8 | 1.7 - 2.5 mg/dL | + +-------+ + + + + | Specimen | Performing Laboratory | + + + | Blood | [facility] [address] [place] [address] [address] [place], [place] | | | [address] | + + + Renal function panel [...] | + + + | Blood | [facility] [address] [place] [address], [place] [address] [place], [place] | | | [address] | + + + EKG STANDARD 12 [...] + + + + | Calculated R [place] | 35 | degrees | + + + + | Calculated T [place] | -35 | degrees | + + [...] Interpretation.Confirmed by [facility] | | | | [place] Read Only, NORM Ghosh (502), pictures editor | | | | Mayito Felder (253) on 10/03/2017 9:36:58 | | | | AM | | + + + + + + + | Specimen | Performing Laboratory | + + + | | [facility] [address] [place] [address] | + + + US carotid doppler, bilateral (09/24/2017 1:26 PM) + + + | Specimen | Performing Laboratory | + + + | | [address] [address] | + + + + + | [...] - 09/24/2017 2:49 PM PST MARYJO Kendall [id number] years | | FemaleUS CAROTID DOPPLER, BILATERAL09/24/2017 [...] | | | | 1.210.Testing performed at [facility], [address] | | | | [place] [address] | | | | | | + + + + + + + | Specimen | Performing Laboratory | + + + | Blood | [facility] [address] [place], | | | [place] [address] | + + + Type and Screen (Blood Bank) (09/09/2017 6:55 AM) + + + + | Component | Value | Ref Range | + + + + | ABO/RH(D) | O POSITIVE | | + + + + | ANTIBODY SCREEN | NEGATIVE | | + + + + | ARM BAND NUMBER | [id number] performed at [facility];[address] [place] [address] | | | | [place]ak[place] [address] | | | | | | + + + + + + + | Specimen | Performing Laboratory | + + + | Blood | [facility] [address] [place] [address] | + + + Pathology histology - tissue (09/09/2017) + + + | Specimen | Performing Laboratory | + + + | Tissue - Soft | [facility] | | Tissue, Other [...] sections reveal areas of calcification. | | Bar Steward sections are submitted in cassette A1. (The [...] technical | | preparation was performed by [facility], [facility], [address] | | [facility] [place] [address] (Terrazzo Polisher: Darryn Maciel M.D.; | | DARRELL#: [id number]). Diagnostician: Salome Wan MD Pathologist Electronically | [...] | Self | [birth year] | Home: | [address] | | | al/Fam | | [phone] | [phone] | [place] [address] | | | devika | | | [phone] | | + +--------+ +--------+ + +
--- OUTSIDE RECORDS SUMMARY | ~2017-11-16 | XMS | Encounter Summary ---
Demographics + + + | Address | [address] | | | [place] [address] | + + + | Home Phone | | + + + | Preferred Language | Unknown | + + + | Marital Status | | + + + | Jehovah'S Witness Affiliation | Unknown | + + + | Race | Unknown | + + + | Ethnic Group | Unknown | + + + Author + + + | Author | [facility] | | | and [place] | + + + | Organization | [facility] | | | and [place]dyana | + + + | Address | Unknown | + + + | Phone | Unavailable | + + + Support + + + + + | Name | Relationship | Address | Phone | + + + + + | Melissa Merrill | ECON | [place] | | | | | [address] | | + + + + + | Connie Merrill | ECON | Unknown | | + + + + + Care Team Providers + +------+ + | Care Dredging Inspector Name | Role | Phone | + +------+ + | Fady Bush MD | PCP | Unavailable | + +------+ + Encounter Details +--------+ + + + + | Date | Type | Department | Care Team | Description | +--------+ + + + + | 08/22/ | Hospital | [facility] | Francis Grajeda, | | | 2018 | Encounter | MED CTR THERAPY OT | OT | | | | | ACUTE [address] | | | | | | [place] | | | | | | [address] | | | | | | [phone] | | | +--------+ + + + [...]
--- OUTSIDE RECORDS SUMMARY | ~2017-11-16 | XMS | Encounter Summary ---
Demographics + + + | Address | [address] | | | [place] [address] | + + + | Home Phone | | + + + | Preferred Language | Unknown | + + + | Marital Status | | + + + | Sikh Affiliation | 1077 | + + + | Race | Unknown | + + + | Ethnic Group | Unknown | + + + Author + + + | Author | [facility] | + + + | Organization [...] Team Providers + +------+ + | Care Entry Level Business Analyst Name | Role | Phone | [...] + + | 10/03/ | Office | [facility] | Juvencio Schultz, | Coronary artery | | 2017 | Visit | [facility] [place] | [address] | disease, angina | | | | [address] | [place], | presence | | | | [place], [place] | [place] [address] | unspecified, | | | | [address] | [phone] | unspecified vessel | | | | [phone] | | or lesion type, | | | | | | unspecified whether | | | | | | ione or | | | | | | [...] | | | | | | involving ione | | | | | | coronary artery of | | | | | | ione heart with | | | | | [...] to the description. She was hospitalized in [place]. A carotid ultrasound was repeated, and showed [...] (05/3017): LM-normal. prox LAD-70% > 2.5x15 Resolute [place] CHUCHO. D 2-50%. Ramus-occluded, fills via ybzmf-xg-lqgf collaterals. LCx-normal. RCA-dominant, mid 4 0% stenosis, patent stents. -- Cardiac Cath/PCI (05/15/17): 3 overlapping Synergy CHUCHO in distal RCA>PLV2 - 2.5x38, 3.0x 38, 3.0x38 mm. -- Carotid U/S (04/18/17): LICA > 70%, JOSE 50-69% -- Cardiac Cath (04/11/17): LM-calcification, no significant disease. PZT-ebesb-cchqxggo 60 % angiographically, calcified, FFR 0.66, distal [...] No dysuria, hematuria, urinary urgency, hesitancy. No access developer disorders. HEMATOLOGY/ONCOLOGY: No h/o bleeding disorders, DVT, PE. Denies easy bruisability or ble eding. No history of anemia, transfusions. No history of cancer. MUSCULOSKELETAL: No myalgias, has knee, ankle and thumb arthralgias. No history of rheuma tologic or autoimmune diseases. CUTANEOUS: No rashes, pruritus, lesions. PSYCHIATRIC: She admits to Depression, Anxiety or other psychiatric problems. 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 Hyperlipidemia Hypertension 2002 Ischemic stroke ([facility]) 08/13/2017 Occlusion of carotid artery 80-90% JOSE stenosis with CVA, s/p CEA 09/09/17 Persistent dry cough 1997 occ clear phlegm PONV (postoperative nausea and vomiting) 05/2017 Stroke ([facility]) 08/13/2017 Urinary urgency wears pad UTI (urinary [...] - CAROTID; Surgeon: Maximo Landry MD; Location: [facility] MA[facility] OR; Se rvice: Vascular; Laterality: Left; ENDARTERECTOMY CAROTID Right 09/09/2017 Procedure: ENDARTERECTOMY - CAROTID; Surgeon: Maximo Landry MD; Location: [facility] MA[facility] OR; Se rvice: Vascular; Laterality: Right; [...] vessel or lesion type, un specified whether ione or transplanted heart - Electrocardiogram, 12-lead Occlusion of right carotid artery Cerebrovascular accident (CVA), unspecified mechanism (HCC) Carotid stenosis, bilateral Coronary artery disease involving ione coronary artery of ione heart with unstable tera na pectoris (HCC) [...] | | | | | | [place] [address] | | | | | | [phone] | | | | | | | [...] [place] | | | | | | [address] | | | | | | | [...] + + + + | Calculated R [place] | 35 | degrees | + + + + | Calculated T [place] | -35 | degrees | + + [...] Interpretation.Confirmed by [facility] | | | | [place] Read Only, NORM Ghosh (502), television news video editor | | | | Mayito Felder (253) on 10/03/2017 9:36:58 | | | | AM | | + + + + + + + | Specimen | Performing Laboratory | + + + | | [facility] [address] [place] [address] | + + + in this encounter Visit Diagnoses + + | Diagnosis | + + | Coronary artery disease, angina presence unspecified, unspecified vessel or lesion type, | | unspecified whether ione or transplanted heart - Primary | + [...] + + | Coronary artery disease involving ione coronary artery of ione heart with unstable | | angina pectoris [...]
--- OUTSIDE RECORDS SUMMARY | ~2017-11-16 | XMS | Encounter Summary ---
Demographics + + + | Address | [address] | | | [place] [address] | + + + | Home Phone | | + + + | Preferred Language | Unknown | + + + | Marital Status | | + + + | Adventist Affiliation | 1077 | + + + | Race | Unknown | + + + | Ethnic Group | Unknown | + + + Author + + + | Author | [facility] | + + + | Organization [...] Team Providers + +------+ + | Care Power Hammer Operator Name | Role | Phone | [...] | | | | | [place] [address] | | | | | | [phone] | | | +--------+ + + + [...] | | | | | | [place] [address] | | | | | | [phone] | | | | | | | [...]
--- OUTSIDE RECORDS SUMMARY | ~2017-11-16 | XMS | Encounter Summary ---
Demographics + + + | Address | [address] | | | [place] [address] | + + + | Home Phone | | + + + | Preferred Language | Unknown | + + + | Marital Status | | + + + | Episcopal Affiliation | 1077 | + + + | Race | Unknown | + + + | Ethnic Group | Unknown | + + + Author + + + | Author | [facility] | + + + | Organization | [facility] | + + [...] Team Providers + +------+ + | Care Make Ready Mechanic Name | Role | Phone | + +------+ + | Danilo Roman MD | PCP | | + +------+ + Encounter Details +--------+ + + + + | Date | Type | Department | Care Team | Description | +--------+ + + + + | 10/15/ | Orders Only | [facility] | Gomez, Tamara, SCHOOL OCCUPATIONAL THERAPIST | Persistent | | 2018 | | [address] | | proteinuria; CKD | | | | [address] | | (chronic kidney | | | | [place] [address] | | disease), stage III; | | | | [phone] | | Acute cystitis | | | [...] | | | | | | [place] [address] | | | | | | [phone] | | | | | | | [...] [place] | | | | | | [address] | | | | | | | | +--------+ + + + + as of this encounter Results Renal function panel (10/14/2017 1:55 PM) + [...] + | Blood | [facility] [address] | | | [address] | + + + Magnesium (10/14/2017 1:55 PM) + +-------+ + | Component | Value | Ref Range | + +-------+ + | MAGNESIUM | 1.8 | 1.7 - 2.5 mg/dL | + +-------+ + + + + | Specimen | Performing Laboratory | + + + | Blood | [facility] [address] [place] [address] [address] [place], [place] | | | [address] | + + + CBC W/Auto Diff (Reflex to Manual) (10/14/2017 1:55 PM) + +-------+ + | [...] + + | Blood | [facility] [address] [place], [place] [address] | | | [address] | + + + PTH intact no calcium (10/14/2017 1:55 PM) + +-------+ + | Component | Value | Ref Range | + +-------+ + | PTH INTACT NO | 58.81 | 15 - 65 pg/mL | | CALCIUM | | | + +-------+ + + + + | Specimen | Performing Laboratory | + + + | Blood | [facility] [address] [place], [facility] [address] [place], [place] | | | [address] | + + + in this encounter Visit Diagnoses + + | Diagnosis | + + | Persistent proteinuria | + + | Proteinuria | + + | CKD (chronic kidney disease), stage III | + + | Acute cystitis without hematuria | + + | Acute cystitis | + +"
--- OUTSIDE RECORDS SUMMARY | ~2017-11-16 | XMS | Encounter Summary ---
Demographics + + + | Address | [address] | | | [place] [address] | + + + | Home Phone | | + + + | Preferred Language | Unknown | + + + | Marital Status | | + + + | Lutheran Affiliation | Unknown | + + + | Race | Unknown | + + + | Ethnic Group | Unknown | + + + Author + + + | Author | [facility] | | | and Freddyana | + + + | Organization | [facility] | | | and Freddyana | + + + | Address | Unknown | + + + | Phone | Unavailable | + + + Support + + + + + | Name | Relationship | Address | Phone | + + + + + | Melissa Merrill | ECON | [place] | | | | | [address] | | + + + + + | Connie Merrill | ECON | Unknown | | + + + + + Care Team Providers + +------+ + | Care Licensing Specialist Name | Role | Phone | [...] | | | | | mechanism | [id number] | [phone] | | | | | (HCC) | Phone: | Phone: | | | | | Aphasia | [phone] | [phone] | | | | | complicating | Fax: | Fax: | | | | | stroke | [phone] | [phone] | + + + + + + [...] | | unspecified | [place], [place] | [place], [place] | | | | | mechanism | [phone] | [phone] | | | | | (HCC) | Phone: | Phone: | | | | | | [phone] | [phone] | | | | | | Fax: | Fax: | | | | | | [phone] | [phone] | + + + + + + [...] + + | 08/18/ | Hospital | [facility] | Cortez Celaya | Cerebrovascular | | 2018 - | Encounter | MED CTR [facility] [address] | MD Jeanna [address] | accident (CVA), | | | | [place], | [address] [place] | unspecified | | 08/22/ | | [place] [address] | [place] [address] | mechanism (HCC) | | 2018 | | [phone] | [phone] | (Primary Dx); | | | | | | Gastroesophageal | | | | | | reflux disease, | | | | | | esophagitis presence | | | | | | not specified; | | | | | | Aphasia complicating | | | | | | stroke ([facility]); | | | | | | Carotid [...] and brought her to the hospital to [facility]. Br ain CT scan was negative for [...] acutely and then transferred on 08/19/2017 to [facility] here at [facility] PMHx: (per chart review confirmed with pt) [...] cube accurately Visuoconstructional: Able to draw clock [place], All numbers present and in correct quadrant s with clock hands placed at 11:40 Digit span: Able to repeat 5 digits forward and able to repeat 3 digits in backward order Sustained attention: 100 93 86 79 72 65 Delayed recall: 3 of 3 words after 5 minutes. Repetition: able to repeat the phrase "[place] rainy [place]" Naming: intact for [...] set up outpatient PT and speech at [facility]. Call P CP to set up follow-up appointment. Signed: Jude Mata MD 08/22/2017 16:37 Portions of this chart may have been created with Avi[employer] voice recognition software. Occasi onal wrong-word or [...] and treatment. If problems are found, your [facility] provider will recommend treatment with medicines [...] LL 911 without delay. Date Last Reviewed: 04/10/201519997571-8858 [employer]. [address] [place] [address], [place] [id number]. All righ ts reserved. This information is not intended as a substitute for professional medical care. Always follow your healthcare professional's instructions. Using Blood Thinners (Anticoagulants) Blood thinners or anticoagulants are medicines that help prevent blood clots from forming. They include warfarin,heparin,dabigatran, rivaroxaban, apixaban,and edoxaban. Your [facility] care provider will help you decide [...] any changes in your medicines.This includes any vcdp-iwh-kqhlond medicines, suppl ements like vitamin K, or [...] doesn t stop in 10 minutes A phbsiip-uaht-tweovk menstrual period or bleeding between periods Coughing or throwing up blood Bloody diarrhea or bleeding hemorrhoids Dark-colored urine or black stools Red or rrska-tzn-wele lara on the skin that get larger [...] sure your doctor knows about any prescription, gmfw-pua-bsswigl, or herbal supplements you take. In particular, tell your provider about: Antibiotics Heart medicines Cimetidine Aspirin or other anti-inflammatory drugs such as ibuprofen, naproxen, ketoprofen, or oth er arthritis medicines Drugs for depression, cancer HIV (protease inhibitors), diabetes, seizures, gout, high c holesterol, or thyroid replacement Vitamins containing vitamin K or herbal products such as ginkgo, Co-Q10, garlic, or [place]'s wort Note: This information topic may not include all directions, precautions, medical condition s, drug/food interactions, and warnings for these medicines. Check with your doctor, nurse, or pharmacist for any questions you have. Date Last Reviewed: 12/26/201419996603-9071 [employer]. [address] [place] [address], [place] [address]. All righ ts reserved. This information is [...] work around lost language skills. In some de ses, a patient may need to use [...] t there. Date Last Reviewed: 04/25/201512/2014 [employer]. [address] [place] [address]. All rig ts reserved. This information is [...] have to. Date Last Reviewed: 04/25/2015 [employer]. [address] [place] [address]. All rig ts reserved. This information is [...] may be different from t mik original. Mkxs-wm-Huev Rehabilitation Medicine Daily Progress Note Date: 08/21/17 ID/CC: Reason for encounter : Physician follow-up to address the medical rehabilitation needs, issues, and problems . Interval history: Chief problem : Weakness and difficulty with self-care/ADLs and functional mobility Check of the shift engineer nurses. Patient slept well last night. [...] speech therapy, case management, and social work administrator #Rehab - -Continue PT for gait, mobility -Continue OT for ADL's, toileting, adaptive equipment -Continue HOME RESTORATION SERVICE CLEANER for cognition, -Continue SW for discharge planning [...] with the Patient and our correctional case manager. She is collaborating with the patient's support [...] continuing to coordinate and collaborate with the [facility] nursing staff to complement their [...] Notes document close and ongoing Physiatric involvement; mvax-xm-uffk vi sits, professionally assessing the Patient, both [...] information from all of the Medical Rehabilitation prepared foods production team member's assessments and reports as we [...] this chart may have been created with Aviacode voice recognition software. Occasi onal wrong-word or sound-alike substitutions may have occurred due to the inherent brown itations of voice recognition software. Please read the chart carefully and recognize, using context, where these substitutions have occurred.Cortez Celaya MD - 08/20/2017 1736 P STFormatting of this note may be different from the original. Glxw-oz-Gcdz Rehabilitation Medicine Daily Progress Note Date: 08/20/17 [...] speech therapy, case management, and social work administrator #Rehab - -Continue PT for gait, mobility -Continue OT for ADL's, toileting, adaptive equipment -Continue HOME RESTORATION SERVICE CLEANER for cognition, -Continue SW for discharge planning [...] continuing to coordinate and collaborate with the [facility]'s nursing staff to complement their therapy [...] the patient's bedside nurse, and correctional case manager/social security specialist. The patient is seen in follow-up for [...] the full inpatient rehabilitation treatment team in [facility] is planned. The patient is seen [...] issues . I met with correctional case manager and reviewed the overall plan of care. [...] this chart may have been created with Avi[employer] voice recognition software. Occasi onal wrong-word or [...] GLOMERULAR FILTRATION | >=60 mL/min/1.73m2 | | SLOVENIAN | RATE,ESTIMATED mL/min/1.68q1Lvcq than | | | | 60 Chronic [...] + + + | Blood | [facility] [address] | | | [place] [address] | + + + Extra Lavender Top Tube (08/21/2017624) + +-------+ + | Component | Value | Ref Range | + +-------+ + | Extra Lavender Top | Done | | | Tube | | | + +-------+ + + + + | Specimen | Performing Laboratory | + + + | Blood | [facility] [address] | | | [place] [address] | + + + B Type Natriuretic Peptide (08/19/2017 0543) + +---------+ + | Component | Value | Ref Range | + +---------+ + | BNP | 274 (H) | <100 pg/mL | + +---------+ + + + + | Specimen | Performing Laboratory | + + + | Blood | [facility] [address] | | | [place] [address] | + + + Prealbumin (08/19/2017542) + +-------+ + | Component | Value | Ref Range | + +-------+ + | PREALBUMIN | 20 | 18 - 38 mg/dL | + +-------+ + + + + | Specimen | Performing Laboratory | + + + | Blood | [facility] [address] | | | [place] [address] | + + + Magnesium (08/19/2017 0543) + +---------+ + | Component | Value | Ref Range | + +---------+ + | MG | 1.7 (L) | 1.8 - 2.5 mg/dL | + +---------+ + + + + | Specimen | Performing Laboratory | + + + | Blood | [facility] [address] | | | [place] [address] | + + + CBC with Differential [...] | [facility] [address] | | | [place] [address] | + + + IMAGING REPORT - [...]
--- OUTSIDE RECORDS SUMMARY | ~2017-11-16 | XMS | Encounter Summary ---
Demographics + + + | Address | [address] | | | [place] [address] | + + + | Home Phone | | + + + | Preferred Language | Unknown | + + + | Marital Status | | + + + | Mandaen Affiliation | 1077 | + + + | Race | Unknown | + + + | Ethnic Group | Unknown | + + + Author + + + | Author | [employer] | + + + | Organization | [facility] | + + [...] Team Providers + +------+ + | Care Tobacco Stripper Name | Role | Phone | + +------+ + | Danilo Roman MD | PCP | | + +------+ + Encounter Details +--------+ + + + + | Date | Type | Department | Care Team | Description | +--------+ + + + + | 09/17/ | Orders Only | [facility] | Latasha | S/Leny carotid | | 2018 | | Vascular Surgery | LAKISHA Calabrese | endarterectomy | | | | [address] | | (Primary Dx); | | | | [place] | | Carotid stenosis, | | | | [address] | | right | | | | [phone] | | | +--------+ + + + [...] | | | | | | [place] [address] | | | | | | [phone] | | | | | | | [...] [place] | | | | | | [address] | | | | | | | | +--------+ + + + + as of this encounter Results US carotid doppler, bilateral (09/24/2017 1:26 PM) + + + | Specimen | Performing Laboratory | + + + | | [facility] [address] [facility] [place] [address] | + + + + + | [...] In - 09/24/2017 2:49 PM PST JAYDEN [place][age] years | | FemaleUS CAROTID DOPPLER, BILATERAL09/24/2017 [...]
--- OUTSIDE RECORDS SUMMARY | ~2017-11-16 | XMS | Encounter Summary ---
Demographics + + + | Address | [address] | | | [place] [address] | + + + | Home Phone | | + + + | Preferred Language | Unknown | + + + | Marital Status | | + + + | Religion Affiliation | 1077 | + + + | Race | Unknown | + + + | Ethnic Group | Unknown | + + + Author + + + | Author | [employer] | + + + | Organization [...] Team Providers + +------+ + | Care Coach Driver Name | Role | Phone | [...] | +--------+ + + + + | 08/29/ | Hospital | [facility] | Maximo Landry MD | | | 2018 | Encounter | [facility] | [address] | | | | | Preadmission | [place] [address] | | | | | Services [address] | [phone] | | | | | Bl[address] [place], [place] | | | | | | [phone] | | | +--------+ + + + [...] + + + | Blood Pressure | 150/70 | 08/29/2017 2:03 PM PST | + + + + | Pulse | - | - | + + + + | Temperature | - | - | + + + + | Respiratory Rate | - | - | + + + + | Oxygen Saturation | 97% | 08/29/2017 2:03 PM PST | + + + + | Inhaled Oxygen | - | - | | Concentration | | | + + + + | Weight | 67 kg (147 lb 11.3 | 08/29/2017 2:03 PM PST | | | oz) | | + + + + | Height | 166.4 cm (5' 5.5") | 08/29/2017 2:03 PM PST | + + + + | Body Mass Index | 24.21 | 08/29/2017 2:03 PM PST | + + + + in this encounter Discharge Instructions Neha Caro RN - 08/29/2017Formatting of this note may be different from the original. Outpatient Prescriptions Marked as Taking for the 08/29/17 encounter (Hospital Encounter) wit h PAS ROOM 3 Medication Sig INSTRUCTIONS acetaminophen (TYLENOL) 500 MG tablet Take 500 mg by mouth every 6 (six) hours as neede d for Pain. DO NOT TAKE day of procedure apixaban (ELIQUIS) 5 MG tablet Take 1 tablet by mouth 2 (two) times daily. DO NOT TAKE day of procedure carvedilol (COREG) 12.5 MG tablet Take 12.5 mg by mouth 2 (two) times daily with meals. TAKE day of procedure clopidogrel (PLAVIX) 75 MG tablet Take 1 tablet by mouth daily. Start on 05/12/17, with Aspirin dose decreased to 81 mg daily at that time DO NOT TAKE day of procedure Omeprazole (PRILOSEC PO) Take 40 mg by mouth daily. TAKE day of procedure pravastatin (PRAVACHOL) 40 MG tablet Take 1 tablet by mouth nightly. TAKE night before procedure Discharge Instructions for Carotid Endarterectomy Your doctor performed surgery called a carotid endarterectomy. This is the most common way to restore normal blood flow through the vessels that carry blood to your brain. These vesse ls are called the carotid arteries. During the surgery, a surgeon made a small incisionin th e side of your neck,just below your jaw. The artery was opened and the blockage was cleare d. This procedure was done to reduce your risk of a stroke, which can occur when the carotid arteries are severely blocked or narrowed. Ask a friend or family member to help with chores, especially those that involve lifting. Home care Spend your first few days after surgery relaxing at home. It'Ana to do quiet activitie s such as reading orwatching TV. Take your medications exactly as instructed. Don t skip doses. Don t drive until your doctor says it s OK. This will most likely take 1 to 2weeks . Keep the wound dry until your doctor says it's OK to shower. Don't scrub your incision. Avoid strenuous activity for [...] some loss of feeling along your jaw line, the incision li ne,and earlobe. This is a result of the incision and usually goes away after 6 to 12 month s. Long-term changes at home Eat a healthy, low-fat, low cholesterol, and low calorie diet. Ask your doctor for menus and other diet information. Maintain your ideal body weight. After you have recovered from surgery, try to exercise more, especially walking. Ask you r doctor for guidance. If you smoke ask your doctor for help quitting. Follow-up care Make a follow-up appointment with your doctor as directed. When to call your doctor Call your doctor immediately if you have any of the following (or go to the emergency room if your doctor's office is closed): Neck swelling Headache, particularly if it does not go away after a couple of hours Redness, pain, swelling, or drainage from your incision Fever above 100F (37.7C) Numbness or weakness in your face, arms, or legs Sudden changes in your vision Loss of vision in1 eye Trouble speaking Trouble breathing Trouble swallowing Date Last Reviewed: 12/31/201419999502-5450 [employer]. [address] [place] [address], [place] [address]. All righ ts reserved. This information is [...] | | | | | | [place] [address] | | | | | | [phone] | | | | | | | | +--------+ + + + + | 03/25/ | Appointment | Radiology | | | | 2017 | | | | | +--------+ + + + + | 03/25/ | Office | Vascular Surgery | Wolf Perez DNP | | | 2017 | Visit | | [address] | | | | | | [place] | | | | | | [address] | | | | | | | | +--------+ + + + + as of this encounter Results CBC W/Auto Diff (Reflex to Manual) (08/29/2017 1:42 PM) + + + + | Component | Value | Ref Range | + + + + | WBC | 6.72 | 3.80 - 11.00 K/uL | + + + + | RBC | 4.20 | 3.70 - 5.10 M/uL | + + + + | HGB | 13.3 | 11.3 - 15.5 g/dL | + + + + | HCT | 39.6 | 34.0 - 46.0 % | + + + + | MCV | 94.2 | 80.0 - 100.0 fl | + + + + | MCH | 31.7 | 27.0 - 34.0 pg | + + + + | MCHC | 33.6 | 32.0 - 35.5 g/dL | + + + + | RDW SD | 45.5 | 37 - 53 fl | + + + + | PLT | 222 | 150 - 400 K/uL | + + + + | MPV | 9.6 | fl | + + + + | DIFF TYPE | AUTOMATED | | + + + + | NEUTROPHILS | 51.64 | % | + + + + | LYMPHOCYTES | 33.91 | % | + + + + | MONOCYTES | 8.98 | % | + + + + | EOSINOPHILS | 4.75 | % | + + + + | BASOPHILS | 0.72 | % | + + + + | NEUTROPHILS ABS | 3.47 | 1.90 - 7.40 K/uL | + + + + | LYMPHOCYTES ABS | 2.28 | 1.00 - 3.90 K/uL | + + + + | MONOCYTES ABS | 0.60 | 0.00 - 0.80 K/uL | + + + + | EOSINOPHILS ABS | 0.32 | 0.00 - 0.50 K/uL | + + + + | BASOPHILS ABS | 0.05Comment: Testing performed at [facility], [address] | 0.00 - 0.10 K/uL | | | [place] [address] | | + + + + + + + | Specimen | Performing Laboratory | + + + | Blood | [facility] [address], | | | [place] [address] | + + + in this encounter Visit Diagnoses Not on filein this encounter
--- OUTSIDE RECORDS SUMMARY | ~2017-11-16 | XMS | Encounter Summary ---
Demographics + + + | Address | [address] | | | [place] [address] | + + + | Home Phone | | + + + | Preferred Language | Unknown | + + + | Marital Status | | + + + | Mandaeism Affiliation | 1077 | + + + | Race | Unknown | + + + | Ethnic Group | Unknown | + + + Author + + + | Author | [employer] | + + + | Organization [...] Team Providers + +------+ + | Care Gas Transfer Operator Name | Role | Phone | [...] + + | 09/09/ | Surgery | [facility] | Maximo Landry MD | ENDARTERECTOMY - | | 2017 | [facility] | [address] | CAROTID | | | | Operating Room [address] | [place] [address] | | | | | [address] | [phone] | | | | | [place] [address] | | | | | | [phone] | | | +--------+---------+ + + + [...] note may be different from the original. [facility] Service: Vascular Surgery Discharge Summary Date of [...] pericardial patch angioplasty Surgeon: Maximo Landry MD Steam Hand(s): MARY George Anesthesia: General endotrachial anesthesia Estimated [...] nausea and vomiting) 05/2017 Stroke ([facility]) 08/13/2017 Urinary urgency wears pad [...] - CAROTID; Surgeon: Maximo Landry MD; Location: [facility] MAIN OR; Se rvice: Vascular; Laterality: Left; [...] CV: No peripheral edema, rate regular SKIN: [place], warm, dry without rash/lesion MS: ROM not [...] Follow up: Danilo Roman MD [address] [facility], [address] [place] [id number] In 3 days lab, vital signs, and medication review post surgery [facility] [address] [place] [...] eye Trouble speaking Trouble breathing Trouble swallowing [address] [place] [address]. All rights reserve d. This information is [...] | | | | | | [place] [address] | | | | | | [phone] | | | | | | | [...] [place] | | | | | | [address] | | | | | | | [...] | | | NORMALComment: Testing performed at [facility], | | | | [address] [place] | | | | [address] | | + + + + + + + | Specimen | Performing Laboratory | + + + | Blood | [facility] [address] [place] [address] Blvd[address] [place], | | | [place] [address] | + + + Basic metabolic panel [...] | | | | 1.210.Testing performed at [facility], [address] | | | | [place] [address] | | | | | | + + + + + + + | Specimen | Performing Laboratory | + + + | Blood | [facility] [address] [place] [address] [address], | | | [place] [address] | + + + Type and Screen (Blood Bank) (09/09/2017 6:55 AM) + + + + | Component | Value | Ref Range | + + + + | ABO/RH(D) | O POSITIVE | | + + + + | ANTIBODY SCREEN | NEGATIVE | | + + + + | ARM BAND NUMBER | [id number] performed at [facility];[address] [place] [address] | | | | Blvd;[place] [address] | | | | | | + + + + + + + | Specimen | Performing Laboratory | + + + | Blood | [place] [address] [place] [address] | + + + Pathology histology - tissue (09/09/2017) + + + | Specimen | Performing Laboratory | + + + | Tissue - Soft | [facility] | | Tissue, Other | [...] sections reveal areas of calcification. | | Die Baker sections are submitted in cassette A1. (The [...] technical | | preparation was performed by [facility], [facility], [address] | | [place] [address] (Toll Settlement Clerk: Darrny Maciel M.D.; | | [facility]#: [id number]). Diagnostician: Salome Wan MD Pathologist Electronically | [...]
--- OUTSIDE RECORDS SUMMARY | ~2017-11-16 | XMS | Encounter Summary ---
Demographics + + + | Address | [address] | | | [place] [address] | + + + | Home Phone | | + + + | Preferred Language | Unknown | + + + | Marital Status | | + + + | Uatsdin Affiliation | 1077 | + + + | Race | Unknown | + + + | Ethnic Group | Unknown | + + + Author + + + | Author | [employer] | + + + | Organization [...] Team Providers + +------+ + | Care Vineyardist Name | Role | Phone | + +------+ + | Danilo Roman MD | PCP | | + +------+ + Encounter Details +--------+ + + + + | Date | Type | Department | Care Team | Description | +--------+ + + + + | 10/15/ | Orders Only | [facility] | Gomez, Tamara, GIS ENGINEER | Persistent | | 2018 | | [address] | | proteinuria; CKD | | | | [address] | | (chronic kidney | | | | [place] [address] | | disease), stage III; | | | | [phone] | | Acute cystitis | | | [...] | | | | | | [place] [address] | | | | | | [phone] | | | | | | | [...] [place] | | | | | | [address] | | | | | | | [...] + | Blood | [facility] [address] | | | [address] | + + + Magnesium (10/14/2017 1:55 PM) + +-------+ + | Component | Value | Ref Range | + +-------+ + | MAGNESIUM | 1.8 | 1.7 - 2.5 mg/dL | + +-------+ + + + + | Specimen | Performing Laboratory | + + + | Blood | [facility] [address] [place] [address] [address] [place], [place] | | | [address] | + + + CBC W/Auto Diff [...] + | Blood | [facility] [address] [place], [place] [address] | | | [address] | + + + PTH intact no calcium (10/14/2017 1:55 PM) + +-------+ + | Component | Value | Ref Range | + +-------+ + | PTH INTACT NO | 58.81 | 15 - 65 pg/mL | | CALCIUM | | | + +-------+ + + + + | Specimen | Performing Laboratory | + + + | Blood | [facility] [address], [facility] [address] [place], [place] | | | [address] | + + + in this encounter Visit Diagnoses + + | Diagnosis | + + | Persistent proteinuria | + + | Proteinuria | + + | CKD (chronic kidney disease), stage III | + + | Acute cystitis without hematuria | + + | Acute cystitis | + +"
--- OUTSIDE RECORDS SUMMARY | ~2017-11-16 | XMS | Encounter Summary ---
Demographics + + + | Address | [address] | | | [place] [address] | + + + | Home Phone | | + + + | Preferred Language | Unknown | + + + | Marital Status | | + + + | Hoahaoism Affiliation | 1077 | + + + | Race | Unknown | + + + | Ethnic Group | Unknown | + + + Author + + + | Author | [employer] | + + + | Organization | [facility] | + + + [...] Team Providers + +------+ + | Care Nursing Educator Name | Role | Phone | + [...] + + | 08/18/ | Hospital | [facility] | See, Medical | Diagnosis unknown | | 2018 | Encounter | [facility] | Record | | | | | RADIOLOGY [address] | | | | | | [address] | | | | | | [place] [address] | | | | | | [phone] | | | +--------+ + + + [...] | | | | | | [place] [address] | | | | | | [phone] | | | | | | | [...] [place] | | | | | | [address] | | | | | | | | +--------+ + + + + as of this encounter Results CTA head neck W WO IV contrast (08/13/2017 5:35 PM) + + + | Specimen | Performing Laboratory | + + + | | [facility] [address] [place] [address] | + + + + + | [...]
--- OUTSIDE RECORDS SUMMARY | ~2017-11-16 | XMS | Encounter Summary ---
Demographics + + + | Address | [address] | | | [place] [address] | + + + | Home Phone | | + + + | Preferred Language | Unknown | + + + | Marital Status | | + + + | Cheondoism Affiliation | 1077 | + + + | Race | Unknown | + + + | Ethnic Group | Unknown | + + + Author + + + | Author | [employer] [employer] | + + + | Organization [...] Team Providers + +------+ + | Care Oracle Hrms Developer Name | Role | Phone | [...] (Primary Dx); | | | | [address], [place] | [place] [address] | Persistent | | | | [address] | [phone] | proteinuria | | | | | [...] such as Protonix (omeprazole), talk to your [facility] care provider about if you need this medication intermediate. Call our office or your PCP if [...] RFP, Magnesium, CBC, intact PTH, urinalysis, Urine aolgadj-ln-awxpswasze ratio before she comes back in [address] Roman for the opportunity to see this patient in hospital F/U today. Please do not hesitate to call me at any time with questions or concerns. Truly yours, Landry HERNANDEZ [facility] Nephrology in this encounter Plan of [...] | | | | | | [place] [address] | | | | | | [phone] | | | | | | | [...] [place] | | | | | | [address] | | | | | | | [...]
--- OUTSIDE RECORDS SUMMARY | ~2017-11-16 | XMS | Encounter Summary ---
Demographics + + + | Address | [address] | | | [place] [address] | + + + | Home Phone | | + + + | Preferred Language | Unknown | + + + | Marital Status | | + + + | Scientology Affiliation | 1077 | + + + | Race | Unknown | + + + | Ethnic Group | Unknown | + + + Author + + + | Author | [employer] | + + + | Organization | [facility] | + + [...] Team Providers + +------+ + | Care Stagecraft Teacher Name | Role | Phone | [...] 10/16/2017) | | | | [place], [place] [address] | | | | | | [phone] | | | +--------+ + + + [...] | | | | | | [place] [address] | | | | | | [phone] | | | | | | | [...] [place] | | | | | | [address] | | | | | | | | +--------+ + + + + as of this encounter Visit Diagnoses Not on filein this encounter"
--- OUTSIDE RECORDS SUMMARY | ~2017-11-16 | XMS | Encounter Summary ---
Demographics + + + | Address | [address] | | | [place] [address] | + + + | Home Phone | | + + + | Preferred Language | Unknown | + + + | Marital Status | | + + + | Shinto Affiliation | 1077 | + + + | Race | Unknown | + + + | Ethnic Group | Unknown | + + + Author + + + | Author | [employer] [employer] | + + + | Organization [...] Team Providers + +------+ + | Care Fence Installer Foreman Name | Role | Phone | + [...] | | | | | [place] [address] | | | | | | [phone] | | | +--------+ + + + [...] | | | | | | [place] [address] | | | | | | [phone] | | | | | | | [...]
--- OUTSIDE RECORDS SUMMARY | ~2017-11-16 | XMS | Encounter Summary ---
Demographics + + + | Address | [address] | | | [place] [address] | + + + | Home Phone [...] + + | Author | [employer] [employer] | + + + | Organization [...] Team Providers + +------+ + | Care Oceanologist Name | Role | Phone | + +------+ + | Danilo Roman MD | PCP | | + +------+ + Encounter Details +--------+ + + + + | Date | Type | Department | Care Team | Description | +--------+ + + + + | 10/15/ | Orders Only | [facility] | Gomez, Tamara, SPECIAL EDUCATION PARA PROFESSIONAL | Persistent | | 2018 | | [place] [address] | | proteinuria; CKD | | | | [address] | | (chronic kidney | | | | [place] [address] | | disease), stage III; | | | | [phone] | | Acute cystitis | | | [...] | | | | | | [place] [address] | | | | | | [phone] | | | | | | | [...] [place] | | | | | | [address] | | | | | | | [...] + | Blood | [facility] [address] | | | [address] | + + + Magnesium (10/14/2017 1:55 PM) + +-------+ + | Component | Value | Ref Range | + +-------+ + | MAGNESIUM | 1.8 | 1.7 - 2.5 mg/dL | + +-------+ + + + + | Specimen | Performing Laboratory | + + + | Blood | [facility] [address] [place] [address] [address] [place], [place] | | | [address] | + + + CBC W/Auto Diff [...] + + | Blood | [facility] [address] [place], [place] [address] | | | [address] | + + + PTH intact no calcium (10/14/2017 1:55 PM) + +-------+ + | Component | Value | Ref Range | + +-------+ + | PTH INTACT NO | 58.81 | 15 - 65 pg/mL | | CALCIUM | | | + +-------+ + + + + | Specimen | Performing Laboratory | + + + | Blood | [facility] [address] [place], [facility] [address] [place], [place] | | | [address] | + + + in this encounter Visit Diagnoses + + | Diagnosis | + + | Persistent proteinuria | + + | Proteinuria | + + | CKD (chronic kidney disease), stage III | + + | Acute cystitis without hematuria | + + | Acute cystitis | + +"
--- OUTSIDE RECORDS SUMMARY | ~2017-11-16 | XMS | Encounter Summary ---
Demographics + + + | Address | [address] | | | [place] [address] | + + + | Home Phone | | + + + | Preferred Language | Unknown | + + + | Marital Status | | + + + | Baptism Affiliation | 1077 | + + + | Race | Unknown | + + + | Ethnic Group | Unknown | + + + Author + + + | Author | [employer] | + + + | Organization [...] Team Providers + +------+ + | Care Crusher Supervisor Name | Role | Phone | + +------+ + | Danilo Romna MD | PCP | | + +------+ [...] + + | 08/18/ | Ancillary | [facility] | See, Medical | Diagnosis unknown | | 2018 | [facility] | [facility] | Record | | | | | [address] [facility] | | | | | | [place] [address] | | | | | | [phone] | | | +--------+ + + + [...] | | | | | | [place] [address] | | | | | | [phone] | | | | | | | [...] [place] | | | | | | [address] | | | | | | | | +--------+ + + + + as of this encounter Results CTA head neck W WO IV contrast (08/13/2017 5:35 PM) + + + | Specimen | Performing Laboratory | + + + | | [facility] [address] [place] [address] | + + + + + | Narrative | + + | This is a non-reportable procedure without a radiologist report and is used for | | image storage only | + + CT head without contrast (08/13/2017 5:32 PM) + + + | Specimen | Performing Laboratory | + + + | | [address] [address] | + + + + + | [...]
--- OUTSIDE RECORDS SUMMARY | ~2017-11-16 | XMS | Encounter Summary ---
Demographics + + + | Address | [address] | | | [place] [address] | + + + | Home Phone | | + + + | Preferred Language | Unknown | + + + | Marital Status | | + + + | Anabaptism Affiliation | 1077 | + + + | Race | Unknown | + + + | Ethnic Group | Unknown | + + + Author + + + | Author | [employer] | + + + | Organization [...] Team Providers + +------+ + | Care Precision Agriculture Technician Name | Role | Phone | [...] 10/14/2017) | | | | [place], [place] [address] | | | | | | [phone] | | | +--------+ + + + [...] | | | | | | [place] [address] | | | | | | [phone] | | | | | | | [...] [place] | | | | | | [address] | | | | | | | | +--------+ + + + + as of this encounter Visit Diagnoses Not on filein this encounter"
--- OUTSIDE RECORDS SUMMARY | ~2017-11-16 | XMS | Encounter Summary ---
Demographics + + + | Address | [address] | | | [place] [address] | + + + | Home Phone | | + + + | Preferred Language | Unknown | + + + | Marital Status | | + + + | Anabaptism Affiliation | Unknown | + + + | Race | Unknown | + + + | Ethnic Group | Unknown | + + + Author + + + | Author | [facility] | | | and [place] | + + + | Organization | [facility] | | | and [place] | + + + | Address | Unknown | + + + | Phone | Unavailable | + + + Support + + + + + | Name | Relationship | Address | Phone | + + + + + | Melissa Merrill | ECON | [place] | | | | | [address] | | + + + + + | Connie Merrill | ECON | Unknown | | + + + + + Care Team Providers + +------+ + | Care Drop Shipment Clerk Name | Role | Phone | + +------+ + | Fady Bush MD | PCP | Unavailable | + +------+ + Encounter Details +--------+ + + + + | Date | Type | Department | Care Team | Description | +--------+ + + + + | 08/22/ | Hospital | [facility] | Francis Grajeda, | | | 2018 | Encounter | MED CTR THERAPY OT | OT | | | | | ACUTE [address] | | | | | | [place] | | | | | | [address] | | | | | | [phone] | | | +--------+ + + + [...]
--- OUTSIDE RECORDS SUMMARY | ~2017-11-16 | XMS | Encounter Summary ---
Demographics + + + | Address | [address] | | | [place] [address] | + + + | Home Phone | | + + + | Preferred Language | Unknown | + + + | Marital Status | | + + + | Orthodoxy Affiliation | 1077 | + + + | Race | Unknown | + + + | Ethnic Group | Unknown | + + + Author + + + | Author | [employer] [employer] | + + + | Organization [...] Team Providers + +------+ + | Care Ac/Dc Rewinder Name | Role | Phone | + +------+ + | Daniol Roman MD | PCP | | + [...] + + | 08/18/ | Ancillary | [facility] | See, Medical | Diagnosis unknown | | 2018 | [facility] | [facility] | Record | | | | | [address] [facility] | | | | | | [place] [address] | | | | | | [phone] | | | +--------+ + + + [...] | | | | | | [place] [address] | | | | | | [phone] | | | | | | | [...] [place] | | | | | | [address] | | | | | | | | +--------+ + + + + as of this encounter Results MRI brain without contrast (08/14/2017 5:37 PM) + + + | Specimen | Performing Laboratory | + + + | | [place] [address] | + + + + + | [...]
--- OUTSIDE RECORDS SUMMARY | ~2017-11-16 | XMS | Encounter Summary ---
Demographics + + + | Address | [address] | | | [place] [address] | + + + | Home Phone | | + + + | Preferred Language | Unknown | + + + | Marital Status | | + + + | Anabaptism Affiliation | 1077 | + + + | Race | Unknown | + + + | Ethnic Group | Unknown | + + + Author + + + | Author | [employer] [employer] | + + + | Organization [...] Providers + +------+ + | Care Director Of Community Center Name | Role | Phone | + +------+ + | Danilo Roman MD | PCP | | + +------+ + Encounter Details +--------+ + + + + | Date | Type | Department | Care Team | Description | +--------+ + + + + | 08/18/ | Procedure | [facility] | | | | 2017 | Pass | [facility] | | | | | | RADIOLOGY [address] | | | | | | [address] | | | | | | [place] [address] | | | | | | [phone] | | | +--------+ + + + [...] | | | | | | [place] [address] | | | | | | [phone] | | | | | | | [...] [place] | | | | | | [address] | | | | | | | | +--------+ + + + + as of this encounter Visit Diagnoses Not on filein this encounter"
--- OUTSIDE RECORDS SUMMARY | ~2017-11-16 | XMS | Encounter Summary ---
Demographics + + + | Address | [address] | | | [place] [address] | + + + | Home Phone | | + + + | Preferred Language | Unknown | + + + | Marital Status | | + + + | Congregation Affiliation | 1077 | + + + | Race | Unknown | + + + | Ethnic Group | Unknown | + + + Author + + + | Author | [employer] [employer] | + + + | Organization | [facility] | + + + [...] Team Providers + +------+ + | Care Toolmaker Name | Role | Phone | + [...] 10/16/2017) | | | | [place], [place] [address] | | | | | | [phone] | | | +--------+ + + + [...] 2017 | Visit | | MD [address] | | | | | | [place] | | | | | | [place] [address] | | | | | | [phone] | | | | | | | [...] [place] | | | | | | [address] | | | | | | | | +--------+ + + + + as of this encounter Visit Diagnoses Not on filein this encounter"
--- OUTSIDE RECORDS SUMMARY | ~2017-11-16 | XMS | Encounter Summary ---
Demographics + + + | Address | [address] | | | [place] [address] | + + + | Home Phone | | + + + | Preferred Language | Unknown | + + + | Marital Status | | + + + | Nondenominational Affiliation | 1077 | + + + | Race | Unknown | + + + | Ethnic Group | Unknown | + + + Author + + + | Author | [employer] [employer] | + + + | Organization [...] Team Providers + +------+ + | Care Waste Disposal Leakage Tester Name | Role | Phone | + [...] + + | 10/03/ | Office | [facility] | Juvencio Schultz, | Coronary artery | | 2017 | Visit | Cardiology [place] | [address] | disease, angina | | | | [address] | [place], | presence | | | | [place], [place] | [place] [address] | unspecified, | | | | [address] | [phone] | unspecified vessel | | | | [phone] | | or lesion type, | | | | | | unspecified whether | | | | | | agua caliente or | | | | | | [...] | | | | | | involving agua caliente | | | | | | coronary artery of | | | | | | ag[place] heart with | | | | | [...] to the description. She was hospitalized in [place]. A carotid ultrasound was repeated, and showed [...] (05/3017): LM-normal. prox LAD-70% > 2.5x15 Resolute Bradford CHUCHO. D 2-50%. Ramus-occluded, fills via zcbno-jf-gjhb collaterals. LCx-normal. RCA-dominant, mid 4 0% stenosis, patent stents. -- Cardiac Cath/PCI (05/15/17): 3 overlapping Synergy CHUCHO in distal RCA>PLV2 - 2.5x38, 3.0x 38, 3.0x38 mm. -- Carotid U/S (04/18/17): LICA > 70%, OJSE 50-69% -- Cardiac Cath (04/11/17): LM-calcification, no significant disease. RHV-wqkzi-airsibbf 60 % angiographically, calcified, FFR 0.66, distal [...] No dysuria, hematuria, urinary urgency, hesitancy. No folder inspector disorders. HEMATOLOGY/ONCOLOGY: No h/o bleeding disorders, DVT, PE. Denies easy bruisability or ble eding. No history of anemia, transfusions. No history of cancer. MUSCULOSKELETAL: No myalgias, has knee, ankle and thumb arthralgias. No history of rheuma tologic or autoimmune diseases. CUTANEOUS: No rashes, pruritus, lesions. PSYCHIATRIC: She admits to Depression, Anxiety or other psychiatric problems. 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, s/p CEA 09/09/17 Persistent dry cough 1997 occ clear phlegm PONV (postoperative nausea and vomiting) 05/2017 Stroke ([facility]) 08/13/2017 Urinary urgency wears pad UTI (urinary [...] - CAROTID; Surgeon: Maximo Landry MD; Location: [facility]; Se rvice: Vascular; Laterality: Left; ENDARTERECTOMY CAROTID Right 09/09/2017 Procedure: ENDARTERECTOMY - CAROTID; Surgeon: Maximo Landry MD; Location: [facility]; Se rvice: Vascular; [...] vessel or lesion type, un specified whether agua caliente or transplanted heart - Electrocardiogram, 12-lead Occlusion of right carotid artery Cerebrovascular accident (CVA), unspecified mechanism (HCC) Carotid stenosis, bilateral Coronary artery disease involving agua caliente coronary artery of [place] heart with unstable tera na pectoris (HCC) [...] | | | | | | [place] [address] | | | | | | [phone] | | | | | | | [...] [place] | | | | | | [address] | | | | | | | [...] + + + + | Calculated R [place] | 35 | degrees | + + + + | Calculated T [place] | -35 | degrees | + + [...] Interpretation.Confirmed by [facility] | | | | [place] Read Only, NORM Ghosh ([id number]), editorial manager | | | | Mayito Felder ([id number]) on 10/03/2017 9:36:58 | | | | AM | | + + + + + + + | Specimen | Performing Laboratory | + + + | | [facility] EK [address] [place] [address] | + + + in this encounter Visit Diagnoses + + | Diagnosis | + + | Coronary artery disease, angina presence unspecified, unspecified vessel or lesion type, | | unspecified whether agua caliente or transplanted heart - Primary | + [...] + + | Coronary artery disease involving agua caliente coronary artery of ag[place] heart with unstable | | angina pectoris [...]
--- OUTSIDE RECORDS SUMMARY | ~2017-11-16 | XMS | Encounter Summary ---
Demographics + + + | Address | [address] | | | [place] [address] | + + + | Home Phone | | + + + | Preferred Language | Unknown | + + + | Marital Status | | + + + | Confucianism Affiliation | 1077 | + + + | Race | Unknown | + + + | Ethnic Group | Unknown | + + + Author + + + | Author | [employer] | + + + | Organization | [facility] | + + + [...] Team Providers + +------+ + | Care Landscape Nurseryman Name | Role | Phone | + [...] + + | 09/09/ | Hospital | [facility] | Maximo Landry MD | Carotid stenosis, | | 2018 - | Encounter | [address] | [address] | right (Primary Dx) | | | | Floor [facility] | [place] [address] | | | 09/10/ | | [address] | [phone] | | | 2018 | | [place] [address] | | | | | | [phone] | | | +--------+ + + + [...] pericardial patch angioplasty Surgeon: Maximo Landry MD Soda Fountain Operator(s): MARY George Anesthesia: General endotrachial anesthesia [...] - CAROTID; Surgeon: Maximo Landry MD; Location: [facility]; Se rvice: Vascular; Laterality: [...] CV: No peripheral edema, rate regular SKIN: [place], warm, dry without rash/lesion MS: ROM not [...] Follow up: Danilo Roman MD [address] [facility], [address] [place] [address] In 3 days lab, vital signs, and medication review post surgery [facility] [address] [place] [address] post op appointment Medication List START [...] eye Trouble speaking Trouble breathing Trouble swallowing 8332-5624 [facility], [address] [place], [place] [id number]. All rights reserve d. This information is [...] | | | | | | [place] [address] | | | | | | [phone] | | | | | | | | +--------+ + + + + | 03/25/ | Appointment | Radiology | | | | 2017 | | | | | +--------+ + + + + | 03/25/ | Office | Vascular Surgery | Wolf Perez DNP | | | 2017 | Visit | | [address] | | | | | | [place], [place] | | | | | | [address] | | | | | | | [...] | | | NORMALComment: Testing performed at [facility], | | | | [address] [place], [place] | | | | [address] | | + + + + + + + | Specimen | Performing Laboratory | + + + | Blood | [facility] [address] [place], | | | [place] [address] | + + + Basic metabolic panel [...] | | | | 1.210.Testing performed at [facility], [address] | | | | [place] [address] | | | | | | + + + + + + + | Specimen | Performing Laboratory | + + + | Blood | [facility] [address] [place] [address] [address]vd[address] [place], | | | [place] [address] | + + + Type and Screen (Blood Bank) (09/09/2017 6:55 AM) + + + + | Component | Value | Ref Range | + + + + | ABO/RH(D) | O POSITIVE | | + + + + | ANTIBODY SCREEN | NEGATIVE | | + + + + | ARM BAND NUMBER | [id number] performed at [facility];[address] | | | | [place] [address] | | | | | | + + + + + + + | Specimen | Performing Laboratory | + + + | Blood | [facility] [address] [place] [address] | + + + Pathology histology - tissue (09/09/2017) + + + | Specimen | Performing Laboratory | + + + | Tissue - Soft | [facility] | | Tissue, Other | | [...] sections reveal areas of calcification. | | Global Creative Chairman sections are submitted in cassette A1. (The [...] technical | | preparation was performed by [facility], [facility], [address] | | [place] [address] (Aircraft Engineer: Darryn Maciel M.D.; | | [facility]#: [id number]). Diagnostician: Salome Wan MD Pathologist Electronically | [...]
--- OUTSIDE RECORDS SUMMARY | ~2017-11-16 | XMS | Encounter Summary ---
Demographics + + + | Address | [address] | | | [place] [address] | + + + | Home Phone | | + + + | Preferred Language | Unknown | + + + | Marital Status | | + + + | Holiness Affiliation | Unknown | + + + | Race | Unknown | + + + | Ethnic Group | Unknown | + + + Author + + + | Author | [facility] | | | and Freddyana | + + + | Organization | [facility] | | | and [place] | + + + | Address | Unknown | + + + | Phone | Unavailable | + + + Support + + + + + | Name | Relationship | Address | Phone | + + + + + | Melissa Merrill | ECON | [place] | | | | | [address] | | + + + + + | Connie Merrill | ECON | Unknown | | + + + + + Care Team Providers + +------+ + | Care Pile Driving Supervisor Name | Role | Phone | [...] | | | | | mechanism | [phone] | [phone] | | | | | (HCC) | Phone: | Phone: | | | | | Aphasia | [phone] | [phone] | | | | | complicating | Fax: | Fax: | | | | | stroke | [phone] | [phone] | + + + + + + [...] | | unspecified | [place], [place] | [place], [place] | | | | | mechanism | [phone] | [phone] | | | | | (HCC) | Phone: | Phone: | | | | | | [phone] | [phone] | | | | | | Fax: | Fax: | | | | | | [phone] | [phone] | + + + + + + [...] + + | 08/18/ | Hospital | [facility] | Cortez Celaya | Cerebrovascular | | 2018 - | Encounter | MED CTR IR[facility] [address] | MD Jeanna [address] | accident (CVA), | | | | [place], | [address] [place] | unspecified | | 08/22/ | | [place] [address] | [place] [address] | mechanism (HCC) | | 2018 | | [phone] | [phone] | (Primary Dx); | | | | | | Gastroesophageal | | | | | | reflux disease, | | | | | | esophagitis presence | | | | | | not specified; | | | | | | Aphasia complicating | | | | | | stroke ([facility]); | | | | | | [...] and brought her to the hospital to [facility]. Br ain CT scan was [...] acutely and then transferred on 08/19/2017 to [facility] here at [facility] PMHx: (per chart review confirmed with pt) [...] cube accurately Visuoconstructional: Able to draw clock [place] tribe, All numbers present and in correct quadrant s with clock hands placed at 11:40 Digit span: Able to repeat 5 digits forward and able to repeat 3 digits in backward order Sustained attention: 100 93 86 79 72 65 Delayed recall: 3 of 3 words after 5 minutes. Repetition: able to repeat the phrase "[place]" Naming: intact for [...] set up outpatient PT and speech at [facility]. Call P CP to set up follow-up appointment. Signed: Jude Mata MD 08/22/2017 16:37 Portions of this chart may have been created with [employer] voice recognition software. Occasi onal wrong-word or [...] If problems are found, your [facility] provider will recommend treatment with medicines and/or [...] LL 911 without delay. Date Last Reviewed: 04/10/201519996639-1725 [employer]. [address] [place] [address], [place] [id number]. All righ ts reserved. This information is not intended as a substitute for professional medical care. Always follow your healthcare professional's instructions. Using Blood Thinners (Anticoagulants) Blood thinners or anticoagulants are medicines that help prevent blood clots from forming. They include warfarin,heparin,dabigatran, rivaroxaban, apixaban,and edoxaban. Your [facility] care provider will help you decide [...] any changes in your medicines.This includes any xqbu-lfd-vtqesso medicines, suppl ements like vitamin K, or [...] doesn t stop in 10 minutes A abydtjo-gsxw-exqjjr menstrual period or bleeding between periods Coughing or throwing up blood Bloody diarrhea or bleeding hemorrhoids Dark-colored urine or black stools Red or blcok-juc-zasm laar on the skin that get larger Dizziness [...] sure your doctor knows about any prescription, czoj-fcz-hygtrcz, or herbal supplements you take. In particular, tell your provider about: Antibiotics Heart medicines Cimetidine Aspirin or other anti-inflammatory drugs such as ibuprofen, naproxen, ketoprofen, or oth er arthritis medicines Drugs for depression, cancer HIV (protease inhibitors), diabetes, seizures, gout, high c holesterol, or thyroid replacement Vitamins containing vitamin K or herbal products such as ginkgo, Co-Q10, garlic, or [place]'s wort Note: This information topic may not include all directions, precautions, medical condition s, drug/food interactions, and warnings for these medicines. Check with your doctor, nurse, or pharmacist for any questions you have. Date Last Reviewed: 12/26/201419995282-9796 [employer]. [address] [place] [address], [place] [address]. All righ ts reserved. This information is [...] work around lost language skills. In some md ses, a patient may need to use [...] t there. Date Last Reviewed: 04/25/201512/2014 [employer]. [address] [place] [address]. All rig ts reserved. This information is [...] have to. Date Last Reviewed: 04/25/2015 [employer]. [address] [place] [address]. All rig ts reserved. This information is [...] may be different from t mik original. Txss-pt-Zbik Rehabilitation Medicine Daily Progress Note Date: 08/21/17 ID/CC: Reason for encounter : Physician follow-up to address the medical rehabilitation needs, issues, and problems . Interval history: Chief problem : Weakness and difficulty with self-care/ADLs and functional mobility Check of the shift lab technician nurses. Patient slept well last night. Problem [...] 2 spray, 2 spray, Nasal, Daily, Cortez Cealya MD ondansetron (ZOFRAN ODT) disintegrating tablet 4 [...] occupational therapy, speech therapy, case management, and sr. social media & mobile manager #Rehab - -Continue PT for gait, mobility -Continue OT for ADL's, toileting, adaptive equipment -Continue BREASTFEEDING PEER COUNSELOR for cognition, -Continue SW for discharge planning [...] reviewed with the Patient and our case manager specialist. She is collaborating with the patient's support [...] continuing to coordinate and collaborate [facility] staff to complement their therapy [...] Notes document close and ongoing Physiatric involvement; plvh-me-ynio vi sits, professionally assessing the Patient, both [...] information from all of the Medical Rehabilitation infantry weapons crewmember's assessments and reports as we synthesized [...] this chart may have been created with [employer] voice recognition software. Occasi onal wrong-word or sound-alike substitutions may have occurred due to the inherent brown itations of voice recognition software. Please read the chart carefully and recognize, using context, where these substitutions have occurred.Cortez Celaya MD - 08/20/2017 1736 P STFormatting of this note may be different from the original. Qopd-vc-Wkqo Rehabilitation Medicine Daily Progress Note Date: 08/20/17 [...] occupational therapy, speech therapy, case management, and sr. social media & mobile manager #Rehab - -Continue PT for gait, mobility -Continue OT for ADL's, toileting, adaptive equipment -Continue BREASTFEEDING PEER COUNSELOR for cognition, -Continue SW for discharge planning [...] with the patient's bedside nurse, and case manager specialist/nephrology social worker. The patient is seen in follow-up for [...] the full inpatient rehabilitation treatment team in [facility] is planned. The patient is seen [...] and issues . I met with case manager specialist and reviewed the overall plan of care. [...] this chart may have been created with [employer] voice recognition software. Occasi onal wrong-word or [...] | >=60 mL/min/1.73m2 | | [place]IZ[place] | RATE,ESTIMATED mL/min/1.09u0Fmoi than | | | | 60 Chronic [...] + + | Blood | [facility] [address] | | | [place] [address] | + + + Extra Lavender Top Tube (08/21/2017624) + +-------+ + | Component | Value | Ref Range | + +-------+ + | Extra Lavender Top | Done | | | Tube | | | + +-------+ + + + + | Specimen | Performing Laboratory | + + + | Blood | [facility] [address] | | | [place] [address] | + + + B Type Natriuretic Peptide (08/19/2017 0543) + +---------+ + | Component | Value | Ref Range | + +---------+ + | BNP | 274 (H) | <100 pg/mL | + +---------+ + + + + | Specimen | Performing Laboratory | + + + | Blood | [facility] [address] | | | [place] [address] | + + + Prealbumin (08/19/2017542) + +-------+ + | Component | Value | Ref Range | + +-------+ + | PREALBUMIN | 20 | 18 - 38 mg/dL | + +-------+ + + + + | Specimen | Performing Laboratory | + + + | Blood | [facility] [address] | | | [place] [address] | + + + Magnesium (08/19/2017 0543) + +---------+ + | Component | Value | Ref Range | + +---------+ + | MG | 1.7 (L) | 1.8 - 2.5 mg/dL | + +---------+ + + + + | Specimen | Performing Laboratory | + + + | Blood | [facility] [address] | | | [place] [address] | + + + CBC with Differential [...] | + + + | Blood | [facility] [address] | | | [place] [address] | + + + IMAGING REPORT - [...]
--- OUTSIDE RECORDS SUMMARY | ~2017-11-16 | XMS | Encounter Summary ---
Demographics + + + | Address | [address] | | | [place] [address] | + + + | Home Phone | | + + + | Preferred Language | Unknown | + + + | Marital Status | | + + + | Advent Affiliation | 1077 | + + + | Race | Unknown | + + + | Ethnic Group | Unknown | + + + Author + + + | Author | [employer] | + + + | Organization [...] Team Providers + +------+ + | Care Retina Subspecialist Name | Role | Phone | + [...] + | 10/08/ | Documentati | [facility] [place] | Lisset Littlejohn MA | [facility] ( [facility] | | 2018 | on Only | [facility] | | Head CT) | | | | [address] | | | | | | [place], [place] | | | | | | [address] | | | | | | [phone] | | | +--------+ + + + [...] | | | | | | [place] [address] | | | | | | [phone] | | | | | | | [...] [place] | | | | | | [address] | | | | | | | | +--------+ + + + + as of this encounter Visit Diagnoses Not on filein this encounter"
--- OUTSIDE RECORDS SUMMARY | ~2017-11-16 | XMS | Encounter Summary ---
Demographics + + + | Address | [address] | | | [place] [address] | + + + | Home Phone | | + + + | Preferred Language | Unknown | + + + | Marital Status | | + + + | Caodaism Affiliation | 1077 | + + + | Race | Unknown | + + + | Ethnic Group | Unknown | + + + Author + + + | Author | [facility] [employer] [facility] | + + + | Organization | [facility] | + [...] Team Providers + +------+ + | Care Lime Sludge Kiln Operator Name | Role | Phone | + +------+ + | Danilo Roman MD | PCP | | + +------+ + Encounter Details +--------+--------+ + + + | Date | Type | Department | Care Team | Description | +--------+--------+ + + + | 09/01/ | Refill | [facility] [place] | Lisset Littlejohn MA | | | 2018 | | Marco [facility] | | | | | | [address] | | | | | | [place] | | | | | | [address] | | | | | | [phone] | | | +--------+--------+ + + + [...] | | | | | | [place] [address] | | | | | | [phone] | | | | | | | [...] [place] | | | | | | [address] | | | | | | | | +--------+ + + + + as of this encounter Visit Diagnoses Not on filein this encounter"
--- OUTSIDE RECORDS SUMMARY | ~2017-11-16 | XMS | Encounter Summary ---
Demographics + + + | Address | [address] | | | [place] [address] | + + + | Home Phone | | + + + | Preferred Language | Unknown | + + + | Marital Status | | + + + | Latter-Day Affiliation | 1077 | + + + | Race | Unknown | + + + | Ethnic Group | Unknown | + + + Author + + + | Author | [facility] [employer] | + + + | Organization [...] Team Providers + +------+ + | Care Payroll Supervisor Name | Role | Phone | + +------+ + | Danilo Roman MD | PCP | | + +------+ + Encounter Details +--------+ + + + + | Date | Type | Department | Care Team | Description | +--------+ + + + + | 10/21/ | Orders Only | [facility] | Gomez, Tamara, AIRPORT LOCATION MANAGER | MAI (acute kidney | | 2018 | | [place] [address] | | injury) (HCC); CKD | | | | [address] | | (chronic kidney | | | | [place] [address] | | disease), stage III; | | | | [phone] | | Essential | | | | [...] 2017 | Visit | | MD [address] | | | | | | [place], | | | | | | [place] [address] | | | | | | [phone] | | | | | | | [...] [place] | | | | | | [address] | | | | | | | [...] + | Urine | [facility] [address] [facility] [address] [place], [place] | | | [address] | + + + Urinalysis (reflex to [...] + + | Urine | [facility] [address] [place], [place] [address] | | | [address] | + + + + + | [...]
--- OUTSIDE RECORDS SUMMARY | ~2017-11-16 | XMS | Encounter Summary ---
Demographics + + + | Address | [address] | | | [place] [address] | + + + | Home Phone | | + + + | Preferred Language | Unknown | + + + | Marital Status | | + + + | Samaritan Affiliation | 1077 | + + + | Race | Unknown | + + + | Ethnic Group | Unknown | + + + Author + + + | Author | [facility] [employer] | + + + | Organization | [facility] | + + + | [...] Team Providers + +------+ + | Care Mirror Inspector Name | Role | Phone | [...] + + | 08/29/ | Hospital | [facility] | Maximo Landry MD | | | 2018 | Encounter | [facility] | [address] | | | | | Preadmission | [place] [address] | | | | | Services [address] | [phone] | | | | | [address] [place], [place] | | | | | | [phone] | | | +--------+ + + + [...] Trouble breathing Trouble swallowing Date Last Reviewed: 12/31/201419997036-8485 The [email or web address]. [address] [place] [address], [place] [address]. All righ ts reserved. This information is [...] | | | | | | [place] [address] | | | | | | [phone] | | | | | | | [...] [place] | | | | | | [address] | | | | | | | [...] BASOPHILS ABS | 0.05Comment: Testing performed at [facility], [address] | 0.00 - 0.10 K/uL | | | [place] [address] | | + + + + + + + | Specimen | Performing Laboratory | + + + | Blood | [facility] [address], | | | [place] [address] | + + + in this encounter Visit Diagnoses Not on filein this encounter
--- OUTSIDE RECORDS SUMMARY | ~2017-11-16 | XMS | Encounter Summary ---
Demographics + + + | Address | [address] | | | [place] [address] | + + + | Home Phone | | + + + | Preferred Language | Unknown | + + + | Marital Status | | + + + | Cheondoism Affiliation | 1077 | + + + | Race | Unknown | + + + | Ethnic Group | Unknown | + + + Author + + + | Author | [facility] [employer] | + + + | Organization | [facility] | + + [...] Team Providers + +------+ + | Care Pipe Fittings Molder Name | Role | Phone | + +------+ + | Danilo Roman MD | PCP | | + +------+ + Encounter Details +--------+ + + + + | Date | Type | Department | Care Team | Description | +--------+ + + + + | 09/17/ | Orders Only | [facility] | Latasha | S/Leny carotid | | 2018 | | Vascular Surgery | LAKISHA Calabrese | endarterectomy | | | | [address] | | (Primary Dx); | | | | [place] | | Carotid stenosis, | | | | [address] | | right | | | | [phone] | | | +--------+ + + + [...] | | | | | | [place] [address] | | | | | | [phone] | | | | | | | [...] [place] | | | | | | [address] | | | | | | | | +--------+ + + + + as of this encounter Results US carotid doppler, bilateral (09/24/2017 1:26 PM) + + + | Specimen | Performing Laboratory | + + + | | [facility] [address] [facility] [place] [address] | + + + + + | [...] In - 09/24/2017 2:49 PM PST [place] [age][place][age] years | | FemaleUS CAROTID DOPPLER, BILATERAL09/24/2017 [...]
--- OUTSIDE RECORDS SUMMARY | ~2017-11-16 | XMS | Encounter Summary ---
Demographics + + + | Address | [address] | | | [place] [address] | + + + | Home Phone | | + + + | Preferred Language | Unknown | + + + | Marital Status | | + + + | Sikh Affiliation | Unknown | + + + | Race | Unknown | + + + | Ethnic Group | Unknown | + + + Author + + + | Author | [facility] | | | and [place]dy[place] | + + + | Organization | [facility] | | | and [place] | + + + | Address | Unknown | + + + | Phone | Unavailable | + + + Support + + + + + | Name | Relationship | Address | Phone | + + + + + | Melissa Merrill | ECON | [place] | | | | | [address] | | + + + + + | Connie Merrill | ECON | Unknown | | + + + + + Care Team Providers + +------+ + | Care Diesel Fleet Mechanic Name | Role | Phone | + +------+ + | Fady Bush MD | PCP | Unavailable | + +------+ + Encounter Details +--------+ + + + + | Date | Type | Department | Care Team | Description | +--------+ + + + + | 08/22/ | Hospital | [facility] | Francis Grajeda, | | | 2018 | Encounter | MED CTR THERAPY OT | OT | | | | | ACUTE [address] | | | | | | [place] | | | | | | [address] | | | | | | [phone] | | | +--------+ + + + [...]
--- OUTSIDE RECORDS SUMMARY | ~2017-11-16 | XMS | Encounter Summary ---
Demographics + + + | Address | [address] | | | [place] [address] | + + + | Home Phone | | + + + | Preferred Language | Unknown | + + + | Marital Status | | + + + | Mormonism Affiliation | 1077 | + + + | Race | Unknown | + + + | Ethnic Group | Unknown | + + + Author + + + | Author | [employer] [employer] | + + + | Organization | [facility] | + + + [...] Team Providers + +------+ + | Care Admissions Rn Name | Role | Phone | + [...] + + | 08/28/ | Office | [facility] | Maximo Landry MD | Ischemic stroke | | 2018 | Visit | Vascular Surgery | [address] | (HCC) (Primary Dx); | | | | [address] | [place] [address] | Carotid artery | | | | [place], [place] | [phone] | stenosis, | | | | [address] | | symptomatic, right | | | | [phone] | | | +--------+---------+ + + + [...] - CAROTID; Surgeon: Maximo Landry MD; Location: [facility] OR; Se rvice: Vascular; Laterality: [...] | | | | | | [place] [address] | | | | | | [phone] | | | | | | | [...] [place] | | | | | | [address] | | | | | | | [...]
--- OUTSIDE RECORDS SUMMARY | ~2017-11-16 | XMS | Encounter Summary ---
Demographics + + + | Address | [address] | | | [place] [address] | + + + | Home Phone | | + + + | Preferred Language | Unknown | + + + | Marital Status | | + + + | Yarsanism Affiliation | 1077 | + + + | Race | Unknown | + + + | Ethnic Group | Unknown | + + + Author + + + | Author | [facility] [employer] [facility] | + + + | Organization | [facility] | + [...] Team Providers + +------+ + | Care Lead Technologist In Cytogenetics Name | Role | Phone | + +------+ + | Danilo Roman MD | PCP | | + +------+ + Encounter Details +--------+--------+ + + + | Date | Type | Department | Care Team | Description | +--------+--------+ + + + | 09/01/ | Refill | [facility] | Lisset Littlejohn MA | | | 2018 | | [facility] | | | | | | [address] | | | | | | [place] | | | | | | [address] | | | | | | [phone] | | | +--------+--------+ + + + [...] | | | | | | [place] [address] | | | | | | [phone] | | | | | | | [...] [place] | | | | | | [address] | | | | | | | | +--------+ + + + + as of this encounter Visit Diagnoses Not on filein this encounter"
--- OUTSIDE RECORDS SUMMARY | ~2017-11-16 | XMS | Encounter Summary ---
Demographics + + + | Address | [address] | | | [place] [address] | + + + | Home Phone | | + + + | Preferred Language | Unknown | + + + | Marital Status | | + + + | Uatsdin Affiliation | 1077 | + + + | Race | Unknown | + + + | Ethnic Group | Unknown | + + + Author + + + | Author | [facility] [employer] | + + + | Organization | [facility] | + + [...] Team Providers + +------+ + | Care Counter Sales Representative Name | Role | Phone [...] + + | 09/24/ | Office | [facility] | Wolf Perez DNP | Ischemic stroke | | 2018 | Visit | Vascular Surgery | [address] | ([facility]) (Primary Dx); | | | | [address] | [place], [place] | Carotid artery | | | | [place], [place] | [address] | stenosis, | | | | [address] | | symptomatic, right; | | | | [phone] | | Carotid stenosis, | | | [...] Perez DNP - 09/24/2017 1:30 PM [facility] [address] [place] [address] [place] [address] Office: [phone] DATE OF VISIT: 09/24/2017 PATIENT NAME: Maryjo Merrill : 1935; AGE: 82 y.o.; Sex:F PHONE NUMBER: ; PROVIDER: Wolf Perez DNP PRIMARY CARE / REFERRING PHYSICIAN: Cristin Ordoñez MD / CRISTIN ORDOÑEZ /[address] / [place] [address] The patient presents today for a Vascular Surgery Postoperative Visit. The patient is statu s post right CEA, which was performed on 09/09/2017 at the [facility] Ope rating Room. The patient is [...] which was performed on 04/29/2017 at the [facility] Operating Room. The patient currently reports [...] | | | | | | [place] [address] | | | | | | [phone] | | | | | | | [...] [place] | | | | | | [address] | | | | | | | [...]
--- OUTSIDE RECORDS SUMMARY | ~2017-11-16 | XMS | Clinical Summary ---
Demographics + + + | Address | [address] | | | [place] [address] | + + + | Home Phone | | + + + | Preferred Language | Unknown | + + + | Marital Status | | + + + | Samaritan Affiliation | 1077 | + + + | Race | Unknown | + + + | Ethnic Group | Unknown | + + + Author + + + | Author | [employer] | + + + | Organization [...] Team Providers + +------+ + | Care Sous Chef Name | Role | Phone | [...] Overview: Added automatically from request for surgery [id number] | + + + + + | [...] | 2017 | | | | injury) ([facility]); CKD | | | | | | [...] | | 2018 | Visit | | BITUMEN PLANT OPERATOR | disease), stage III | | [...] | | Lisset Littlejohn, TABITHA | Other ([facility] | | 2018 | on Only [...] whether | | | | | | [place] or | | | | | | [...] | | | | | | involving [place] | | | | | | coronary artery of | | | | | | [place] heart with | | | | | [...] | 2017 | Visit | | | ([facility]) (Primary Dx); | | | | | [...] | | | Maya, | | | BITUMEN PLANT OPERATOR - | | | 09/10/2017 | [...] | | | Sloot, | | | BITUMEN PLANT OPERATOR Anest | | | hesia: | [...] | | regularSKIN | | | : [place], | | | warm, dry | | [...] | | Maya | | | Sloot, BITUMEN PLANT OPERATOR | | | in 2 | [...] | | | [place], | | | [id number] | | | [address], [place] | | | [address] | | | n [place] | | | [phone] | | | [phone] | | | dayslab, | | | vital | | | signs, and | | | medication | | | review post | | | | | | surgeryKADL | | | [facility] | | | VASCULAR | | | [id number] | | | [address] | | | Dr Chandan | | | [place] | | | Gaitan | | | [address] | | | [phone] | | | post op | | [...] | 2017 | Visit | | | ([facility]) (Primary Dx); | | | | | [...] | | | | | | [place] [address] | | | | | | [phone] | | | | | | | [...] [place] | | | | | | [address] | | | | | | | [...] Bryan | [place] | | 03/11/ | [id number] | | 2.3p47-6405/15/2017Implanted: | | ry | SCIENTIFIC | | 2017 | [id number] | | Qty: 1 on 05/15/2017 by | | | CORPORATION | | | 50 / | | Duong Cabello MD | | | | | | /[id number] | | | | | | | | 217 | + +-------+--------+ +--------+--------+--------+ | Synergy Lui | Stent | Bryan | [place] | | 02/19/ | [id number] | | [id number]/15/2017Implanted: | | ry | SCIENTIFIC | | 2017 | [id number] | | Qty: 1 on 05/15/2017 by | | | CORPORATION | | | 00 / | | Duong Cabello MD | | | | | | /[id number] | | | | | | | | 409 | + +-------+--------+ +--------+--------+--------+ | Synergy Lui | Stent | Bryan | [place] | | 03/10/ | [id number] | | 2q85-4605/15/2017Implanted: | | ry | SCIENTIFIC | | 2017 | [id number] | | Qty: 1 on 05/15/2017 by | | | CORPORATION | | | 00 / | | Duong Cabello MD | | | | | | /[id number] | | | | | | | | 102 | + +-------+--------+ +--------+--------+--------+ | [place] Lui 2.5 X | Stent | Bryan | [employer] | | 03/26/ | [id number] | | 15-06/19/2017Implanted: | | ry | | | 2019 | [id number] | | 06/19/2017 by Duong Cabello, | | | | | | / | | MD (Quantity not on file) | | | | | | /[id number] | | | | | | | | [address] | + +-------+--------+ +--------+--------+--------+ | Xgrft Vascu-Guard Ptch 0.8x8 | | Left: | EVA | | 09/09/ | VG-010 | | - [id number]: Qty: 1 | | Caroti | BIOSCIENCE | | 2021 | 8N / | | on 04/29/2017 by Maximo Landry, | | d | - TRINITYB | | | /[id number] | | MD | | | | | | [id number] | | | | | | | | 010 | + +-------+--------+ +--------+--------+--------+ | Xgrft Vascu-Guard Ptch 0.8x8 | | Right: | EVA | | 05/14/ | VG-010 | | - [id number]: Qty: 1 | | | BIOSCIENCE | [...] LABORATORY [place] | | | [address] | + + + Urinalysis (reflex to [...] + | Urine | [facility] [address], [address] [place], [place] | | | [address] | + + + + + | [...] + + | Blood | [facility] [address] [place], [place] [address] | | | [address] | + + + PTH intact no calcium (10/14/2017 1:55 PM) + +-------+ + | Component | Value | Ref Range | + +-------+ + | PTH INTACT NO | 58.81 | 15 - 65 pg/mL | | CALCIUM | | | + +-------+ + + + + | Specimen | Performing Laboratory | + + + | Blood | [facility] [address] | | | [address] | + + + Magnesium (10/14/2017 1:55 PM) + +-------+ + | Component | Value | Ref Range | + +-------+ + | MAGNESIUM | 1.8 | 1.7 - 2.5 mg/dL | + +-------+ + + + + | Specimen | Performing Laboratory | + + + | Blood | [facility] [address] [place] [address] 13 [place], [place] | | | [id number] | + + + Renal function panel [...] | + + + | Blood | [facility] [address] [place] [address], [place] [address] [place], [place] | | | [address] | + + + EKG STANDARD 12 [...] + + + + | Calculated R Cathay | 35 | degrees | + + + + | Calculated T Cath[place] | -35 | degrees | + + [...] Interpretation.Confirmed by ICA | | | | Lanett Read Only, NORM Ghosh ([id number]), primer expeditor and drier | | | | Mayito Felder ([id number]) on 10/03/2017 9:36:58 | | | | AM | | + + + + + + + | Specimen | Performing Laboratory | + + + | | [facility] [address] [place] [address] | + + + US carotid doppler, bilateral (09/24/2017 1:26 PM) + + + | Specimen | Performing Laboratory | + + + | | [address] [address] | + + + + + | [...] - 09/24/2017 2:49 PM PST MARYJO Kendall [id number] years | | FemaleUS CAROTID DOPPLER, BILATERAL09/24/2017 [...] | | | | 1.210.Testing performed at [facility], [address] | | | | [place] [address] | | | | | | + + + + + + + | Specimen | Performing Laboratory | + + + | Blood | [facility] [address] [place], | | | [place] [address] | + + + Type and Screen (Blood Bank) (09/09/2017 6:55 AM) + + + + | Component | Value | Ref Range | + + + + | ABO/RH(D) | O POSITIVE | | + + + + | ANTIBODY SCREEN | NEGATIVE | | + + + + | ARM BAND NUMBER | [id number] performed at [facility] [place] [place] [address] | | | | [place] [address] | | | | | | + + + + + + + | Specimen | Performing Laboratory | + + + | Blood | [facility] [address] [place] [address] | + + + Pathology histology - tissue (09/09/2017) + + + | Specimen | Performing Laboratory | + + + | Tissue - Soft | [facility] | | Tissue, Other | [...] sections reveal areas of calcification. | | Adult Basic Education Instructor sections are submitted in cassette A1. (The [...] technical | | preparation was performed by [employer], [facility], [address] | | [place] [address] (Ambulance Officer: Darryn Maciel M.D.; | | DARRELL#: [id number]). Diagnostician: Salome Wan MD Pathologist Electronically | [...] | Self | [birth year] | Home: | [address] | | | al/Fam | | [phone] | [phone] | [place] [address] | | | devika | | | [phone] | | + +--------+ +--------+ + +
--- OUTSIDE RECORDS SUMMARY | ~2017-11-16 | XMS | Encounter Summary ---
Demographics + + + | Address | [address] | | | [place] [address] | + + + | Home Phone | | + + + | Preferred Language | Unknown | + + + | Marital Status | | + + + | Hoahaoism Affiliation | 1077 | + + + | Race | Unknown | + + + | Ethnic Group | Unknown | + + + Author + + + | Author | [employer] | + + + | Organization | [facility] | + + [...] Team Providers + +------+ + | Care Roving Court Reporter Name | Role | Phone [...] + + | 08/18/ | Ancillary | [facility] | See, Medical | Diagnosis unknown | | 2018 | [facility] | [facility] CT | Record | | | | | [address] | | | | | | [place] [address] | | | | | | [phone] | | | +--------+ + + + [...] | | | | | | [place] [address] | | | | | | [phone] | | | | | | | [...] [place] | | | | | | [address] | | | | | | | | +--------+ + + + + as of this encounter Results CTA head neck W WO IV contrast (08/13/2017 5:35 PM) + + + | Specimen | Performing Laboratory | + + + | | [facility] [address] [place] [address] | + + + + + | Narrative | + + | This is a non-reportable procedure without a radiologist report and is used for | | image storage only | + + CT head without contrast (08/13/2017 5:32 PM) + + + | Specimen | Performing Laboratory | + + + | | [address] [address] | + + + + + | [...]
--- OUTSIDE RECORDS SUMMARY | ~2017-11-16 | XMS | Encounter Summary ---
Demographics + + + | Address | [address] | | | [place] [address] | + + + | Home Phone | | + + + | Preferred Language | Unknown | + + + | Marital Status | | + + + | Jain Affiliation | 1077 | + + + | Race | Unknown | + + + | Ethnic Group | Unknown | + + + Author + + + | Author | [employer] | + + + | Organization [...] Providers + +------+ + | Care Chief Of Party Name | Role | Phone | + +------+ + | Danilo Roman MD | PCP | | + +------+ + Encounter Details +--------+ + + + + | Date | Type | Department | Care Team | Description | +--------+ + + + + | 08/18/ | Procedure | [facility] | | | | 2017 | Pass | [facility] | | | | | | RADIOLOGY [address] | | | | | | [address] | | | | | | [place] [address] | | | | | | [phone] | | | +--------+ + + + [...] | | | | | | [place] [address] | | | | | | [phone] | | | | | | | [...] [place] | | | | | | [address] | | | | | | | | +--------+ + + + + as of this encounter Visit Diagnoses Not on filein this encounter"
--- OUTSIDE RECORDS SUMMARY | ~2017-11-16 | XMS | Encounter Summary ---
Demographics + + + | Address | [address] | | | [place] [address] | + + + | Home Phone | | + + + | Preferred Language | Unknown | + + + | Marital Status | | + + + | Buddhism Affiliation | 1077 | + + + | Race | Unknown | + + + | Ethnic Group | Unknown | + + + Author + + + | Author | [employer] | + + + | Organization [...] Team Providers + +------+ + | Care Mangle Feeder Name | Role | Phone | + [...] + + | 09/09/ | Surgery | [facility] | Maximo Landry MD | ENDARTERECTOMY - | | 2017 | [facility] | [address] | CAROTID | | | | Operating Room [address] | [place] [address] | | | | | [address] | [phone] | | | | | [place] [address] | | | | | | [phone] | | | +--------+---------+ + + + [...] note may be different from the original. [facility] Service: Vascular Surgery Discharge Summary [...] pericardial patch angioplasty Surgeon: Maximo Landry MD Tape Recording Machine Operator(s): MARY George Anesthesia: General endotrachial anesthesia [...] PONV (postoperative nausea and vomiting) 05/2017 Stroke ([facility]) 08/13/2017 Urinary urgency wears pad UTI (urinary [...] - CAROTID; Surgeon: Maximo Landry MD; Location: [facility] MAIN OR; Se rvice: Vascular; [...] CV: No peripheral edema, rate regular SKIN: [place], warm, dry without rash/lesion MS: ROM not [...] Follow up: Danilo Roman MD [address] [facility] [place] [address] In 3 days lab, vital signs, and medication review post surgery [facility] VASCULAR SURGERY [address] [...] eye Trouble speaking Trouble breathing Trouble swallowing [address] [place] [address]. All rights reserve d. This information is [...] | | | | | | [place] [address] | | | | | | [phone] | | | | | | | [...] [place] | | | | | | [address] | | | | | | | [...] | | | NORMALComment: Testing performed at [facility], | | | | [address] [place] | | | | [address] | | + + + + + + + | Specimen | Performing Laboratory | + + + | Blood | [facility] [address] [place] [address] Blvd. [place], | | | [place] [address] | + + + Basic metabolic panel [...] | | | | 1.210.Testing performed at [facility], [address] | | | | [place] [address] | | | | | | + + + + + + + | Specimen | Performing Laboratory | + + + | Blood | [facility] [address] [place] [address] [address]vd. [place], | | | [place] [address] | + + + Type and Screen (Blood Bank) (09/09/2017 6:55 AM) + + + + | Component | Value | Ref Range | + + + + | ABO/RH(D) | O POSITIVE | | + + + + | ANTIBODY SCREEN | NEGATIVE | | + + + + | ARM BAND NUMBER | [id number] performed at [facility] [place];[address] [place] [address] | | | | Blvd;[place] [address] | | | | | | + + + + + + + | Specimen | Performing Laboratory | + + + | Blood | [place] [address] [place] [address] | + + + Pathology histology - tissue (09/09/2017) + + + | Specimen | Performing Laboratory | + + + | Tissue - Soft | [facility] | | Tissue, Other | [...] sections reveal areas of calcification. | | Flat Bed Operator sections are submitted in cassette A1. [...] technical | | preparation was performed by [employer], [facility], [address] | | [place] [address] (Clinical Radiologist: Darryn Maciel M.D.; | | [facility]#: [id number]). Diagnostician: Salome Wan MD Pathologist Electronically | [...]
--- OUTSIDE RECORDS SUMMARY | ~2017-11-16 | XMS | Encounter Summary ---
Demographics + + + | Address | [address] | | | [place] [address] | + + + | Home Phone | | + + + | Preferred Language | Unknown | + + + | Marital Status | | + + + | Mosque Affiliation | 1077 | + + + | Race | Unknown | + + + | Ethnic Group | Unknown | + + + Author + + + | Author | [email or web address] | + + + | Organization | [facility] | + + + [...] Team Providers + +------+ + | Care Sports Physical Therapist Name | Role | Phone | [...] + + | 08/18/ | Hospital | [facility] | See, Medical | Diagnosis unknown | | 2017 | Encounter | [facility] | Record | | | | | RADIOLOGY [address] | | | | | | [address] [facility] | | | | | | [place] [address] | | | | | | [phone] | | | +--------+ + + + [...] | | | | | | [place] [address] | | | | | | [phone] | | | | | | | [...] [place] | | | | | | [address] | | | | | | | | +--------+ + + + + as of this encounter Results MRI brain without contrast (08/14/2017 5:37 PM) + + + | Specimen | Performing Laboratory | + + + | | [facility] [address] [place] [address] | + + + + + | [...]
--- OUTSIDE RECORDS SUMMARY | ~2017-11-16 | XMS | Encounter Summary ---
Demographics + + + | Address | [address] | | | [place] [address] | + + + | Home Phone | | + + + | Preferred Language | Unknown | + + + | Marital Status | | + + + | Hindu Affiliation | 1077 | + + + | Race | Unknown | + + + | Ethnic Group | Unknown | + + + Author + + + | Author | [employer] | + + + | Organization [...] Team Providers + +------+ + | Care Animal Laboratory Helper Name | Role | Phone | [...] + + | 08/29/ | Hospital | [facility] | Maximo Landry MD | | | 2018 | Encounter | [facility] | [address] | | | | | Preadmission | [place] [address] | | | | | Services [address] | [phone] | | | | | Blvd [place], [place] | | | | | | [phone] | | | +--------+ + + + [...] Trouble breathing Trouble swallowing Date Last Reviewed: 12/31/201419997601-4679 [employer]. [address] [place] [address], [place] [address]. All righ ts reserved. This information is [...] | | | | | | [place] [address] | | | | | | [phone] | | | | | | | [...] [place] | | | | | | [address] | | | | | | | [...] BASOPHILS ABS | 0.05Comment: Testing performed at [facility], [address] | 0.00 - 0.10 [address] | | | [place] [address] | | + + + + + + + | Specimen | Performing Laboratory | + + + | Blood | [facility] [address] [place], | | | [place] [address] | + + + in this encounter Visit Diagnoses Not on filein this encounter
--- OUTSIDE RECORDS SUMMARY | ~2017-11-16 | XMS | Encounter Summary ---
Demographics + + + | Address | [address] | | | [place] [address] | + + + | Home Phone | | + + + | Preferred Language | Unknown | + + + | Marital Status | | + + + | Mormon Affiliation | 1077 | + + + | Race | Unknown | + + + | Ethnic Group | Unknown | + + + Author + + + | Author | [employer] | + + + | Organization [...] Team Providers + +------+ + | Care Dynamicist Name | Role | Phone | + [...] + + | 08/28/ | Office | [facility] | Maximo Landry MD | Ischemic stroke | | 2018 | Visit | Vascular Surgery | [address] | (HCC) (Primary Dx); | | | | [address] | [place] [address] | Carotid artery | | | | [place], [place] | [phone] | stenosis, | | | | [address] | | symptomatic, right | | | | [phone] | | | +--------+---------+ + + + [...] - CAROTID; Surgeon: Maximo Landry MD; Location: [facility]; Se rvice: Vascular; Laterality: [...] | | | | | | [place] [address] | | | | | | [phone] | | | | | | | [...] [place] | | | | | | [address] | | | | | | | [...]
[~2017-11-16 13:30] MED LIST changes: +NORCO 10-325 T1 EACH PO
[2017-11-16] MEDS ORDERED: NORVASC5 MG PO (13:44)
--- NOTE | 2017-11-16 19:35 | NUR ---
PATIENT ARRIVED AT 1620 FROM ER WITH BROKEN RT HUMEROUS. ADMITTED FOR ANEMIA AND PAIN CONTROL. PATIENT HAS BRUISING ACROSS HER UPPER CHEST AND ALL DOWN HER RIGHT ARM. VS STABLE EXCEPT NEED FOR 2L/NC TO KEEP SATS ABOVE 95% FROM IV DILAUDID GIVEN IN ER AND SHOLLOW BREATHING DUE TO PAIN. PATIENT ARRIVED WITH 24G IV IN THE LEFT HAND. I LITER LR BOLUS GIVEN AND THEN LR AT 75MLS AN HOUR VIA PUMP. PATIENT MEDICATED FOR 8/10 PAIN AFTER TURNING HER TO PLACE PATIENT IN A SHOULDER IMMOBILIZER. IN TO SEE PATIENT AND DISCUSS PLAN OF CARE WITH PATIENT AND FAMILY. DUE TO A LOW HEMAGLOBIN NURSING ELECTRON BEAM PHOTO MASK TECHNICIAN WAS ASKED TO COME AND TRY TO GET A LARGER IV CATHETER PLACED IN CASE IT WAS NEEDED FOR REAL ESTATE SALES SUPERVISOR, ELECTRON BEAM PHOTO MASK TECHNICIAN STILL COMING TO PERFORM THIS ACTION. BRE RN GIVEN REPORT. PATIENT HAD TO HAVE A SPPOSITORY TO PREVENT CONSTIPATION JUST PRIOR TO END OF SHIFT AND CONSTANCE HAMMER WAS PRESENT WHEN THIS WAS DONE. PATIENT'S PAIN TO 4/10 AFTER PAIN MEDS GIVEN.
--- NOTE | 2017-11-16 20:19 | NUR ---
up to brp earlier, hada bm, back to sitting on edge of bed, talking via phone with relatives. R shoulder immobilizer in place, moevs hand/fingers well, ivf infusing w/o problems. Medicated with Oxycodone 7.5mg po c/o 02/27 r arm pain
--- NOTE | 2017-11-16 22:00 | NUR ---
Resting, R arm sling immobilizer in place, good CMS, awakes to sound. Meds held at this time as per family. Family in room
--- NOTE | 2017-11-17 01:40 | NUR ---
R arm sling in place, resting, awakens to sound, no c/o pain, call light at bedside, gfamily in room
--- NOTE | 2017-11-17 02:42 | NUR ---
Pt awake, up to brp with 1 SBA, voided dark yellow urine and had a small bm, back to bed. R arm immobilizer in place, good cms, bruising of left scapular area, right and left frontal breast area and r arm present. Coreg help, Eliquis given at this time as per pt request. Medicated with Oxycodone 7.5mg po c/o 11/27 pain. 0200 scheduled dosage, 0 dosage was held as pt was too drowsy and she had been medicated at 2019 with PRN 7.5mg Oxycodone dose Pt tolerating liquids and had some jello at her requests, Helps with repositioning
--- NOTE | 2017-11-17 04:23 | NUR ---
Awake, 1/10 r arm pain, r arm in sling, good cms, ivf infusing, call light at bedside, tolerating fluids, no c/o n/v
--- NOTE | 2017-11-17 05:10 | NUR ---
MEDICATED WITH OXYCODONE 7.5 C/O 4/10 R ARM PAIN. SLING IN PLACE, GOOD CMS, PT ABLE TO MOVE FINGERS WELL. IVF INFUSING W/O PROBLEMS. JELLO GIVEN ON REQUEST
--- NOTE | 2017-11-17 07:45 | NUR ---
PATIENT RESTING IN BED WITH FAMILY SLEEPING ON COUCH. PATIENT RATES HER PAIN A 4 OUT OF 10 AND ASKED FOR PAIN MEDICATION. PATIENT APEARES TO BE ANNOYED AND WOULD LIKE TO BE LEFT ALONE. NO OTHER NEEDS AT THIS TIME.
--- NOTE | 2017-11-17 08:03 | NUR ---
PT CALL LIGHT ON. PT REQUESTS PAIN MEDICATION FO 12/28 PAIN. THIS RN TO BEDSIDE. PAIN MEDICATION GIVEN. PT UP TO RESTROOM AND BACK TO BED. EATING BREAKFAST WHILE SITTING ON EDGE OF BED. ASSESSEMENT DONE. CMS INTACT IN RIGHT ARM. SOME CRACKLES NOTED IN LOWER LOBS OF LUNGS, CLEAR AFTER COUGH. MEDICATION GIVEN ORDERED. DAUGHTER AT BEDSIDE. BED RAILS UP. CALL LIGHT WITHIN REACH. PULSE OX ON, MONITOR TRANSFERED TO FINGER OF RIGHT HAND.
--- NOTE | 2017-11-17 09:47 | NUR ---
PATIENT RESTING IN BED, FAMILY IN ROOM. CALL LIGHT IN REACH. FRESH ICE WATER ON BEDSIDE TABLE. NO OTHER NEEDS AT THIS TIME.
--- NOTE | 2017-11-17 10:23 | NUR ---
PULSE OX MONITOR ALARMING. THIS RN TO BEDSIDE. MONITOR READS 86%. PULSE OXIMITER PROBE CHANGED. SATURATION READING AT 91%. O2 INCREASED TO 2L O2 NC. MONITOR READS 97%. PT STATES SHE HAS NO REQUESTS OR COMPLAINTS AT THIS TIME. CALL LIGHT WITHIN REACH. BED RAILS UP.
--- NOTE | 2017-11-17 10:30 | NUR ---
SPOKE AT LENGTH WITH PATIENT AND DAUGHTERS IN ROOM. PATIENT VERY "MAD" THAT SHE FELL. SHE STATES SHE JUST GOT RELEASED FROM [facility] AND IS ABLE TO DRIVE AGAIN AFTER HER CVA AND POST ENDARECTOMY. SHE STATES SHE TRIPPED ON SOMETHING ON THE FLOOR IN HER GRANDSONS ROOM. WE DISCUSSED THAT THIS RECOVERY SHOULD BE LESS CHALLENGING. SHE DOES NOT WANT TO DO THERAPY AGAIN. I DISCUSSED AT LENGTH WHY OT AND PT MIGHT BE NECESSARY TO BE SURE SHE IS SAFE AND CAN DO HER OWN ADL'S. DAUGHTERS ARE IN AGREEMENT WITH THIS AND AFTER THEY REASSURRED HER, SHE AGREED TO MOVE FORWARD. SHE STATES SHE WANTS TO GO HOME HUMBERTO. PT STATES PAIN IS BETTER CONTROLLED TODAY. QUESTIONS ANSWERED FROM FAMILY AND PATIENT.
--- NOTE | 2017-11-17 11:06 | NUR ---
PT REQUESTS ADDITIONAL PAIN MEDICAITON FOR 12/28 PAIN. PT ALSO STATES HER SHOULD AND NECK MUSCLES ARE TIGHT AND SHE WOULD LIKE SOME ICE. SEE MAR FOR MEDICAITON GIVEN. PT REMAINS ON 2L O2. ICE PACK GIVEN PER REQUEST. PT VISITING WITH FRIENDS AND FAMILY. NO ADDITIONAL REQUESTS OR COMPLAINTS AT THIS TIME. CALL LIGHT WITHIN REACH. BED RAILS UP.
--- NOTE | 2017-11-17 12:08 | NUR ---
THIS COMMERCIAL LITIGATION ASSOCIATE WALKED IN TO THE PATIENT'S ROOM. PATIENT SAID "GO AWAY AND LEAVE ME ALONE NOW." DAUGHTER STATES THAT THE PATIENT DID VOID. THIS COMMERCIAL LITIGATION ASSOCIATE FOUND A JULIANNE PAD IN THE BEDSIDE COMODE BUCKET SATURATED WITH FOUL SMELLING URINE. PATIENTS DAUGHTER STATED THAT SHE'S NEVER SEEN HER MOTHER IN THIS MUCH PAIN. NO NEEDS AT THIS TIME. RN NOTIFIED.
--- NOTE | 2017-11-17 12:18 | NUR ---
THIS RN TO BEDSIDE TO CHECK ON PT. FOCUSED ASSESSEMENT DONE. PT REPORTS [facility] "BECAUSE I DIDNT' WANT TO CALL." FALL PREVENTION POLICY AND SAFETY REVIWED WITH PT. PT VERBALIZES UNDERSTANDING AND AGREES TO CALL IN THE FUTURE. PT REQUESTS NAP TIME AND "TO BE LEFT ALONE" FOR A TIME. PT NOW REPORTING 3/10 PAIN IN SHOULDER. NAP TIME SIGN PLACED ON DOOR. DAUGHTER AT BED SIDE. PULSE OX ON. PT WEANED TO 1 L O2. MAINTAINING O2 SATURATON ABOVE 95%. BED RAILS UP. CALL LIGTH WITHIN [facility]. BED ALARM ON.
--- NOTE | 2017-11-17 14:06 | NUR ---
PAIN MEDICATION DUE. THIS RN TO BEDSIDE. PT REPORTS 2/10 PAIN THAT IS "MUCH BETTER AFTER MY NAP." PT AGREES TO WORK WITH PHYSICAL THERAPY. PT WOULD LIKE TO USE COMODE. [facility] AND [facility]. O2 REMAINS IN USE DURING TRANSFER. O2 SATURATIONS 92-98%. URINE CONTINUES TO HAVE A FOUL ODER. INFORMED. PT DENIES PAIN WITH URINATION. BED RAILSUP. CALL LIGHT WITHIN REACH. BED ALARM ON.
--- NOTE | 2017-11-17 14:11 | NUR ---
PATIENT SITTING UP ON THE BSC. THIS GREEN MEAT PACKER IN ROOM WITH THE PATIENT'S DAUGHTER IN ROOM. KNOCKED AND STATED THAT HE WILL COME BACK. PATIENT'S DAUGTER STATED THAT SHE NEEDS TO HAVE A GOOD TALK WITH HIM THEN ASKED THE PATIENT IF THE RN UBALDO HAD GIVEN HER PAIN MEDICATION JUST NOW. PATIENT SAID YES. THEN THE PATIENTS DAUGHTER PICKED UP HE PHONE AND SAID THAT SHE IS BETTER START WRITING THINGS DOWN. PATIENT BACK TO BED WITH ONE PERSON ASSIST. PATIENTS DAUGHTER ASSISTED WITH PULLING THE PATIENTS PANTS BACK UP. PATIENT LAYING ONTO LEFT SIDE WITH PILLOW BEHIND HER BACK. PATIENT STATED THAT GETTING UP AND BACK TO BED WAS MUCH BETTER THIS TIME THEN LAST DUE TO SHE ISN'T IN PAIN MUCH BEFORE. PATIENT RATES HER PAIN A 4 OUT OF 10. BED ALARM ON. FRESH ICE FOR PATIENT'S SODA BROUGHT IN. NO OTHER NEEDS AT THIS TIME.
--- NOTE | 2017-11-17 17:29 | NUR ---
EVENING MEDICATIONS AND ASSESSMENT DUE. THIS RN TO BEDSIDE. PT REQUESTS ASSISTANCE TO REPOSITION FOR DINNER. PT BOOSTED UP IN BED AND SITTING UP FOR DINNER. ASSESSMENT DONE. MEDICATION GIVEN ORDERED. PT REFUSES MIRLAX BUT ACCEPTS SENNA. PT REPORTS IMPROVED PAIN NOW AT 4/10 BUT WANTS TO TAKE PAIN PILL TO MANAGE PAIN. BED RAILSUP. CALL LIGHT WITHIN REACH. DAUGTHER AT BEDSIDE. PT STATES SHE HAS NO REQUESTS OR COMPLAINTS AT THIS TIME. BE ALARM ON.
--- NOTE | 2017-11-17 17:46 | NUR ---
PT HERE FOR RIGHT SHOULDER AND ARM FX. PRN AND SCHEDULED PAIN MEDICAITONS. PAIN IMPROVED TODAY 0-12/28. CARDIAC DIET. 1 PERSON ASSIST. PT DOES NOT USE CALL LIGHT CONSISTANTY. PIV IN LH, SL. 2L O2 NC IF NEEDED WHILE SLEEPING. PHYSICAL THERAPY INVOVLVED TO BUILD UP STRENGTH. DAUGHTER AT BEDSIDE.
--- NOTE | 2017-11-17 18:23 | NUR ---
PATIENT SITTING UP IN BED, FAMILY IN ROOM. PATIENT STATES PAIN IS AT A 3 OUT OF 10. PATIENT CALL LIGHT IN REACH. NO OTHER NEEDS AT THIS TIME.
--- NOTE | 2017-11-17 18:47 | NUR ---
this TECHNICAL ASSISTANT assisted patient up to bathroom with one person assist. Patient wiped down with bed bath wipes but did not change into clean gown due to pain. This TECHNICAL ASSISTANT and CONSTANCE Guallpa two person assisted patient back to bed due to patient feeling shakey. Patient resting in bed, call light in reach, fresh ice water at bedside table. No other needs at this time.
--- NOTE | 2017-11-17 19:35 | NUR ---
BEDSIDE REPORT RECEIVED FROM MERCEDEZ CONNER. PT IS AWAKE, LYING IN BED, SLING ON RIGHT ARM. SPO2 96% ON RA, HR 77. BED ALARM ON. NO REQUESTS AT THIS TIME. PT'S DAUGHTER IN ROOM.
--- NOTE | 2017-11-17 20:14 | NUR ---
CALL LIGHT ANSWERED, SBA WITH FWW TO RESTROOM FOR VOID. PT BACK TO BED, SCDS, HEEL PROTECTORS IN PLACE. PT C/O 01/27 PAIN IN LEFT HIP, PRN NORCO ADMINISTERED. CRYO CUFF ON LEFT HIP. CRACKERS PROVIDED REQUESTED. PT HAS CALL LIGHT IN REACH.
--- NOTE | 2017-11-17 20:15 | NUR ---
BEDSIDE REPORT RECEIVED FROM MERCEDEZ COMBS. PT SLEEPING IN CHAIR AT THIS TIME, EYES CLOSED, BREATHING NON-LABORED, CRYO CUFF ON LEFT HIP. NO IV ACCESS. CALL LIGHT ON LAP.
--- NOTE | 2017-11-17 21:00 | NUR ---
PT ASSESSMENT COMPLETE. BRUISING NOTED ALONG RIGHT SIDE, BUE, BLE, RIGHT ARM IN SLING. PT RATES PAIN 8/10 AT THIS TIME, SCHEDULED OXYCODONE ADMINSITERED, SCHEDULED TYLENOL. CSM INTACT BUE, BLE. PT IS ALERT AND ORIENTED. LUNGS CLEAR THROUGHOUT ALL LOBES. BOWEL TONES ACTIVE X 4. SBA TO BSC FOR VOID, PT UNSTEADY ON FEET. BACK TO BED, CALL LIGHT IN REACH, ICE WATER PROVIDED. 98% ON ROOM AIR.
--- NOTE | 2017-11-17 21:20 | NUR ---
MD ZENDEJAS FOR NO IV ACCESS IV DOES NOT FLUSH WNL, PULLED BY PT FROM SITE. CATHETER D/C'D WNL. PT EDUCATION PROVIDED.
--- NOTE | 2017-11-17 23:12 | NUR ---
CALL LIGHT ANSWERED, PT C/O 04/29 PAIN IN RIGHT SHOULDER, PRN OXYCODONE ADMINISTERED FOR PAIN. CALL LIGHT IN REACH.
--- NOTE | 2017-11-18 01:01 | NUR ---
CHECKED ON PT, PT APPEARS TO BE SLEEPING, SPO2 91% ON ROOM AIR. EYES CLOSED, LIGHTS OFF IN ROOM. PT LYING ON LEFT SIDE. BREATHING IS NON-LABORED.
--- NOTE | 2017-11-18 02:07 | NUR ---
PT AWAKENS BY RN VOICE FOR SCHEDULED OXYCODONE ADMINISTRATION, RATES PAIN 2/10 AT THIS TIME IN RIGHT SHOULDER. CSM INTACT BUE, RIGHT RADIAL PULSE FAINT. LUNGS CLEAR, DIMINISHED THROUGHOUT ALL LOBES, HR IRREGULAR RHYTHM. PT HAS NO REQUESTS AT THIS TIME, LIGHTS OFF IN ROOM. CALL LIGHT IN REACH, DAUGHTER SLEEPING ON COUCH.
--- NOTE | 2017-11-18 03:09 | NUR ---
CALL LIGHT ANSWERED, 1PA TO BSC FOR 300 ML VOID AND BACK TO BED, PT REFUSES ICE PACK FOR SHOULDER. LIGHTS OFF IN ROOM, CALL LIGHT, PERSONAL SUPPLIES IN REACH, NO ADDL REQUESTS.
--- NOTE | 2017-11-18 04:49 | NUR ---
CSM INTACT BUE, BLE. PAIN MANAGED WITH SCHEDULED AND PRN OXYCODONE, SCHEDULED TYLENOL. PT ON ROOM AIR, CONT. PULSE OX IN PLACE. 1PA TO BSC FOR VOIDS THROUGHOUT NIGHT. RIGHT ARM IN SLING. PT USING CALL LIGHT APPROPRIATELY. NO IV ACCESS.
--- NOTE | 2017-11-18 05:10 | NUR ---
PT AWAKE, LYING IN BED, RATES PAIN 3/10, REQUESTING PRN PAIN MEDICATIONS, PRN OXYCODONE 7.5 MG ADMINISTERED FOR RIGHT SHOULDER PAIN. RIGHT ARM IN BRACE. SBA TO BSC FOR VOID. BACK TO BED, PT GIVEN ORANGE JUICE AND ICE WATER REQUESTED. CALL LIGHT IN REACH, NO ADDL REQUESTS.
--- NOTE | 2017-11-18 07:43 | NUR ---
MORNING ASSESSMENT AND MEDICATIONS DUE. THIS RN TO BEDSIDE. PT RESTING WITH EYES CLOSED, AWAKENS WHEN THIS RN ENTERS ROOM. PT REPORTS 4/10 PAIN WITH SOME TINGLING IN HER HAND. ASSESSMENT DONE. MEDICATIONS GIVEN ORDERED (SEE MAR). PT REPORTS THAT HER "PAIN WAS BETTER LAST NIGHT." DAUGHTER AT BEDSIDE, SNORING. PT STATES SHE HAS NO ADDITIONAL REQUESTS OR COMPLAINTS AT THIS TIME. BED RAILSUP. CALL LIGHT WITHIN REACH. BED ALARM ON.
--- NOTE | 2017-11-18 10:00 | NUR ---
PATIENT UP TO BATHROOM WITH ONE PERSON ASSIST. THIS CITY SUPERVISOR ASSISTED PATIENT WITH BED BATH SKIN CARE AND GOWN CHANGE. PATIENTS LEFT AND RIGHT BREAST BRUISED. JULIANNE CARE DONE. RODRÍGUEZUGHER STATED THAT SHE HAD ORAL CARE THIS AM. PATIENT'S URINE WAS STRONG SMELLING AND CONSINTRATED. THIS CITY SUPERVISOR ENCOURAGED THE PATIENT TO DRINK MORE FLUIDS AND THE RISK OF A UTI. PATIENT AND DAUGHETER AGREED. PATIENT SITTING UP IN CHAIR WITH PILLOW UNDER RIGHT ARM AND FEET ELEVATE. PATIENT RATES HER PAIN A 7 OUT 10. PATIENT IS HAVING A HARD TIME STAYING AWAKE. RN NOTIFIED AND IN ROOM TO SEE PATIENT. CALL BUTTON RELEASE. NO OTHER NEEDS AT THIS TIME.
--- NOTE | 2017-11-18 10:24 | NUR ---
THIS RN TO BEDSIDE TO CHECK ON PT. PT UP TO CHAIR. FINISHED WITH ADL'S. PT REPORTING 7/10 PAIN BUT WOULD LIKE TO WAIT UNTIL 11:00 FOR PAIN MEDICAITON, "I WANT TO STAY ON THE CURRENT SCHEDULE." ICE PACK PROVIDED. BP RETAKEN. PT REPORTS NO ADDITIONAL REQUESTS OR COMPLAINTS AT THIS TIME. CALL LIGHT WITHIN REACH. DAUGHTER AT BEDSIDE.
--- NOTE | 2017-11-18 10:45 | NUR ---
THIS RN TO BEDSIDE. PT UP TO CHAIR. CONTINUES TO REPORT 7/10 SHOULDER PAIN. PRN PAIN MEDICATION GIVEN, 5MG DOSE PER PT TOLERANCE AND REQUEST. PT RESTING WITH EYES CLOSED, RR = 14BPM. PT STATES SHE HAS NO ADDITIONAL REQUESTS OR COMPLAINTS AT THIS TIME. CALL LIGHT WITHIN REACH.
--- NOTE | 2017-11-18 12:14 | NUR ---
FOCUSED ASSESSMENT DUE. THIS RN TO BEDSIDE. PT EATING LUNCH. REPORTS IMPROVED PAIN NOW AT 2/. PT STATES SHE IS "COMFORTABLE" AT THIS TIME IN CHAIR. FOCUSSED ASSESSMENT DONE. DAUGHTER REMAINS AT BEDSIDE. PT STATES SHE HAS NO REQUESTS OR COMPLAINTS AT THIS TIME. CALL LIGHT WITHIN REACH.
--- NOTE | 2017-11-18 14:11 | NUR ---
PT CALL LIGHT ON. PT WOULD LIKE HER PAIN MEDICATION. PT BACK TO BED AFTER WORK WITH PHYSICAL THERAPY. PT REPORTING 3/10 PAIN. PT APPEAR OVERWHELMED AND TIRED. PT WOULD LIKE "THE NAPTIME SIGN" PUT BACK IN PLACE SO SHE CAN HAVE SOME "QUITE TIME." NAP TIME SIGN PLACED ON DOOR. PAIN MEDICATION GIVEN (SEE MAR). PT RESTING IN BED. BED ALARM ON. CALL LIGHT WITHIN REACH. DAUGHTER AT BEDSIDE.
--- NOTE | 2017-11-18 14:19 | NUR ---
PATIENT RESTING IN BED WITH DAUGHTER IN ROOM. RN IN ROOM TO PASS MEDS. FRESH ICE WATER AND ICE PACK FOR RIGHT SHOULDER GIVEN. CALL BUTTON IN REACH. PATIENT WOULD LIKE TO REST. NO OTHER NEEDS AT THIS TIME.
--- NOTE | 2017-11-18 14:51 | NUR ---
MEDICATION DUE. THIS RN TO BEDSIDE. PT OPENS EYES WHEN THIS RN ENTERS ROOM. MEDICATION GIVEN ORDERED PT RESTING WITH EYES CLOSED, RR = 15 BPM. NO REQUESTS OR COMPLAINTS AT THIS TIME. BED ALARM ON. CALL LIGHT WITHIN REACH. BED RAILS UP.
--- NOTE | 2017-11-18 16:51 | NUR ---
Patient resting in bed. Fresh ice water on bedside table. Call light in reach. Family in room, RN in room. No other needs at this time.
--- NOTE | 2017-11-18 16:56 | NUR ---
AFTERNOON ASSESSMENT AND MEDICAITONS DUE. THIS RN TO BEDSIDE. PT AWAKE AND SITTING UP IN BED. BLINDS CLOSED, FAMILY AT BEDSIDE. PT ENCOUARGED TO OPEN BLINDS. EDUCATION DONE REGARDING DAY/BOMB SQUAD OFFICER. PT DECLINES NEED AND IS UNINTERSTED "I JUST DON'T CARE." ASSESSMENT DONE. PT REPORTS NORMAL SENSATION IN RIGHT HAND. DRESSING BURT. MEDICAITONS GIVEN (SEE MAR). BED RAILS UP. CALL LIGHT WITHIN REACH. PT STATES SHE DOES NOT WANT TO ORDER DINNER AND WILL INSTEAD EAT FOOD THAT WAS BROUGHT TO HER BY HER FRIENDS. BED ALARM ON.
--- NOTE | 2017-11-18 17:51 | NUR ---
PATIENT RESTING IN BED, FAMILY IN ROOM. PATIENT STATES HER PAIN WAS AT ABOUT A 6 OUT OF 10. PATIENT STATED SHE HAD NO APPETITE TO EAT. PATIENT CALL LIGHT IN REACH. NO OTHER NEEDS AT THIS TIME.
--- NOTE | 2017-11-18 18:55 | NUR ---
PT HERE FOR RIGHT SHOULD INJURY AND PAIN CONTROL. SLING IN PLACE. ICE PACKS NEEDED. SCHEDULED AND PRN OXYCODONE. NO BM TODAY, SENNA GIVEN, MIRLAX REFUSED. PT IRRITABLE AT TIMES WITH TOO MANY PEOPLE IN THE ROOM. PT ENCOURAGED TO OPEN BLINDS TODAY AND ENJOY DAYLIGHT, PT REFUSED. CONTINIOUS PULSE OX. USING CALL LIGHT INCONSISTANTLY. BED ALARM ON.
--- NOTE | 2017-11-18 19:20 | NUR ---
BEDSIDE REPORT RECEIVED FROM MERCEDEZ CONNER. PT LYING IN BED, RIGHT ARM IN SLING, SPO2 100% ON RA, HR 76. BED ALARM ON, DAUGHTER IN ROOM. NO REQUESTS AT THIS TIME, CALL LIGHT NEXT TO PT.
--- NOTE | 2017-11-18 20:16 | NUR ---
PT ASSESSMENT COMPLETE AT THIS TIME, PT RATES PAIN IN RIGHT SHOULDER 3/10, SCHEDULED TYLENOL AND SCHEDULED OXYCODONE ADMINISTERED. CSM INTACT BUE, BLE. GENERALIZED EDEMA AND BRUISING NOTED ALONG RIGHT UPPER EXTREMITY. HR IRREGULAR. VITALS STABLE AT THIS TIME. LUNGS CLEAR THROUGHOUT ALL LOBES. PT GIVEN CUP OF ICE, ICE WATER REQUESTED. CALL LIGHT IN REACH, DAUGHTER IN ROOM. RIGHT SHOULD IN IMMOBILIZER.
--- NOTE | 2017-11-18 22:53 | NUR ---
PT SLEEPING, AWAKENS TO VOICE. PT RATES PAIN 1/10 IN RIGHT ARM, PRN OXYCODONE 5 MG ADMINISTERED FOR PAIN PT REQUESTS. CALL LIGHT IN REACH, PT HAS NO ADDL REQUESTS.
--- NOTE | 2017-11-19 02:14 | NUR ---
IN PT ROOM FOR SCHEDULED OXYCODONE ADMINISTRATION, PT APPEARS TO BE SLEEPING, EASILY AWAKENS TO VOICE, 95% SPO2 ON RA. RATES PAIN 0/10 AT REST IN RIGHT SHOULDER. SBA TO BSC FOR 550 ML VOID. PT BACK IN BED, LUNGS CLEAR THROUGHOUT ALL LOBES, CSM INTACT BUE, BLE. NO EDEMA NOTED. PT GIVEN SIPS OF WATER. CALL LIGHT IN REACH.
--- NOTE | 2017-11-19 04:59 | NUR ---
PT AWAKENS TO RN ENTERING ROOM SPO2 98% ON RA. PRN OXYCODONE 5MG ADMINISTERED REQUESTED BY PT. PT GIVEN ICE WATER. NO ADDL REQUESTS AT THIS TIME, CALL LIGHT IN REACH.
--- NOTE | 2017-11-19 06:04 | NUR ---
PT'S PAIN WELL CONTROLLED WITH PRN OXYCODONE 5MG AND SCHEDULED OXYCODONE, TYLENOL. RIGHT ARM IN IMMOBILIZER SLING, CSM INTACT, YELLOW BRUISING ON RIGHT ARM, SHOULDER. NO IV ACCESS. 1PA TO BSC FOR VOIDS THROUGHOUT SHIFT. PT APPEARS TO HAVE SLEPT WELL THROUGHOUT NIGHT.
--- NOTE | 2017-11-19 07:15 | NUR ---
HANDOFF REPORT RECEIVED FROM GAG WRITER RN. PT SLEEPING, LEFT UNDISTURBED.
--- NOTE | 2017-11-19 08:11 | NUR ---
Patient sitting on bedside, RN in room. Patient states she already washed hands and face with wash cloth and performed oral care. Patient stated PT/OT would be in around 9:30 to work with her and she preferred to get dressed in a clean gown then. Fresh ice water at bedside table. Call light in reach. No other needs at this time.
--- NOTE | 2017-11-19 08:15 | NUR ---
PT ASSISTED TO BEDSIDE COMMODE AND BACK TO BED, SBA FOR TRANSFER. PT ON ROOM AIR, LUNG SOUNDS CLEAR. PT RATING PAIN 2/10, GIVEN SCHEDULED OXYCODONE AND TYLENOL. PT DENIES NAUSEA, BOWEL TONES ACTIVE, TOLERATING REGULAR DIET. PT WITH RIGHT ARM IN SLING, PULSE FAINT, FULL SENSATION, GOOD STRENGTH, CAR REFILL 1-2 SECONDS. PT WITHOUT EDEMA. DISCUSSED PLAN OF CARE FOR THE DAY. PT DENIES OTHER NEEDS AT THIS TIME, FAMILY AT BEDSIDE.
--- NOTE | 2017-11-19 09:30 | NUR ---
PATIENT RESTING IN BED, FAMILY IN ROOM. PATIENT STATES SHE IS WAITING FOR PHYSICAL/OCCUPATIONAL THERAPY AND THE DOCTOR TO COME IN BEFORE SHE GETS DRESSED. CALL LIGHT IN REACH. NO OTHER NEEDS AT THIS TIME.
--- NOTE | 2017-11-19 10:30 | NUR ---
PT RESTING IN BED. PT RATING PAIN 4/10. PT DENIES NEEDS AT THIS TIME.
[2017-11-19] MEDS ORDERED: COREG12.5 MG PO (11:12)
--- NOTE | 2017-11-19 11:32 | NUR ---
MD TO BEDSIDE TO EVALUATE PT. PLAN TO ADJUST PAIN MEDICATION SCHEDULE. AWAITING PT/OT RECOMMENDATIONS FOR DISCHARGE.
--- NOTE | 2017-11-19 12:22 | NUR ---
PATIENT RESTING IN BED, FAMILY IN ROOM. PATIENT STATES HER SHOULDER IS ACHING BUT CANT PLACE THE PAIN LEVEL ON A SCALE OF 1 TO 10. PATIENT RESTING, STATES SHE WILL EAT LUNCH SHORTLY. CALL LIGHT IN REACH. NO OTHER NEEDS AT THIS TIME.
--- NOTE | 2017-11-19 13:29 | NUR ---
THIS BOOKBINDER CHIEF ASSISTD PATIENT UP TO BATHROOM, BACK TO BED. PATIENT'S FAMILY IN ROOM. CALL LIGHT IN REACH. BED ALARM ON. NO OTHER NEEDS AT THIS TIME.
--- NOTE | 2017-11-19 13:55 | NUR ---
PT COMPLAINT OF PAIN 4/10, GIVEN SCHEDULED OXYCODONE. NO ACUTE CHANGES. PT ON ROOM AIR, LUNG SOUNDS CLEAR WITH DIMINISHED BASES. CMS INTACT. PT DNIES OTHER NEEDS AT THIS TIME.
--- NOTE | 2017-11-19 14:11 | NUR ---
PATIENT RESTING IN BED, EYES CLOSED. CALL LIGHT IN REACH. FRESH ICE WATER AT BEDSIDE. BED ALARM ON. NO OTHER NEEDS AT THIS TIME.
--- NOTE | 2017-11-19 14:57 | NUR ---
PT REQUESTING PAIN MEDICATION, RATING PAIN 6/10, GIVEN 500 MG PO TYLENOL. PHYSICAL THERAPY WORKING WITH PT. PT DENIES OTHER NEEDS AT THIS TIME.
--- NOTE | 2017-11-19 15:51 | NUR ---
PATIENT RESTING IN BED, EYES CLOSED. FAMILY IN ROOM. CALL LIGHT IN REACH. BED ALARM ON. NO OTHER NEEDS AT THIS TIME.
--- NOTE | 2017-11-19 18:05 | NUR ---
PT ON ROOM AIR, LUNG SOUNDS CLEAR. PT PAIN WELL CONTROLLED WITH SCHEDULED OXYCODONE AND PRN TYLENOL, MEDICATIONS CHANGED TODAY. PT WORKED WITH PHYSICAL THERAPY AND OCCUPATIONAL THERAPY, PROGRESSING. CMS INATCT, FAINT RADIAL PULSE TO RIGHT HAND. PT UP WITH SBA TO BATHROOM, VOIDING QS.
--- NOTE | 2017-11-19 18:18 | NUR ---
PATIENT RESTING IN BED. THIS TRUCK TRAILER MECHANIC ASSISTED PATIENT UP TO BATHROOM, BACK TO BED. PATIENT CALL LIGHT IN REACH, BED ALARM ON. NO OTHER NEEDS AT THIS TIME.
--- NOTE | 2017-11-19 19:10 | NUR ---
BEDSIDE REPORT RECEIVED FROM REE. PT RATES PAIN 7/10 IN RIGHT SHOULDER, DISCUSSED SCHEDULED OXYCODONE. PT SITTING UP IN BED, ON ROOM AIR EATING. CALL LIGHT IN REACH. NO REQUESTS AT THIS TIME.
[2017-11-19] MEDS ORDERED: OXAYDO7.5 MG PO (19:11)
[2017-11-19] MEDS ORDERED: OXYCODONE HCL5 MG PO (19:11)
--- NOTE | 2017-11-19 19:55 | NUR ---
CALL LIGHT ANSWERED, PT C/O 04/29 RIGHT SHOULDER PAIN, "SHARP, STABBING" SCHEDULED OXYCODONE ADMINISTERED AT THIS TIME. PT EDUCATED ON CALLING FOR PAIN MEDICATIONS IN NIGHT. CSM INTACT RUE, FAINT RADIAL PULSE. HR IRREGULAR, RATE CONTROLLED 71-75. FAMILY IN ROOM VISITING WITH PT, DENIES TOILETING NEEDS. CALL LIGHT IN REACH.
--- NOTE | 2017-11-19 23:10 | NUR ---
CHECKED ON PT, PT APPEARS TO BE SLEEPING, EYES CLOSED, BREATHING NON-LABORED. ON ROOM AIR. LIGHTS OFF IN ROOM.
--- NOTE | 2017-11-20 00:08 | NUR ---
CALL LIGHT ANSWERED, PT C/O 04/29 PAIN, MOANING AND GRIMACING, BRACING ARM. CSM INTACT RIGHT UPPER EXTREMITY, BRACE IN PLACE. PRN OXYCODONE 5MG ADMINISTERED. PT STATES "THIS NEW PAIN SCHEDULE ISN'T GOING TO WORK, I WAS SLEEPING GOOD AND IT WOKE ME UP". SBA TO RESTROOM FOR 400 ML VOID AND BACK TO BED. CALL LIGHT IN REACH, LIGHTS OFF IN ROOM. DAUGHTER SLEEPING ON COUCH.
--- NOTE | 2017-11-20 02:16 | NUR ---
CHECKED ON PT, PT APPEARS TO BE SLEEPING, EYES CLOSED, BREATHING NON-LABORED, LIGHTS OFF IN ROOM.
--- NOTE | 2017-11-20 03:16 | NUR ---
SCHEDULED OXYCODONE ADMINISTERED AT THIS TIME PT APPEARED TO BE SLEEPING AT 0200. PT AWAKE UPON ENTERING ROOM, STATES PAIN 4/10 AT REST. PT STATES "DO I NEED TO CALL YOU FOR PAIN MEDICATION SO YOU DON'T GET IN TROUBLE, IT TOOK AN HOUR FOR ME TO GO BACK TO SLEEP AFTER THE MEDICATION KICKED IN". PT INSTRUCTED TO USE CALL LIGHT FOR INCREASING PAIN. DISCUSSED MEDICATION SIDE EFFECTS WITH PT. PT DENIES TOILETING NEEDS AT THIS TIME. CSM INTACT BILATERALLY UPPER EXTREMITIES. LUNGS CLEAR THROUGHOUT ALL LOBES, BOWEL TONES ACTIVE X 4. CALL LIGHT IN REACH, NO ADDL REQUESTS.
--- NOTE | 2017-11-20 05:14 | NUR ---
PT AWAKENING DUE TO PAIN X 1, RECEIVED PRN OXYCODONE X 1. RIGHT ARM IN SLING THROUGHOUT SHIFT, CSM INTACT W FAINT RADIAL PULSE. PT USING CALL LIGHT APPROPRIATELY, SBA TO BSC FOR VOIDS. NO BMS THIS SHIFT. NO IV ACCESS.
--- NOTE | 2017-11-20 05:26 | NUR ---
CHECKED ON PT, APPEARS TO BE SLEEPING AT THIS TIME, EYES CLOSED, BREATHING NON-LABORED. CALL LIGHT IN PT LAP. LIGHTS OFF IN ROOM.
--- NOTE | 2017-11-20 06:28 | NUR ---
VITALS AND I&OS DONE AND CHARTED. FRESH WATER GIVEN . GARBAGES EMPTIED. PT REQUESTED PAIN MEDS. I INFORMED HER RN PATRICIA.
--- NOTE | 2017-11-20 06:44 | NUR ---
SBA TO RESTROOM FOR VOID WITH MARINE RIGGER OCTOBER. PT RATES PAIN 4/10 IN RIGHT SHOULDER, PRN TYLENOL ADMINISTERED AT THIS TIME PT REQUESTING PAIN MEDICATIONS. CALL LIGHT IN REACH, PT LYING IN BED, NO ADDL REQUESTS.
--- NOTE | 2017-11-20 06:45 | NUR ---
HELPED PT TO THE BATHROOM AND BACK TO BED. PT NEEDS NOTHING ELSE AT THIS TIME.
--- NOTE | 2017-11-20 07:15 | NUR ---
BEDSIDE HANDOFF REPORT RECEIVED FROM HELMET HAT SWEATBAND PUNCHER RN. PT RESTING IN BED. PT RATING PAIN 2/10. PT DENIES NEEDS AT THIS TIME.
--- NOTE | 2017-11-20 07:53 | NUR ---
PATIENT UP IN BED, VISITOR IN Sue LEONARDO EMPITED, PATIENT HAS ALREADY BEEN IN TO BATHROOM FOR AM CARE. NO OHTER NEEDS, CALL LIGHT IN REACH.
--- NOTE | 2017-11-20 08:20 | NUR ---
PT RESTING IN BED. PT RATING PAIN 2/10 ATTHIS TIME, GIVEN SCHEDULED OXYCODONE, DISCUSSED PAIN MANAGEMENT WITH PT AND DAUGHTER. PT ON ROOM AIR, LUNG SOUNDS CLEAR, DENIES SOB. PT DENIES NAUSEA, BOWEL TONES ACTIVE. CMS INTACT, RIGHT RADIAL PULSE FAINT, FULL SENSATION, CAP REFILL 1 SECOND. PT WITHOUT EDEMA. DISCUSSED PLAN OF CARE. PT DENIES OTHER NEEDS AT THIS TIME.
--- NOTE | 2017-11-20 10:25 | NUR ---
Patient up in bed, visitor in . Vitals and i/os done. Call light in reach no other needs
--- NOTE | 2017-11-20 14:27 | NUR ---
FAXED CHART NOTES INCLUDING FACESHEET, ORDER, ER NOTE, H AND P, CONSULT, DC SUMMARY AND PACKET TO [facility]. RECIEVED A FAX CONFIRMATION. ALSO SPOKE WITH THAI NEWSOME IN .
== END 2017-11-20 13:25 | disposition home or self-care (01) | DRG 563 ==
LOC: ED 13:30 → MS 15:48
PROVIDERS: ADMIT Internal Medicine
DX: S42.291A Other displaced fracture of upper end of right humerus, initial encounter for closed fracture (principal); R47.01 Aphasia; D62 Acute posthemorrhagic anemia; Z79.01 Long term (current) use of anticoagulants; Z86.73 Personal history of transient ischemic attack (TIA), and cerebral infarction without residual deficits; I25.10 Atherosclerotic heart disease of native coronary artery without angina pectoris; I48.2 Chronic atrial fibrillation; I10 Essential (primary) hypertension; E78.5 Hyperlipidemia, unspecified; K21.9 Gastro-esophageal reflux disease without esophagitis; I25.2 Old myocardial infarction
CPT/HCPCS: 36415; 73030; 80048; 80053; 82607; 82728; 82746; 83540; 83735; 84466; 85025; 85610; 86850; 86900; 86901; 94762; 97110; 97116; 97163; 97166; 97530; 97535; J1170; J2405; J7120

== ENCOUNTER 2018-10-15 13:28 | Emergency (ER) | payer MEDICARE ==
[~2018-10-15] VITALS: Ht 167.6 cm; Wt 65.8 kg
--- OUTSIDE RECORDS SUMMARY | ~2018-10-15 | XMS | Encounter Summary ---
Demographics + + + | Address | [address] | | | [place] [address] | + + + | Home Phone | | + + + | Preferred Language | Unknown | + + + | Marital Status | | + + + | Congregation Affiliation | 1077 | + + + | Race | Unknown | + + + | Ethnic Group | Unknown | + + + Author + + + | Author | [facility] | + + + | Organization | [facility] | + + + | Address [...] Team Providers + +------+ + | Care Polysom Tech Name | Role | Phone | + +------+ + | aDnilo Roman MD | PCP | | + +------+ + Encounter Details +--------+ + + + + | Date | Type | Department | Care Team | Description | +--------+ + + + + | 09/11/ | Orders Only | [facility] | Cho, | CKD (chronic kidney | | 2019 | | [place] [address] | [place] | disease), stage III; | | | | [address] | | Persistent | | | | [place] [address] | | proteinuria | | | | [phone] | | | +--------+ + + + [...] | +--------+ + + + + | 04/15/ | Appointment | Radiology | | | | 2019 | | | | | +--------+ + + + + | 11/02/ | Office | Vascular Surgery | Wolf Perez, DNP | | | 2018 | Visit | | [address] | | | | | | [place] | | | | | | [address] | | | | | | | | +--------+ + + + + | 11/17/ | Office | Cardiology | Juvencio Schultz, | | | 2018 | Visit | | MD [address] | | | | | | [place], | | | | | | [place] [address] | | | | | | [phone] | | | | | | | | +--------+ + + + + as of this encounter Procedures + +--------+ + + + | Procedure Name | Priori | Date/Time | Associated Diagnosis | Comments | | | ty | | | | + +--------+ + + + | PROTEIN / CREATININE | Routin | 09/10/2018 | CKD (chronic | Results for this | | RATIO, URINE | e | 9:50 AM | kidney disease), | procedure are in the | | | | PST | stage III | results section. | | | | | Persistent | | | | | | proteinuria | | + +--------+ + + + | CBC W/AUTO DIFF | Routin | 09/10/2018 | CKD (chronic | Results for this | | (REFLEX TO MANUAL) | e | 9:50 AM | kidney disease), | procedure are in the | | | | PST | stage III | results section. | | | | | Persistent | | | | | | proteinuria | | + +--------+ + + + | MAGNESIUM | Routin | 09/10/2018 | CKD (chronic | Results for this | | | e | 9:50 AM | kidney disease), | procedure are in the | | | | PST | stage III | results section. | | | | | Persistent | | | | | | proteinuria | | + +--------+ + + + | RENAL FUNCTION PANEL | Routin | 09/10/2018 | CKD (chronic | Results for this | | | e | 9:50 AM | kidney disease), | procedure are in the | | | | PST | stage III | results section. | | | | | Persistent | | | | | | proteinuria | | + +--------+ + + + in this encounter Results Protein / creatinine ratio, urine (09/10/2018 9:50 AM) + + + + + | Component | Value | Ref Range | Performed At | + + + + + | UR | 216.2 (A) | 0 - 150 | [facility] | | PROTEIN/CREATININE | | | LABORATORY | + + + + + + + | Specimen | + + | Urine | + + + + + + + | Performing | Address | City/State/Zipcode | Phone Number | | Organization | | | | + + + + + | [facility] | [address] | [place] [address] | [phone] | | LABORATORY | [address] | | | + + + + + Renal function panel (09/10/2018 9:50 AM) + +---------+ + + | Component | Value | Ref Range | Performed At | + +---------+ + + | GLUCOSE | 121 (A) | 70 - 100 mg/dL | [facility] | | | | | LABORATORY | + +---------+ + + | BUN | 23 | 6 - 23 mg/dL | [facility] | | | | | LABORATORY | + +---------+ + + | CREATININE | 1.01 | 0.7 - 1.11 mg/dL | [facility] | | | | | LABORATORY | + +---------+ + + | PHOSPHORUS | 3.7 | 2.5 - 5.0 mg/dL | [facility] | | | | | LABORATORY | + +---------+ + + | Albumin | 4.0 | 3.5 - 5.0 | [facility] | | | | | LABORATORY | + +---------+ + + | SODIUM | 140 | 132 - 143 mmol/L | [facility] | | | | | LABORATORY | + +---------+ + + | POTASSIUM | 4.3 | 3.6 - 5.1 mmol/L | [facility] | | | | | LABORATORY | + +---------+ + + | CHLORIDE | 104 | 95 - 112 mmol/L | [facility] | | | | | LABORATORY | + +---------+ + + | CO2 | 25 | 19 - 31 mmol/L | [facility] | | | | | LABORATORY | + +---------+ + + | ANION GAP AGAP | 15.3 | 7 - 21 mmol/L | [facility] | | | | | LABORATORY | + +---------+ + + | GFR MDRD Non Af Amer | | | [facility] | | | | | LABORATORY | + +---------+ + + | Phosphorus,Inorganic | | | [facility] | | | | | LABORATORY | + +---------+ + + | BUN/CREAT | 22.8 | 6.0 - 28.6 | [facility] | | | | | LABORATORY | + +---------+ + + | CALCIUM | 9.9 | 8.5 - 10.3 mg/dL | [facility] | | | | | LABORATORY | + +---------+ + + | EGFR | 52 (A) | 60 - 140 mg/dL | [facility] | | | | | LABORATORY | + +---------+ + + + + | Specimen | + + | Blood | + + + + + + + | Performing | Address | City/State/Zipcode | Phone Number | | Organization | | | | + + + + + | [facility] | [address] | [place] [address] | [phone] | | LABORATORY | [address] | | | + + + + + Magnesium (09/10/2018 9:50 AM) + +-------+ + + | Component | Value | Ref Range | Performed At | + +-------+ + + | MAGNESIUM | 1.9 | 1.7 - 2.5 mg/dL | [facility] | | | | | LABORATORY | + +-------+ + + + + | Specimen | + + | Blood | + + + + + + + | Performing | Address | City/State/Zipcode | Phone Number | | Organization | | | | + + + + + | [facility] | [address] | [place] [address] | [phone] | | LABORATORY | [address] | | | + + + + + CBC W/Auto Diff (Reflex to Manual) (09/10/2018 9:50 AM) + +-------+ + + | Component | Value | Ref Range | Performed At | + +-------+ + + | WBC | 6.4 | 4.5 - 11.0 10^3/mL | [facility] | | | | | LABORATORY | + +-------+ + + | RBC | 3.98 | 3.8 - 5.1 10^6/ L | [facility] | | | | | LABORATORY | + +-------+ + + | HGB | 13.0 | 12.0 - 16.0 g/dL | [facility] | | | | | LABORATORY | + +-------+ + + | HCT | 38.9 | 35 - 45 % | [facility] | | | | | LABORATORY | + +-------+ + + | MCV | 97.9 | 81 - 99 fL | [facility] | | | | | LABORATORY | + +-------+ + + | MCH | 33 | 27 - 33 pg | [facility] | | | | | LABORATORY | + +-------+ + + | MCHC | 33 | 30 - 36 g/dL | [facility] | | | | | LABORATORY | + +-------+ + + | PLT | 191 | 140 - 440 K/ L | [facility] | | | | | LABORATORY | + +-------+ + + | RDW SD | 13.8 | 10.5 - 15.0 % | [facility] | | | | | LABORATORY | + +-------+ + + | MPV | | fL | [facility] | | | | | LABORATORY | + +-------+ + + | DIFF TYPE | | | [facility] | | | | | LABORATORY | + +-------+ + + | NEUTROPHILS | 61.3 | 39 - 80 % | [facility] | | | | | LABORATORY | + +-------+ + + | LYMPHOCYTES | 27.3 | 24 - 44 % | [facility] | | | | | LABORATORY | + +-------+ + + | MONOCYTES | 7.7 | 0 - 12 % | [facility] | | | | | LABORATORY | + +-------+ + + | EOSINOPHILS | 3.3 | 0 - 6 % | [facility] | | | | | LABORATORY | + +-------+ + + | BASOPHILS | 0.4 | 0 - 2 % | [facility] | | | | | LABORATORY | + +-------+ + + | NEUTROPHILS ABS | | / L | [facility] | | | | | LABORATORY | + +-------+ + + | LYMPHOCYTES ABS | | / L | [facility] | | | | | LABORATORY | + +-------+ + + | MONOCYTES ABS | | / L | [facility] | | | | | LABORATORY | + +-------+ + + | EOSINOPHILS ABS | | / L | [facility] | | | | | LABORATORY | + +-------+ + + | BASOPHILS ABS | | / L | [facility] | | | | | LABORATORY | + +-------+ + + + + | Specimen | + + | Blood | + + + + + + + | Performing | Address | City/State/Zipcode | Phone Number | | Organization | | | | + + + + + | [facility] | [address] | [place] [address] | [phone] | | LABORATORY | [address] | | | + + + + + in this encounter Visit Diagnoses + + | Diagnosis | + + | CKD (chronic kidney disease), stage III | + + | Persistent proteinuria | + + | Proteinuria | + +"
--- OUTSIDE RECORDS SUMMARY | ~2018-10-15 | XMS | Clinical Summary ---
Demographics + + + | Address | [address] | | | [place] [address] | + + + | Home Phone | | + + + | Preferred Language | Unknown | + + + | Marital Status | | + + + | Adventist Affiliation | 1077 | + + + | Race | Unknown | + + + | Ethnic Group | Unknown | + + + Author + + + | Author | [facility] | | | and [place] | + + + | Organization | [facility] | | | and [place] | + + + | Address | Unknown | + + + | Phone | Unavailable | + + + Support + + +---------+ + | Name | Relationship | Address | Phone | + + +---------+ + | Melissa Bullock | ECON | Unknown | | + + +---------+ + | Adry Bullock | ECON | Unknown | | + + +---------+ + Care Team Providers + +------+ + | Care Pricing Supervisor Name | Role | Phone | + [...] + + + | CVA (cerebrovascular accident) (HCC) | 08/22/2017 | + + + | [...] Hyperlipidemia | 11/10/2012 | + + + Family History + + +------+ + | [...] + | Blood Pressure | 136/74 | 08/22/20171599 PST | + + + + | Pulse | 76 | 08/22/20171599 PST | + + + + | Temperature | 36.6 C (97.9 F) | 08/22/20171599 PST | + + + [...] + + + + + | Vaccine: Zoster (1 | | | | | of 2) | 5 | | | + + + + + | Vaccine: | | | | | Pneumococcal 65+ | 0 | | | | Low/Medium Risk (1 | | | | | of 2 - PCV13) | | | | + + + + + | Adult Annual | | | | | Wellness Visit | 5 | | | + + + + + | Vaccine: Influenza | | | | | (#1) | 8 | | | + + + + + Results Not on filefrom Last 3 Months Insurance + +--------+ +--------+-------+---------+ | Payer | Benefi | Subscriber | Type | Phone | Address | | | t Plan | ID | | | | | | / | | | | | | | Group | | | | | + +--------+ +--------+-------+---------+ | [employer] | MODA | [id number] | Medica | | | | | [...] + +--------+ +--------+ + + | MARYJO BULLOCK | Person | Self | [birth year] | Work: | [address] | | [place] | al/Juan | | 1935 | [phone] | [place] | | | devika | | [phone]: | [address] | | | | | | | | | | | | [phone] | | | | | | [phone] | | + +--------+ +--------+ + +
--- OUTSIDE RECORDS SUMMARY | ~2018-10-15 | XMS | Clinical Summary ---
Demographics + + + | Address | [address] | | | [place] [address] | + + + | Home Phone | | + + + | Preferred Language | Unknown | + + + | Marital Status | | + + + | Mormonism Affiliation | 1077 | + + + | Race | Unknown | + + + | Ethnic Group | Unknown | + + + Author + + + | Author | [facility] | | | and [place] | + + + | Organization | [facility] | | [...] Team Providers + +------+ + | Care Contracting Support Specialist Name | Role | Phone | [...] | [employer] | MODA | [id number] | Medica | | | | | [...] | Self | [birth year] | Work: | [address] | | [place] | al/Juan | | 1935 | [phone] | [place] | | | devika | | [phone]: | [address] | | | | | | | | | | | | [phone] | | | | | | | [phone] | | + +--------+ +--------+ + +
--- OUTSIDE RECORDS SUMMARY | ~2018-10-15 | XMS | Clinical Summary ---
Demographics + + + | Address | [address] | | | [place] [address] | + + + | Home Phone | | + + + | Preferred Language | Unknown | + + + | Marital Status | | + + + | Oriental Orthodox Affiliation | 1077 | + + + | Race | Unknown | + + + | Ethnic Group | Unknown | + + + Author + + + | Author | [facility] | + + + | Organization | [facility] | + + + | Address [...] Team Providers + +------+ + | Care Hr Business Partner Consultant Name | Role | Phone | [...] | | | + + +--------+---------+------+------+-------+ | acetaminophen | Take 500 mg by mouth | | | | | Activ | | (TYLENOL) 500 MG | every 6 (six) hours | | | | | e | | tablet | as needed for Pain. | | | | | | + + +--------+---------+------+------+-------+ | famotidine | Take 40 mg by mouth | | | 12/19 | | Activ | | (PEPCID) 40 MG | daily. | | | 04/09 | | e | | tablet | | | | 18 | | | + + +--------+---------+------+------+-------+ | ELIQUIS 5 MG | TAKE ONE TABLET BY | 60 | 11 | 07/0 | | Activ | | tablet | MOUTH TWICE DAILY | tablet | | 20 | | e | | | | | | 18 | | | + + +--------+---------+------+------+-------+ | losartan (COZAAR) | Take 1 tablet by | 30 | 11 | 08/0 | 08/0 | Activ | | 100 MG tablet | mouth daily. | tablet | | 09/09 | 09/09 | e | | | | | | 18 | 19 | | + + +--------+---------+------+------+-------+ | pravastatin | Take 1 tablet by | 30 | 11 | 04/20 | 04/20 | Activ | | (PRAVACHOL) 40 MG | mouth nightly. | tablet | | 04/09 | 04/09 | e | | tablet | | | | 18 | 19 | | + + +--------+---------+------+------+-------+ | carvedilol (COREG) | Take 1 tablet by | 60 | 11 | 10/3 | 10/3 | Activ | | 25 MG tablet | mouth 2 (two) times | tablet | | 0/20 | 0/20 | e | | | daily. 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), 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 | | | | | | (Primary Dx); | | | | | | Persistent | | | | | | proteinuria | +--------+ + + + + | 09/23/ | Documentati | | [facility] | Von (US | | 2019 | on Only | | [place] | Retroperitoneal | | | | | | 08/24/18) | +--------+ + + + + | 09/11/ | Documentati | | Marquis, | Labs Only (09/10/18) | | 2018 | on Only | | [place] | | +--------+ + + + + | 09/11/ | Orders Only | | Marquis, | CKD (chronic kidney | | 2018 | | | [place] | disease), stage III; | | | | | | Persistent | | | | | | proteinuria | +--------+ + + + + | 08/10/ | Telephone | | Roberta Kent, | | | 2018 | | | [place] | | +--------+ + + + + from Last 3 Months Family [...] + + + | Blood Pressure | 150/82 | 09/23/2018 10:34 AM PST | + + + + | Pulse | 68 | 09/23/2018 10:34 AM PST | + + + + | Temperature | 36.3 C (97.3 F) | 10/20/2017 9:49 AM PDT | + + + + | Respiratory Rate | 18 | 09/10/2017 7:39 AM PST | + + + + | Oxygen Saturation | 97% | 05/19/2018 10:45 AM PDT | + + + + | Inhaled Oxygen | - | - | | Concentration | | | + + + + | Weight | 66.6 kg (146 lb 12.8 | 09/23/2018 10:34 AM PST | | | oz) | | + + + + | Height | 166.4 cm (5' 5.5") | 09/23/2018 10:34 AM PST | + + + + | Body Mass Index | 24.06 | 09/23/2018 10:34 AM PST | + + + + Plan of Treatment +--------+ + + + + | Date | Type | Specialty | Care Team | Description | +--------+ + + + + | 11/02/ | Appointment | | | | | 2018 | | | | | +--------+ + + + + | 11/02/ | Office | | Wolf Perez DNP | | | 2018 | Visit | | [address] | | | | | | [place] | | | | | | [address] | | | | | | | | +--------+ + + + + | 11/17/ | Office | | Juvencio Schultz, | | | 2018 | Visit | | MD [address] | | | | | | [place] | | | | | [place] [address] | | | | | | [phone] | | | | | | | [...] Bryan | [place] | | 03/11/ | [id number] | | [id number]/2017Implanted: | | ry | SCIENTIFIC | | 2018 | [id number] | | Qty: 1 on 05/15/2017 by | | | [employer] | | | 50 / | | Duong Cabello MD | | | | | | /[id number] | | | | | | | | 217 | + +-------+--------+ +--------+--------+--------+ | Synergy Lui | Stent | Bryan | [place] | | 02/19/ | [id number] | | [id number]/15/2017Implanted: | | ry | SCIENTIFIC | | 2017 | [id number] | | Qty: 1 on 05/15/2017 by | | | [employer] | | | 00 / | | Duong Cabello MD | | | | | | /[id number] | | | | | | | | 409 | + +-------+--------+ +--------+--------+--------+ | Synergy Lui | Stent | Bryan | [place] | | 03/10/ | [id number] | | [id number]/15/2017Implanted: | | ry | SCIENTIFIC | | 2017 | [id number] | | Qty: 1 on 05/15/2017 by | | | CORPORATION | | | 00 / | | Duong Cabello MD | | | | | | /[id number] | | | | | | | | 102 | + +-------+--------+ +--------+--------+--------+ | Crawley Lui 2.5 X | Stent | Bryan | [employer] | | 03/26/ | [id number] | | 15-06/19/2017Implanted: | | ry | | | 2019 | [id number] | | 06/19/2017 by Duong Cabello, | | | | | | / | | MD (Quantity not on file) | | | | | | /[id number] | | | | | | | | [id number] | + +-------+--------+ +--------+--------+--------+ | Xgrft Vascu-Guard Ptch 0.8x8 | | Left: | VELASQUEZ | | 09/09/ | VG-[id number] | | - [id number]: Qty: 1 | | Beryl | BIOSCIENCE | | 2021 | 8N / | | on 04/29/2017 by Maximo Landry, | | d | - BAXB | | | /[id number] | | MD | | | | | | [id number] | | | | | | | | 010 | + +-------+--------+ +--------+--------+--------+ | Xgrft Vascu-Guard Ptch 0.8x8 | | Right: | VELASQUEZ | | 05/14/ | VG-010 | | - [id number]: Qty: 1 | | | BIOSCIENCE | [...] | + +--------+ + + + | URIC ACID | Routin | 09/10/2018 | | Results for this | | | e | 9:50 AM | | procedure are in the | | | | PST | | results section. | + +--------+ + + + | [...] + + from Last 3 Months Results Protein / creatinine ratio, urine (09/10/2018 [...] | + + + + + | [facility] | [address] | [place] [address] | [phone] | | LABORATORY | [address]vd[address] | | | + + + + + CBC W/Auto Diff (Reflex to Manual) (09/10/2018 9:50 AM) + +-------+ + + | Component | Value | Ref Range | Performed At | + +-------+ + + | WBC | 6.4 | 4.5 - 11.0 10^3/mL | [facility] | | | | | LABORATORY | [...] + + + | [facility] | [address] | [place] [address] | [phone] | | LABORATORY | [address]vd[address] | | | + + + + + Uric acid (09/10/2018 9:50 AM) + +-------+ + + | Component | Value | Ref Range | Performed At | + +-------+ + + | URIC ACID | 4.2 | 2.3 - 6.6 | | + +-------+ + + + + | Specimen | + + | Blood | + + Magnesium (09/10/2018 9:50 AM) + [...] + + + | [facility] | [address] | [place] [address] | [phone] | | LABORATORY | Blvd[address] | | [...] | [facility] | [address] | [place] [address] | [phone] | | LABORATORY | Blvd. | | | + + + + + from Last 3 Months Insurance + +--------+ +--------+-------+---------+ | Payer | Benefi | Subscriber | Type | Phone | Address | | | t Plan | ID | | | | | | / | | | | | | | Group | | | | | + +--------+ +--------+-------+---------+ | [place] - | [id number] | Medica | | | | | [...] [place] | [place] - | [id number] | Medica | | | | | [...] | Self | [birth year] | Home: | [address] | | | al/Fam | | 1935 | [phone] | [place] | | | [place] | | [phone] | [address] | + +--------+ +--------+ + +
--- OUTSIDE RECORDS SUMMARY | ~2018-10-15 | XMS | Encounter Summary ---
Demographics + + + | Address | [address] | | | [place] [address] | + + + | Home Phone | | + + + | Preferred Language | Unknown | + + + | Marital Status | | + + + | Yazidi Affiliation | 1077 | + + + | Race | Unknown | + + + | Ethnic Group | Unknown | + + + Author + + + | Author | [facility] | + + + | Organization | [facility] | + + + | Address [...] Team Providers + +------+ + | Care Sales Service Manager Name | Role | Phone | + +------+ + | Danilo Roman MD | PCP | | + +------+ + Reason for Visit +--------+ + | Reason | Comments | +--------+ + | Other | US Retroperitoneal 08/24/18 | +--------+ + Encounter Details +--------+ + + + + | Date | Type | Department | Care Team | Description | +--------+ + + + + | 09/23/ | Documentati | [facility] | Marquis, | Other (US | | 2018 | on Only | [address] | [place] | Retroperitoneal | | | | [address] | | 08/24/18) | | | | [place] [address] | | | | | | [phone] | | | +--------+ + + + [...] + + | 11/02/ | Appointment | Radiology | | | | 2018 | | | | | +--------+ + + + + | 11/02/ | Office | Vascular Surgery | Wolf Perez DNP | | | 2018 | Visit | | [address] | | | | | | [place] | | | | | | [address] | | | | | | | | +--------+ + + + + | 11/17/ | Office | Cardiology | Juvencio Schultz, | | | 2018 | Visit | | MD [address] | | | | | | [place] | | | | | [place] [address] | | | | | | [phone] | | | | | | | | +--------+ + + + + as of this encounter Visit Diagnoses Not on filein this encounter"
--- OUTSIDE RECORDS SUMMARY | ~2018-10-15 | XMS | Encounter Summary ---
Demographics + + + | Address | [address] | | | [place] [address] | + + + | Home Phone | | + + + | Preferred Language | Unknown | + + + | Marital Status | | + + + | Sabianism Affiliation | 1077 | + + + | Race | Unknown | + + + | Ethnic Group | Unknown | + + + Author + + + | Author | [facility] [employer] | + + + | Organization | [facility] [employer] [facility] | + + + | Address [...] Team Providers + +------+ + | Care Services Delivery Driver Name | Role | Phone | + +------+ + | Danilo Roman MD | PCP | | + +------+ + Encounter Details +--------+---------+ + + + | Date | Type | Department | Care Team | Description | +--------+---------+ + + + | 09/23/ | Office | [facility] | Magaly Landry, | CKD (chronic kidney | | 2019 | Visit | [address] | [place] | disease), stage III | | | | [address] | [address] | (Primary Dx); | | | | [place], [place] [address] | [place] [address] | Persistent | | | | [phone] | [phone] | proteinuria | | | | | [...] this encounter Instructions Patient Instructions - Landry Mceknzie ARNP - 09/23/2018 10:20 AM [facility] Medication Changes made at today's visit: None Next LAB WORK should be done in about: 6 Months You do NOT need to fast for this lab work, keep hydrated. Next APPOINTMENT: in about 6 Months Other Instructions: Low Salt Diet Recommended Please have lab work done 1 weeks prior to your appointment. Make sure you are well hydrated prior to going to the lab and are able to give a urine s ample. Call the office with any questions or concerns. If you are taking a proton pump inhibitor, such as Protonix (omeprazole), talk to your [facility] care provider about if you need this medication termite control representative. Call our office or your PCP if you have blood pressure over 150/90 on more than one occa jenelle, or low blood pressure that is concerning. If you experience diarrhea and /or vomiting for more than 24 hours with no relief please seek medical help immediately. The treatments that are recommended to slow the progression of Chronic Kidney Disease in clude blood sugar control, blood pressure control, healthy body weight (BMI less than 30 kg/ m2), avoid sedentary lifestyle, avoid smoking/ tobacco, avoid NSAIDs, early intervention of worsening nausea, vomiting, no or low appetite and/or frequent diarrhea and avoid IV contras t. I urge that you measure your BP at least daily, twice daily, record it and bring record to every appointment with every healthcare provider you see. Do not drink alcohol. Avoid caffeinated beverages such as soda pop, coffee, espresso drinks, energy drinks. Please bring all of your medications in the pharmacy bottles to every visit so a medicat ion review can be done. Make all healthcare providers aware of the presence of kidney disease and request to adj ust all medications according to level of kidney function and to avoid nephrotoxic medicatio ns if possible, including but not limited to antibiotics. Call us with any questions about m eds. DO NOT TAKE any anti-inflammatory drugs such [...] necessary or for a life saving procedure. If you smoke, you must quit. Smoking worsens kidney disease. in this encounter Progress Notes Landry Mckenzie ARNP - 09/23/2018 10:20 AM PSTFormatting of this note may be different f rom the original. Patient Active Problem List Diagnosis Persistent proteinuria Depression Atrial fibrillation (HCC) CKD (chronic kidney disease), stage III Coronary artery disease due to lipid rich plaque Acute cystitis without hematuria Infarction of parietal lobe Ischemic stroke (HCC) Carotid stenosis, right S/P carotid endarterectomy Occlusion of carotid artery Dear Dr Roman: I saw your patient Ms. Merrill in the office for follow up with her daughter. As you are f amiliar with her case, I will not state her past history in detail. Briefly, she is a 83 y. o. female patient with past history as delineated above. she is here to F/U on her CKD & it s associated complications. In 09/2016, her sCr & eGFR 0.98 & 54. The patient has history of hypertension since the 1989'. her BP control has been reportedl y [...] she says that she feels 'good ' today. she denies any blurred vision tinnitus, headache, f ever, chills, or cough. No nausea, vomiting, abdominal pain, diarrhea, melena, or hematoche nupur. She has recurrent chest pain, palpitation, dizziness for which she F/U's with your off ice & the Cardiology team; no loss of consciousness, orthopnea, paroxysmal nocturnal dyspnea ; she has occasional mild leg edema. She has chronic mild LARRY since late 2015 for which she F/U's with your office & the Cardiology team. The following portions of the patient's history [...] (six) hours as neede d for Pain. carvedilol (COREG) 25 MG tablet Take 1 tablet by mouth 2 (two) times daily. 60 tablet 1 1 clopidogrel (PLAVIX) 75 MG tablet TAKE ONE TABLET BY MOUTH ONCE DAILY, START ON 7, WITH ASPIRIN, DOSE DECREASED TO 81 MG DAILY AT THAT TIME 30 tablet 11 ELIQUIS 5 MG tablet TAKE ONE TABLET BY MOUTH TWICE DAILY 60 tablet 11 famotidine (PEPCID) 40 MG tablet Take 40 mg by mouth daily. losartan (COZAAR) 100 MG tablet Take 1 tablet by mouth daily. 30 tablet 11 pravastatin (PRAVACHOL) 40 MG tablet Take 1 tablet by mouth nightly. 30 tablet 11 No current facility-administered medications for this visit. Physical Exam: BP 150/82 (BP Location: Left upper arm, Patient Position: Sitting) | Pulse 68 | Ht 1.664 m (5' 5.5") | Wt 66.6 kg (146 lb 12.8 oz) | BMI 24.06 kg/m General appearance: Pleasant, not in acute distress. Uses straight cane. Neck: Supple without tracheal deviation or jugular [...] normal. Lab Results Component Value Date BUN 23 09/10/2018 CREATININE 1.01 09/10/2018 EGFR 52 (A) 09/10/2018 NA 140 09/10/2018 K 4.3 09/10/2018 CL 104 09/10/2018 CO2 25 09/10/2018 CA 9.9 09/10/2018 PHOS 3.7 09/10/2018 MG 1.9 09/10/2018 ALB 4.0 09/10/2018 HGB 13.0 09/10/2018 URICACID 4.2 09/10/2018 WBC 6.4 09/10/2018 HCT 38.9 09/10/2018 LABPROT 216.2 (A) 09/10/2018 Assessment: Ms. Merrill is a 83 y.o. female patient with stage IIIA CKD on a background of longstanding hypertension. 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 RENAL FUNCTION: Relatively stable BLOOD PRESSURE: Reports controlled, no log from home BLOOD SUGAR: Reports it normal ELECTROLYTES: Normal ANEMIA: None VITAMIN D: To be checked thru your office PARATHYROID HORMONE: Mild URIC ACID: Okay PROTEINURIA: minimal URINALYSIS: No hematuria or UTI [...] kinds of NSAIDs for analge barbara. Also: She had a renal US done last month, I don't see the report for that today. Will try and get a copy. I will not change any of her vasoactive meds today. She will report back to me her home BP readings if they fall outside of the optimal prov ided range. At that time, I will decide whether any change to his vasoactive regimen is darcy anted. She will continue to F/U with your office regularly. She will have a RFP, Magnesium, CBC, Urine zwcdzbr-zl-ffcwberroo ratio before she comes back in [address] Roman for the opportunity to see this patient in hospital F/U today. Please do not hesitate to call me at any time with questions or concerns. Truly yours, Landry HERNANDEZ [facility] Plan of Treatment +--------+ + [...] [place] | | | | | | [id number] | | | | | | | | +--------+ + + + + | 11/17/ | Office | Cardiology | Juvencio Schutlz, | | | 2018 | Visit | | MD [address] | | | | | | [place] | | | | | | [place] [address] | | | | | | [phone] | | | | | | | | +--------+ + + + + + +--------+ + + | Name | Priori | Associated Diagnoses | Order Schedule | | | ty | | | + +--------+ + + | Renal function panel | Routin | CKD (chronic | Expected: | | | e | kidney disease), | 03/26/2019, Expires: | | | | stage III | 09/24/2019 | | | | Persistent | | | | | proteinuria | | + +--------+ + + | CBC W/Auto Diff (Reflex to | Routin | CKD (chronic | Expected: | | Manual) | e | kidney disease), | 03/26/2019, Expires: | | | | stage III | 09/24/2019 | | | | Persistent | | | | | proteinuria | | + +--------+ + + | Magnesium | Routin | CKD (chronic | Expected: | | | e | kidney disease), | 03/26/2019, Expires: | | | | stage III | 09/24/2019 | | | | Persistent | | | | | proteinuria | | + +--------+ + + | Uric acid | Routin | CKD (chronic | Expected: | | | e | kidney disease), | 03/26/2019, Expires: | | | | stage III | 03/26/2019 | | | | Persistent | | | | | proteinuria | | + +--------+ + + | Protein / creatinine ratio, urine | Routin | CKD (chronic | Expected: | | | e | kidney disease), | 03/26/2019, Expires: | | | | stage III | 09/24/2019 | | | | Persistent | | | | | proteinuria | | + +--------+ + + as of this encounter Visit Diagnoses + + | Diagnosis | + + | CKD (chronic kidney disease), stage III - Primary | + + | Persistent proteinuria | + + | Proteinuria | + +
--- OUTSIDE RECORDS SUMMARY | ~2018-10-15 | XMS | Encounter Summary ---
Demographics + + + | Address | [address] | | | [place] [address] | + + + | Home Phone | | + + + | Preferred Language | Unknown | + + + | Marital Status | | + + + | Orthodoxy Affiliation | 1077 | + + + | Race | Unknown | + + + | Ethnic Group | Unknown | + + + Author + + + | Author | [facility] | + + + | Organization | [facility] [employer] | + + + | Address [...] Team Providers + +------+ + | Care Drill Instructor Name | Role | Phone | + +------+ + | Danilo Roman MD | PCP | | + +------+ + Encounter Details +--------+ + + + + | Date | Type | Department | Care Team | Description | +--------+ + + + + | 08/10/ | Telephone | [facility] | Roberta Kent, | | | 2018 | | Vascular Surgery | [place] | | | | | [address] | | | | | | E [place], [place] | | | | | | [address] | | | | | | [phone] | | | +--------+ + + + [...] [place] | | | | | | [address] | | | | | | | | +--------+ + + + + | 11/17/ | Office | Cardiology | Juvencio Schultz, | | | 2018 | Visit | | MD [address] | | | | | | [place], | | | | | | [place] [address] | | | | | | [phone] | | | | | | | | +--------+ + + + + + +--------+ + + | Name | Priori | Associated Diagnoses | Order Schedule | | | ty | | | + +--------+ + + | US carotid doppler bilateral | Routin | Carotid stenosis, | Expected: | | | e | asymptomatic, | 11/02/2018, Expires: | | | | bilateral S/p | 05/10/2019 | | | | bilateral carotid | | | | | endarterectomy | | + +--------+ + + as of this encounter Visit Diagnoses + + | Diagnosis | + + | Carotid stenosis, asymptomatic, bilateral - Primary | + + | S/p bilateral carotid endarterectomy | + +"
--- OUTSIDE RECORDS SUMMARY | ~2018-10-15 | XMS | Encounter Summary ---
Demographics + + + | Address | [address] | | | [place] [address] | + + + | Home Phone | | + + + | Preferred Language | Unknown | + + + | Marital Status | | + + + | Baptist Affiliation | 1077 | + + + | Race | Unknown | + + + | Ethnic Group | Unknown | + + + Author + + + | Author | [facility] [employer] | + + + | Organization | [facility] | + + + | Address [...] Providers + +------+ + | Care Director Technical Name | Role | Phone | + +------+ + | Danilo Roman MD | PCP | | + +------+ + Encounter Details +--------+ + + + + | Date | Type | Department | Care Team | Description | +--------+ + + + + | 08/10/ | Telephone | [facility] | Roberta Kent, | | | 2018 | | Vascular Surgery | [place] | | | | | [address] | | | | | | E [place], [place] | | | | | | [address] | | | | | | [phone] | | | +--------+ + + + [...] [place] | | | | | | [address] | | | | | | | | +--------+ + + + + | 11/17/ | Office | Cardiology | Juvencio Schultz, | | | 2018 | Visit | | MD [address] | | | | | | [place], | | | | | | [place] [address] | | | | | | [phone] | | | | | | | [...]
--- OUTSIDE RECORDS SUMMARY | ~2018-10-15 | XMS | Encounter Summary ---
Demographics + + + | Address | [address] | | | [place] [address] | + + + | Home Phone | | + + + | Preferred Language | Unknown | + + + | Marital Status | | + + + | Shinto Affiliation | 1077 | + + + | Race | Unknown | + + + | Ethnic Group | Unknown | + + + Author + + + | Author | [facility] [email or web address] | + + + | Organization | [facility] [employer] [facility] | + + + | Address [...] Team Providers + +------+ + | Care Clinical Medical Assistant Name | Role | Phone | + +------+ + | Danilo Roman MD | PCP | | + +------+ + Reason for Visit + + + | Reason | Comments | + + + | Labs Only | 09/10/18 | + + + Encounter Details +--------+ + + + + | Date | Type | Department | Care Team | Description | +--------+ + + + + | 09/11/ | Documentati | [facility] | Marquis | Labs Only (09/10/18) | | 2019 | on Only | [place] [address] | [place] | | | | | [address] | | | | | | [place] [address] | | | | | | [phone] | | | +--------+ + + + [...] [place] | | | | | | [address] | | | | | | | | +--------+ + + + + | 11/17/ | Office | Cardiology | Juvencio Schultz, | | | 2018 | Visit | | MD [address] | | | | | | [place], | | | | | | [place] [address] | | | | | | [phone] | | | | | | | [...] section. | + +--------+ + + + in this encounter Results Uric acid (09/10/2018 9:50 AM) + +-------+ + + | Component | Value | Ref Range | Performed At | + +-------+ + + | URIC ACID | 4.2 | 2.3 - 6.6 | | + +-------+ + + + + | Specimen | + + | Blood | + + in this encounter Visit Diagnoses Not on filein this encounter"
--- OUTSIDE RECORDS SUMMARY | ~2018-10-15 | XMS | Encounter Summary ---
Demographics + + + | Address | [address] | | | [place] [address] | + + + | Home Phone | | + + + | Preferred Language | Unknown | + + + | Marital Status | | + + + | Mosque Affiliation | 1077 | + + + | Race | Unknown | + + + | Ethnic Group | Unknown | + + + Author + + + | Author | [facility] [employer] | + + + | Organization | [employer] [employer] | + + + | Address [...] Team Providers + +------+ + | Care Game Designer/Creative Director Name | Role | Phone | + [...] Dx); | | | | [place], [place] [address] | [place] [address] | Persistent | | | | [phone] | [phone] | proteinuria | | | | | [...] Patient Instructions - Landry Mckenzie ARNP - 09/23/2018 10:20 AM [facility] Medication Changes made at today's [...] such as Protonix (omeprazole), talk to your [facility] care provider about if you need this medication terminal gauger. Call our office or your PCP if [...] will have a RFP, Magnesium, CBC, Urine piugpah-bb-igkpuowydc ratio before she comes back in [address] Roman for the opportunity to see this patient in hospital F/U today. Please do not hesitate to call me at any time with questions or concerns. Truly yours, Landry HERNANDEZ [facility] Nephrologyin this encounter Plan of Treatment +--------+ [...] [place] | | | | | | [id number] | | | | | | | | +--------+ + + + + | 11/17/ | Office | Cardiology | Juvencio Schultz, | | | 2018 | Visit | | MD [address] | | | | | | [place] | | | | | | [place] [address] | | | | | | [phone] | | | | | | | [...]
--- OUTSIDE RECORDS SUMMARY | ~2018-10-15 | XMS | Clinical Summary ---
Demographics + + + | Address | [address] | | | [place] [address] | + + + | Home Phone | | + + + | Preferred Language | Unknown | + + + | Marital Status | | + + + | Christianity Affiliation | 1077 | + + + | Race | Unknown | + + + | Ethnic Group | Unknown | + + + Author + + + | Author | [facility] [employer] | + + + | Organization | [facility] [employer] [facility] | + + + | Address [...] Team Providers + +------+ + | Care Stonecutter Assistant Name | Role | Phone | [...] Overview: Added automatically from request for surgery [id number] | + + + + + | [...] | | 2019 | Visit | | CONTENT SPECIALIST | disease), stage III | | [...] [place] | | | | | | [address] | | | | | | | | +--------+ + + + + | 11/17/ | Office | | Juvencio Schultz, | | | 2018 | Visit | | MD [address] | | | | | | [place] | | | | | [place] [address] | | | | | | [phone] | | | | | | | [...] Bryan | [place] | | 03/11/ | [id number] | | [id number]/15/2017Implanted: | | ry | SCIENTIFIC | | 2018 | [id number] | | Qty: 1 on 05/15/2017 by | | | [employer] | | | 50 / | | Duong Cabello MD | | | | | | /[id number] | | | | | | | | 217 | + +-------+--------+ +--------+--------+--------+ | Synergy Lui | Stent | Bryan | [place] | | 02/19/ | [id number] | | [id number]/15/2017Implanted: | | ry | SCIENTIFIC | | 2017 | [id number] | | Qty: 1 on 05/15/2017 by | | | [employer] | | | 00 / | | Duong Cabello MD | | | | | | /[id number] | | | | | | | | 409 | + +-------+--------+ +--------+--------+--------+ | Synergy Lui | Stent | Bryan | [place] | | 03/10/ | [id number] | | [id number]/15/2017Implanted: | | ry | SCIENTIFIC | | 2017 | [id number] | | Qty: 1 on 05/15/2017 by | | | CORPORATION | | | 00 / | | Duong Cabello MD | | | | | | /[id number] | | | | | | | | 102 | + +-------+--------+ +--------+--------+--------+ | [place] Lui 2.5 X | Stent | Bryan | [employer] | | 03/26/ | [id number] | | 15-06/19/2017Implanted: | | ry | | | 2019 | [id number] | | 06/19/2017 by Duong Cabello, | | | | | | / | | MD (Quantity not on file) | | | | | | /[id number] | | | | | | | | [id number] | + +-------+--------+ +--------+--------+--------+ | Xgrft Vascu-Guard Ptch 0.8x8 | | Left: | VELASQUEZ | | 09/09/ | VG-010 | | - [id number]: Qty: 1 | | Beryl | BIOSCIENCE | | 2021 | 8N / | | on 04/29/2017 by Maximo Landry, | | d | - BAXB | | | /[id number] | | MD | | | | | | [id number] | | | | | | | | 010 | + +-------+--------+ +--------+--------+--------+ | Xgrft Vascu-Guard Ptch 0.8x8 | | Right: | VELAS[place]Z | | 05/14/ | VG-010 | | - [id number]: Qty: 1 | | | BIOSCIENCE | [...] | + + + + + | [facility] | [address] | [place] [address] | [phone] | | LABORATORY | Blvd. | | | + + + + + CBC W/Auto Diff (Reflex to Manual) (09/10/2018 9:50 AM) + +-------+ + + | Component | Value | Ref Range | Performed At | + +-------+ + + | WBC | 6.4 | 4.5 - 11.0 10^3/mL | [facility] | | | | | LABORATORY | [...] + + + | [facility] | [address] | [place] [address] | [phone] | | LABORATORY | [address]vd[address] | | [...] + + + | [facility] | [address] | [place] [address] | [phone] | | LABORATORY | Blvd[address] | | [...] | [address] | [place] [address] | [phone] | | LABORATORY | Blvd. | | [...] MA - MODA | MA - | [id number] | Medica | | | | | [...] MA - MODA | MA - | [id number] | Medica | | | | | [...] | Self | [birth year] | Home: | [address] | | | al/Fam | | [phone] | [phone] [place] | | | devika | | | [phone] | [address] | + +--------+ +--------+ + +
--- OUTSIDE RECORDS SUMMARY | ~2018-10-15 | XMS | Encounter Summary ---
Demographics + + + | Address | [address] | | | [place] [address] | + + + | Home Phone | | + + + | Preferred Language | Unknown | + + + | Marital Status | | + + + | Tenriism Affiliation | 1077 | + + + | Race | Unknown | + + + | Ethnic Group | Unknown | + + + Author + + + | Author | [facility] | + + + | Organization | [facility] [employer] [facility] | + + + | Address [...] Team Providers + +------+ + | Care Hospitalist Nocturnist Physician Name | Role | Phone | + [...] | | 2019 | on Only | [place] [address] | [place] | | | | | [address] | | | | | | [place] [address] | | | | | | [phone] | | | +--------+ + + + [...] [place] | | | | | | [address] | | | | | | | | +--------+ + + + + | 11/17/ | Office | Cardiology | Juvencio Schultz, | | | 2018 | Visit | | MD [address] | | | | | | [place], | | | | | | [place] [address] | | | | | | [phone] | | | | | | | [...]
--- OUTSIDE RECORDS SUMMARY | ~2018-10-15 | XMS | Encounter Summary ---
Demographics + + + | Address | [address] | | | [place] [address] | + + + | Home Phone | | + + + | Preferred Language | Unknown | + + + | Marital Status | | + + + | Restoration Affiliation | 1077 | + + + | Race | Unknown | + + + | Ethnic Group | Unknown | + + + Author + + + | Author | [facility] [employer] | + + + | Organization | [facility] [employer] [facility] | + + + | Address [...] Team Providers + +------+ + | Care Fitness Instructor Name | Role | Phone | [...] (chronic kidney | | 2019 | | [place] [address] | [place] | disease), stage III; | | | | [address] | | Persistent | | | | [place] [address] | | proteinuria | | | | [phone] | | | +--------+ + + + [...] [place] | | | | | | [address] | | | | | | | | +--------+ + + + + | 11/17/ | Office | Cardiology | Juvencio Schultz, | | | 2018 | Visit | | MD [address] | | | | | | [place], | | | | | | [place] [address] | | | | | | [phone] | | | | | | | [...] + + + | [facility] | [address] | [place] [address] | [phone] | | LABORATORY | Blvd. | | [...] + + + | [facility] | [address] | [place] [address] | [phone] | | LABORATORY | Blvd[address] | | [...] + + + | [facility] | [address] | [place] [address] | [phone] | | LABORATORY | Blvd. | | [...] [facility] | [address] | [place] [address] | [phone] | | LABORATORY | Blvd. | | | + + + + + in this encounter Visit Diagnoses + + | Diagnosis | + + | CKD (chronic kidney disease), stage III | + + | Persistent proteinuria | + + | Proteinuria | + +"
--- OUTSIDE RECORDS SUMMARY | ~2018-10-15 | XMS | Encounter Summary ---
Demographics + + + | Address | [address] | | | [place] [address] | + + + | Home Phone | | + + + | Preferred Language | Unknown | + + + | Marital Status | | + + + | Mu-Ism Affiliation | 1077 | + + + | Race | Unknown | + + + | Ethnic Group | Unknown | + + + Author + + + | Author | [facility] | + + + | Organization | [facility] [employer] [facility] | + + + | Address [...] Team Providers + +------+ + | Care Pulper Name | Role | Phone | + [...] 08/24/18) | | | | [place] [address] | | | | | | [phone] | | | +--------+ + + + [...] [place] | | | | | | [address] | | | | | | | | +--------+ + + + + | 11/17/ | Office | Cardiology | Juvencio Schultz, | | | 2018 | Visit | | MD [address] | | | | | | [place] | | | | | [place] [address] | | | | | | [phone] | | | | | | | | +--------+ + + + + as of this encounter Visit Diagnoses Not on filein this encounter"
[~2018-10-15 13:28] MED LIST changes: +CARVEDILOL25 MG PO; +FAMOTIDINE40 MG PO; +LOSARTAN POTAS100 MG PO; +NORVASC5 MG PO; +OXAYDO7.5 MG PO; +OXYCODONE HCL5 MG PO
--- OUTSIDE RECORDS SUMMARY | 2018-10-15 13:30 | XMS ---
PreManage Notification: JAYDEN BULLOCK Security Peanut Farmer Events No recent Security Events currently on file CRITERIA MET - [facility] - Has Care Guidelines CARE PROVIDERS DANILO ROMAN [facility] 06/09/2018-Current PHONE: Unknown Danilo Roman Primary Care Current PHONE: [phone] SHARA LEON Primary Care 02/18/2015-Current PHONE: Unknown Gerda has no Care Guidelines for this patient. Care History Medical/Surgical 06/09/2018 [facility] - Patient is currently established with [facility]. If patient is seen in the ED during business hours. Please contact CHWs at [facility]. Care Recommendation: This patient has had 5 or more Emergency Department visits in the last 12 months.\T\nbsp; Patient requires education on the scope and purpose of the ED as an acute care provider not a Primary Care Provider and should not be utilized for chronic conditions.\T\nbsp; These are guidelines and the provider should exercise clinical judgment when providing care. E.D. VISIT COUNT (12 MO.) 4 ELLIE Martinez TOTAL 4 NOTE: Visits indicate total known visits. ED/UCC VISIT TRACKING (12 MO.) 10/15/2018 13:28 [facility] [place] TYPE: Emergency COMPLAINT: - FALL 06/06/2018 10:31 [facility] [place] TYPE: Emergency COMPLAINT: - NOSE BLEED DIAGNOSES: - Allergy status to penicillin - Epistaxis - Other speech pathologist assistant (current) drug therapy - Gastro-esophageal reflux disease without esophagitis - Allergy status to other drugs, medicaments and biological substances status - Unspecified atrial fibrillation - Essential (primary) hypertension - Old myocardial infarction 11/16/2017 13:30 [facility] [place] TYPE: Emergency COMPLAINT: - GLF/ RT ARM INJURY 11/13/2017 09:49 [facility] [place] TYPE: Emergency COMPLAINT: - FALL DIAGNOSES: - Gastro-esophageal reflux disease without esophagitis - Fall on same level, unspecified, initial encounter - Essential (primary) hypertension - Other speech pathologist assistant (current) drug therapy - Unspecified fall, initial encounter - Pain in right shoulder - Unspecified fracture of upper end of right humerus, initial encounter for closed fracture - Allergy status to penicillin INPATIENT VISIT TRACKING (12 MO.) 11/16/2017 15:48 [facility] [place] TYPE: Medical Surgical COMPLAINT: - ANEMIA/ UNCONTROLLED PAIN DIAGNOSES: - Aphasia - Acute posthemorrhagic anemia - Personal history of transient ischemic attack (TIA), and cerebral infarction without residual deficits - Hyperlipidemia, unspecified - Other displaced fracture of upper end of right humerus, initial encounter for closed fracture - Chronic atrial fibrillation - Atherosclerotic heart disease of [place] coronary artery without angina pectoris - Gastro-esophageal reflux disease without esophagitis - Old myocardial infarction - Essential (primary) hypertension - 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
== END 2018-10-15 16:11 | disposition home or self-care (01) ==
LOC: ED 13:28
PROC: 09QKXZZ Repair Nasal Mucosa and Soft Tissue, External Approach (ICD-10-PCS; principal; 2018-10-15)
DX: S01.21XA Laceration without foreign body of nose, initial encounter (principal); S00.83XA Contusion of other part of head, initial encounter; I10 Essential (primary) hypertension; K21.9 Gastro-esophageal reflux disease without esophagitis; I48.91 Unspecified atrial fibrillation; I25.2 Old myocardial infarction; Z86.73 Personal history of transient ischemic attack (TIA), and cerebral infarction without residual deficits; Z90.49 Acquired absence of other specified parts of digestive tract; Z88.0 Allergy status to penicillin; Z88.8 Allergy status to other drugs, medicaments and biological substances; Z79.899 Other long term (current) drug therapy; W18.30XA Fall on same level, unspecified, initial encounter
CPT/HCPCS: 12011; 70450; 99283-25

== ENCOUNTER 2020-08-09 10:34 | Emergency (ER) | payer MEDICARE ==
[~2020-08-09] VITALS: Ht 167.6 cm; Wt 70.8 kg
[2020-08-09] MEDS ORDERED: FLOMAX0.4 MG PO (10:56)
== END 2020-08-09 13:18 | disposition home or self-care (01) ==
LOC: ED 10:34
PROC: 093K7ZZ Control Bleeding in Nasal Mucosa and Soft Tissue, Via Natural or Artificial Opening (ICD-10-PCS; principal; 2020-08-09)
DX: R04.0 Epistaxis (principal); I10 Essential (primary) hypertension; K21.9 Gastro-esophageal reflux disease without esophagitis; I48.91 Unspecified atrial fibrillation; I25.2 Old myocardial infarction; Z88.8 Allergy status to other drugs, medicaments and biological substances; Z88.0 Allergy status to penicillin; Z79.899 Other long term (current) drug therapy; Z79.01 Long term (current) use of anticoagulants
CPT/HCPCS: 30901; 30903; 85025; 99283-25

== ENCOUNTER 2023-09-15 18:18 | Emergency (ER) | payer MEDICARE ==
[~2023-09-15] VITALS: Ht 167.6 cm; Wt 64.9 kg
[~2023-09-15 18:18] MED LIST changes: +FLOMAX0.4 MG PO
[2023-09-15] MEDS ORDERED: TRANEXAMIC ACID IN NACL,ISO-OS 1,000 MG/100 ML PIGGYBACK IV ONE (18:45)
[2023-09-15] MEDS ORDERED: OXYMETAZOLINE HCL 15 ML BTL NAS ONE (18:45)
[2023-09-15 18:52] LABS: BASOPHILS 0.7 % (0-2); EOSINOPHILS 3.6 % (0-6); HEMOGLOBIN 12.6 g/dL (12.0-18.0); LYMPHOCYTES 32.1 % (24-44); MCH 32.8 (27-36); MCHC 32.3 g/dl (30-36); MCV 101.5 fl (81-99); MONOCYTES 9.1 % (0-12); NEUTROPHILS 54.5 % (39-80); PLATELET COUNT 202 K/uL (140-440); RBC 3.84 M/ul (4.3-5.7); RDW 13.4 (10.5-15.0)
[2023-09-15 19:10] LABS: ALBUMIN 3.7 g/dL (3.4-5.0); ALBUMIN/GLOBULIN RATIO 0.71 (1.1-2.4); ANION GAP 13.3 (7-21); BILIRUBIN, TOTAL 0.6 ng/dL (0.2-1.0); BUN/CREATININE RATIO 21.38 (6.0-28.6); CALCIUM 10.2 mg/dL (8.5-10.1); CREATININE, SERUM 1.59 mg/dL (0.55-1.02); POTASSIUM 5.3 mmol/L (3.5-5.1); PROTEIN, TOTAL 8.9 g/dL (6.4-8.2)
[2023-09-15 19:35] LABS: ABO O; ANTIBODY SCREEN NEGATIVE; RH POSITIVE
[2023-09-15 20:25] VITALS: BP 147/71
== END 2023-09-15 20:26 | disposition home or self-care (01) ==
LOC: ED 18:18
PROVIDERS: Emergency Medicine
DX: R04.0 Epistaxis (principal); I48.91 Unspecified atrial fibrillation; I10 Essential (primary) hypertension; K21.9 Gastro-esophageal reflux disease without esophagitis; I25.2 Old myocardial infarction; Z95.5 Presence of coronary angioplasty implant and graft; Z86.73 Personal history of transient ischemic attack (TIA), and cerebral infarction without residual deficits; Z88.8 Allergy status to other drugs, medicaments and biological substances; Z88.0 Allergy status to penicillin; Z88.1 Allergy status to other antibiotic agents; Z79.899 Other long term (current) drug therapy; Z79.02 Long term (current) use of antithrombotics/antiplatelets
CPT/HCPCS: 36415; 80053; 85025; 86850; 86900; 86901; A9270

== ENCOUNTER 2024-06-12 16:29 | Observation (INO) | payer MEDICARE ==
[~2024-06-12] VITALS: Ht 167.6 cm
[~2024-06-12 16:29] MED LIST changes: +HYDROCODON-ACE1 EA10 PO; +ONDANSETRON ODT8 MG PO; -PRAVACHOL40 MG PO; +PRAVASTATIN SOD40 MG PO
[2024-06-12 16:47] LABS: BASOPHILS 0.6 % (0-2); EOSINOPHILS 2.9 % (0-6); HEMOGLOBIN 12.8 g/dL (12.0-18.0); LYMPHOCYTES 29.2 % (24-44); MCH 33.2 (27-36); MCHC 32.9 g/dl (30-36); MONOCYTES 10.4 % (0-12); NEUTROPHILS 56.9 % (39-80); PLATELET COUNT 187 K/uL (140-440); RBC 3.86 M/ul (4.3-5.7)
[2024-06-12] MEDS ORDERED: SPIRONOLACTONE25 MG PO (16:55)
[2024-06-12] MEDS ORDERED: LOSARTAN POTAS100 MG PO (16:55)
[2024-06-12] MEDS ORDERED: CLOPIDOGREL75 MG PO (16:55)
[2024-06-12 17:01] LABS: ALBUMIN 3.8 g/dL (3.4-5.0); ALBUMIN/GLOBULIN RATIO 0.78 (1.1-2.4); ANION GAP 14.9 (7-21); BILIRUBIN, TOTAL 0.5 ng/dL (0.2-1.0); CREATININE, SERUM 2.5 mg/dL (0.55-1.02); PROTEIN, TOTAL 8.7 g/dL (6.4-8.2)
[2024-06-12 17:04] LABS: POTASSIUM 5.9 mmol/L (3.5-5.1)
[2024-06-12] MEDS ORDERED: SODIUM CHLORIDE 0.9% 1,000 ML IV ONE (17:15)
[2024-06-12 18:13] LABS: BILIRUBIN, URINE NEGATIVE (negative); BLOOD/HGB, URINE NEGATIVE (Negative); KETONE, URINE NEGATIVE (Negative); LEUK ESTERASE, URINE NEGATIVE (negative); NITRITE, URINE NEGATIVE (negative); PH, URINE 5.5 (5-7)
[2024-06-12] MEDS ORDERED: SODIUM CHLORIDE 0.9% 1,000 ML IV SCH ×2 (18:30→22:00)
[2024-06-12] MEDS ORDERED: ACETAMINOPHEN 325 MG TAB PO PRN (18:30)
[2024-06-12] MEDS ORDERED: ondansetron HCL 4 MG/2 ML VIAL IV PRN (18:30)
--- NOTE | 2024-06-12 18:47 | NUR ---
PT ARRIVED TO UNIT VIA STRETCHER ON MONITOR. PULSE OXIMETRY CHANGED TO BEDSIDE MONITOR, SPO2 90-95% ON RA. O2 REMOVED AT THIS TIME. NO ACUTE DISTRESS NOTED. PT PLACED ON TELE #6 afib 80's.
[2024-06-12 18:51] VITALS: BP 112/52
--- NOTE | 2024-06-12 19:42 | NUR ---
cpox alarming, spo2 86% on ra. 1l om off of face, pt initially refusing o2 back in place, but then agrees after education. spo2 quickly improves and is now in mid 90's. iv fluids from ed complete, iv site wnl and saline locked. primary rn updated and aware. bed alarm on and call light in reach.
--- NOTE | 2024-06-12 19:45 | NUR ---
REPORT RECEIVED FROM DAY SHIFT RN - PT AND DAUGHTER SHEREEN PRESENT FOR REPORT IN ROOM. ADMISSION ASSESSMENT COMPLETED BY THIS RN AT THAT TIME. PT DENIES PAIN OR SOB, NOTED TO HAVE SOME TREMORS, WORSE WITH INTENTIONAL MOVEMENT. TELE #[address], AFIB WITH PEAKED T WAVES. NS BOLUS STARTED IN ED COMPLETE, CONTINUOUS FLUIDS STARTED, IV SITE PATENT. PT UPDATED ON POC TO REDRAW LABS AT 2130. ALL QUESTIONS ANSWERED.
[2024-06-12] MEDS ORDERED: carvediloL 25 MG TAB PO SCH (21:00)
[2024-06-12] MEDS ORDERED: PRAVASTATIN SOD 20 MG TAB PO SCH (21:00)
[2024-06-12] MEDS ORDERED: APIXABAN 2.5 MG TAB PO SCH (21:00)
[2024-06-12] MEDS ORDERED: APIXABAN 5 MG TAB PO SCH (21:00)
--- NOTE | 2024-06-12 21:15 | NUR ---
RN IN ROOM TO ADMINISTER MEDICATIONS - VS STABLE, COREG ADMINISTERED. PT DENIES SOB OR CHEST PAIN. PT DENIES ALL OTHER COMPLAINTS.
[2024-06-12 21:41] LABS: ANION GAP 16.1 (7-21); BUN/CREATININE RATIO 20.52 (6.0-28.6); CALCIUM 9.1 mg/dL (8.5-10.1); CREATININE, SERUM 2.29 mg/dL (0.55-1.02); POTASSIUM 6.1 mmol/L (3.5-5.1)
[2024-06-12] MEDS ORDERED: Calcium Gluconate in NS 1,000 MG/50 ML BAG IV ONE (22:00)
[2024-06-12] MEDS ORDERED: Insulin Regular, Human 100 UNIT/ML ML IV ONE (22:00)
[2024-06-12] MEDS ORDERED: DEXTROSE 50% 50 ML SYR IV PRN ×2 (22:00)
[2024-06-12] MEDS ORDERED: DEXTROSE 5% 1,000 ML IV PRN (22:00)
[2024-06-12] MEDS ORDERED: DEXTROSE 50% 50 ML SYR IV ONE (22:00)
[2024-06-12] MEDS ORDERED: GLUCAGON,HUMAN RECOMBINANT 1 MG/ML VIAL SUB-Q PRN (22:00)
[2024-06-12] MEDS ORDERED: IBLOOD GLUCOSE TEST STRIP 1 EA TEST XX PRN (22:00)
--- NOTE | 2024-06-12 22:30 | NUR ---
LABS REVIEWED WITH MD AND FAMILY. FAMILY UPDATED ON PLAN TO ADMINISTER MEDICATIONS PER EMAR AND RECHECK BMP AT 0200. ALL QUESTIONS ANSWERED. PT NERVOUS ABOUT MEDICATIONS AND HOSPITALIZATION. 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
--- NOTE | 2024-06-12 23:54 | NUR ---
1 HR FOLLOW UP CBG STABLE AT 155. PT DENIES COMPLAINTS OF ANY DISCOMFORT. RESTING IN BED WATCHING TV. CALL LIGHT IN REACH. BOLUS COMPLETE.
[2024-06-12 23:56] VITALS: BP 108/83
[2024-06-12 23:58] VITALS: BP 108/83
[2024-06-13] VITALS (12 sets, daily range): BP systolic 100–130; BP diastolic 33–71
--- NOTE | 2024-06-13 00:38 | NUR ---
Pt report received from [facility]. Pt is A&O resting in bed, television on, family in room. Pt denies needs at this time. Side rails up x4, call light in reach. IVF on pump at 125ml/hr per emar.
--- NOTE | 2024-06-13 01:42 | NUR ---
SBA as pt ambulated to BR (line and tube management), no-slip socks applied to pt's feet over her household socks. Pt voided 300ml clear yellow urine into hat in toilet, and had a heavily saturated pad as well. Pt sounded SOB and wheezy upon getting back into bed. Pt placed back on 1LPM via oximask, pediatric oximeter placed in pt's left index finger as the ear oximeter on her nose broke. SPO2 at 95%. Call light in reach.
[2024-06-13 02:10] LABS: ANION GAP 16.7 (7-21); BUN/CREATININE RATIO 20.58 (6.0-28.6); CALCIUM 8.8 mg/dL (8.5-10.1); CREATININE, SERUM 2.04 mg/dL (0.55-1.02); POTASSIUM 5.7 mmol/L (3.5-5.1)
[2024-06-13 05:33] LABS: BASOPHILS 0.3 % (0-2); HEMATOCRIT 31.5 % (35.0-50.0); HEMOGLOBIN 10.4 g/dL (12.0-18.0); LYMPHOCYTES 26.2 % (24-44); MCH 32.9 (27-36); MCHC 32.9 g/dl (30-36); MCV 99.9 fl (81-99); MONOCYTES 9.9 % (0-12); NEUTROPHILS 60.6 % (39-80); PLATELET COUNT 146 K/uL (140-440); RBC 3.15 M/ul (4.3-5.7); RDW 13.7 (10.5-15.0)
[2024-06-13 05:53] LABS: ALBUMIN 2.7 g/dL (3.4-5.0); ALBUMIN/GLOBULIN RATIO 0.77 (1.1-2.4); ANION GAP 13.9 (7-21); BILIRUBIN, TOTAL 0.8 ng/dL (0.2-1.0); BUN/CREATININE RATIO 19.19 (6.0-28.6); CALCIUM 8.6 mg/dL (8.5-10.1); CREATININE, SERUM 1.98 mg/dL (0.55-1.02); MAGNESIUM 1.5 mg/dL (1.8-2.4); PHOSPHORUS, INORGANIC 3.2 mg/dL (2.5-4.9); POTASSIUM 5.9 mmol/L (3.5-5.1); PROTEIN, TOTAL 6.2 g/dL (6.4-8.2)
--- NOTE | 2024-06-13 07:51 | NUR ---
PT RESTING EYES CLOSED AT TIME OF SHIFT REPORT, DAUGHTER PRESENT IN THE ROOM. NEEDED ITEMS IN REACH. CHART REVIEWED. PT UP TO THE BATHROOM AT THIS TIME THEN TO THE CHAIR FOR BREAKFAST. SATS 93% ON ROOM AIR. CALL LIGHT IN REACH OTHER NEEDS DENIED
[2024-06-13] MEDS ORDERED: DEXTROSE 50% 50 ML SYR IV ONE ×3 (08:00→19:00)
[2024-06-13] MEDS ORDERED: LACTATED RINGER'S 1,000 ML IV SCH (08:00)
[2024-06-13] MEDS ORDERED: MAGNESIUM CHLORIDE 64 MG TABCR PO ONE (08:00)
[2024-06-13] MEDS ORDERED: Insulin Regular, Human 100 UNIT/ML ML IV ONE ×3 (08:00→19:00)
--- NOTE | 2024-06-13 08:04 | NUR ---
patient up to br 1pa, did hernandez and am care independently. 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 nurse notified of accu check, and written on pt board in room. warm blankets given. pt has no other requests at this time. family in room, call light within reach.
[2024-06-13] MEDS ORDERED: FAMOTIDINE 20 MG TAB PO SCH ×2 (09:00)
--- NOTE | 2024-06-13 09:22 | NUR ---
PT REMAINS UP IN THE CHAIR FINISHED WITH BREAKFAST, DAUGHTERS X2 PRESENT. PT DENIES NEEDS
[2024-06-13 10:13] LABS: ANION GAP 15.3 (7-21); BUN/CREATININE RATIO 17.47 (6.0-28.6); CALCIUM 8.9 mg/dL (8.5-10.1); CREATININE, SERUM 2.06 mg/dL (0.55-1.02); POTASSIUM 5.3 mmol/L (3.5-5.1)
--- NOTE | 2024-06-13 10:24 | NUR ---
PT UP IN THE CHAIR DAUGHTER PRESENT IN THE ROOM. PT NOTIFIED OF CURRENT LAB FOR K+ PT DENIES QUESTIONS, CONCERNS, OR NEEDS OF. FRESH H20 TO CHAIRSIDE CALL LIGHT IN REACH
--- NOTE | 2024-06-13 11:35 | NUR ---
PATIENT ACCU CHECK IS 90. PT HAS NO OTHER NEEDS AT THIS TIME, CALL LIGHT WITHIN REACH.
--- NOTE | 2024-06-13 11:48 | NUR ---
PT RETURNS TO BED TO REST, FAMILY PRESENT IN THE ROOM.
[2024-06-13] MEDS ORDERED: PHARMACY RENAL DOSE ADJUSTMENT 1 DOSE MISC PO SCH (12:00)
[2024-06-13] MEDS ORDERED: VITAMIN D21250 MCG PO (12:46)
[2024-06-13] MEDS ORDERED: DOXAZOSIN MESYLA1 MG PO (12:46)
--- NOTE | 2024-06-13 14:22 | NUR ---
medications reconciled
[2024-06-13 14:23] LABS: ANION GAP 12.3 (7-21); BUN/CREATININE RATIO 16.43 (6.0-28.6); CALCIUM 8.9 mg/dL (8.5-10.1); CREATININE, SERUM 2.13 mg/dL (0.55-1.02); POTASSIUM 6.3 mmol/L (3.5-5.1)
[2024-06-13] MEDS ORDERED: SODIUM POLYSTYRENE SULFONATE 15 GM/60 ML UDC PO ONE (14:45)
--- NOTE | 2024-06-13 15:20 | NUR ---
PT UP IN BED VISITING FAMILY. LAB RESULTS DISCUSSED WELL INTERVENTIONS. PT VERBALIZES UNDERSTANDING.
--- NOTE | 2024-06-13 16:39 | NUR ---
PT ACCUCHECK IS 113.
--- NOTE | 2024-06-13 17:33 | NUR ---
PT SITTING ON EDGE OF BED HAVING DINNER, DAUGHTER PRESENT IN THE ROOM. IV PUMP BEEPING, NEW IVF BAG HUNG. PT DENIES ANY NEEDS AT THIS TIME, CALL LIGHT WITHIN REACH.
[2024-06-13 18:15] LABS: ANION GAP 16.8 (7-21); BUN/CREATININE RATIO 17.85 (6.0-28.6); CALCIUM 9.3 mg/dL (8.5-10.1); CREATININE, SERUM 1.96 mg/dL (0.55-1.02); POTASSIUM 5.8 mmol/L (3.5-5.1)
--- NOTE | 2024-06-13 18:33 | NUR ---
DAUGHTERS ARE PRESENT IN ROOM, NEW LAB VALUE DISCUSSED PER PT REQUEST. PT FINISHED WITH 1/2 OF EVENING MEAL AGREES TO AN ENSURE SUPPLEMENT, REMAINS SITTING ON EDGE OF BED TO DRINK IT. AGREES TO CALL TO GET UP DENIES OTHER NEEDS
--- NOTE | 2024-06-13 20:55 | NUR ---
Pt awake, alert and oriented x4, on room air, lungs dim at bases, moist productive cough present. able to expectorate. tele#[address] afib rhythm. no c/o CP. legs elevated, abd HEA, had a bm this am. Received 1 ampula of D50 IV and 5 units Insulin IV per K of 5.8. Dr Leung in room earlier talking to pt. changed code status from DNR/DNI to Full CODE to family in room.
--- NOTE | 2024-06-13 22:13 | NUR ---
IN ROOM TO ASSIST PT TO THE BATHROOM. AMBULATING BACK TO BED FROM BATHROOM PT IS NOTED TO BE DYSPNIC, SP02 96% ON ROOM AIR. PT C/O LEFT CHEST PAIN WITH "WHITE SPOTS IN VISION" AND DIZZINESS. VS OBTAINED. PRIMARY RN NOTIFIED.
[2024-06-13 22:14] LABS: ANION GAP 13.7 (7-21); BUN/CREATININE RATIO 16.06 (6.0-28.6); CALCIUM 8.7 mg/dL (8.5-10.1); CREATININE, SERUM 1.93 mg/dL (0.55-1.02); POTASSIUM 4.7 mmol/L (3.5-5.1)
--- NOTE | 2024-06-13 22:25 | NUR ---
pt c/o lightheadiness. white spots with her eyes open, Left sided chest ache. dizzy after returning to bed from [facility]. Dr Leung notifed. as per Labs drawn earlier Glucose was 60, and Potassium level dropped. new orders to do CBG, was 51. orange juice with 3 packets of sugar, gram crackers and milk given. R 22 at this time, and no further c/o visual irregularities. In bed alert and oriented Dr Leung notified verbally as he is here to examine pt. Pt on tele#6 afib rhythm. stated lateral discomfort better. aware that we will recheck CBG again stated understanding
--- NOTE | 2024-06-13 22:54 | EKG ---
[facility] [address] [facility] [place] [address] Signed Atrial fibrillation Low voltage QRS Cannot rule out Anterior infarct , age undetermined T wave abnormality, consider inferior ischemia Abnormal ECG When compared with ECG of 13-AUG-2017 11:05, Vent. rate has decreased BY 34 BPM T wave inversion more evident in Inferior leads QT has shortened Confirmed by Shara Boyce MD () on 06/13/2024 10:54:23 PM Electronically Signed By: SHARA BOYCE MD 06/13/24 2254 PATIENT NAME: JAYDEN BULLOCK Electrocardiogram DATE OF : 35 PHYSICIAN: SHARA BOYCE MD REPORT #: [id number] REPORT IS CONFIDENTIAL AND NOT TO BE RELEASED WITHOUT AUTHORIZATION
[2024-06-14] VITALS (8 sets, daily range): BP systolic 111–145; BP diastolic 59–69
--- NOTE | 2024-06-14 00:29 | NUR ---
PT RESTING, EYES CLOSED, NO S/SX DISTRESS, CPOX ON AT BEDSIDE, ON ROOM AIR.IVF INFUSING, FAMILY ROOMIN IN
--- NOTE | 2024-06-14 02:36 | NUR ---
up to BRp, voided, back to bed, tolerated well, On room air, no s/sx distress. IVF infusing, CPOX on at bedside, SBA.family roomin in
--- NOTE | 2024-06-14 04:14 | NUR ---
Resting, eyes closed, no s/sx distress, IVF infusing w/o problems. tele#[address] afib[address] cpox on at bedside, on room air. family rooming in
[2024-06-14 05:33] LABS: BASOPHILS 0.7 % (0-2); EOSINOPHILS 2.6 % (0-6); HEMATOCRIT 33.2 % (35.0-50.0); MCH 33.2 (27-36); MCHC 33.2 g/dl (30-36); MCV 100.1 fl (81-99); MONOCYTES 8.4 % (0-12); NEUTROPHILS 74.3 % (39-80); PLATELET COUNT 151 K/uL (140-440); RBC 3.31 M/ul (4.3-5.7); RDW 14.2 (10.5-15.0)
[2024-06-14 05:56] LABS: ALBUMIN 2.7 g/dL (3.4-5.0); ALBUMIN/GLOBULIN RATIO 0.69 (1.1-2.4); BUN/CREATININE RATIO 14.2 (6.0-28.6); CALCIUM 8.9 mg/dL (8.5-10.1); CREATININE, SERUM 1.83 mg/dL (0.55-1.02); MAGNESIUM 1.3 mg/dL (1.8-2.4); PROTEIN, TOTAL 6.6 g/dL (6.4-8.2)
[2024-06-14] MEDS ORDERED: MAGNESIUM SULFATE 2 GM/50 ML BAG IV SCH (07:30)
--- NOTE | 2024-06-14 07:51 | NUR ---
PT RESTING QUIET ALERT AT TIME OF SHIFT REPORT, FAMILY ARE PRESENT. CALL LIGHT IN REACH DENIES NEED OF ANYTHING
--- NOTE | 2024-06-14 08:51 | NUR ---
PT SITTING UPRIGHT IN BED EATING MORNING MEAL FAMILY ARE PRESENT. UPDATED ON LABS AND PLAN OF CARE ALL QUESTIONS ANSWERED. PT DENIES DISCOMFORTS OR NEEDS OF
--- NOTE | 2024-06-14 11:44 | NUR ---
PT RESTING EYES CLOSED, FAMILY REMAIN IN THE ROOM. NO NEEDS AT THIS TIME
--- NOTE | 2024-06-14 11:52 | NUR ---
UR CLINICAL REVIEW: 2 MN FOR VERSALUS-MEETS OBSERVATION CRITERIA FOR HYPERKALEMIA [facility] OBS 06/12/24 @ 1631 ORDER MATCHES REG NO AUTH REQUIRED PER NOTIFICATION DISCHARGE TO HOME WHEN STABLE ANTICIPATE DC TODAY
[2024-06-14] MEDS ORDERED: ALBUTEROL SULFATE 0.083% 3 ML VIAL INH PRN (12:00)
--- NOTE | 2024-06-14 12:07 | NUR ---
In to see patient today and complete Case Management Assessment. Maryjo is awake, respirations are even and unlabored, and her daughter is in the room with her. Padmini is alert and oriented to person, place and time, and is able to answer questions independantly. Maryjo lives at home with two adult nephews. She states, and her daughter agrees that she is independant with ADL's and IADL's with the exception of driving, which she stopped doing about a year ago per her report. She does state that family members are available to drive her where she needs to go, daughter agrees. Maryjo wants to return to home to her current living situation, and she is hoping to discharge today. Her only concern at this time is her son who is currently in ICU. It has been arranged for the patient to be taken by wheelchair to her sons room in ICU if she so chooses to do later today. She said "I will think about it." The option has been left open for her. No further concerns were given at this time. Patient remains in bed, daughter is no the day bed in the room also. Lights turned down, comfort measures met per patient.
--- NOTE | 2024-06-14 12:30 | NUR ---
DR BOYCE IN TO MEET WITH PT AND HER DT
--- NOTE | 2024-06-14 13:40 | NUR ---
DR BOYCE IN TO SEE PT AND SPEAK WITH FAMILY. ALL QUESTIONS ANSWERED
--- NOTE | 2024-06-14 14:04 | NUR ---
VISITED DURING SPIRITUAL CARE ROUNDS. PT APPEARED TO BE SLEEPING. DID NOT DISTURB. PROVIDED PRAYER.
--- NOTE | 2024-06-14 15:24 | NUR ---
COVID SWAB COMPLETE PER ORDERS. PT SITTING UP IN BED WAITING FOR DC ALONG WITH FAMILY
[2024-06-14 15:26] LABS: INFLUENZA B NAA NEGATIVE (NEGATIVE); RESPIRATORY SYNCYTIAL VIR NAA NEGATIVE (NEGATIVE)
--- NOTE | 2024-06-14 16:36 | NUR ---
DR BOYCE IN TO SEE PT SPEAKING WITH AND FAMILY WHO ARE PRESENT
[2024-06-14] MEDS ORDERED: VENTOLIN HFA18 GM INH (16:48)
--- NOTE | 2024-06-14 17:45 | NUR ---
DAUGHTERS X2 PRESENT DC INSTRUCTIONS PROVIDED. FAMILY MET WITH DR BOYCE JUST A SHORT TIME AGO WELL AND ASKED QUESTIONS DESIRED. PT TO DR CARRILLO TOMORROW
== END 2024-06-14 17:35 | disposition home or self-care (01) ==
LOC: ED 16:29 → MS 16:31
PROVIDERS: Emergency Medicine; ADMIT Family Medicine; ATTEND Family Medicine
DX: I12.9 Hypertensive chronic kidney disease with stage 1 through stage 4 chronic kidney disease, or unspecified chronic kidney disease (principal); N18.9 Chronic kidney disease, unspecified; E87.5 Hyperkalemia; I48.21 Permanent atrial fibrillation; K21.9 Gastro-esophageal reflux disease without esophagitis; N17.9 Acute kidney failure, unspecified; E78.5 Hyperlipidemia, unspecified; I25.2 Old myocardial infarction; Z66 Do not resuscitate; Z79.01 Long term (current) use of anticoagulants; Z79.899 Other long term (current) drug therapy; Z88.1 Allergy status to other antibiotic agents; Z88.8 Allergy status to other drugs, medicaments and biological substances
CPT/HCPCS: 36415; 71045; 80048; 80053; 81003; 83735; 84100; 85025; 87502; 93005; 93010; 94640; 94760; 94762; 96360; 96361; 96365; 96366; 96375; 96376; 99285-25; G0378; J1815; J3475; J7030; J7121; U0002

== ENCOUNTER 2025-05-11 21:19 | Emergency (ER) | payer MEDICARE, OTHER ==
[~2025-05-11] VITALS: Ht 165.1 cm; Wt 61.3 kg
[~2025-05-11 21:19] MED LIST changes: +CLOPIDOGREL75 MG PO; +DOXAZOSIN MESYLA1 MG PO; +SPIRONOLACTONE25 MG PO; +VENTOLIN HFA18 GM INH; +VITAMIN D21250 MCG PO
[2025-05-11 21:56] LABS: BASOPHILS 0.5 % (0.1-1.2); EOSINOPHILS 7.4 % (0.7-5.8); LYMPHOCYTES 16.9 % (19.3-51.7); MCH 32.6 PG (25.6-32.2); MCHC 32.7 g/dL (32.2-35.5); MCV 99.5 fL (79.4-94.8); MONOCYTES 11.5 % (4.7-12.5); NEUTROPHILS 63.4 % (34.0-71.1); RBC 3.84 M/uL (3.93-5.22)
[2025-05-11 22:12] LABS: ALCOHOL, MEDICAL <3 ng/dL (<3); ALT (SGPT) 17 U/L (14-59); AST (SGOT) 18 U/L (15-37); GLOMERULAR FILTRATION RATE,EST 32 mL/min (>60); PROTEIN, TOTAL 8.4 g/dL (6.4-8.2); UREA NITROGEN 39 mg/dL (7-18)
[2025-05-11] MEDS ORDERED: SODIUM CHLORIDE 0.9% 1,000 ML IV PRN (22:30)
[2025-05-11] MEDS ORDERED: HYDROmorphone HCL 1 MG/ML SYR IV PRN (22:30)
[2025-05-11] MEDS ORDERED: HYDROCODON-ACE1 EA10 PO (23:11)
[2025-05-11] MEDS ORDERED: HYDROCODONE BIT/ACETAMINOPHEN 5/325 MG 1 TAB HOME.PACK PO PRN (23:15)
[2025-05-11 23:40] VITALS: BP 124/66
== END 2025-05-11 22:40 | disposition home or self-care (01) ==
LOC: ED 21:19
PROVIDERS: Emergency Medicine
DX: S32.301A Unspecified fracture of right ilium, initial encounter for closed fracture (principal); I10 Essential (primary) hypertension; K21.9 Gastro-esophageal reflux disease without esophagitis; I48.91 Unspecified atrial fibrillation; Z88.1 Allergy status to other antibiotic agents; Z79.01 Long term (current) use of anticoagulants; Z79.899 Other long term (current) drug therapy; W18.30XA Fall on same level, unspecified, initial encounter
CPT/HCPCS: 36415; 70450; 71260; 72125; 73700; 80053; 80307; 85025; 96374; 96375; 99284-25; A9270; G0480; J1171; J2405; J7030; Q9967